=== PATIENT | male | born 1975 | race Caucasian/White ===

== ENCOUNTER 2017-01-24 06:17 | Emergency (ER) | payer OTHER ==
[~2017-01-24] VITALS: Ht 190.5 cm; Wt 114.7 kg
[~2017-01-24 06:17] MED LIST: ACT/30 PO; B-COTAB18 PO; CINN1CAP2 PO; CITA40TA12 PO; CRAN1CAP15 PO; GLC500 PO; GLIM4TAB2 PO; MULT-506 PO
[2017-01-24 06:19] VITALS: TEMP 36.7; Ht 190.5 cm; Wt 114.7 kg
[2017-01-24] MEDS ORDERED: IBUPROFEN 600 MG TAB PO STA (06:47)
--- NOTE | 2017-01-24 06:51 | EMERGENCY ROOM VISIT NOTE ---
History Report prepared by Elroy: Cece Desai Under the Supervision of: Dr. Pantera Dill M.D. First contact with patient: 06:42 Chief Complaint: SINUS CONGESTION/PRESSURE Stated Complaint: SINUS Nursing Triage Summary: Pt states "It feels like I have a bad sinus infection." Pt states his head is stuffed up and he can feel and taste the infection. History of Present Illness The patient is a 42 year old male who presents to the Emergency Room with complaints of persistent sinus pressure that began several days ago. The patient states that recently he had a wisdom tooth extracted that did not heal properly. He states that he has been experiencing sinus congestion, nasal congestion, and nasal discharge. The patient states that he has had these in the past and has been placed on antibiotics and a nasal spray. He states that he has been experiencing a pressure headache. Source of History: patient Onset: several days ago Position: other (sinus) Quality: pressure Timing: other (persistent) Associated Symptoms: + headache Note: Associated symptoms: sinus congestion, nasal congestion, nasal discharge Review of Systems See HPI for pertinent positives & negatives. A total of 10 systems reviewed and were otherwise negative. Past Medical & Surgical Medical Problems: (1) Back pain with radiation (2) Cellulitis of leg (3) Dental caries (4) Diabetes (5) Hypertension (6) Lumbago Family History Cardiovascular disease Diabetes mellitus Social History Smoking Status: Never Smoker Smokeless Tobacco Use: No Marital Status: Housing Status: lives with significant other Occupation Status: employed Current/Historical Medications Scheduled Amoxicillin & Pot Clavulanate (Augmentin 875-125 mg), 1 TAB PO BID Citalopram Hydrobromide (Celexa), 40 MG PO QAM Glimepiride (Glimepiride), 4 MG PO QAM Metformin HCL (Glucophage *), 1,000 MG PO BID Multivitamin (Multivitamin), 1 TAB PO DAILY Pioglitazone Hcl (Actos), 30 MG PO QAM Scheduled PRN Oxycodone/Acetaminophen 5MG/325MG (Percocet 5MG/325MG), 1-2 TAB PO Q4H PRN for Pain Allergies Coded Allergies: No Known Allergies (Verified , 01/24/17) Physical Exam Vital Signs Date Time Temp Pulse Resp B/P (MAP) Pulse Ox O2 Delivery O2 Flow Rate FiO2 01/24/17 07:04 81 18 121/74 96 01/24/17 06:19 36.7 90 18 125/81 97 Room Air Physical Exam GENERAL: Patient is a healthy-appearing well-nourished male HEAD: Normocephalic atraumatic EYES: Ocular movements intact pupils equal and react to light OROPHARYNX mucous membranes are moist no exudates present no erythema or edema present. No evidence of Carlyle's angina on exam, no wound. NECK: Supple no nuchal rigidity. No evidence of meningitis or encephalitis on exam. CHEST: Good equal expansion LUNGS: Clear and equal to auscultation CARDIAC: Normal S1 and S2 ABDOMEN: Soft nontender no guarding BACK: No CVA tenderness EXTREMITIES: No pain upon palpation normal muscle strength in all groups no clubbing cyanosis or edema NEURO: Patient is following commands and answering questions appropriately. Alert and oriented x3 Cranial Nerves 2-12 grossly intact Medical Decision & Procedures Medications Administered Medications (Trade) Dose Ordered Sig/Max Route Start Time Stop Time Status Last Admin Dose Admin Amoxicillin/ Clavulanate Potassium (Augmentin Tab) 875 mg ONE ONCE PO 01/24/17 07:00 01/24/17 07:01 DC 01/24/17 06:58 875 MG Ibuprofen (Motrin Tab) 600 mg NOW STAT PO 01/24/17 06:47 01/24/17 06:48 DC 01/24/17 06:58 600 MG Oxycodone/ Acetaminophen (Percocet 5-325mg Tab) 2 tab NOW ONCE PO 01/24/17 07:00 01/24/17 07:01 DC 01/24/17 06:59 2 TAB Sodium Chloride ([place] Nasal [place]) 2 sprays NOW ONCE NA 01/24/17 07:00 01/24/17 07:01 DC 01/24/17 06:59 2 SPRAYS ED Course 0644: Past medical records reviewed. The patient was evaluated in room A10. A complete history and physical examination was performed. I discussed the exam findings with him and I discussed the treatment plan. He is ready for discharge once he receives his medications. 0647: Ordered Motrin Tab 600 mg PO. 0700: Ordered Sodium Chloride 2 sprays NA, Oxycodone/Acetaminophen 2 tab PO, Augmentin Tab 875 mg PO. Medical Decision Differential diagnosis: Etiologies such as migraine headache, meningitis, sinusitis, CO exposure, ICH, SAH, infection, tumor, headache, sinus thrombosis, arterial dissection, as well as others were entertained. This is a 42-year-old male who presents emergency department complaining of sinus-like symptoms. The patient has no evidence of meningitis encephalitis on examination. The patient has a history of sinus infections in the past and has been on antibiotics previously for them. I will place the patient on Augmentin. He was given ibuprofen as well as Percocet for the pain. I do feel that the patient as well as to be discharged home for follow-up this primary care physician however strongly cautioned him to return if he develops any severe headaches or neck pain. Patient was in agreement with the treatment plan. Medication Reconcilliation Current Medication List: was personally reviewed by me Impression Primary Impression: Sinusitis Scribe Attestation The scribe's documentation has been prepared under my direction and personally reviewed by me in its entirety. I confirm that the note above accurately reflects all work, treatment, procedures, and medical decision making performed by me. Departure Information Dispostion Home / Self-Care Prescriptions Oxycodone/Acetaminophen 5MG/325MG (PERCOCET 5MG/325MG) Tab 1-2 TAB PO Q4H Y for Pain, #14 TAB Prov: Pantera Dill MD 01/24/17 Amoxicillin & Pot Clavulanate (Augmentin 875-125 mg) 1 Tab Tab 1 TAB PO BID for 10 Days, #20 TAB Prov: Pantera Dill MD 01/24/17 Referrals No Doctor, Assigned (PCP) Rodrigo Bravo D.O. Kao, Yi How, M.D. Forms HOME CARE DOCUMENTATION FORM, IMPORTANT VISIT INFORMATION, WORK / SCHOOL INSTRUCTIONS Patient Instructions ED Sinusitis Abx Tx, My [facility] Additional Instructions Follow up with Dr Fabian's office Use spray twice every 4 hours You received narcotic or benzodiazepene medication while in the emergency room today. This is an addictive medication that may cause drowziness as well as constipation. Do not drive, operate heavy machinery, or drink alcohol under the influence of this medication. Take 600 mg Ibuprofen every 6 hours Take Percocet for breakthrough pain You have been examined and treated today on an emergency basis only. This is not a substitute for, or an effort to provide, complete comprehensive medical care. It is impossible to recognize and treat all injuries or illnesses in a single emergency department visit. It is therefore important that you follow up closely with your PCP. Call as soon as possible for an appointment. Thank you for your time and consideration. I look forward to speaking with you again soon. Please don't hesitate to call us if you have any questions. Problem Qualifiers Primary Impression: Sinusitis Sinusitis location: frontal Chronicity: acute Recurrence: not specified as recurrent Qualified Codes: J01.10 - Acute frontal sinusitis, unspecified
[2017-01-24] MEDS ORDERED: AMOX875T PO (06:53)
[2017-01-24] MEDS ORDERED: OXYC-57 PO (06:53)
[2017-01-24] MEDS ORDERED: OXYCODONE/ACETAMINOPHEN 5-325 TAB PO ONE (07:00)
[2017-01-24] MEDS ORDERED: SODIUM CHLORIDE 0.65% NA SOLN 45 ML (OCEAN) ONE (07:00)
[2017-01-24] MEDS ORDERED: AMOXICILLIN/CLAVULANATE TAB 875 MG TAB PO ONE (07:00)
[2017-01-24 07:04] VITALS: BP 121/74; PULSE 81; O2SAT 96
== END 2017-01-24 07:05 | disposition home or self-care (01) ==
LOC: C.EDB 06:18 → C.EDA 07:05
DX: E11.9 Type 2 diabetes mellitus without complications (principal); I10 Essential (primary) hypertension; Z83.3 Family history of diabetes mellitus; Z82.49 Family history of ischemic heart disease and other diseases of the circulatory system; J01.10 Acute frontal sinusitis, unspecified

== ENCOUNTER 2017-03-14 09:53 | Emergency (ER) | payer OTHER ==
[~2017-03-14] VITALS: Ht 190.5 cm; Wt 114.6 kg
[~2017-03-14 09:53] MED LIST changes: -B-COTAB18 PO; -CINN1CAP2 PO; -CRAN1CAP15 PO; +OXYC-57 PO
[2017-03-14 09:58] VITALS: Ht 190.5 cm; Wt 114.6 kg
[2017-03-14] MEDS ORDERED: ATOR10TA82 PO (10:31)
[2017-03-14] MEDS ORDERED: SULF800T23 PO (10:31)
[2017-03-14 12:12] LABS: BASO % 0.5 %; BASO ABS # 0.03 K/uL (0-0.2); COMPLETE YES; EOS % 3.4 %; HEMATOCRIT 41.1 % (42-52); IG% 0.2 %; LYMPH % 29.3 %; MEAN CELL VOLUME 92.4 fL (80-100); MEAN CORPUSCULAR HEMOGLOBIN 32.4 pg (25-34); MEAN PLATELET VOLUME 10.3 fL (7.4-10.4); MONO % 5.9 %; NEUT % 60.7 %; PLATELET COUNT 185 K/uL (130-400); RED BLOOD COUNT 4.45 M/uL (4.7-6.1)
[2017-03-14 12:34] LABS: BUN/CREATININE RATIO 15.5 (10-20); CALCIUM 8.6 mg/dl (8.5-10.1); CREATININE 1.18 mg/dl (0.60-1.40); POTASSIUM 4.4 mmol/L (3.5-5.1)
[2017-03-14] MEDS ORDERED: LEVO-366 PO (12:49)
--- NOTE | 2017-03-14 12:51 | EMERGENCY ROOM VISIT NOTE ---
History First contact with patient: 11:05 Chief Complaint: SINUS CONGESTION/PRESSURE Stated Complaint: SINUS PRESSURE AND CONGESTION Nursing Triage Summary: Sinus infection x4 months, has been on multiple ATBs. He called PCP this AM and was told to come here. Had wisdom tooth pulled 4-5 months ago and now has yellow drainage from that area. Denies fevers. History of Present Illness The patient is a 42 year old male who presents to the Emergency Room via private vehicle with complaints of "sinus congestion/pressure". The patient states that he had teeth extracted by Dr. Fernandez in [facility]. He states that these were extracted about 4 months ago. Since then he has had drainage from the posterior superior molar region as well as right sided sinusitis that is progressing to be generalized in the frontal and maxillary regions. He rates the overall pain from this as a 7/10. He has been on various antibiotics to include what he believes to be Augmentin, Bactrim and doxycycline. Most recently he has been placed upon Bactrim. He will finish this in 1 day. He has an appointment scheduled with your nose and throat on Saturday. This past Saturday he was also seen at [facility] and had a CT scan performed of his sinuses. These noted right maxillary sinusitis with fluid and mucosal thickening. Also mild right ethmoid sinus because of thickening. Also opacified right middle meatus and infundibulum. Right maxillary sinus floor defect and unerupted right maxillary molar with its roots in the sinus. Review of Systems A complete 6-point Review of Systems was discussed with the patient, with pertinent positives and negatives listed in the History of Present Illness. All remaining Review of Systems questions can be considered negative unless otherwise specified. Past Medical/Surgical History Medical Problems: (1) Back pain with radiation (2) Cellulitis of leg (3) Dental caries (4) Diabetes (5) Hypertension (6) Lumbago Family History Cardiovascular disease Diabetes mellitus Social History Smoking Status: Never Smoker Marital Status: Housing Status: lives with significant other Occupation Status: employed Current/Historical Medications Scheduled Atorvastatin (Lipitor), 10 MG PO DAILY Citalopram Hydrobromide (Celexa), 40 MG PO QAM Glimepiride (Glimepiride), 4 MG PO BID Levofloxacin (Levaquin), 500 MG PO DAILY Metformin HCL (Glucophage *), 1,000 MG PO BID Multivitamin (Multivitamin), 1 TAB PO DAILY Pioglitazone Hcl (Actos), 30 MG PO QAM Sulfamethoxazole-Trimethoprim (Bactrim Ds 800MG/160MG), 1 TAB PO BID Physical Exam Vital Signs Date Time Temp Pulse Resp B/P (MAP) Pulse Ox O2 Delivery O2 Flow Rate FiO2 03/14/17 13:00 36.6 74 18 104/68 96 Room Air 03/14/17 11:48 36.7 70 18 112/63 95 Room Air 03/14/17 10:01 96 Room Air 03/14/17 09:58 36.8 87 16 111/66 96 Room Air Physical Exam VITAL SIGNS - Vital signs and nursing notes were reviewed. Stable. GENERAL -42-year-old male appearing his stated age who is in no acute distress. Communicates well with provider and answers questions appropriately. SKIN - Without rashes. No petechial rashes. HEAD - NC/AT. No facial tenderness overlying the sinuses. EYES - PERRL with EOMI bilaterally. Sclera anicteric. EARS - No deformities of external structures noted on gross examination bilaterally. No pain elicited with palpation of the tragus bilaterally. External auditory canals without discharge or otorrhea. Tympanic membranes pearly deutsch without retraction or bulging. No fluid or purulent material visualized behind the TM. Handle of malleus, umbo, cone of light, pars tensa/ flaccid all easily visualized. NOSE - Midline and without cyanosis. No epistaxis or purulent drainage noted. Septum midline without deviation or septal hematoma noted. MOUTH/OROPHARYNX - Without perioral cyanosis. Buccal mucosa pink and moist and without leukoplakia. Tongue midline with equal elevation of palate bilaterally. No tonsillar hypertrophy, erythema, or exudates noted. Fair dentition noted. Well healed socket on superior/posterior R region. NECK - Neck with FROM. Supple to palpation. No lymphadenopathy noted. No nuchal rigidity. LUNGS - Chest wall symmetric without accessory muscle use, intercostals retractions, or central cyanosis. Normal vesicular breath sounds CTA B/L. No wheezes, rales, or rhonchi appreciated. CARDIAC - RRR with S1/S2. No murmur, rubs, or gallops appreciated. Medical Decision & Procedures Laboratory Results 03/14/17 11:40 Red Blood Count 4.45, Mean Corpuscular Volume 92.4, Mean Corpuscular Hemoglobin 32.4, Mean Corpuscular Hemoglobin Concent 35.0, Mean Platelet Volume 10.3, Neutrophils (%) (Auto) 60.7, Lymphocytes (%) (Auto) 29.3, Monocytes (%) (Auto) 5.9, Eosinophils (%) (Auto) 3.4, Basophils (%) (Auto) 0.5, Neutrophils # (Auto) 3.52, Lymphocytes # (Auto) 1.70, Monocytes # (Auto) 0.34, Eosinophils # (Auto) 0.20, Basophils # (Auto) 0.03 03/14/17 11:40 Test 03/14/17 11:40 White Blood Count 5.80 K/uL (4.8-10.8) Red Blood Count 4.45 M/uL (4.7-6.1) Hemoglobin 14.4 g/dL (14.0-18.0) Hematocrit 41.1 % (42-52) Mean Corpuscular Volume 92.4 fL (80-100) Mean Corpuscular Hemoglobin 32.4 pg (25-34) Mean Corpuscular Hemoglobin Concent 35.0 g/dl (32-36) Platelet Count 185 K/uL (130-400) Mean Platelet Volume 10.3 fL (7.4-10.4) Neutrophils (%) (Auto) 60.7 % Lymphocytes (%) (Auto) 29.3 % Monocytes (%) (Auto) 5.9 % Eosinophils (%) (Auto) 3.4 % Basophils (%) (Auto) 0.5 % Neutrophils # (Auto) 3.52 K/uL (1.4-6.5) Lymphocytes # (Auto) 1.70 K/uL (1.2-3.4) Monocytes # (Auto) 0.34 K/uL (0.11-0.59) Eosinophils # (Auto) 0.20 K/uL (0-0.5) Basophils # (Auto) 0.03 K/uL (0-0.2) RDW Standard Deviation 42.7 fL (36.4-46.3) RDW Coefficient of Variation 12.6 % (11.5-14.5) Immature Granulocyte % (Auto) 0.2 % Immature Granulocyte # (Auto) 0.01 K/uL (0.00-0.02) Anion Gap 7.0 mmol/L (3-11) Est Creatinine Clear Calc Drug Dose 111.4 ml/min Estimated GFR () 87.7 Estimated GFR (Non- 75.7 BUN/Creatinine Ratio 15.5 (10-20) Calcium Level 8.6 mg/dl (8.5-10.1) Total Bilirubin 0.6 mg/dl (0.2-1) Aspartate Amino Transf (AST/SGOT) 19 U/L (15-37) Alanine Aminotransferase (ALT/SGPT) 32 U/L (12-78) Alkaline Phosphatase 52 U/L (45-117) Total Protein 7.5 gm/dl (6.4-8.2) Albumin 3.8 gm/dl (3.4-5.0) Globulin 3.7 gm/dl (2.5-4.0) Albumin/Globulin Ratio 1.0 (0.9-2) Medical Decision Patient was seen and evaluated as above. CT scan findings as noted in history. There is a molar with extension to the sinuses bites roots. I question if this is the cause of his symptoms at this time. I believe that further evaluation by specialist is appropriate. IV access was also established, and the above workup was performed. leukocytosis. slight anemia noted. Slight hyponatremia. He also appears to be slightly dehydrated. Glucose at 208. The patient at this time appears stable for outpatient management. He is afebrile and appears well on exam. I recommend following up with the ENT doctor on Saturday, and will also prescribe Levaquin if his symptoms worsen. I informed him now however that this is at an increased risk of medication interaction as he is also on Celexa. He verbalized understanding. He is only to begin this medication if he worsens. He was educated upon management, educated upon worrisome symptoms which to return, had questions and provided discharge, and was discharged home in good condition. In evaluation treatment this patient following differential diagnoses were entertained: Sinusitis, sepsis, dental infection, among others. Impression Primary Impression: Sinusitis Departure Information Dispostion Home / Self-Care Condition GOOD Prescriptions Levofloxacin (Levaquin) 500 Mg Tab 500 MG PO DAILY for 7 Days, #7 TAB Prov: Camilo Mo PA-C 03/14/17 Referrals Rodrigo Bravo D.O. (PCP) Patient Instructions My [facility] Additional Instructions You were seen in the emergency department for sinusitis. I have recommended another antibiotic but be careful as this can interact with your Celexa. This is only if you absolutely need to begin another medication but I would rather you speak with ENT first. Please keep your Saturday appointment. Please stay well hydrated and drink plenty of fluids. Closely watch your sugars. Please return with any new/concerning symptoms.
[2017-03-14 13:00] VITALS: BP 104/68; PULSE 74; TEMP 36.6; O2SAT 96
== END 2017-03-14 13:11 | disposition home or self-care (01) ==
LOC: C.EDB 09:55 → C.EDA 13:11
DX: J01.90 Acute sinusitis, unspecified (principal); E11.9 Type 2 diabetes mellitus without complications; I10 Essential (primary) hypertension; M54.5 Low back pain; Z79.84 Long term (current) use of oral hypoglycemic drugs; Z83.3 Family history of diabetes mellitus

== ENCOUNTER 2017-08-19 06:42 | Emergency (ER) | payer OTHER ==
[~2017-08-19] VITALS: Ht 190.5 cm; Wt 119.6 kg
[~2017-08-19 06:42] MED LIST changes: +ATOR10TA82 PO; -OXYC-57 PO; +SULF800T23 PO
[2017-08-19 06:45] VITALS: BP 130/76; PULSE 92; TEMP 36.6; O2SAT 95; Ht 190.5 cm; Wt 119.6 kg
[2017-08-19] MEDS ORDERED: IBUPROFEN 600 MG TAB PO STA (07:09)
[2017-08-19] MEDS ORDERED: ONDA4TAB10 SL (07:13)
--- NOTE | 2017-08-19 07:13 | EMERGENCY ROOM VISIT NOTE ---
History Report prepared by Elroy: Radha Santana Under the Supervision of: Dr. Pantera Eldridge D.O. First contact with patient: 06:56 Chief Complaint: ABDOMINAL PAIN Stated Complaint: UPSET STOMACH Nursing Triage Summary: "My stomachs been upset and I haven't felt real well for the last week". Nausea. Slight headaches. History of Present Illness The patient is a 42 year old male who presents to the Emergency Room with complaints of constant abdominal pain starting a few days ago. The patient currently rates his pain as a 6/10 in severity. He reports that the pain is throughout his whole abdomen. The patient complains of nausea, slight cough, and a headache. The patient denies vomiting, sore throat, a runny nose, and taking any Tylenol or Motrin. The patient notes a history of diabetes that he takes pills for. Source of History: patient Onset: a few days ago Position: abdomen Symptom Intensity: 6/10 Timing: constant Associated Symptoms: + headache, + cough, + nausea, No sorethroat, No vomiting Note: The patient denies a runny nose. Review of Systems See HPI for pertinent positives & negatives. A total of 10 systems reviewed and were otherwise negative. Past Medical & Surgical Medical Problems: (1) Back pain with radiation (2) Cellulitis of leg (3) Dental caries (4) Diabetes (5) Hypertension (6) Lumbago Family History Cardiovascular disease Diabetes mellitus Social History Smoking Status: Never Smoker Marital Status: Housing Status: lives with significant other Occupation Status: employed Current/Historical Medications Scheduled Atorvastatin (Lipitor), 10 MG PO DAILY Citalopram Hydrobromide (Celexa), 40 MG PO QAM Glimepiride (Glimepiride), 4 MG PO BID Metformin HCL (Glucophage *), 1,000 MG PO BID Multivitamin (Multivitamin), 1 TAB PO DAILY Pioglitazone Hcl (Actos), 30 MG PO QAM Sulfamethoxazole-Trimethoprim (Bactrim Ds 800MG/160MG), 1 TAB PO BID Allergies Coded Allergies: No Known Allergies (Verified , 03/14/17) Physical Exam Vital Signs Date Time Temp Pulse Resp B/P (MAP) Pulse Ox O2 Delivery O2 Flow Rate FiO2 08/19/17 06:45 36.6 92 20 130/76 95 Room Air Physical Exam CONSTITUTIONAL/VITAL SIGNS: Reviewed / noted above. GENERAL: Non-toxic in appearance. INTEGUMENTARY: Warm, dry, and [place]. HEAD: Normocephalic. EYES: without scleral icterus or trauma. ENT/OROPHARYNX: clear and moist. LYMPHADENOPATHY/NECK: Is supple without lymphadenopathy or meningismus. RESPIRATORY: Lungs clear and equal. CARDIOVASCULAR: Regular rate and rhythm. GI/ABDOMEN: Soft and nontender. No organomegaly or pulsatile mass. No rebound or guarding. Normal bowel sounds. EXTREMITIES: Warm and well perfused. BACK: No CVA tenderness. NEUROLOGICAL: Intact without focal deficits. PSYCHIATRIC: normal affect. MUSCULOSKELETAL: Normally developed with good muscle tone. Medical Decision & Procedures ED Course 0704: Previous medical records were reviewed. The patient was evaluated in room A12B. A complete history and physical examination was performed. I discussed the results and findings with the patient. He verbalized agreement of the treatment plan. The patient was discharged home. 0709: Ordered Ibuprofen 600 mg PO. 0715: Ordered Zofran Odt 4 mg PO. Medical Decision Differential includes viral illness, influenza, streptococcal pharyngitis, meningitis, pneumonia, sinusitis, UTI, pyelonephritis, otitis media. This is a 42-year-old male who presents to the ED with a chief complaint of upset stomach, headache and some nausea. He has had the symptoms for a few days. He denies any other symptoms. Has not had fevers. He does have a history of diabetes not requiring insulin. The patient has normal vital signs. His physical exam was normal. The patient was treated with Zofran ODT and Motrin p.o. His symptoms are likely viral in etiology. His exam was normal and therefore I did not feel any testing would reveal any additional information that cannot be obtained based on his history and exam. He did not take anything for his symptoms prior to coming. The patient requested a work note. He was felt to be stable for discharge. Medication Reconcilliation Current Medication List: was personally reviewed by me Blood Pressure Screening Patient's blood pressure: Normal blood pressure Blood pressure disposition: Did not require urgent referral Impression Primary Impression: Nausea Additional Impression: Headache Scribe Attestation The scribe's documentation has been prepared under my direction and personally reviewed by me in its entirety. I confirm that the note above accurately reflects all work, treatment, procedures, and medical decision making performed by me. Departure Information Dispostion Home / Self-Care Prescriptions Ondasetron Odt (ZOFRAN ODT) 4 Mg Tab 4 MG SL Q6H for Nausea, #6 TAB Prov: Pantera Eldridge D.O. 08/19/17 Referrals Rodrigo Bravo D.O. (PCP) Forms Call Back Authorization, HOME CARE DOCUMENTATION FORM, IMPORTANT VISIT INFORMATION, Work Instructions Return To Work: 1 day Specific Date: 08/20/17 Patient Instructions My [facility] Additional Instructions Follow-up with your doctor for further care and evaluation in 1-2 days. Return to the emergency department for worsening or new symptoms or any concerns. You have been examined and treated today on an emergency basis only. This is not a substitute for, or an effort to provide, complete comprehensive medical care. It is impossible to recognize and treat all injuries or illnesses in a single emergency department visit. It is therefore important that you follow up closely with your doctor. Call as soon as possible for an appointment. Zofran: Allow one tablet to dissolve under the tongue every 6 hours as needed for nausea or vomiting. Problem Qualifiers
[2017-08-19] MEDS ORDERED: ONDANSETRON 4MG OD TAB PO ONE (07:15)
[2017-08-19] MEDS ORDERED: METF-384 PO (07:20)
== END 2017-08-19 07:26 | disposition home or self-care (01) ==
LOC: C.EDB 06:43 → C.EDA 07:26
DX: R11.0 Nausea (principal); R51 Headache; E11.9 Type 2 diabetes mellitus without complications; I10 Essential (primary) hypertension; Z79.84 Long term (current) use of oral hypoglycemic drugs; Z79.899 Other long term (current) drug therapy

== ENCOUNTER 2019-01-01 23:07 | Inpatient (IN) ==
[2019-01-01] MEDS ORDERED: SODIUM CHLORIDE 0.9% 1000ML 1,000 ML IV ONE (23:42)
[2019-01-01] MEDS ORDERED: VANCOMYCIN CONSULT ACTIVE PRN (23:45)
[2019-01-01] MEDS ORDERED: VANCOMYCIN HCL 2,000 MG in SODIUM CHLORIDE 0.9% 500 ML IV ONE (23:45)
[2019-01-01] MEDS ORDERED: PIPERACILLIN/TAZOBACTAM 4.5 GM/120 ML BAG IV ONE (23:45)
[2019-01-01] MEDS ORDERED: PIPERACILL/TAZOBAC CONSULT ACTIVE PRN (23:45)
[2019-01-02 00:17] LABS: Basophils # (auto) 0.02 K/uL (0-0.2); Basophils % (auto) 0.2 %; Eosinophils # (auto) 0.14 K/uL (0-0.5); Eosinophils % (auto) 1.3 %; Hematocrit (blood only) 41.3 % (42-52); Hemoglobin 15.2 g/dL (14.0-18.0); Immature Granulocytes # (auto) 0.02 K/uL (0.00-0.02); Immature Granulocytes % (auto) 0.2 %; Lymphocytes # (auto) 1.58 K/uL (1.2-3.4); Lymphocytes % (auto) 14.9 %; Mean Corpuscular Hemoglobin 33.5 pg (25-34); Mean Corpuscular Hgb Conc 36.8 g/dL (32-36); Mean Platelet Volume 10.7 fL (7.4-10.4); Monocytes # (auto) 0.86 K/uL (0.11-0.59); Monocytes % (auto) 8.1 %; Neutrophils # (auto) 7.99 K/uL (1.4-6.5); Neutrophils % (auto) 75.3 %; Platelet Count 226 K/uL (130-400); RDW Coefficient of Variation 12.2 % (11.5-14.5); RDW Standard Deviation 40.6 fL (36.4-46.3); Red Blood Count 4.54 M/uL (4.7-6.1); White Blood Count 10.61 K/uL (4.8-10.8)
[2019-01-02 00:35] LABS: Base Excess VBG 1.7 mEq/L; Oxygen Saturation VBG 76.7 %; pH VBG 7.44 (7.36-7.41)
[2019-01-02 00:40] LABS: Albumin Level 3.7 gm/dl (3.4-5.0); BUN Creatinine Ratio 14.4 (10-20); Bilirubin Direct 0.3 mg/dl (0-0.2); Bilirubin,Total 0.8 mg/dl (0.2-1); Calcium 9.1 mg/dl (8.5-10.1); Creatinine Clr Calc Pharmacy 95.1 ml/min; Est GFR (African American) 96.9; Est GFR (Non-African American) 83.6; Magnesium 2.2 mg/dl (1.8-2.4); Potassium 3.9 mmol/L (3.5-5.1); Total Protein 8.7 gm/dl (6.4-8.2)
[2019-01-02] MEDS ORDERED: SODIUM CHLORIDE 0.9% 1000ML 1,000 ML IV ONE (00:48)
[2019-01-02 00:53] LABS: Beta-Hydroxybutyrate 9.97 mg/dl (0.2-2.81)
[2019-01-02] MEDS ORDERED: IOVERSOL 100ml IV PRN (02:03)
[2019-01-02] MEDS ORDERED: SODIUM CHLORIDE 0.9% 1000ML 1,000 ML IV SCH (02:45)
--- NOTE | 2019-01-02 02:51 | Emergency Department Note ---
Entered by Ama Casas acting as a scribe for Oseas Springer MD ED Provider Note Name: Aj Suarez Age: 43 M Arrives Via: Ambulatory Informant: Patient CC: Right lower extremity pain HPI: 43 male arrives for evaluation of his right lower extremity. The patient reports that he has been experiencing pain and redness in his right lower extremity. He notes that he went to [place] on Saturday where they discharged him with antibiotics. He notes that the redness has worsened since then. He sta chloe that the pain worsens when walking. He does not remember getting injured. The patient denies any calf pain, nausea, vomiting, fever, or groin pain. He mentions that he is diabetic and his blood sugar has been in the 500s recently. The patient denies any drug use or steroid use. The patient states that he chews tobacco and occasionally smokes marijuana ROS: See above HPI for pertinent positives & negatives. A total of 10 systems reviewed and were otherwise negative. Past Medical History: HTN and diabetes mellitus Past Surgical History: No significant past surgical history Family History: No significant family history Social History: See below Home Medications: Atorvastatin, Escitalopram Oxalate, Glimepiride, and Metformin Allergies Pollen Physical: Vitals: BP 125/78, P 108, R 16, O2 96%, Temp 99 Exam: GENERAL: Patient is uncomfortable appearing and in moderate acute distress. EYES: No scleral icterus, unremarkable pupils. ENT: Mucous membranes moist, no nasal congestion. NECK: No masses appreciated, no meningismus, trachea is midline. RESPIRATORY: No dyspnea. Clear to auscultation and equal bilaterally. No wheeze, no rhonchi. CARDIOVASCULAR: Regular rate and rhythm. No murmurs, rubs, gallops appreciated. GASTROINTESTINAL: Abdomen soft, non-tender, no peritonitis. Bowel sounds positive. No masses appreciated. BACK: No midline tenderness, no CVA tenderness EXTREMITIES: Normal motion all extremities, no cyanosis, no edema. NEUROLOGIC: Alert and oriented, no acute motor or sensory deficits, no focal weakness, cranial nerves grossly intact. SKIN: No jaundice, no diaphoresis. Large area of cellulitis on entire right l ower leg just above the knee and to the toe, anterior lateral mid resendiz 1 cm ulceration with surrounding fluctuance and tenderness to palpation. Ulcer to medial aspect of the right great toe with surrounding cellulitis. ED Course: Prior Medical Record, Triage/Nursing Notes, Medications, Allergies reviewed by Me Vital Signs: reviewed and remarkable for wnl Labs: Reviewed and remarkable for normal wbc, elevated esr, elevated crp, normal vbg, elevated bsg Interventions: saline lock, nss bolus 2 L IV, vanco IV, Zosyn IV Imaging: X ray results are stated below per my interpretation: Tib/Fib Right Le view: Mid tibia foreign body with soft tissue edema and no free air appreciated. Blood pressure: Normal. No Referral necessary Course: 233: The patient was evaluated in room C7, and a complete history and physical examination were performed. Multiple rechecks, feeling better, stable vitals 0230: I reviewed the patient's case with Dr. Leighton Jaramillo Hospitalist. He will evaluate the patient for further management. Consults: Dr. Leighton Jaramillo [facility] Disposition: Hospitalist consulted Differentials: Etiologies such as cellulitis, abscess, MRSA infection, DVT, necrotizing fasciitis, dermatitis, drug eruption, amongst other pathologies. Medical Decision Makin yr old diabetic male who may have had foreign body to right resendiz last week now with cellulitis right lower leg. Has been on clinda over last few days with worsening cellulitis. Now with cellulitis with entire right lower leg from knee to toes. Right great toe with diabetic ulcer looks infected and I suspect there may be osteo vs arthritis of this toe. With concern foreign body and swelling w ent with CT for further imaging of lower leg. Issues with stat rad thus this imaging pending. Patient tolerating this well and stable. Patient is not in septic shock with normal bp, normal lactate. Impression: Cellulitis and abscess of lower extremity Abrasion fo right toe infected Acute Hyperglycemia The scribe's documentation has been prepared under my direction and personally reviewed by me in its entirety. I confirm that the note above accurately reflects all work, treatment, procedures, and medical decision making performed by me. Oseas Springer MD Impression & Plan Cellulitis and abscess of lower extremity, Abrasion of toe, right, infected, Acute hyperglycemia Past Med/Surg History Medical History Dental caries (Resolved) Lumbago (Chronic) Hypertension (Chronic) Diabetes (Chronic) Social History marital status: Current Living Situation: Spouse and Family current occupational status: employed Feels Safe at Home: Yes Smoking Status: Never smoker Hx Alcohol Use: No Results & Data Vital Signs Vital Signs - 24 hr 01/01/19 23:11 01/02/19 00:46 01/02/19 01:59 Temperature 37.2 C Temperature Source Oral Sepsis Recent Fever Within 48 Hours No Sepsis New/Unexplained Change in Mental Status No Sepsis Action Taken by Nursing No Action Required Pulse Rate 108 H Pulse Rate [Apical] 78 Respiratory Rate 16 18 21 Respiratory Effort / Characteristics Non-Labored Spontaneous Non-Labored Spontaneous Respiratory Depth Normal Normal Normal Respiratory Pattern Regular Regular Blood Pressure 125/78 Blood Pressure [Left Arm] 135/79 131/76 Blood Pressure Mean 93 Blood Pressure Mean [Left Arm] 97 94 Blood Pressure Position [Left Arm] Lying Pulse Oximetry 96 98 98 Oxygen Delivery Method Room Air Room Air Room Air 01/02/19 02:33 Temperature Temperature Source Sepsis Recent Fever Within 48 Hours Sepsis New/Unexplained Change in Mental Status Sepsis Action Taken by Nursing Pulse Rate Pulse Rate [Apical] 87 Respiratory Rate 20 Respiratory Effort / Characteristics Non-Labored Spontaneous Respiratory Depth Normal Respiratory Pattern Regular Blood Pressure Blood Pressure [Left Arm] 112/74 Blood Pressure Mean Blood Pressure Mean [Left Arm] 86 Blood Pressure Position [Left Arm] Lying Pulse Oximetry 96 Oxygen Delivery Method Room Air Home Medications Current Medication List: was personally reviewed by me Laboratory Data Attestation: I reviewed the patient's lab results. Result diagrams: 01/02/19 00:04 01/02/19 00:04 Lab Results 01/02/19 01/02/19 01/02/19 Range/Units 00:04 00:04 00:04 WBC 10.61 (4.8-10.8) K/uL RBC 4.54 L (4.7-6.1) M/uL Hgb 15.2 (14.0-18.0) g/dL Hct 41.3 L (42-52) % MCV 91.0 (80-100) fL MCH 33.5 (25-34) pg MCHC 36.8 H (32-36) g/dL RDW Std Deviation 40.6 (36.4-46.3) fL RDW Coeff of Saida 12.2 (11.5-14.5) % Plt Count 226 (130-400) K/uL MPV 10.7 H (7.4-10.4) fL Immature Gran % (Auto) 0.2 % Neut % (Auto) 75.3 % Lymph % (Auto) 14.9 % [place] % (Auto) 8.1 % Eos % (Auto) 1.3 % Baso % (Auto) 0.2 % Immature Gran # (Auto) 0.02 (0.00-0.02) K/uL Neut # (Auto) 7.99 H (1.4-6.5) K/uL Lymph # (Auto) 1.58 (1.2-3.4) K/uL [place] # (Auto) 0.86 H (0.11-0.59) K/uL Eos # (Auto) 0.14 (0-0.5) K/uL Baso # (Auto) 0.02 (0-0.2) K/uL ESR 75 H (0-14) mm/hr VBG pH (7.36-7.41) VBG pCO2 (38-50) mmHg VBG pO2 mmHg VBG HCO3 mmol/L VBG O2 Saturation % VBG Base Excess mEq/L Barometric Pressure mm/Hg Sodium 133 L (136-145) mmol/L Potassium 3.9 (3.5-5.1) mmol/L Chloride 99 (98-107) mmol/L Carbon Dioxide 26 (21-32) mmol/L Anion Gap 8.0 (3-11) BUN 16 (7-18) mg/dl Creatinine 1.08 (0.6-1.4) mg/dl Est Cr Clr Drug Dosing 95.1 ml/min Est GFR ( Amer) 96.9 Est GFR (Non-Af Amer) 83.6 BUN/Creatinine Ratio 14.4 (10-20) Glucose 333 H* (70-99) mg/dl POC Glucose (70-99) Lactate (0.4-2.0) mmol/L Calcium 9.1 (8.5-10.1) mg/dl Magnesium 2.2 (1.8-2.4) mg/dl Total Bilirubin 0.8 (0.2-1) mg/dl Direct Bilirubin 0.3 H (0-0.2) mg/dl AST 6 L (15-37) U/L ALT 16 (12-78) U/L Alkaline Phosphatase 78 (45-117) U/L Total Creatine Kinase 55 (39-308) U/L C-Reactive Protein 10.00 H (0-0.29) mg/dl Total Protein 8.7 H (6.4-8.2) gm/dl Albumin 3.7 (3.4-5.0) gm/dl Beta-Hydroxybutyric Acd 9.97 H (0.2-2.81) mg/dl 01/02/19 01/02/19 01/02/19 Range/Units 00:04 00:08 02:38 WBC (4.8-10.8) K/uL RBC (4.7-6.1) M/uL Hgb (14.0-18.0) g/dL Hct (42-52) % MCV (80-100) fL MCH (25-34) pg MCHC (32-36) g/dL RDW Std Deviation (36.4-46.3) fL RDW Coeff of Saida (11.5-14.5) % Plt Count (130-400) K/uL MPV (7.4-10.4) fL Immature Gran % (Auto) % Neut % (Auto) % Lymph % (Auto) % [place] % (Auto) % Eos % (Auto) % Baso % (Auto) % Immature Gran # (Auto) (0.00-0.02) K/uL Neut # (Auto) (1.4-6.5) K/uL Lymph # (Auto) (1.2-3.4) K/uL [place] # (Auto) (0.11-0.59) K/uL Eos # (Auto) (0-0.5) K/uL Baso # (Auto) (0-0.2) K/uL ESR (0-14) mm/hr VBG pH 7.44 H (7.36-7.41) VBG pCO2 39 (38-50) mmHg VBG pO2 41 mmHg VBG HCO3 26 mmol/L VBG O2 Saturation 76.7 % VBG Base Excess 1.7 mEq/L Barometric Pressure 732.4 mm/Hg Sodium (136-145) mmol/L Potassium (3.5-5.1) mmol/L Chloride (98-107) mmol/L Carbon Dioxide (21-32) mmol/L Anion Gap (3-11) BUN (7-18) mg/dl Creatinine (0.6-1.4) mg/dl Est Cr Clr Drug Dosing ml/min Est GFR ( Amer) Est GFR (Non-Af Amer) BUN/Creatinine Ratio (10-20) Glucose (70-99) mg/dl POC Glucose 267 H (70-99) Lactate 1.4 (0.4-2.0) mmol/L Calcium (8.5-10.1) mg/dl Magnesium (1.8-2.4) mg/dl Total Bilirubin (0.2-1) mg/dl Direct Bilirubin (0-0.2) mg/dl AST (15-37) U/L ALT (12-78) U/L Alkaline Phosphatase (45-117) U/L Total Creatine Kinase (39-308) U/L C-Reactive Protein (0-0.29) mg/dl Total Protein (6.4-8.2) gm/dl Albumin (3.4-5.0) gm/dl Beta-Hydroxybutyric Acd (0.2-2.81) mg/dl Administered Medications Ioversol (Optiray 320 100ml) 92 ml IV ONCE PRN PRN Reason: Interaction Checking Stop: 01/06/19 02:02 Last Admin: 01/02/19 02:03 Dose: 1 ml Documented by: [id number] Miscellaneous Information (Consult) 1 ea N/A UD PRN PRN Reason: Consult Stop: 01/31/19 23:44 Last Admin: 01/02/19 00:29 Dose: 1 ea Documented by: [id number] Miscellaneous Information (Consult) 1 ea N/A UD PRN PRN Reason: Consult Stop: 01/31/19 23:44 Last Admin: 01/02/19 00:29 Dose: 1 ea Documented by: [id number] Discontinued Medications Piperacillin Sod/Tazobactam Sod (Zosyn) 4.5 gm in 120 mls @ 240 mls/hr IV NOW ONE Stop: 01/02/19 00:14 Last Infusion: 01/02/19 01:15 Dose: 0 mls/hr Documented by: [id number] Admin: 01/02/19 00:42 Dose: 240 mls/hr Documented by: [id number] Sodium Chloride (Nss 1000ml) 1,000 mls @ 999 mls/hr IV .Q1H1M ONE Stop: 01/02/19 00:42 Last Infusion: 01/02/19 01:59 Dose: 0 mls/hr Documented by: [id number] Admin: 01/02/19 00:25 Dose: 999 mls/hr Documented by: [id number] Vancomycin HCl 2,000 mg/ (Sodium Chloride) 540 mls @ 200 mls/hr IV NOW ONE Stop: 01/02/19 02:26 Last Admin: 01/02/19 00:25 Dose: 200 mls/hr Documented by: [id number] Sodium Chloride (Nss 1000ml) 1,000 mls @ 999 mls/hr IV .Q1H1M ONE Stop: 01/02/19 01:48 Last Infusion: 01/02/19 02:22 Dose: 0 mls/hr Documented by: [id number] Admin: 01/02/19 01:14 Dose: 999 mls/hr Documented by: [id number] Discharge Plan Visit Data Chief Complaint: Infection Stated Complaint: INFECTION IN LEFT LOW LEG ED Provider: Oseas Springer Discharge Problem: Cellulitis and abscess of lower extremity, Abrasion of toe, right, infected, Acute hyperglycemia Patient Disposition: Being Evaluated by Hospitalist Forms Stand Alone Forms: My [facility] Prescriptions Prescriptions: No Action escitalopram oxalate 20 mg tablet 20 mg PO QAM RF: 0 loratadine [Allergy Relief (loratadine)] 10 mg Tablet 10 mg PO DAILY PRN (Reason: Allergy Symptoms) RF: 0 atorvastatin 10 mg tablet 10 mg PO QAM RF: 0 metformin 1,000 mg tablet 1,000 mg PO BID RF: 0 glimepiride 4 mg tablet 4 mg PO QAM RF: 0 pioglitazone 30 mg tablet 30 mg PO QAM RF: 0 Lantus Solostar U-100 Insulin 100 unit/mL (3 mL) insulin pen 20 unit subcut HS RF: 0 Referrals Referrals: Rodrigo Bravo [Primary Care Provider] - Discharge Problem: Abrasion of toe, right, infected Qualifiers: Encounter type: initial encounter Qualified Code(s): S90.414A - Abrasion, right lesser toe(s), initial encounter The scribe's documentation has been prepared under my direction and personally reviewed by me in its entirety. I confirm that the note above accurately reflects all work, treatment, procedures, and medical decision making performed by me.
[2019-01-02] MEDS ORDERED: INSULIN GLARGINE SOLOSTAR 100 UNITS/ML 3 ML PEN SQ STA ×2 (03:46→05:54)
[2019-01-02] MEDS ORDERED: LACTATED RINGER'S 1,000 ML IV ONE (04:49)
--- NOTE | 2019-01-02 04:50 | History & Physical Report ---
Date of Service January 02, 2019 Assessment & Plan (1) Cellulitis: Cellulitis, RLE Diabetic toe infections Failed outpatient treatment No sepsis Rule out osteomyelitis for toe wounds given uncertain duration DM 2 insulin requiring, recent outpatient hemoglobin A1c was 7.11 Aug 2015 Home BSGs uncontrolled as per patient (BSG is usually in the 300s as per her account) hyperlipidemia on statin Rx mood disorder, stable GMF IV Daptomycin, Cefepime Follow official plain x-ray results May need MRI of the toes to definitively rule out osteo-mellitus if plain x-rays negative Ortho consult RE RLE cellulitis, great toe wounds Offload lower extremities Basal insulin, ISS BG goal 1 10-1 40, carb count coverage, update hemoglobin A1c May benefit from pharmacy glycemic control consult DVT prophylaxis. Lovenox subcu Full code History of Present Illness Chief Complaint: Worsening right leg swelling Primary Care Provider: Rodrigo Bravo History obtained from patient and records. Medical history significant for DM 2 insulin requiring, hyperlipidemia, mood disorder. Patient has also had some wounds on both great toes for some time now. No recollection of trauma. Last week patient noted a blister on his right leg which he manipulated causing rupture yielding serosanguineous fluid. Patient noted progressive right leg swelling without fever and chills. Patient seen at [facility] ER 3 days ago. Patient prescribed clindamycin for cellulitis. Patient presented to the ER for worsening R leg swelling despite compliance with antibiotic Rx. No chest pain, no S OB. Patient received IV vancomycin and Zosyn at the ER. 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 Allergies Allergy/AdvReac Type Severity Reaction Status Date / Time pollen extracts Allergy Intermediate ITCHY Verified 01/02/19 00:08 EYES, SNEEZING, CONGESTION Home Medications Home Medications Medication Instructions Recorded Confirmed Type atorvastatin 10 mg PO QAM 04/14/18 01/02/19 History glimepiride 4 mg PO QAM 04/14/18 01/02/19 History insulin glargine [Lantus Solostar 20 unit SUBCUT HS 04/14/18 01/02/19 History U-100 Insulin] metformin 1,000 mg PO BID 04/14/18 01/02/19 History pioglitazone 30 mg PO QAM 04/14/18 01/02/19 History escitalopram oxalate 20 mg PO QAM 08/23/18 01/02/19 History loratadine [Allergy Relief 10 mg PO DAILY PRN 01/02/19 01/02/19 History (loratadine)] Past Med/Surg History Medical History Dental caries (Resolved) Lumbago (Chronic) Hypertension (Chronic) Diabetes (Chronic) Social History Preferred Language: Sami Communication Ability: Effective 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 Beliefs That Will Affect Care: None marital status: Current Living Situation: Other current occupational status: employed Other Information That Helps Us Care for You: No Feels Safe at Home: Yes Safety Concerns: Feels Safe At This Time Smoking Status: Never smoker Hx Alcohol Use: Yes Alcohol type: beer and hard liquor Hx Substance Use: No Review of Systems Review of Systems: As per HPI, all 10 systems reviewed, all other ROS negative Physical Exam Physical Exam: GENERAL: Comfortable, pleasant, no respiratory distress SKIN: Normal color, warm HEENT: [place] palpebral conjunctivae, no ptosis, dry buccal mucosa NECK : Supple, no tenderness CHEST : CTA, no tenderness HEART : RRR, no obvious murmurs ABDOMEN: Soft, nontender EXTREMITIES : RLE indurated swelling with overlying scab/tenderness; ulcerated wounds over both great toes with some surrounding erythema, no gross drainage NEUROLOGIC : Coherent, no facial asymmetry, no other gross focality Results & Data Vital Signs (Past 12 Hours) Vital Signs Temp Pulse Pulse Resp BP BP Pulse Ox 01/02/19 03:50 75 18 96 01/02/19 02:33 87 20 112/74 96 01/02/19 01:59 21 131/76 98 01/02/19 00:46 78 18 135/79 98 01/01/19 23:11 37.2 C 108 H 16 125/78 96 Laboratory Results Laboratory Results WBC 10.61 K/uL (4.8-10.8) 01/02/19 00:04 RBC 4.54 M/uL (4.7-6.1) L 01/02/19 00:04 Hgb 15.2 g/dL (14.0-18.0) 01/02/19 00:04 Hct 41.3 % (42-52) L 01/02/19 00:04 MCV 91.0 fL (80-100) 01/02/19 00:04 MCH 33.5 pg (25-34) 01/02/19 00:04 MCHC 36.8 g/dL (32-36) H 01/02/19 00:04 RDW Std Deviation 40.6 fL (36.4-46.3) 01/02/19 00:04 RDW Coeff of Saida 12.2 % (11.5-14.5) 01/02/19 00:04 Plt Count 226 K/uL (130-400) 01/02/19 00:04 MPV 10.7 fL (7.4-10.4) H 01/02/19 00:04 Immature Gran % (Auto) 0.2 % 01/02/19 00:04 Neut % (Auto) 75.3 % 01/02/19 00:04 Lymph % (Auto) 14.9 % 01/02/19 00:04 [place] % (Auto) 8.1 % 01/02/19 00:04 Eos % (Auto) 1.3 % 01/02/19 00:04 Baso % (Auto) 0.2 % 01/02/19 00:04 Immature Gran # (Auto) 0.02 K/uL (0.00-0.02) 01/02/19 00:04 Neut # (Auto) 7.99 K/uL (1.4-6.5) H 01/02/19 00:04 Lymph # (Auto) 1.58 K/uL (1.2-3.4) 01/02/19 00:04 [place] # (Auto) 0.86 K/uL (0.11-0.59) H 01/02/19 00:04 Eos # (Auto) 0.14 K/uL (0-0.5) 01/02/19 00:04 Baso # (Auto) 0.02 K/uL (0-0.2) 01/02/19 00:04 ESR 75 mm/hr (0-14) H 01/02/19 00:04 VBG pH 7.44 (7.36-7.41) H 01/02/19 00:08 VBG pCO2 39 mmHg (38-50) 01/02/19 00:08 VBG pO2 41 mmHg 01/02/19 00:08 VBG HCO3 26 mmol/L 01/02/19 00:08 VBG O2 Saturation 76.7 % 01/02/19 00:08 VBG Base Excess 1.7 mEq/L 01/02/19 00:08 Barometric Pressure 732.4 mm/Hg 01/02/19 00:08 Sodium 133 mmol/L (136-145) L 01/02/19 00:04 Potassium 3.9 mmol/L (3.5-5.1) 01/02/19 00:04 Chloride 99 mmol/L (98-107) 01/02/19 00:04 Carbon Dioxide 26 mmol/L (21-32) 01/02/19 00:04 Anion Gap 8.0 (3-11) 01/02/19 00:04 BUN 16 mg/dl (7-18) 01/02/19 00:04 Creatinine 1.08 mg/dl (0.6-1.4) 01/02/19 00:04 Est Cr Clr Drug Dosing 95.1 ml/min 01/02/19 00:04 Est GFR ( Amer) 96.9 01/02/19 00:04 Est GFR (Non-Af Amer) 83.6 01/02/19 00:04 BUN/Creatinine Ratio 14.4 (10-20) 01/02/19 00:04 Glucose 333 mg/dl (70-99) H* 01/02/19 00:04 POC Glucose 256 (70-99) H 01/02/19 03:57 Lactate 1.4 mmol/L (0.4-2.0) 01/02/19 00:04 Calcium 9.1 mg/dl (8.5-10.1) 01/02/19 00:04 Magnesium 2.2 mg/dl (1.8-2.4) 01/02/19 00:04 Total Bilirubin 0.8 mg/dl (0.2-1) 01/02/19 00:04 Direct Bilirubin 0.3 mg/dl (0-0.2) H 01/02/19 00:04 AST 6 U/L (15-37) L 01/02/19 00:04 ALT 16 U/L (12-78) 01/02/19 00:04 Alkaline Phosphatase 78 U/L (45-117) 01/02/19 00:04 Total Creatine Kinase 55 U/L (39-308) 01/02/19 00:04 C-Reactive Protein 10.00 mg/dl (0-0.29) H 01/02/19 00:04 Total Protein 8.7 gm/dl (6.4-8.2) H 01/02/19 00:04 Albumin 3.7 gm/dl (3.4-5.0) 01/02/19 00:04 Beta-Hydroxybutyric Acd 9.97 mg/dl (0.2-2.81) H 01/02/19 00:[address] right lower extremity initial read: Diffuse soft tissue fat stranding and edema throughout the right lower extremity greatest in the anterior lateral and posterior aspects associated with skin thickening, component of cellulitis is possible. No definite soft tissue abscess identified. No acute fractures. Ultrasound venous right lower extremity initial read: No evidence of DVT. Incidental nonspecific right inguinal lymph nodes. Right toe x-ray read pending
[2019-01-02] MEDS ORDERED: PROMETHAZINE HCL 12.5 MG in SODIUM CHLORIDE 0.9% 50 ML IV PRN (05:54)
[2019-01-02] MEDS ORDERED: KETOROLAC TROMETHAMINE 15 MG/ML VIAL IV PRN (05:54)
[2019-01-02] MEDS ORDERED: CARBOHYDRATES FOR HYPOGLYCEMIA PO PRN (05:54)
[2019-01-02] MEDS ORDERED: TRAMADOL HCL 50 MG TABLET PO PRN (05:54)
[2019-01-02] MEDS ORDERED: IBUPROFEN 200 MG TAB PO PRN (05:54)
[2019-01-02] MEDS ORDERED: GLUCOSE 40% GEL 15 GM TUBE PO PRN (05:54)
[2019-01-02] MEDS ORDERED: GLUCOSE 10 TABS/TUBE PO PRN (05:54)
[2019-01-02] MEDS ORDERED: DEXTROSE 50% 50 ML SYRINGE IV PRN (05:54)
[2019-01-02] MEDS ORDERED: GLUCAGON FOR INJ 1 MG VIAL SQ PRN (05:54)
[2019-01-02] MEDS ORDERED: DAPTOMYCIN CONSULT ACTIVE PRN (06:15)
[2019-01-02] MEDS ORDERED: CEFEPIME CONSULT ACTIVE PRN (06:16)
--- NOTE | 2019-01-02 06:30 | XRay Report ---
XR tibia fibula RT 2V HISTORY: 43 years-old Male mid anterior lateral infection acute pain and swelling of the right lower leg COMPARISON: CT right lower extremity of same day TECHNIQUE: 2 views of the right tibia and fibula FINDINGS: Moderate soft tissue edema this is most pronounced in the mid pretibial tissues. No acute fracture or dislocation. Scattered pretibial calcifications are likely vascular in origin. Degenerative changes of the knee and ankle IMPRESSION: 1. No acute fracture or dislocation. 2. Moderate soft tissue swelling. The above report was generated using voice recognition software. It may contain grammatical, syntax o r spelling errors. Electronically signed by: Jeremiah Dykes M.D. 01/02/2019 6:29 AM
[2019-01-02] MEDS: CEFEPIME 2,000 MG in SYRINGE 7.5 ML IV SCH ×2 (06:36→18:34)
--- NOTE | 2019-01-02 06:38 | Ultrasound Report ---
US venous doppler LE RT HISTORY: 43 years-old Male swelling acute pain and swelling of the right lower extremity COMPARISON: CT of the right tibia and fibula of same day TECHNIQUE: Multiple real-time sonographic images of the right lower extremity deep venous structures were obtained assessing grayscale appearance, color and spectral flow FINDINGS: Normal flow, compressibility, phasicity and augmentation of the right lower extremity deep venous str uctures. Lymph nodes of the right inguinal distribution are noted measuring up to 1.3 cm, nonspecific . Mild subcutaneous edema of lower extremity. IMPRESSION: 1. No sonographic evidence of deep venous thrombosis. 2. Right inguinal adenopathy. The above report was generated using voice recognition software. It may contain grammatical, syntax o r spelling errors. Electronically signed by: Jeremiah Dykes M.D. 01/02/2019 6:36 AM
--- NOTE | 2019-01-02 06:43 | XRay Report ---
XR toe RT min 2V HISTORY: 43 years-old Male great toe infection Q soft tissue swelling of the right great toe COMPARISON: None available TECHNIQUE: 3 views of the right great toe FINDINGS: Mild degenerative changes of the first MTP joint with mild multidigit interphalangeal osteoarthritis. No acute fracture, dislocation or opaque foreign body. Mild soft tissue swelling noted throughout th e imaged forefoot and great toe. Subcortical lucencies/erosions are noted, several which demonstrates marginal sclerosis involving the distal medial aspect of the first proximal phalanx. Bipartite media l hallux sesamoid. IMPRESSION: 1. No acute fracture or dislocation. 2. Marginal erosions of the first proximal phalanx are noted with associated soft tissue swelling. In flammatory, infectious or crystalline arthropathy are differential considerations. Correlate with cli nical history and laboratory analysis. The above report was generated using voice recognition software. It may contain grammatical, syntax o r spelling errors. Electronically signed by: Jeremiah Dykes M.D. 01/02/2019 6:41 AM
[2019-01-02 06:56] LABS: Estimated Average Glucose 275 mg/dl; Hemoglobin A1C 11.2 % (4.5-5.6)
--- NOTE | 2019-01-02 07:05 | CT Scan Report ---
RIGHT TIBIA/FIBULA CT CT DOSE: 391.92 mGy.cm HISTORY: abscess mid right anterior resendiz TECHNIQUE: Multiaxial CT images of the right lower leg were performed and reformatted in the sagittal and coronal plane following the use of intravenous contrast. A dose lowering technique was utilized adhering to the principles of ALARA. COMPARISON: Right tibia/fibula 01/02/2019. FINDINGS: No fracture or dislocation within the right lower leg. A few scattered subcutaneous calcifi cations identified within the pretibial soft tissues. Subcutaneous edema seen throughout the lower le g most pronounced anteriorly. No definite loculated fluid collections to suggest an abscess. The felipe r vessels enhance normally. No deep soft tissue edema. IMPRESSION: 1. No abscess identified within the right lower leg. 2. Diffuse subcutaneous edema which may represent a cellulitis. 3. No underlying bony abnormality. Electronically signed by: Cliff Quinn M.D. 01/02/2019 7:03 AM
[2019-01-02] MEDS: INSULIN ASPART 100 UNITS/ML 3 ML PEN SC SCH ×4 (07:14→20:44)
[2019-01-02] MEDS: DAPTOmycin 300 MG in SYRINGE 0 ML IV SCH (08:55)
[2019-01-02] MEDS: ESCITALOPRAM OXALATE 20 MG TAB PO SCH (08:56)
[2019-01-02] MEDS: ENOXAPARIN INJ 40 MG/0.4 ML SYR SQ SCH (08:56)
[2019-01-02] MEDS ORDERED: CONSULT PHARMACY SCH (09:00)
--- NOTE | 2019-01-02 10:00 | Orthopedic Consultation ---
Date of Consultation January 02, 2019 Assessment & Plan (1) Cellulitis: Continue current antibiotic regimen. Patient is notably better and has only been admitted for 6+ hours. Left toe x-ray is pending. Right toe x-ray and right lower extremity CT results as noted above. Will discuss case with Dr. Cherry who is here today and will see the patient this afternoon. Wound care has been consulted for wound care of the great toes and dressings. History of Present Illness Reason for Consultation: RLE swelling, great toe wounds Attending Physician: Raul Carrero MD History of Present Illness Patient is a 43-year-old white male, poorly controlled diabetic, who was admitted for cellulitis of the right lower extremity as well as ulcerations on the great toes of his feet. 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 He states that at least a week ago he was having problem with his boots being worn out. He was waiting for his first paycheck to go by new boots. In the meantime one of his coworkers, had an extra pair of boots that were the same size but the patient borrowed for the time being. Patient states that the boots were wider than his and both of his feet began to rub mostly on the inner aspects of his great toes during that week. He developed blisters on the toes which began to crack open. He also states that he had developed an abrasion or cut the anterolateral aspect of his lower extremity over the anterior compartments. He noticed that it began to get increasingly red and he was having worsening pain with ambulation. He arrived home yesterday from work being away. When his got home from work she examined his lower extremity noticing the widening erythema. When the patient tried to walk on the extremity, he noted excruciating pain and that the area around the abrasion was getting increasingly purple. He came into the emergency room to be evaluated and has now been admitted for IV antibiotics for his cellulitis. We have been asked to assess his right lower extremity cellulitis and toe ulcerations. Allergies Allergy/AdvReac Type Severity Reaction Status Date / Time pollen extracts Allergy Intermediate ITCHY Verified 01/02/19 00:08 EYES, SNEEZING, CONGESTION Home Medications Home Medications Medication Instructions Recorded Confirmed Type atorvastatin 10 mg PO QAM 04/14/18 01/02/19 History glimepiride 4 mg PO QAM 04/14/18 01/02/19 History insulin glargine [Lantus Solostar 20 unit SUBCUT HS 04/14/18 01/02/19 History U-100 Insulin] metformin 1,000 mg PO BID 04/14/18 01/02/19 History pioglitazone 30 mg PO QAM 04/14/18 01/02/19 History escitalopram oxalate 20 mg PO QAM 08/23/18 01/02/19 History loratadine [Allergy Relief 10 mg PO DAILY PRN 01/02/19 01/02/19 History (loratadine)] Patient History Medical History Dental caries (Resolved) Lumbago (Chronic) Hypertension (Chronic) Diabetes (Chronic) Social History Preferred Language: Italian Communication Ability: Effective Residential Housekeeper Required: No Beliefs That Will Affect Care: None marital status: Current Living Situation: Other current occupational status: employed Other Information That Helps Us Care for You: No Feels Safe at Home: Yes Safety Concerns: Feels Safe At This Time Smoking Status: Never smoker Hx Alcohol Use: Yes Alcohol type: beer and hard liquor Hx Substance Use: No Physical Exam Physical Exam: Patient is a well-developed, well-nourished, white male. He appears comfortable and in no acute distress, pleasant and cooperative. On examination of his right lower extremity, there is a central area of scab approximately 1 cm with over the midportion of the lower extremity, alexandra- lateral over the tibialis anterior muscle. There is no open area of this wound and it is not draining. It has a deep erythema noted to it extends approximately 2 cm in circumference. His erythema then widens out from there and travels proximally and distally. There have been lines drawn on the leg that showed the demarcation of erythema which has improved greatly since midnight. Patient states that he looked a lot worse earlier. He is quite tender on palpation of the scabbed area. I cannot appreciate any fluctuance at this point in time. He has diffuse tenderness around this area. As the erythema lessens proximally and distally, the pain is much less. He has no increased pain with passive dorsiflexion of the ankle or passive dorsiflexion of the toes of the right foot. He has good range of motion of his right ankle. On examination of the right great toe, he has an area over the medial aspect of the great toe that has been circled with marker that essentially no longer has any erythema noted to it. He has a small blister that appears to have a 1 cm crease to it. There is no overt drainage noted at this time. Left great toe is examined as well. Again there is a area of demarcation that was marked with a marker with much less erythema noted. However, he does have a larger area of blister noted on the medial aspect of the toe with a 1 1/2 cm cut in the skin that has scant serous drainage noted. No overt purulence noted. Results & Data Vital Signs (Past 12 Hours) Vital Signs Temp Pulse Pulse Pulse Resp BP BP 01/02/19 07:16 36.9 C 75 16 01/02/19 06:02 37.0 C 80 18 01/02/19 05:00 80 20 113/68 01/02/19 03:50 75 18 01/02/19 02:33 87 20 112/74 01/02/19 01:59 21 131/76 01/02/19 00:46 78 18 135/79 01/01/19 23:11 37.2 C 108 H 16 125/78 BP Pulse Ox 01/02/19 07:16 123/82 97 01/02/19 06:02 116/76 99 01/02/19 05:00 96 01/02/19 03:50 96 01/02/19 02:33 96 01/02/19 01:59 98 01/02/19 00:46 98 01/01/19 23:11 96 Laboratory Results Laboratory Results WBC 10.61 K/uL (4.8-10.8) 01/02/19 00:04 RBC 4.54 M/uL (4.7-6.1) L 01/02/19 00:04 Hgb 15.2 g/dL (14.0-18.0) 01/02/19 00:04 Hct 41.3 % (42-52) L 01/02/19 00:04 MCV 91.0 fL (80-100) 01/02/19 00:04 MCH 33.5 pg (25-34) 01/02/19 00:04 MCHC 36.8 g/dL (32-36) H 01/02/19 00:04 RDW Std Deviation 40.6 fL (36.4-46.3) 01/02/19 00:04 RDW Coeff of Saida 12.2 % (11.5-14.5) 01/02/19 00:04 Plt Count 226 K/uL (130-400) 01/02/19 00:04 MPV 10.7 fL (7.4-10.4) H 01/02/19 00:04 Immature Gran % (Auto) 0.2 % 01/02/19 00:04 Neut % (Auto) 75.3 % 01/02/19 00:04 Lymph % (Auto) 14.9 % 01/02/19 00:04 Austin % (Auto) 8.1 % 01/02/19 00:04 Eos % (Auto) 1.3 % 01/02/19 00:04 Baso % (Auto) 0.2 % 01/02/19 00:04 Immature Gran # (Auto) 0.02 K/uL (0.00-0.02) 01/02/19 00:04 Neut # (Auto) 7.99 K/uL (1.4-6.5) H 01/02/19 00:04 Lymph # (Auto) 1.58 K/uL (1.2-3.4) 01/02/19 00:04 Austin # (Auto) 0.86 K/uL (0.11-0.59) H 01/02/19 00:04 Eos # (Auto) 0.14 K/uL (0-0.5) 01/02/19 00:04 Baso # (Auto) 0.02 K/uL (0-0.2) 01/02/19 00:04 ESR 75 mm/hr (0-14) H 01/02/19 00:04 VBG pH 7.44 (7.36-7.41) H 01/02/19 00:08 VBG pCO2 39 mmHg (38-50) 01/02/19 00:08 VBG pO2 41 mmHg 01/02/19 00:08 VBG HCO3 26 mmol/L 01/02/19 00:08 VBG O2 Saturation 76.7 % 01/02/19 00:08 VBG Base Excess 1.7 mEq/L 01/02/19 00:08 Barometric Pressure 732.4 mm/Hg 01/02/19 00:08 Sodium 133 mmol/L (136-145) L 01/02/19 00:04 Potassium 3.9 mmol/L (3.5-5.1) 01/02/19 00:04 Chloride 99 mmol/L (98-107) 01/02/19 00:04 Carbon Dioxide 26 mmol/L (21-32) 01/02/19 00:04 Anion Gap 8.0 (3-11) 01/02/19 00:04 BUN 16 mg/dl (7-18) 01/02/19 00:04 Creatinine 1.08 mg/dl (0.6-1.4) 01/02/19 00:04 Est Cr Clr Drug Dosing 95.1 ml/min 01/02/19 00:04 Est GFR ( Amer) 96.9 01/02/19 00:04 Est GFR (Non-Af Amer) 83.6 01/02/19 00:04 BUN/Creatinine Ratio 14.4 (10-20) 01/02/19 00:04 Glucose 333 mg/dl (70-99) H* 01/02/19 00:04 POC Glucose 256 (70-99) H 01/02/19 03:57 Estimat Average Glucose 275 mg/dl 01/02/19 00:04 Hemoglobin A1c 11.2 % (4.5-5.6) H 01/02/19 00:04 Lactate 1.4 mmol/L (0.4-2.0) 01/02/19 00:04 Calcium 9.1 mg/dl (8.5-10.1) 01/02/19 00:04 Magnesium 2.2 mg/dl (1.8-2.4) 01/02/19 00:04 Total Bilirubin 0.8 mg/dl (0.2-1) 01/02/19 00:04 Direct Bilirubin 0.3 mg/dl (0-0.2) H 01/02/19 00:04 AST 6 U/L (15-37) L 01/02/19 00:04 ALT 16 U/L (12-78) 01/02/19 00:04 Alkaline Phosphatase 78 U/L (45-117) 01/02/19 00:04 Total Creatine Kinase 55 U/L (39-308) 01/02/19 00:04 Total Creatine Kinase Cancelled 01/02/19 00:04 C-Reactive Protein 10.00 mg/dl (0-0.29) H 01/02/19 00:04 Total Protein 8.7 gm/dl (6.4-8.2) H 01/02/19 00:04 Albumin 3.7 gm/dl (3.4-5.0) 01/02/19 00:04 Beta-Hydroxybutyric Acd 9.97 mg/dl (0.2-2.81) H 01/02/19 00:04 Diagnostic Findings [facility], [place] [phone] XRay Report Patient: ROSA JOY Date: 01/02/19 MR#: [id number] Acct ID:[id number]: Date: 1975City Zip: [place] [address] Age: 43Location: 4W Sex: M Room/Bed: [facility] Att Phy: Raul Carrero, MDDiagnosis: RLE CELLULITIS Carole Phy: Rodrigo Bravo D.O.Service Date: 01/01/19 Fam Phy:Interpreting Phy: Arian Dykes Admit Phy: Chapin Peralta MD Ordering Phy: Oseas Springer M.D. cc: ~ XR toe RT min 2V HISTORY: 43 years-old Male great toe infection Q soft tissue swelling of the right great toe COMPARISON: None available TECHNIQUE: 3 views of the right great toe FINDINGS: Mild degenerative changes of the first MTP joint with mild multidigit interphalangeal osteoarthritis. No acute fracture, dislocation or opaque foreign body. Mild soft tissue swelling noted throughout the imaged forefoot and great toe. Subcortical lucencies/erosions are noted, several which demonstrates marginal sclerosis involving the distal medial aspect of the first proximal pha lanx. Bipartite medial hallux sesamoid. IMPRESSION: 1. No acute fracture or dislocation. 2. Marginal erosions of the first proximal phalanx are noted with associated soft tissue swelling. Inflammatory, infectious or crystalline arthropathy are differential considerations. Correlate with clinical history and laboratory analysis. The above report was generated using voice recognition software. It may contain grammatical, syntax or spelling errors. RIGHT TIBIA/FIBULA CT CT DOSE: 391.92 mGy.cm HISTORY: abscess mid right anterior resendiz TECHNIQUE: Multiaxial CT images of the right lower leg were performed and reformatted in the sagittal and coronal plane following the use of intravenous contrast. A dose lowering technique was utilized adhering to the principles of ALARA. COMPARISON: Right tibia/fibula 01/02/2019. FINDINGS: No fracture or dislocation within the right lower leg. A few scattered subcutaneous calcifications identified within the pretibial soft tissues. Subcutaneous edema seen throughout the lower leg most pronounced anteriorly. No definite loculated fluid collections to suggest an abscess. The major vessels enhance normally. No deep soft tissue edema. IMPRESSION: 1. No abscess identified within the right lower leg. 2. Diffuse subcutaneous edema which may represent a cellulitis. 3. No underlying bony abnormality.
--- NOTE | 2019-01-02 10:30 | XRay Report ---
XR toe LT min 2V HISTORY: 43 years-old Male swellling ro osteomyelitis soft tissue swelling and pain of the left firs t and second toes COMPARISON: [Left foot radiographs 10/10/2009 TECHNIQUE: 3 views of the left great toe FINDINGS: Slight worsened degenerative changes are noted with moderate first MTP joint osteoarthritis and mild hallux valgus deformity. Suggestion of a remote fracture deformity about the first proximal phalanx d istally. Moderate degenerative changes of the interphalangeal joints, most pronounced within the firs t digit. Bony fragmentation with subcortical cystic changes of the first proximal phalanx. Soft tissu e swelling with suggested skin ulceration of the great toe measures 2.5 cm medially. No acute fractur e, or dislocation. Mild cortical indistinctness with lucency is noted involving the plantar aspect of the first proximal phalangeal head seen best on the lateral projection. IMPRESSION: 1. Mild cortical indistinctness with cortical lucency involves the plantar aspect of the first proxim al phalangeal head suggestive of subcortical cystic change or erosion related to osteomyelitis. Corre late clinically. Additionally, this could be further characterized with MRI if of further clinical co ncern. 2. Soft tissue swelling with skin ulceration. The above report was generated using voice recognition software. It may contain grammatical, syntax o r spelling errors. Electronically signed by: Jeremiah Dykes M.D. 01/02/2019 10:29 AM
--- NOTE | 2019-01-02 15:02 | Hospitalist Progress Note ---
Date of Service January 02, 2019 Assessment & Plan (1) Cellulitis: Right Lower Extremity Cellulits Diabetic Toe infection Failed outpatient treatment No signs of sepsis --RLE CT:No abscess identified within the right lower leg. Diffuse subcutaneous edema which may represent a cellulitis. No underlying bony abnormality. --Venous Doppler:No sonographic evidence of deep venous thrombosis. Right inguinal adenopathy. --Let Toe X ray:Mild cortical indistinctness with cortical lucency involves the plantar aspect of the first proximal phalangeal head suggestive of subcortical cystic change or erosion related to osteomyelitis. Correlate clinically. Additionally, this could be further characterized with MRI if of further clinical concern. Soft tissue swelling with skin ulceration. --Blood cultures pending Continue IV antibiotics--cefepime, daptomycin Orthopedics consulted Continue wound care DM II A1C:11.2 Continue ISS, basal Insulin Monitor BGs Hyperlipidemia Hold statin while on daptomycin Mood disorder stable Continue escitalopram DVT Px: Lovenox SQ Code Status Full code Disposition Expected discharge home in stable Subjective Patient is seen and examined at bedside Complains of right leg pain with ambulation Leg swelling, erythema slowly improving Denies any chest pain, shortness of breath, dizziness, nausea, abdominal pain Offers no other complaints Review of Systems Review of Systems: All systems reviewed & are unremarkable except as noted in HPI & below Physical Exam Physical Exam: Physical Exam: Vitals signs as noted above General Appearance:Moderately built and nourished, no apparent distress Head: normocephalic, Atraumatic Eyes: normal inspection, EOMI Neck: supple, Trachea midline Respiratory/Chest: Normal breath sounds, CTA Cardiovascular: S1, S2, No murmur Abdomen/GI:Soft, Non tender, Bowel sounds present Extremities/Musculoskelatal:normal inspection, bilateral great toe LE ulcers, Scan on Mid R LE, erythema Neurologic/Psych:AAOX3, grossly no focal neurological deficits Skin: normal color, warm Results & Data Vital Signs (Past 12 Hours) Vital Signs Temp Pulse Pulse Resp BP BP Pulse Ox 01/02/19 07:16 36.9 C 75 16 123/82 97 01/02/19 06:02 37.0 C 80 18 116/76 99 01/02/19 05:00 80 20 113/68 96 01/02/19 03:50 75 18 96 Laboratory Results Short CBC 01/02/19 Range/Units 00:04 WBC 10.61 (4.8-10.8) K/uL Hgb 15.2 (14.0-18.0) g/dL Hct 41.3 L (42-52) % Plt Count 226 (130-400) K/uL BMP 01/02/19 00:04 Sodium 133 L Potassium 3.9 Chloride 99 Carbon Dioxide 26 BUN 16 Creatinine 1.08 Glucose 333 H* Calcium 9.1 Cardiac Enzymes 01/02/19 01/02/19 Range/Units 00:04 00:04 Total Creatine Kinase 55 Cancelled (39-308) U/L Liver Function 01/02/19 Range/Units 00:04 Total Bilirubin 0.8 (0.2-1) mg/dl Direct Bilirubin 0.3 H (0-0.2) mg/dl AST 6 L (15-37) U/L ALT 16 (12-78) U/L Alkaline Phosphatase 78 (45-117) U/L Albumin 3.7 (3.4-5.0) gm/dl
[2019-01-02] MEDS: INSULIN GLARGINE SOLOSTAR 100 UNITS/ML 3 ML PEN SC SCH (20:43)
[2019-01-03 05:50] LABS: Basophils # (auto) 0.03 K/uL (0-0.2); Basophils % (auto) 0.4 %; Eosinophils # (auto) 0.14 K/uL (0-0.5); Eosinophils % (auto) 1.8 %; Hemoglobin 13.2 g/dL (14.0-18.0); Immature Granulocytes # (auto) 0.01 K/uL (0.00-0.02); Immature Granulocytes % (auto) 0.1 %; Lymphocytes # (auto) 1.52 K/uL (1.2-3.4); Lymphocytes % (auto) 19.4 %; Mean Corpuscular Hemoglobin 32.4 pg (25-34); Mean Corpuscular Hgb Conc 35.7 g/dL (32-36); Mean Corpuscular Volume 90.9 fL (80-100); Mean Platelet Volume 10.1 fL (7.4-10.4); Monocytes # (auto) 0.78 K/uL (0.11-0.59); Monocytes % (auto) 9.9 %; Neutrophils # (auto) 5.37 K/uL (1.4-6.5); Neutrophils % (auto) 68.4 %; Platelet Count 208 K/uL (130-400); RDW Coefficient of Variation 12.2 % (11.5-14.5); RDW Standard Deviation 40.5 fL (36.4-46.3); Red Blood Count 4.07 M/uL (4.7-6.1); White Blood Count 7.85 K/uL (4.8-10.8)
[2019-01-03] MEDS: CEFEPIME 2,000 MG in SYRINGE 7.5 ML IV SCH ×2 (06:19→18:33)
[2019-01-03 06:20] LABS: BUN Creatinine Ratio 15.3 (10-20); Calcium 8.4 mg/dl (8.5-10.1); Creatinine Clr Calc Pharmacy 133.3 ml/min; Est GFR (African American) 128.8; Est GFR (Non-African American) 111.1; Potassium 3.5 mmol/L (3.5-5.1)
--- NOTE | 2019-01-03 08:35 | Orthopedic Progress Note ---
Date of Service January 03, 2019 Assessment & Plan (1) Cellulitis: B/L great toe calluses/ ulcers- stable- continue wound care. Right LE resendiz cellulitis with ulceration/ drainage: Likely will need I&D, Dr Willoughby to see this AM, will put on O.R. schedule for today and keep NPO pending his decision. Subjective Patient seen at bedside, only issue is Right LE leg pain. Denies SOB, CP, N/V. Physical Exam Physical Exam: Right LE resendiz area with erythema, patient states looks better, but still very painful. Ulceration with mild discharge, no foul odor. Exquisitely tender. Toes mobile, distal pulse in tact. B/L great toe calluses dry and without drainage. Bandages in place. Results & Data Vital Signs (Past 12 Hours) Vital Signs Temp Pulse Resp BP Pulse Ox 01/03/19 07:11 36.8 C 71 18 111/73 98 01/02/19 23:08 37.1 C 80 20 127/81 98
[2019-01-03] MEDS: ESCITALOPRAM OXALATE 20 MG TAB PO SCH ×2 (08:50→10:01)
[2019-01-03] MEDS: INSULIN ASPART 100 UNITS/ML 3 ML PEN SC SCH ×5 (08:50→20:55)
[2019-01-03] MEDS: INSULIN GLARGINE SOLOSTAR 100 UNITS/ML 3 ML PEN SC SCH ×2 (08:51→20:55)
[2019-01-03] MEDS: DAPTOmycin 300 MG in SYRINGE 0 ML IV SCH (08:51)
[2019-01-03] MEDS: ENOXAPARIN INJ 40 MG/0.4 ML SYR SQ SCH ×2 (08:52→10:01)
[2019-01-03] MEDS ORDERED: LANTUS PER UNIT CHARGE SQ STA (09:16)
[2019-01-03] MEDS ORDERED: INSULIN GLARGINE SOLOSTAR 100 UNITS/ML 3 ML PEN SC ONE (09:30)
--- NOTE | 2019-01-03 16:35 | Hospitalist Progress Note ---
Date of Service January 03, 2019 Assessment & Plan (1) Cellulitis: Right Lower Extremity Cellulitis Diabetic Toe infection Failed outpatient treatment No signs of sepsis --RLE CT:No abscess identified within the right lower leg. Diffuse subcutaneous edema which may represent a cellulitis. No underlying bony abnormality. --Venous Doppler:No sonographic evidence of deep venous thrombosis. Right inguinal adenopathy. --Let Toe X ray:Mild cortical indistinctness with cortical lucency involves the plantar aspect of the first proximal phalangeal head suggestive of subcortical cystic change or erosion related to osteomyelitis. Correlate clinically. Additionally, this could be further characterized with MRI if of further clinical concern. Soft tissue swelling with skin ulceration. --Blood cultures: No growth to date Continue IV antibiotics--cefepime, daptomycin Day #2 Appreciate Orthopedics Input Continue wound care May need to follow-up with wound clinic upon discharge DM II A1C:11.2 Continue ISS, basal Insulin Monitor BGs Hyperlipidemia Hold statin while on daptomycin Mood disorder stable Continue escitalopram DVT Px: Lovenox SQ Code Status Full code Disposition Expected discharge home in stable Subjective Patient is seen and examined at bedside Right leg pain is controlled Leg swelling, erythema improving Denies any chest pain, shortness of breath, dizziness, nausea, abdominal pain Offers no other complaints Orthopedics following Review of Systems Review of Systems: All systems reviewed & are unremarkable except as noted in HPI & below Physical Exam Physical Exam: Physical Exam: Vitals signs as noted above General Appearance:Moderately built and nourished, no apparent distress Head: normocephalic, Atraumatic Eyes: normal inspection, EOMI Neck: supple, Trachea midline Respiratory/Chest: Normal breath sounds, CTA Cardiovascular: S1, S2, No murmur Abdomen/GI:Soft, Non tender, Bowel sounds present Extremities/Musculoskelatal:normal inspection, bilateral great toe LE ulcers, Scan on Mid R LE, erythema improving Neurologic/Psych:AAOX3, grossly no focal neurological deficits Skin: normal color, warm Results & Data Vital Signs (Past 12 Hours) Vital Signs Temp Pulse Resp BP BP Pulse Ox 01/03/19 14:50 37.0 C 76 19 126/73 98 01/03/19 07:11 36.8 C 71 18 111/73 98 Laboratory Results Short CBC 01/03/19 Range/Units 05:12 WBC 7.85 (4.8-10.8) K/uL Hgb 13.2 L (14.0-18.0) g/dL Hct 37.0 L (42-52) % Plt Count 208 (130-400) K/uL [facility] 01/03/19 05:12 Sodium 139 Potassium 3.5 Chloride 105 Carbon Dioxide 28 BUN 12 Creatinine 0.77 D Glucose 126 H Calcium 8.4 L
[2019-01-03] MEDS: ACETAMINOPHEN 325 MG TAB PO PRN (21:02)
[2019-01-04 06:02] LABS: Hemoglobin 13.3 g/dL (14.0-18.0); Mean Corpuscular Hemoglobin 32.9 pg (25-34); Mean Corpuscular Hgb Conc 35.9 g/dL (32-36); Mean Corpuscular Volume 91.6 fL (80-100); Mean Platelet Volume 10.5 fL (7.4-10.4); Platelet Count 222 K/uL (130-400); RDW Coefficient of Variation 12.1 % (11.5-14.5); RDW Standard Deviation 40.8 fL (36.4-46.3); Red Blood Count 4.04 M/uL (4.7-6.1); White Blood Count 7.14 K/uL (4.8-10.8)
[2019-01-04] MEDS: CEFEPIME 2,000 MG in SYRINGE 7.5 ML IV SCH ×2 (06:16→18:22)
[2019-01-04 06:27] LABS: Calcium 9.2 mg/dl (8.5-10.1); Creatinine Clr Calc Pharmacy 131.6 ml/min; Est GFR (African American) 128.1; Est GFR (Non-African American) 110.6; Potassium 3.9 mmol/L (3.5-5.1)
[2019-01-04] MEDS: DAPTOmycin 300 MG in SYRINGE 0 ML IV SCH (08:40)
--- NOTE | 2019-01-04 08:49 | Orthopedic Progress Note ---
Date of Service January 04, 2019 Assessment & Plan (1) Cellulitis: B/L great toe calluses/ ulcers- stable- continue wound care. Right LE resendiz cellulitis with ulceration/ drainage:appears to be improving No Abscess on CT scan. On Dapto and cefepime Continue to monitor. Subjective Patient is seen and examined at bedside Right leg pain is controlled Leg swelling, erythema improving Denies any chest pain, shortness of breath, dizziness, nausea, abdominal pain Offers no other complaints States when he was weight bearing on right leg this AM it wasn't as painful as yesterday. Results & Data Vital Signs (Past 12 Hours) Vital Signs Temp Pulse Resp BP Pulse Ox 01/04/19 07:01 36.8 C 85 20 125/77 97 01/04/19 00:03 36.9 C 66 20 113/69 95
[2019-01-04] MEDS: INSULIN ASPART 100 UNITS/ML 3 ML PEN SC SCH ×4 (09:35→20:56)
[2019-01-04] MEDS: ENOXAPARIN INJ 40 MG/0.4 ML SYR SQ SCH (09:37)
[2019-01-04] MEDS: ESCITALOPRAM OXALATE 20 MG TAB PO SCH (09:37)
[2019-01-04] MEDS: INSULIN GLARGINE SOLOSTAR 100 UNITS/ML 3 ML PEN SC SCH ×2 (09:37→20:55)
--- NOTE | 2019-01-04 11:41 | XRay Report ---
LEFT SHOULDER 3 VIEWS CLINICAL HISTORY: Left shoulder pain. FINDINGS: 3 views of the left shoulder are obtained. Correlation is made with radiograph of the left RIBS dated 04/14/2018. The skeletal structures are osteopenic. No fracture or dislocation is identified . There is a chronic Hill-Sachs lesion in the humeral head. There is also likely a chronic avulsion i njury along the inferior aspect of the glenoid. The glenohumeral and acromioclavicular joints are pre served. The overlying soft tissues are normal in appearance. The left lung parenchyma is clear as aura ged. IMPRESSION: 1. No acute bony abnormality is identified. 2. There is a chronic Hill-Sachs lesion of the left humeral head, and also likely a chronic avulsion injury along the inferior glenoid. Correlate for a history of shoulder dislocation. Electronically signed by: Ronald Watts M.D. 01/04/2019 11:38 AM
--- NOTE | 2019-01-04 16:27 | Hospitalist Progress Note ---
Date of Service January 04, 2019 Assessment & Plan (1) Cellulitis: Right Lower Extremity Cellulitis Diabetic Toe infection Failed outpatient treatment No signs of sepsis --RLE CT:No abscess identified within the right lower leg. Diffuse subcutaneous edema which may represent a cellulitis. No underlying bony abnormality. --Venous Doppler:No sonographic evidence of deep venous thrombosis. Right inguinal adenopathy. --Let Toe X ray:Mild cortical indistinctness with cortical lucency involves the plantar aspect of the first proximal phalangeal head suggestive of subcortical cystic change or erosion related to osteomyelitis. Correlate clinically. Additionally, this could be further characterized with MRI if of further clinical concern. Soft tissue swelling with skin ulceration. --Blood cultures: No growth to date Continue IV antibiotics--cefepime, daptomycin Day #3 Appreciate Orthopedics Input Continue wound care No plan for I&D for now Needs following with Orthopedics upon discharge Given failure of outpatient Antibiotic therapy, will continue IV Abx for now Left Shoulder Pain Shoulder X ray:No acute bony abnormality is identified. 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 Correlate for a history of shoulder dislocatio Orthopedics on board await for Input DM II A1C:11.2 Continue ISS, basal Insulin Monitor BGs Hyperlipidemia Hold statin while on daptomycin Mood disorder stable Continue escitalopram DVT Px: Lovenox SQ Code Status Full code Disposition Expected discharge home in stable Subjective Patient is seen and examined at bedside Right leg pain/Erythema is improving Complains of left shoulder pain since 2 weeks duration Denies any chest pain, SOB, dizziness, nausea, abdominal pain Offers no other complaints Review of Systems Review of Systems: All systems reviewed & are unremarkable except as noted in HPI & below Physical Exam Physical Exam: Physical Exam: Vitals signs as noted above General Appearance:Moderately built and nourished, no apparent distress Head: normocephalic, Atraumatic Eyes: normal inspection, EOMI Neck: supple, Trachea midline Respiratory/Chest: Normal breath sounds, CTA Cardiovascular: S1, S2, No murmur Abdomen/GI:Soft, Non tender, Bowel sounds present Extremities/Musculoskelatal:normal inspection, bilateral great toe LE ulcers, Scan on Mid R LE, erythema improving Neurologic/Psych:AAOX3, grossly no focal neurological deficits Skin: normal color, warm Results & Data Vital Signs (Past 12 Hours) Vital Signs Temp Pulse Resp BP Pulse Ox 01/04/19 15:07 36.8 C 71 18 122/76 98 01/04/19 07:01 36.8 C 85 20 125/77 97 Laboratory Results Short CBC 01/04/19 Range/Units 05:25 WBC 7.14 (4.8-10.8) K/uL Hgb 13.3 L (14.0-18.0) g/dL Hct 37.0 L (42-52) % Plt Count 222 (130-400) K/uL BMP 01/04/19 05:25 Sodium 138 Potassium 3.9 Chloride 103 Carbon Dioxide 29 BUN 13 Creatinine 0.78 Glucose 156 H Calcium 9.2
[2019-01-05] MEDS: CEFEPIME 2,000 MG in SYRINGE 7.5 ML IV SCH ×2 (06:18→18:32)
[2019-01-05 07:09] LABS: BUN Creatinine Ratio 18.5 (10-20); Calcium 9.1 mg/dl (8.5-10.1); Creatinine Clr Calc Pharmacy 126.7 ml/min; Est GFR (African American) 126.2; Est GFR (Non-African American) 108.9; Potassium 3.8 mmol/L (3.5-5.1)
[2019-01-05] MEDS: DAPTOmycin 300 MG in SYRINGE 0 ML IV SCH (07:58)
[2019-01-05] MEDS: ESCITALOPRAM OXALATE 20 MG TAB PO SCH (08:04)
[2019-01-05] MEDS: ENOXAPARIN INJ 40 MG/0.4 ML SYR SQ SCH (08:04)
[2019-01-05] MEDS: INSULIN GLARGINE SOLOSTAR 100 UNITS/ML 3 ML PEN SC SCH ×2 (08:05→21:01)
[2019-01-05] MEDS: INSULIN ASPART 100 UNITS/ML 3 ML PEN SC SCH ×4 (08:08→21:00)
--- NOTE | 2019-01-05 10:59 | Orthopedic Progress Note ---
Date of Service January 05, 2019 Assessment & Plan (1) Cellulitis: B/L great toe calluses/ ulcers- stable- continue wound care. Right LE resendiz cellulitis with ulceration/ drainage: Improved peripherally but continues with darkened erythema Mid portion of RLE No Abscess on CT scan on admission but will get an Ultrasound to see if a collection has appeared. On Dapto and cefepime Continue to monitor. Wait for US results. Discussed with patient. If collection seen, he will likely need I&D. If no definitive collection, planning for DC per medicine service on 2 different oral antibx. Supervising Physician Co-Signing Physician Notes Seen and examined this evening. Continued pain anterior lower leg. Scant drainage today. Induration, scant d/c, new onset region of 2cm diameter fluctuance, pulses palpable B LE. CT shows new anterior lower leg fluid collection approx 2cm in jose. New onset abscess collection noted Discussed with Dr Newberry who will perform I and D tomorrow. NPO after MN B Jo Ann DO Subjective Pt states that overall the leg is feeling better. States his pain is less than what it was but still fairly tender around the abrasion site on the RLE. Denies discomfort with either great toe at this time. No new complaints. Dr. Carrero present during exam. Physical Exam Physical Exam: Erythema has is less on the periphery of the lines used to akiko it Saturday but he still has the darkened erythema around the abrasion area that is swollen/indurated. Scant serous drainage on dressing. Tender on palpation of this area. Less tenderness as you go proximally/distally. Good ROM of the R knee and ankle. Toe wounds with silver dressing. Minimal drainage. No erythema. Results & Data Vital Signs (Past 12 Hours) Vital Signs Temp Pulse Resp BP Pulse Ox 01/05/19 07:16 36.8 C 65 18 110/71 98 01/04/19 23:24 36.8 C 62 18 114/71 98
--- NOTE | 2019-01-05 12:46 | Hospitalist Progress Note ---
Date of Service January 05, 2019 Assessment & Plan (1) Cellulitis: Right Lower Extremity Cellulitis with ulceration Diabetic Toe infection Failed outpatient treatment No signs of sepsis --RLE CT:No abscess identified within the right lower leg. Diffuse subcutaneous edema which may represent a cellulitis. No underlying bony abnormality. --Venous Doppler:No sonographic evidence of deep venous thrombosis. Right inguinal adenopathy. --Let Toe X ray:Mild cortical indistinctness with cortical lucency involves the plantar aspect of the first proximal phalangeal head suggestive of subcortical cystic change or erosion related to osteomyelitis. Correlate clinically. Additionally, this could be further characterized with MRI if of further clinical concern. Soft tissue swelling with skin ulceration. --Blood cultures: No growth to date Continue IV antibiotics--cefepime, daptomycin Day #4 Appreciate Orthopedics Input Continue wound care Needs following with Orthopedics upon discharge Will repeat right lower extremity ultrasound to assess need for I&D Left Shoulder Pain Shoulder X ray:No acute bony abnormality is identified. 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 Correlate for a history of shoulder dislocatio Orthopedics on board DM II A1C:11.2 Continue ISS, basal Insulin Monitor BGs Hyperlipidemia Hold statin while on daptomycin Mood disorder stable Continue escitalopram DVT Px: Lovenox SQ Code Status Full code Disposition Expected discharge home when stable Subjective Patient is seen and examined at bedside Pain is much improved, able to ambulate better Discussed with orthopedics today Plan to get leg ultrasound to rule out abscess No new complaints Denies any chest pain, SOB, dizziness, nausea, abdominal pain Review of Systems Review of Systems: All systems reviewed & are unremarkable except as noted in HPI & below Physical Exam Physical Exam: Physical Exam: Vitals signs as noted above General Appearance:Moderately built and nourished, no apparent distress Head: normocephalic, Atraumatic Eyes: normal inspection, EOMI Neck: supple, Trachea midline Respiratory/Chest: Normal breath sounds, CTA Cardiovascular: S1, S2, No murmur Abdomen/GI:Soft, Non tender, Bowel sounds present Extremities/Musculoskelatal:normal inspection, bilateral great toe LE ulcers, Scan on Mid R LE, erythema improving Neurologic/Psych:AAOX3, grossly no focal neurological deficits Skin: normal color, warm Results & Data Vital Signs (Past 12 Hours) Vital Signs Temp Pulse Resp BP Pulse Ox 01/05/19 07:16 36.8 C 65 18 110/71 98 Laboratory Results BMP 01/05/19 06:05 Sodium 137 Potassium 3.8 Chloride 100 Carbon Dioxide 30 BUN 15 Creatinine 0.81 Glucose 156 H Calcium 9.1
--- NOTE | 2019-01-05 13:40 | Ultrasound Report ---
RIGHT CALF SOFT TISSUE ULTRASOUND. CLINICAL HISTORY: Swelling and skin wound. Evaluate for deep abscess. COMPARISON STUDY: No previous studies for comparison. FINDINGS: There is generalized subcutaneous edema. There is a more focal mixed echogenicity focus bryan suring 30 x 9 x 19 mm. Early phlegmonous changes cannot be excluded. This does not currently appear t o represent a liquefied abscess. IMPRESSION: Subcutaneous edema with a possible area of early phlegmonous change. No current evidence of a discrete abscess Electronically signed by: Ezekiel Rodriguez M.D. 01/05/2019 1:38 PM
[2019-01-05] MEDS ORDERED: IOVERSOL 100ml IV PRN (17:53)
--- NOTE | 2019-01-05 18:31 | CT Scan Report ---
CT tib/fib RT w con CLINICAL HISTORY: 43 years-old Male presenting with wound, r/o abscess/collection Right lower extremi ty. TECHNIQUE: Multidetector CT of the right lower leg was performed after the administration of intraven ous contrast. IV contrast: 94 mL of Optiray 320. One or more dose lowering techniques were used consi stent with the principles of ALARA (as low as reasonably achievable), including automatic exposure co ntrol, mA or kV adjustment to individual patient size, and/or use of iterative reconstruction. COMPARISON: 01/02/2019. CT DOSE (mGy.cm): The estimated cumulative dose is 244.87 mGycm. FINDINGS: Developer Evangelist topogram: Unremarkable. Subcutaneous edema and skin thickening again noted at the level of the knee joint greatest along the lateral aspect and extending into the lower leg. Subcutaneous soft tissue calcification anterior to t he tibia as on prior exam. Interval worsening of skin thickening along the proximal to mid lower leg anteriorly and laterally with interval development of a 1.5 cm x 2.2 x 0.7 poorly delineated fluid co llection subjacent to the skin (series 2 image 39). This is concerning for phlegmon/early abscess. No discernible rim enhancement. No evidence of an intramuscular collection, however, there is significa nt edema tracking along the superficial fascia. No significant edema within the muscles or tracking a long the deeper fascia. Normal muscle bulk and appearance of the musculature. Vessels patent. Knee joint congruent. No acute fracture or malalignment. Ankle mortise also congruent. No osseous ero saira or periosteal reaction. IMPRESSION: 1. 1.5 x 2.2 x 0.7 cm phlegmon/early abscess in the anterolateral proximal to mid lower leg immediat brad subjacent to worsened skin thickening. Presumably this is within a region of cellulitis. No evide nce of deeper interfascial fluid or an intramuscular collection or edema. 2. No CT evidence of osteomyelitis. Electronically signed by: Bhavesh Williamson M.D. 01/05/2019 6:29 PM
[2019-01-06 06:06] LABS: INR 1.1 (0.9-1.1); Prothrombin Time 11.2 Seconds (9.0-12.0)
--- NOTE | 2019-01-06 07:34 | Orthopedic Progress Note ---
Date of Service January 06, 2019 Assessment & Plan (1) Cellulitis: B/L great toe calluses/ ulcers- stable- continue wound care. Right LE cellulitis with ulceration/ drainage: Improved peripherally but continues with darkened erythema Mid portion of RLE New changes on CT as noted. Plan for I&D today. Continue NPO. On Dapto and cefepime Supervising Physician Co-Signing Physician Notes I have indicated the patient for irrigation and debridement of right lower leg abscess. The risks benefits complications alternatives of the procedure were expanded the patient detail which include however not limited to infection, blood clots, acute blood loss, injury to surrounding nerves, bone, vessels, soft tissue, need for repeat Manny surgery, loss of limb and loss of life. Alternatives to the procedure include no surgery which could result in worsening infection sepsis and . The patient wished to proceed with surgical intervention at this time and informed consent was obtained. Subjective Awake, alert. No complaints this AM. Discussed plans for I&D today for the RLE wound. CT scan showing 1.5 x 2.2 x 0.7 cm phlegmon/early abscess in the anterolateral proximal to mid lower leg immediately subjacent to worsened skin thickening. Pt agreeable to I&D. Review of Systems Review of Systems: All systems reviewed & are unremarkable except as noted in HPI & below Constitutional: as per Subjective / HPI Physical Exam Physical Exam: Continued area on the midportion of the right lower extremity with darkened erythema that has not improved. Dressing not saturated. Posterior calves soft, NT. Erythema proximally and distally markedly improved. RLE NVSI +EHL/FHL/TA/GS SILT grossly, +2 DP pulse, compartments soft NT, + erythema anterior tibia, not circumferential, draining wound middle one third anterior tibia with purulent material. Constitutional: WD/WN, vitals as above Results & Data Vital Signs (Past 12 Hours) Vital Signs Temp Pulse Resp BP Pulse Ox 01/05/19 23:35 36.7 C 69 20 121/70 99 Diagnostic Findings Patient: ROSA JOY Date: 01/02/19 MR#: [id number] Acct ID:[id number]: Date: 1975[facility] Zip: [place] [id number] Age: 43Location: 4W Sex: M Room/Bed: W451-2 Att Phy: Christopherhermelindorachel Raul He, MDDiagnosis: RLE CELLULITIS Carole Phy: Rodrigo Bravo D.O.Service Date: 01/05/19 Fam Phy:Interpreting Phy: Bhavesh Williamson MD Admit Phy: Chapin Peralta MD Ordering Phy: José Miguel Gordon PA-C cc: ~ CT tib/fib RT w con CLINICAL HISTORY: 43 years-old Male presenting with wound, r/o absce ss/collection Right lower extremity. TECHNIQUE: Multidetector CT of the right lower leg was performed after the administration of intravenous contrast. IV contrast: 94 mL of Optiray 320. One or more dose lowering techniques were used consistent with the principles of ALARA (as low as reasonably achievable), including automatic exposure control, mA or kV adjustment to individual patient size, and/or use of iterative reconstruction. COMPARISON: 01/02/2019. CT DOSE (mGy.cm): The estimated cumulative dose is 244.87 mGycm. FINDINGS: Ball Warper Tender topogram: Unremarkable. Subcutaneous edema and skin thickening again noted at the level of the knee joint greatest along the lateral aspect and extending into the lower leg. Subcutaneous soft tissue calcification anterior to the tibia as on prior exam. Interval worsening of skin thickening along the proximal to mid lower leg anteriorly and laterally with interval development of a 1.5 cm x 2.2 x 0.7 poorly delineated fluid collection subjacent to the skin (series 2 image 39). This is concerning for phlegmon/early abscess. No discernible rim enhancement. No evidence of an intramuscular collection, however, there is significant edema tracking along the superficial fascia. No significant edema within the muscles or tracking along the deeper fascia. Normal muscle bulk and appearance of the musculature. Vessels patent. Knee joint congruent. No acute fracture or malalignment. Ankle mortise also congruent. No osseous erosion or periosteal reaction. IMPRESSION: 1. 1.5 x 2.2 x 0.7 cm phlegmon/early abscess in the anterolateral proximal to mid lower leg immediately subjacent to worsened skin thickening. Presumably this is within a region of cellulitis. No evidence of deeper interfascial fluid or an intramuscular collection or edema. 2. No CT evidence of osteomyelitis. Electronically signed by: Bhavesh Williamson M.D. 01/05/2019 6:29 PM
[2019-01-06] MEDS: CEFEPIME 2,000 MG in SYRINGE 7.5 ML IV SCH ×2 (08:15→19:38)
[2019-01-06] MEDS: DAPTOmycin 300 MG in SYRINGE 0 ML IV SCH (08:16)
[2019-01-06] MEDS: INSULIN GLARGINE SOLOSTAR 100 UNITS/ML 3 ML PEN SC SCH ×2 (08:16→21:31)
[2019-01-06] MEDS: INSULIN ASPART 100 UNITS/ML 3 ML PEN SC SCH ×4 (08:16→21:32)
[2019-01-06] MEDS: ENOXAPARIN INJ 40 MG/0.4 ML SYR SQ SCH (08:17)
[2019-01-06] MEDS: ESCITALOPRAM OXALATE 20 MG TAB PO SCH (08:58)
[2019-01-06] MEDS ORDERED: ONDANSETRON INJ 2 MG/ML 2 ML VIAL ONE (09:43)
[2019-01-06] MEDS ORDERED: LIDOCAINE HCL 2% 2 ML VIAL/AMP(20MG/ML) INFIL ONE (09:43)
[2019-01-06] MEDS ORDERED: PROPOFOL IV EMULSION 10 MG/ML 20 ML VIAL IV ONE ×2 (09:43→11:12)
[2019-01-06] MEDS ORDERED: ePHEDrine sulfate 50 MG/ML SYR ONE (09:43)
[2019-01-06] MEDS ORDERED: PHENYLEPHRINE 100MCG/ML 5ML SYR ONE (09:43)
[2019-01-06] MEDS ORDERED: fentaNYL citrate 100 MCG/2 ML VIAL ONE (09:44)
[2019-01-06] MEDS ORDERED: MIDAZOLAM HCL 1 MG/ML 2ML VIAL ONE (09:44)
--- NOTE | 2019-01-06 10:10 | Infectious Disease Consult ---
Date of Consultation January 06, 2019 Assessment & Plan (1) Cellulitis and abscess of lower extremity: Patient with abscess formation with cellulitis right lower extremity, awaiting operative incision and drainage later today. Current antibiotic treatment with daptomycin and cefepime will provide adequate coverage pending operative cultures. Will follow. History of Present Illness Reason for Consultation: Cellulitis, failed outpatient treatment Attending Physician: Raul Carrero MD History of Present Illness 43-year-old male with diabetes mellitus, hypertension, hyperlipidemia who was admitted January 01 with right lower extremity cellulitis. He had been suffering from ulcerations of his toes, was seen recently at another emergency room and started on oral clindamycin, but developed progressively worsening erythema, pain, and swelling of his right left lower leg. He was started on IV antibiotics, but is now been found to have large collection on CT scan and has plans for incision and drainage later today. Blood cultures have been negative to date. Patient has been afebrile, pain controlled. Allergies Allergy/AdvReac Type Severity Reaction Status Date / Time pollen extracts Allergy Intermediate ITCHY Verified 01/06/19 12:28 EYES, SNEEZING, CONGESTION Patient History Medical History Dental caries (Resolved) Lumbago (Chronic) Hypertension (Chronic) Diabetes (Chronic) Social History Preferred Language: Kazakh Communication Ability: Effective Box Toe Cementer Required: No Beliefs That Will Affect Care: None marital status: Current Living Situation: Other current occupational status: employed Other Information That Helps Us Care for You: No Feels Safe at Home: Yes Safety Concerns: Feels Safe At This Time Smoking Status: Never smoker Hx Alcohol Use: Yes Alcohol type: beer and hard liquor Hx Substance Use: No Review of Systems Review of Systems: All systems reviewed & are unremarkable except as noted in HPI & below Physical Exam Constitutional: WD/WN, vitals as above comfortable; no acute distress Eyes: PERRL, conjunctivae normal, anicteric sclerae ENMT: external ear and nose normal, oropharynx normal Neck: trachea midline, no thyromegaly neck nontender Respiratory: normal respiratory effort, lungs clear to auscultation normal percussion; does not use accessory muscles Cardiovascular: Rate/Rhythm: regular rate and regular rhythm Heart Sounds: normal S1 and normal S2; no gallop, no murmur and no cardiac rub Vessels: normal peripheral pulses; no JVD Gastrointestinal (Abdomen): normal bowel sounds, soft, nontender, no hepatosplenomegaly Musculoskeletal: no cyanosis or clubbing, extremities motor strength 5/5 Spine: thoracic spine normal to inspection and lumbar spine normal to inspection; no cervical spinal tenderness Skin: no rashes, warm and dry normal turgor and + erythema (Right lower extremity erythema, induration, and area of fluctuance) Neurologic: patellar DTR's 2+ bilat, sensation intact no focal motor deficits Psychiatric: A+Ox3, euthymic affect Orientation: cooperative Lymphatic: no cervical or axillary lymphadenopathy no inguinal lymphadenopathy Results & Data Vital Signs (Past 12 Hours) Vital Signs Temp Pulse Resp BP Pulse Ox 01/06/19 09:02 36.8 C 67 18 107/70 97 01/05/19 23:35 36.7 C 69 20 121/70 99 Laboratory Results Laboratory Results - last 48 hr 01/04/19 01/04/19 01/04/19 11:57 16:31 19:57 PT INR Sodium Potassium Chloride Carbon Dioxide Anion Gap BUN Creatinine Est Cr Clr Drug Dosing Est GFR ( Amer) Est GFR (Non-Af Amer) BUN/Creatinine Ratio Glucose POC Glucose 231 H 128 H 139 H Calcium 01/05/19 01/05/19 01/05/19 06:05 07:51 11:58 PT INR Sodium 137 Potassium 3.8 Chloride 100 Carbon Dioxide 30 Anion Gap 7.0 BUN 15 Creatinine 0.81 Est Cr Clr Drug Dosing 126.7 Est GFR ( Amer) 126.2 Est GFR (Non-Af Amer) 108.9 BUN/Creatinine Ratio 18.5 Glucose 156 H POC Glucose 165 H 186 H Calcium 9.1 01/05/19 01/05/19 01/06/19 16:55 20:27 05:33 PT 11.2 INR 1.1 Sodium Potassium Chloride Carbon Dioxide Anion Gap BUN Creatinine Est Cr Clr Drug Dosing Est GFR ( Amer) Est GFR (Non-Af Amer) BUN/Creatinine Ratio Glucose POC Glucose 174 H 161 H Calcium 01/06/19 06:02 PT INR Sodium Potassium Chloride Carbon Dioxide Anion Gap BUN Creatinine Est Cr Clr Drug Dosing Est GFR ( Amer) Est GFR (Non-Af Amer) BUN/Creatinine Ratio Glucose POC Glucose 79 Calcium Diagnostic Findings Microbiology 01/02/19 00:04 Blood Aerobic Blood Culture - Preliminary No growth in Aerobic bottle after 48 hours. 01/02/19 00:04 Blood Anaerobic Blood Culture - Preliminary No growth in Anaerobic bottle after 48 hours. 01/02/19 00:05 Blood Aerobic Blood Culture - Preliminary No growth in Aerobic bottle after 48 hours. 01/02/19 00:05 Blood Anaerobic Blood Culture - Preliminary No growth in Anaerobic bottle after [address] tib/fib RT w con CLINICAL HISTORY: 43 years-old Male presenting with wound, r/o abscess/collection Right lower extremity. TECHNIQUE: Multidetector CT of the right lower leg was performed after the administration of intravenous contrast. IV contrast: 94 mL of Optiray 320. One or more dose lowering techniques were used consistent with the principles of ALARA (as low as reasonably achievable), including automatic exposure control, mA or kV adjustment to individual patient size, and/or use of iterative reconstruction. COMPARISON: 01/02/2019. CT DOSE (mGy.cm): The estimated cumulative dose is 244.87 mGycm. FINDINGS: Sales Receptionist topogram: Unremarkable. Subcutaneous edema and skin thickening again noted at the level of the knee joint greatest along the lateral aspect and extending into the lower leg. Subcutaneous soft tissue calcification anterior to the tibia as on prior exam. Interval worsening of skin thickening along the proximal to mid lower leg anteriorly and laterally with interval development of a 1.5 cm x 2.2 x 0.7 poorly delineated fluid collection subjacent to the skin (series 2 image 39). This is concerning for phlegmon/early abscess. No discernible rim enhancement. No evidence of an intramuscular collection, however, there is significant edema tracking along the superficial fascia. No significant edema within the muscles or tracking along the deeper fascia. Normal muscle bulk and appearance of the musculature. Vessels patent. Knee joint congruent. No acute fracture or malalignment. Ankle mortise also congruent. No osseous erosion or periosteal reaction. IMPRESSION: 1. 1.5 x 2.2 x 0.7 cm phlegmon/early abscess in the anterolateral proximal to mid lower leg immediately subjacent to worsened skin thickening. Presumably this is within a region of cellulitis. No evidence of deeper interfascial fluid or an intramuscular collection or edema. 2. No CT evidence of osteomyelitis. Electronically signed by: Bhavesh Williamson M.D. 01/05/2019 6:29 PM Dictated: 01/05/19 1824 Transcribed: 01/05/19 182 PG Care Time/CCT Total # of Minutes Spent Total Time Spent with Patient: Total time spent is greater than 50% in coordination of care (as documented) at patient's floor/unit and/or counseling patient:
[2019-01-06] MEDS ORDERED: Nursing to Pharmacy Communication ONE (11:23)
[2019-01-06] MEDS ORDERED: BACITRACIN INJ 50,000 UNIT VIAL ONE (12:19)
[2019-01-06] MEDS ORDERED: ATROPINE SULFATE 0.1 MG/ML 10ML SYR IV PRN (12:43)
[2019-01-06] MEDS ORDERED: ONDANSETRON INJ 2 MG/ML 2 ML VIAL IV PRN ×2 (12:43→15:43)
[2019-01-06] MEDS ORDERED: ePHEDrine sulfate 50 MG/ML AMP IV PRN (12:43)
[2019-01-06] MEDS ORDERED: PHENYLEPHRINE 100MCG/ML 5ML SYR IV PRN (12:43)
[2019-01-06] MEDS ORDERED: HYDROmorphone INJ 1 MG/ML SYRINGE IV PRN (12:43)
[2019-01-06] MEDS ORDERED: LABETALOL HCL IV 5 MG/ML 20ML IV PRN (12:43)
--- NOTE | 2019-01-06 12:59 | Anesthesiology Consultation ---
Date of Service January 06, 2019 Assessment & Plan (1) Encounter for pre-operative examination: Chart Review Chart Review: Acceptable Risk for Surgery and Patient NOT seen in Pre Admission Testing Consults Requested none History Surgery Operation Date: 01/03/19 08:35 Proposed Procedures p Incision and Drainage Right Anterior Leg Abscess(Right) - Candido Willoughby MD Operation Date: 01/06/19 13:35 Proposed Procedures p Right Lower Extremity Incision and Drainage - Eduardo Newberry DO Height/Weight Height: 6 ft 3 in Weight: 76.2 kg Allergies Allergy/AdvReac Type Severity Reaction Status Date / Time pollen extracts Allergy Intermediate ITCHY Verified 01/06/19 12:28 EYES, SNEEZING, CONGESTION Medications Home Medications Medication Instructions Recorded Confirmed Last Taken atorvastatin 10 mg PO QAM 04/14/18 01/02/19 01/01/19 glimepiride 4 mg PO QAM 04/14/18 01/02/19 01/01/19 insulin glargine [Lantus Solostar 20 unit SUBCUT HS 04/14/18 01/02/19 12/31/18 U-100 Insulin] metformin 1,000 mg PO BID 04/14/18 01/02/19 01/01/19 pioglitazone 30 mg PO QAM 04/14/18 01/02/19 01/01/19 escitalopram oxalate 20 mg PO QAM 08/23/18 01/02/19 01/01/19 loratadine [Allergy Relief 10 mg PO DAILY PRN 01/02/19 01/02/19 Unknown (loratadine)] Active Medications Generic Name Dose Route Start Last Admin Trade Name Freq PRN Reason Stop Dose Admin Acetaminophen 650 mg 01/02/19 05:54 01/03/19 21:02 Tylenol PO 02/01/19 05:53 650 mg Q4H PRN Administration pain/fever Enoxaparin Sodium 40 mg 01/02/19 09:00 01/06/19 08:17 Lovenox SQ 02/01/19 08:59 Not Given QAM BETTY Escitalopram Oxalate 20 mg 01/02/19 09:00 01/06/19 08:58 Lexapro Tab PO 02/01/19 08:59 20 mg QAM BETTY Administration Cefepime HCl 2,000 mg/ Syringe 20 mls @ 5 mls/min 01/02/19 07:00 01/06/19 08:15 IV 01/12/19 06:59 5 mls/min Q12H BETTY Administration Protocol Daptomycin 300 mg/ Syringe 6 mls @ 3 mls/min 01/02/19 08:00 01/06/19 08:16 IV 01/12/19 07:59 3 mls/min DAILY@0800 BETTY Administration Protocol Insulin Aspart 0 units 01/02/19 05:54 01/06/19 12:12 Novolog Flexpen SC 02/01/19 05:53 Not Given ACHS BETTY Insulin Glargine 25 units 01/04/19 21:00 01/06/19 08:16 Lantus Solostar Pen SC 02/03/19 20:59 Not Given BID BETTY Ioversol 94 ml 01/05/19 17:53 01/05/19 17:54 Optiray 320 100ml IV 01/09/19 17:52 94 ml ONCE PRN Administration Interaction Checking NPO Date Last Intake of Fluids: 01/05/19 Time Last Intake of Fluids: 22:30 Last Intake of Fluids Comment: small sip with AM pill Date Last Intake of Solids: 01/05/19 Time Last Intake of Solids: 22:30 Past Medical History Medical History Dental caries (Resolved) Lumbago (Chronic) Hypertension (Chronic) Diabetes (Chronic) Social History Smoking Status: Never smoker Hx Alcohol Use: Yes Alcohol type: beer and hard liquor alcohol intake frequency: holidays/special occasions only Hx Substance Use: No substance use type: does not use Physical Exam Vital Signs Last Vital Signs Temp 36.8 C 01/06/19 12:26 Pulse 76 01/06/19 12:26 Resp 20 01/06/19 12:26 BP 117/74 01/06/19 12:26 Pulse Ox 99 01/06/19 12:26 Testing Laboratory Results 01/04/19 05:25 01/05/19 06:05 PT 11.2 Seconds (9.0-12.0) 01/06/19 05:33 INR 1.1 (0.9-1.1) 01/06/19 05:33 Hemoglobin A1c 11.2 % (4.5-5.6) H 01/02/19 00:04 01/02/19 00:04 Aerobic Blood Culture - Preliminary Blood No growth in Aerobic bottle after 48 hours. Anaerobic Blood Culture - Preliminary No growth in Anaerobic bottle after 48 hours. 01/02/19 00:05 Aerobic Blood Culture - Preliminary Blood No growth in Aerobic bottle after 48 hours. Anaerobic Blood Culture - Preliminary No growth in Anaerobic bottle after 48 hours. 01/06/19 01/06/19 11:27 06:02 POC Glucose 113 H 79
[2019-01-06] MEDS ORDERED: SCOPOLAMINE 1.5 MG TDSY TD SCH (13:00)
--- NOTE | 2019-01-06 13:14 | History & Physical Bridge Note ---
Date of Service January 06, 2019 History & Physical Bridge Note I have examined the patient, reviewed the History & Physical and in the interval since the performance of the History & Physical I have noted the following changes of clinical significance: no changes noted
--- NOTE | 2019-01-06 14:02 | Post Operative Brief Note ---
Immediate Post Op Note v1 Date of Surgery January 06, 2019 Pre & Post Diagnosis Operation Date: 01/03/19 08:35 <No data on this case meets the specified criteria> Operation Date: 01/06/19 13:35 Pre-Op Diagnosis: Right Lower Extremity Abcess Post-Op Diagnosis: Right Lower Extremity Abcess Procedure Operation Date: 01/03/19 08:35 <No data on this case meets the specified criteria> Operation Date: 01/06/19 13:35 Actual Procedures p Right Lower Extremity Incision and Drainage - Eduardo Newberry DO Surgeon Eduardo Newberry DO Riverboat Captain none Estimated Blood Loss 15 Findings Consistent with Post-Op Diagnosis Fluids 700 cc LR Specimens superficial culture x 2 right lower leg Anesthesia Type General Complications none Disposition Disposition: Recovery Room Overlapping Procedure I was present for: the critical portions of procedure. I was immediately available: during the entire case. Back up surgeon: was not required during procedure.
--- NOTE | 2019-01-06 14:24 | Hospitalist Progress Note ---
Date of Service January 06, 2019 Assessment & Plan (1) Cellulitis: Right Lower Extremity Cellulitis with ulceration Diabetic Toe infection Failed outpatient treatment No signs of sepsis --RLE CT:No abscess identified within the right lower leg. Diffuse subcutaneous edema which may represent a cellulitis. No underlying bony abnormality. --Venous Doppler:No sonographic evidence of deep venous thrombosis. Right inguinal adenopathy. --Let Toe X ray:Mild cortical indistinctness with cortical lucency involves the plantar aspect of the first proximal phalangeal head suggestive of subcortical cystic change or erosion related to osteomyelitis. Correlate clinically. Additionally, this could be further characterized with MRI if of further clinical concern. Soft tissue swelling with skin ulceration. --Repeat CT Le.5 x 2.2 x 0.7 cm phlegmon/early abscess in the anterolateral proximal to mid lower leg immediately subjacent to worsened skin thickening. Presumably this is within a region of cellulitis. No evidence of deeper interfascial fluid or an intramuscular collection or edema. No CT evidence of osteomyelitis. --Blood cultures: No growth to date Continue IV antibiotics--cefepime, daptomycin Day #5 Appreciate Orthopedics, ID Input Continue wound care S/P I&D PO D#0 Needs following with Orthopedics upon discharge Pain control Left Shoulder Pain Shoulder X ray:No acute bony abnormality is identified. 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 Correlate for a history of shoulder dislocatio Orthopedics on board DM II A1C:11.2 Continue ISS, basal Insulin Monitor BGs Hyperlipidemia Hold statin while on daptomycin Mood disorder stable Continue escitalopram DVT Px: Lovenox SQ Code Status Full code Disposition Expected discharge home when stable Subjective Patient is seen and examined at bedside Neck pain continues to improve Plan for I&D today No new complaints Still has right leg mild swelling, erythema Denies any chest pain, SOB, dizziness, nausea, abdominal pain Review of Systems Review of Systems: All systems reviewed & are unremarkable except as noted in HPI & below Physical Exam Physical Exam: Physical Exam: Vitals signs as noted above General Appearance:Moderately built and nourished, no apparent distress Head: normocephalic, Atraumatic Eyes: normal inspection, EOMI Neck: supple, Trachea midline Respiratory/Chest: Normal breath sounds, CTA Cardiovascular: S1, S2, No murmur Abdomen/GI:Soft, Non tender, Bowel sounds present Extremities/Musculoskelatal:normal inspection, bilateral great toe LE ulcers, Scan on Mid R LE, erythema improving Neurologic/Psych:AAOX3, grossly no focal neurological deficits Skin: normal color, warm Results & Data Vital Signs (Past 12 Hours) Vital Signs Temp Pulse Pulse Resp BP Pulse Ox 01/06/19 14:07 36.6 C 66 12 117/69 99 01/06/19 12:26 36.8 C 76 20 117/74 99 01/06/19 11:34 36.8 C 68 14 104/64 95 01/06/19 09:02 36.8 C 67 18 107/70 97
--- NOTE | 2019-01-06 14:27 | Anesthesiology Progress Note ---
Date of Service January 06, 2019 Anesthesia Post Procedure Vital Signs Vital Signs: Temp Pulse Pulse Resp BP Pulse Ox 01/06/19 14:07 36.6 C 66 12 117/69 99 01/06/19 12:26 36.8 C 76 20 117/74 99 01/06/19 11:34 36.8 C 68 14 104/64 95 01/06/19 09:02 36.8 C 67 18 107/70 97 01/05/19 23:35 36.7 C 69 20 121/70 99 01/05/19 15:28 37.0 C 86 18 129/78 98 Pain Intensity Right Lower Leg: Pain Intensity: 3 Transfer of Care Handoff Completed per policy Notes Mental Status: alert / awake / arousable Patient Amnestic to Procedure: Yes Nausea / Vomiting: adequately controlled Pain: adequately controlled Airway Patency, RR, SpO2: stable & adequate BP & HR: stable & adequate Hydration State: stable & adequate Anesthetic Complications: no major complications apparent and Pt Satisfied with anesthetic care
[2019-01-06] MEDS: fentaNYL citrate 100 MCG/2 ML VIAL IV PRN ×2 (14:34→14:39)
[2019-01-06] MEDS ORDERED: bisacodyL 10 MG SUPP PR PRN (15:43)
[2019-01-06] MEDS ORDERED: NALOXONE HCL 0.4 MG/1 ML VIAL/CARP IV PRN (15:43)
[2019-01-06] MEDS ORDERED: METOCLOPRAMIDE HCL INJ 5 MG/ML 2 ML VIAL IV PRN (15:43)
[2019-01-06] MEDS ORDERED: SODIUM CHLORIDE 0.9% 1000ML 1,000 ML IV SCH (15:43)
[2019-01-06] MEDS ORDERED: HYDROmorphone INJ 0.5 MG/0.5 ML SYR IV PRN (15:43)
[2019-01-06] MEDS ORDERED: MAGNESIUM HYDROXIDE SUSP 30 ML UDC PO PRN (15:43)
[2019-01-06] MEDS: CHECK SCOPOLAMINE PATCH PLACEMENT SCH (15:57)
[2019-01-06] MEDS: OXYCODONE HCL IR 5 MG TAB (IMMEDIATE RELEASE) PO PRN ×2 (16:07→19:46)
--- NOTE | 2019-01-06 16:10 | Orthopedic Progress Note ---
Date of Service January 06, 2019 Assessment & Plan (1) Cellulitis: s/p I+D RLE abscess -continue IV abx Daptomycin/Cefepime -DVT ppx: Early ambulation, SCDs, TEDs -WBAT RLE -dressing change daily, -f/u IO cultures -PT/OT Subjective Post Operative Progress Note Patient seen in PACU, comfortable, denies complaints, pain well controlled, no acute issues. Review of Systems Review of Systems: All systems reviewed & are unremarkable except as noted in HPI & below Constitutional: as per Subjective / HPI Physical Exam Physical Exam: RLE NVSI +EHL/FHL/TA/GS SILT grossly, +2 DP pulse, compartments soft NT, dressing cdi. Constitutional: WD/WN, vitals as above Results & Data Vital Signs (Past 12 Hours) Vital Signs Temp Pulse Pulse Resp BP Pulse Ox 01/06/19 15:15 79 21 120/83 97 01/06/19 15:00 73 10 L 103/60 97 01/06/19 14:55 36.8 C 81 19 96/57 L 98 01/06/19 14:45 64 12 101/49 L 94 01/06/19 14:35 81 15 112/65 98 01/06/19 14:30 66 16 109/64 100 01/06/19 14:25 68 11 L 116/63 100 01/06/19 14:15 68 19 98/56 L 100 01/06/19 14:07 36.6 C 66 12 117/69 99 01/06/19 12:26 36.8 C 76 20 117/74 99 01/06/19 11:34 36.8 C 68 14 104/64 95 01/06/19 09:02 36.8 C 67 18 107/70 97
--- NOTE | 2019-01-06 16:11 | Operative Report ---
Post Operative Report Pre & Post Diagnosis Operation Date: 01/03/19 08:35 <No data on this case meets the specified criteria> Operation Date: 01/06/19 13:35 Pre-Op Diagnosis: Right Lower Extremity Abcess Post-Op Diagnosis: Right Lower Extremity Abcess Procedure Operation Date: 01/03/19 08:35 <No data on this case meets the specified criteria> Operation Date: 01/06/19 13:35 Actual Procedures p Right Lower Extremity Incision and Drainage - Eduardo Newberry DO Surgeon Eduardo Newberry DO Pharm Tech none Estimated Blood Loss 15 Findings Consistent with Post-Op Diagnosis Fluids 700 cc LR Specimens cultures x 2 superficial abscess right lower leg Anesthesia Type General Complications none Disposition Disposition: Recovery Room Indications The patient is a 43-year-old white male, poorly controlled diabetic, who was admitted for cellulitis of the right lower extremity as well as ulcerations on the great toes of his feet. 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 The patient was having issues with his work boots and states that he had developed an abrasion or cut the anterolateral aspect of his lower extremity over the anterior compartments. He noticed that it began to get increasingly red and he was having worsening pain with ambulation. This prompted him to seek further treatment at [facility]. He was subsequently admitted for further inpatient observation and treatment. IV abx were started at that time. Initial CT demonstrated cellulitis of his RLE without abscess. Overall cellulitis improved however he continued to have localized induration over the anteriolateral aspect of his right lower leg. Repeat CT on 01/05/19 was positive for 1.5 x 2.2 x 0.7 cm phlegmon/early abscess in the anterolateral proximal to mid lower leg immediately subjacent to worsened skin thickening. I have indicated the patient for irrigation and debridement of right lower leg abscess. The risks benefits complications alternatives of the procedure were expanded the patient detail which include however not limited to infection, blood clots, acute blood loss, injury to surrounding nerves, bone, vessels, soft tissue, need for repeat Manny surgery, loss of limb and loss of life. Alternatives to the procedure include no surgery which could result in worsening infection sepsis and . The patient wished to proceed with surgical intervention at this time and informed consent was obtained. Description of Procedure Upon arrival to the operating room the patient was transferred to the OR table. Following the application of adequate General anesthesia and a nonsterile well-padded tourniquet was applied to the proximal aspect of the Right. The extremity was prepped and draped in the usual sterile manner. A time out was performed, patient identified and site akiko verified. The patient was on IV antibiotics, anesthesia confirmed they were given. The right leg was elevated for 5 minutes and tourniquet inflated to 250 mmHg. There was a small draining sinus located at the anterolateral aspect of the right lower with induration. A 3 cm longitudinal incision was made overlying the area of induration and abscess. Immediately, copious amounts of purulent fluid was identified and drained from the abscess. Cultures x 2 were obtained. The wound was then irrigated with copious amounts of sterile saline solution with bacitracin. Next, tissue planes were established circumferentially around the abscess utilizing Metzenbaum in addition to blunt dissection. Necrotic tissue was removed from the wound bed and skin edges utilizing scalpel, currets, rongour and laguna elevator. Once satisfied that no pockets of purulent material remained, the wound was once more irrigated with copious amounts of sterile saline solution with bacitracin, 3L in total. Next proximal and distal aspect of the incision was loosely approximated utilizing 3-0 nylon suture. The wound was then packed with half-inch iodoform packing. Sterile dressings were applied which included Xeroform, 4 x 4's, ABD, webril and fly bandage. The tourniquet was deflated at this time at 11 minutes. The patient was awoken in the operating room and transported to the PACU in stable condition. The patient tolerated the procedure well. I attest to the content of the Intraoperative Record and any orders documented therein. Any exceptions are noted below.
[2019-01-06] MEDS: DOCUSATE SODIUM 100 MG CAP PO SCH (19:51)
[2019-01-06] MEDS: SENNA 8.6 MG TAB PO SCH (19:51)
[2019-01-06] MEDS: ACETAMINOPHEN 500 MG TAB PO SCH (21:32)
[2019-01-07] MEDS: CHECK SCOPOLAMINE PATCH PLACEMENT SCH ×3 (00:17→16:11)
[2019-01-07] MEDS: OXYCODONE HCL IR 5 MG TAB (IMMEDIATE RELEASE) PO PRN ×5 (00:20→20:56)
[2019-01-07 05:29] LABS: Hematocrit (blood only) 39.5 % (42-52); Hemoglobin 13.8 g/dL (14.0-18.0); Mean Corpuscular Hemoglobin 32.3 pg (25-34); Mean Corpuscular Hgb Conc 34.9 g/dL (32-36); Mean Corpuscular Volume 92.5 fL (80-100); Mean Platelet Volume 9.9 fL (7.4-10.4); Platelet Count 234 K/uL (130-400); RDW Coefficient of Variation 12.3 % (11.5-14.5); RDW Standard Deviation 41.5 fL (36.4-46.3); Red Blood Count 4.27 M/uL (4.7-6.1); White Blood Count 7.44 K/uL (4.8-10.8)
[2019-01-07] MEDS: CEFEPIME 2,000 MG in SYRINGE 7.5 ML IV SCH ×2 (06:01→18:50)
[2019-01-07] MEDS: ACETAMINOPHEN 500 MG TAB PO SCH ×3 (06:01→21:43)
[2019-01-07 06:35] LABS: Calcium 8.7 mg/dl (8.5-10.1); Creatinine Clr Calc Pharmacy 106.9 ml/min; Est GFR (African American) 111.8; Est GFR (Non-African American) 96.4; Potassium 4.8 mmol/L (3.5-5.1)
[2019-01-07] MEDS: DAPTOmycin 300 MG in SYRINGE 0 ML IV SCH (08:20)
[2019-01-07] MEDS: DOCUSATE SODIUM 100 MG CAP PO SCH ×2 (08:21→18:50)
[2019-01-07] MEDS: ESCITALOPRAM OXALATE 20 MG TAB PO SCH (08:21)
[2019-01-07] MEDS: MULTIVITAMIN TAB PO SCH (08:22)
[2019-01-07] MEDS: ENOXAPARIN INJ 40 MG/0.4 ML SYR SQ SCH (08:22)
[2019-01-07] MEDS: INSULIN ASPART 100 UNITS/ML 3 ML PEN SC SCH ×4 (08:53→21:41)
--- NOTE | 2019-01-07 08:53 | Orthopedic Progress Note ---
Date of Service January 07, 2019 Assessment & Plan (1) Cellulitis: s/p I+D RLE abscess POD#1 -continue IV abx Daptomycin/Cefepime -DVT ppx: Early ambulation, SCDs, TEDs -WBAT RLE -dressing change daily, will plan for dressing change today and pull partial packing -f/u IO cultures - GS +cocci, cx + staph aureus, sensitivities pending -PT/OT Subjective Post Operative Progress Note Patient seen sitting up in bed, comfortable, denies complaints, pain well controlled, no acute issues. Denies F/C/N/V/SOP/CP Review of Systems Review of Systems: All systems reviewed & are unremarkable except as noted in HPI & below Constitutional: as per Subjective / HPI Physical Exam Physical Exam: RLE NVSI +EHL/FHL/TA/GS SILT grossly, +2 DP pulse, compartments soft NT, dressing with serous drainage Constitutional: WD/WN, vitals as above Results & Data Vital Signs (Past 12 Hours) Vital Signs Temp Pulse Resp BP Pulse Ox 01/07/19 07:26 36.7 C 66 18 116/75 98 01/07/19 03:23 36.5 C 61 16 109/72 97 01/06/19 23:01 37.0 C 73 16 103/67 99 Laboratory Results 01/07/19 01/07/19 01/07/19 Range/Units 07:59 05:17 05:17 WBC 7.44 (4.8-10.8) K/uL RBC 4.27 L (4.7-6.1) M/uL Hgb 13.8 L (14.0-18.0) g/dL Hct 39.5 L (42-52) % MCV 92.5 (80-100) fL MCH 32.3 (25-34) pg MCHC 34.9 (32-36) g/dL RDW Std Deviation 41.5 (36.4-46.3) fL RDW Coeff of Saida 12.3 (11.5-14.5) % Plt Count 234 (130-400) K/uL MPV 9.9 (7.4-10.4) fL Sodium 139 (136-145) mmol/L Potassium 4.8 D (3.5-5.1) mmol/L Chloride 101 (98-107) mmol/L Carbon Dioxide 33 H (21-32) mmol/L Anion Gap 5.0 (3-11) BUN 13 (7-18) mg/dl Creatinine 0.96 (0.6-1.4) mg/dl Est Cr Clr Drug Dosing 106.9 ml/min Est GFR ( Amer) 111.8 Est GFR (Non-Af Amer) 96.4 BUN/Creatinine Ratio 14.0 (10-20) Glucose 160 H (70-99) mg/dl POC Glucose 179 H (70-99) Calcium 8.7 (8.5-10.1) mg/dl 01/06/19 01/06/19 01/06/19 Range/Units 20:40 16:14 14:09 WBC (4.8-10.8) K/uL RBC (4.7-6.1) M/uL Hgb (14.0-18.0) g/dL Hct (42-52) % MCV (80-100) fL MCH (25-34) pg MCHC (32-36) g/dL RDW Std Deviation (36.4-46.3) fL RDW Coeff of Saida (11.5-14.5) % Plt Count (130-400) K/uL MPV (7.4-10.4) fL Sodium (136-145) mmol/L Potassium (3.5-5.1) mmol/L Chloride (98-107) mmol/L Carbon Dioxide (21-32) mmol/L Anion Gap (3-11) BUN (7-18) mg/dl Creatinine (0.6-1.4) mg/dl Est Cr Clr Drug Dosing ml/min Est GFR ( Amer) Est GFR (Non-Af Amer) BUN/Creatinine Ratio (10-20) Glucose (70-99) mg/dl POC Glucose 198 H 79 88 (70-99) Calcium (8.5-10.1) mg/dl 01/06/19 Range/Units 11:27 WBC (4.8-10.8) K/uL RBC (4.7-6.1) M/uL Hgb (14.0-18.0) g/dL Hct (42-52) % MCV (80-100) fL MCH (25-34) pg MCHC (32-36) g/dL RDW Std Deviation (36.4-46.3) fL RDW Coeff of Saida (11.5-14.5) % Plt Count (130-400) K/uL MPV (7.4-10.4) fL Sodium (136-145) mmol/L Potassium (3.5-5.1) mmol/L Chloride (98-107) mmol/L Carbon Dioxide (21-32) mmol/L Anion Gap (3-11) BUN (7-18) mg/dl Creatinine (0.6-1.4) mg/dl Est Cr Clr Drug Dosing ml/min Est GFR ( Amer) Est GFR (Non-Af Amer) BUN/Creatinine Ratio (10-20) Glucose (70-99) mg/dl POC Glucose 113 H (70-99) Calcium (8.5-10.1) mg/dl
[2019-01-07] MEDS: INSULIN GLARGINE SOLOSTAR 100 UNITS/ML 3 ML PEN SC SCH ×2 (08:56→21:42)
--- NOTE | 2019-01-07 16:42 | Hospitalist Progress Note ---
Date of Service January 07, 2019 Assessment & Plan (1) Cellulitis and abscess of lower extremity: with Right Lower extremity abscess s/p I and D Day 1 Would gram stain - Many Polys, many GPCs. culture - Staph aureus. Sensitivities pending Continue daptomycin. Home statin on hold while on daptomycin. Discontinue cefepime if no other growth No systemic signs of infection -RLE CT:No abscess identified within the right lower leg. Diffuse subcutaneous edema which may represent a cellulitis. No underlying bony abnormality -Repeat CT Le.5 x 2.2 x 0.7 cm phlegmon/early abscess in the anterolateral proximal to mid lower leg immediately subjacent to worsened skin thickening. Presumably this is within a region of cellulitis. No evidence of deeper interfascial fluid or an intramuscular collection or edema. No CT evidence of osteomyelitis. Blood cultures: No growth to date Continue wound dressing per ortho recs Pain control (2) Diabetes: Poorly controlled DM2 A1C:11.2 Continue ISS, basal Insulin Monitor BGs Counselled patient extensively on need for med adherence. Provided resources to help with that (3) Mood disorder: Stable Continue escitalopram (4) DVT prophylaxis: Lovenox sc Subjective Patient seen and evaluated this morning. He reported feeling better. Reports no pain at I/D site. Denied any fevers, chills, nausea, vomiting Denied any other skin lesions/wounds besides the I/D site Reports he is on lantus 20U HS, metformin and glimepiride but has not been adherent as he forgets to take his meds. Review of Systems Review of Systems: All systems reviewed and unremarkable except as noted above Physical Exam Physical Exam: General: Well nourished, well hydrated, average body habitus, no acute distress and not ill appearing Eyes: PERRL, conjunctivae normal, not pale, anicteric sclerae, EOM intact bilaterally ENMT: External ear and nose normal, oropharynx normal Neck: Normal visual inspection, no tracheal deviation, no swelling noted Respiratory: Normal respiratory effort, no respiratory distress, lungs clear to auscultation, no crackles and no wheezes Cardiovascular: Pulse is RRR. Heart Sounds: normal S1 and normal S2; no murmurs. Gastrointestinal (Abdomen): Abdomen is not distended, soft, non-tender to palpation, no guarding, no palpable hepatosplenomegaly, normal bowel sounds Musculoskeletal: No cyanosis or clubbing, Right lower extremity wrapped in bandage from foot to mid thigh Neurologic: Alert and oriented x 3, No focal weakness, sensation grossly intact Psychiatric: Alert and oriented x 3, euthymic affect, no depressed affect Results & Data Vital Signs (Past 12 Hours) Vital Signs Temp Pulse Resp BP Pulse Ox 01/07/19 15:45 36.6 C 78 19 105/65 94 01/07/19 07:26 36.7 C 66 18 116/75 98 Laboratory Results Laboratory Results - last 24 hr 01/06/19 01/07/19 01/07/19 20:40 05:17 05:17 WBC 7.44 RBC 4.27 L Hgb 13.8 L Hct 39.5 L MCV 92.5 MCH 32.3 MCHC 34.9 RDW Std Deviation 41.5 RDW Coeff of Saida 12.3 Plt Count 234 MPV 9.9 Sodium 139 Potassium 4.8 D Chloride 101 Carbon Dioxide 33 H Anion Gap 5.0 BUN 13 Creatinine 0.96 Est Cr Clr Drug Dosing 106.9 Est GFR ( Amer) 111.8 Est GFR (Non-Af Amer) 96.4 BUN/Creatinine Ratio 14.0 Glucose 160 H POC Glucose 198 H Calcium 8.7 01/07/19 07:59 WBC RBC Hgb Hct MCV MCH MCHC RDW Std Deviation RDW Coeff of Saida Plt Count MPV Sodium Potassium Chloride Carbon Dioxide Anion Gap BUN Creatinine Est Cr Clr Drug Dosing Est GFR ( Amer) Est GFR (Non-Af Amer) BUN/Creatinine Ratio Glucose POC Glucose 179 H Calcium (1) Diabetes Diabetes mellitus type: type 2 Diabetes mellitus assistant terminal manager insulin use: with assistant terminal manager use Diabetes mellitus complication status: with skin complications
[2019-01-07] MEDS: SENNA 8.6 MG TAB PO SCH (18:50)
--- NOTE | 2019-01-07 19:54 | Infectious Disease Progress Nt ---
Date of Service January 07, 2019 Assessment & Plan (1) Cellulitis and abscess of lower extremity: Patient with right lower extremity abscess with cellulitis, status post I&D is not just dangerous for the CT of the structure with cultures growing staph aureus. Daptomycin appropriate for now, will adjust once final sensitivities are available. Will follow. Subjective Patient seen in follow-up for right lower extremity infection. Now status post incision and drainage of abscess, cultures growing staph aureus, sensitivities pending. Patient feeling better, pain improved. No fever at present. No other new complaints. Review of Systems Review of Systems: All systems reviewed & are unremarkable except as noted in HPI & below Physical Exam Constitutional: WD/WN, vitals as above comfortable; no acute distress Eyes: PERRL, conjunctivae normal, anicteric sclerae ENMT: external ear and nose normal, oropharynx normal Neck: trachea midline, no thyromegaly neck nontender Respiratory: normal respiratory effort, lungs clear to auscultation normal percussion; does not use accessory muscles Cardiovascular: Rate/Rhythm: regular rate and regular rhythm Heart Sounds: normal S1 and normal S2; no gallop, no murmur and no cardiac rub Vessels: normal peripheral pulses; no JVD Gastrointestinal (Abdomen): normal bowel sounds, soft, nontender, no hepatosplenomegaly Musculoskeletal: no cyanosis or clubbing, extremities motor strength 5/5 Spine: thoracic spine normal to inspection and lumbar spine normal to inspection; no cervical spinal tenderness Skin: no rashes, warm and dry normal turgor and + wound (Dressing intact); no lesions Neurologic: patellar DTR's 2+ bilat, sensation intact no focal motor deficits Psychiatric: A+Ox3, euthymic affect Orientation: cooperative Lymphatic: no cervical or axillary lymphadenopathy no inguinal lymphadenopathy Results & Data Vital Signs (Past 12 Hours) Vital Signs Temp Pulse Resp BP Pulse Ox 01/07/19 15:45 36.6 C 78 19 105/65 94 Laboratory Results Short CBC 01/07/19 Range/Units 05:17 WBC 7.44 (4.8-10.8) K/uL Hgb 13.8 L (14.0-18.0) g/dL Hct 39.5 L (42-52) % Plt Count 234 (130-400) K/uL BMP 01/07/19 05:17 Sodium 139 Potassium 4.8 D Chloride 101 Carbon Dioxide 33 H BUN 13 Creatinine 0.96 Glucose 160 H Calcium 8.7 Diagnostic Findings Microbiology 01/06/19 13:54 Leg,Right Gram Stain - Final 01/06/19 13:54 Leg,Right Aerobic and Anaerobic Culture - Preliminary Staphylococcus aureus 01/02/19 00:05 Blood Aerobic Blood Culture - Final No growth in Aerobic bottle after 5 days. 01/02/19 00:05 Blood Anaerobic Blood Culture - Final No growth in Anaerobic bottle after 5 days. 01/02/19 00:04 Blood Aerobic Blood Culture - Final No growth in Aerobic bottle after 5 days. 01/02/19 00:04 Blood Anaerobic Blood Culture - Final No growth in Anaerobic bottle after 5 days. PG Care Time/CCT Total # of Minutes Spent Total Time Spent with Patient: Total time spent is greater than 50% in coordination of care (as documented) at patient's floor/unit and/or counseling patient:
[2019-01-08] MEDS: CHECK SCOPOLAMINE PATCH PLACEMENT SCH ×4 (00:06→23:37)
[2019-01-08 06:28] LABS: Hematocrit (blood only) 37.5 % (42-52); Hemoglobin 13.1 g/dL (14.0-18.0); Mean Corpuscular Hemoglobin 32.9 pg (25-34); Mean Corpuscular Hgb Conc 34.9 g/dL (32-36); Mean Corpuscular Volume 94.2 fL (80-100); Mean Platelet Volume 10.1 fL (7.4-10.4); Platelet Count 229 K/uL (130-400); RDW Coefficient of Variation 12.4 % (11.5-14.5); RDW Standard Deviation 41.8 fL (36.4-46.3); Red Blood Count 3.98 M/uL (4.7-6.1); White Blood Count 8.73 K/uL (4.8-10.8)
[2019-01-08] MEDS: ACETAMINOPHEN 500 MG TAB PO SCH ×3 (06:34→20:58)
[2019-01-08] MEDS: CEFEPIME 2,000 MG in SYRINGE 7.5 ML IV SCH (06:34)
[2019-01-08] MEDS: OXYCODONE HCL IR 5 MG TAB (IMMEDIATE RELEASE) PO PRN ×4 (06:42→20:48)
[2019-01-08 07:11] LABS: BUN Creatinine Ratio 14.9 (10-20); Calcium 8.6 mg/dl (8.5-10.1); Creatinine Clr Calc Pharmacy 125.2 ml/min; Est GFR (African American) 125.5; Est GFR (Non-African American) 108.3; Potassium 3.7 mmol/L (3.5-5.1)
[2019-01-08] MEDS: DAPTOmycin 300 MG in SYRINGE 0 ML IV SCH (08:34)
[2019-01-08] MEDS: ESCITALOPRAM OXALATE 20 MG TAB PO SCH (08:35)
[2019-01-08] MEDS: MULTIVITAMIN TAB PO SCH (08:35)
[2019-01-08] MEDS: DOCUSATE SODIUM 100 MG CAP PO SCH ×2 (08:36→20:49)
[2019-01-08] MEDS: ENOXAPARIN INJ 40 MG/0.4 ML SYR SQ SCH (08:36)
[2019-01-08] MEDS: INSULIN GLARGINE SOLOSTAR 100 UNITS/ML 3 ML PEN SC SCH ×2 (08:46→20:49)
[2019-01-08] MEDS: INSULIN ASPART 100 UNITS/ML 3 ML PEN SC SCH ×4 (08:47→20:50)
--- NOTE | 2019-01-08 11:48 | Hospitalist Progress Note ---
Date of Service January 08, 2019 Assessment & Plan (1) Cellulitis and abscess of lower extremity: with Right Lower extremity abscess s/p I and D on 01/06/19 Wound culture - MRSA. Sensitivities noted Continue daptomycin. Home statin on hold while on daptomycin. Cefepime discontinued No systemic signs of infection -RLE CT:No abscess identified within the right lower leg. Diffuse subcutaneous edema which may represent a cellulitis. No underlying bony abnormality -Repeat CT Le.5 x 2.2 x 0.7 cm phlegmon/early abscess in the anterolateral proximal to mid lower leg immediately subjacent to worsened skin thickening. Presumably this is within a region of cellulitis. No evidence of deeper i nterfascial fluid or an intramuscular collection or edema. No CT evidence of osteomyelitis. Continue wound dressing per ortho recs. Will discuss with ortho team about outpatient wound management and ID about outpatient antibiotics Pain control (2) Diabetes: Poorly controlled DM2 A1C:11.2 Continue ISS, basal Insulin Monitor BGs (3) Mood disorder: Stable Continue escitalopram (4) DVT prophylaxis: Lovenox sc Subjective Patient seen and evaluated. Reports adequate pain control at I/D site. Denied any fevers, chills, nausea, vomiting. Dressing was changed yesterday by the surgeons Review of Systems Review of Systems: All systems reviewed and unremarkable except for mentioned above. Physical Exam Physical Exam: General: Well nourished, well hydrated, average body habitus, no acute distress and not ill appearing Eyes: PERRL, conjunctivae normal, not pale, anicteric sclerae, EOM intact bilaterally ENMT: External ear and nose normal, oropharynx normal Neck: Normal visual inspection, no tracheal deviation, no swelling noted Respiratory: Normal respiratory effort, no respiratory distress, lungs clear to auscultation, no crackles and no wheezes Gastrointestinal (Abdomen): Abdomen is not distended, soft, non-tender to palpation, no guarding, no palpable hepatosplenomegaly, normal bowel sounds Musculoskeletal: No cyanosis or clubbing, Right leg covered in dressing, +right foot edema Neurologic: Alert and oriented x 3, No focal weakness, sensation grossly intact Psychiatric: Alert and oriented x 3, euthymic affect, no depressed affect Results & Data Vital Signs (Past 12 Hours) Vital Signs Temp Pulse Resp BP Pulse Ox 01/08/19 07:34 37 C 93 H 18 110/65 96 Laboratory Results Wound culture - MRSA (1) Diabetes Diabetes mellitus complication status: with skin complications Diabetes mellitus intermediate designer insulin use: with prison use Diabetes mellitus type: type 2
--- NOTE | 2019-01-08 14:23 | Orthopedic Progress Note ---
Date of Service January 08, 2019 Assessment & Plan (1) Cellulitis: s/p I+D RLE abscess POD#2 -continue IV abx Daptomycin -DVT ppx: Early ambulation, SCDs, TEDs -WBAT RLE -dressing change daily. Changed today by myself, about 9-10inc of packing pulled. Remainder of packing to be pulled tomorrow. -f/u IO cultures - GS +cocci, cx + staph aureus, MRSA. -PT/OT Subjective Patient is POD#2 right lower leg I&D. Felling well, mild pain with lower leg. No chest pain, sob, dizziness, fever/chills. Preliminary culture results growing MRSA. Patient is on Dapto. Review of Systems Review of Systems: All systems reviewed & are unremarkable except as noted in HPI & below Physical Exam Physical Exam: Right lower leg dressing removed. Mild amount of bloody drainage on bandage, no purulence noted. About 10in of packing removed. 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 N/V status and sensation intact. No calf tenderness. Toes mobile. Results & Data Vital Signs (Past 12 Hours) Vital Signs Temp Pulse Resp BP Pulse Ox 01/08/19 07:34 37 C 93 H 18 110/65 96
[2019-01-08] MEDS: SENNA 8.6 MG TAB PO SCH (20:49)
[2019-01-09] MEDS: ACETAMINOPHEN 500 MG TAB PO SCH ×3 (05:41→20:54)
[2019-01-09] MEDS: OXYCODONE HCL IR 5 MG TAB (IMMEDIATE RELEASE) PO PRN ×4 (05:43→20:49)
[2019-01-09 05:52] LABS: Hematocrit (blood only) 36.9 % (42-52); Hemoglobin 12.8 g/dL (14.0-18.0); Mean Corpuscular Hemoglobin 32.4 pg (25-34); Mean Corpuscular Hgb Conc 34.7 g/dL (32-36); Mean Corpuscular Volume 93.4 fL (80-100); Platelet Count 244 K/uL (130-400); RDW Coefficient of Variation 12.2 % (11.5-14.5); RDW Standard Deviation 41.5 fL (36.4-46.3); Red Blood Count 3.95 M/uL (4.7-6.1)
[2019-01-09 06:24] LABS: BUN Creatinine Ratio 13.3 (10-20); Calcium 8.8 mg/dl (8.5-10.1); Creatinine Clr Calc Pharmacy 112.8 ml/min; Est GFR (African American) 119.2; Est GFR (Non-African American) 102.9
[2019-01-09] MEDS: CHECK SCOPOLAMINE PATCH PLACEMENT SCH ×2 (09:13→16:41)
[2019-01-09] MEDS: ENOXAPARIN INJ 40 MG/0.4 ML SYR SQ SCH (09:13)
[2019-01-09] MEDS: MULTIVITAMIN TAB PO SCH (09:14)
[2019-01-09] MEDS: ESCITALOPRAM OXALATE 20 MG TAB PO SCH (09:14)
[2019-01-09] MEDS: DOCUSATE SODIUM 100 MG CAP PO SCH ×2 (09:14→20:51)
[2019-01-09] MEDS: INSULIN ASPART 100 UNITS/ML 3 ML PEN SC SCH ×4 (09:19→20:52)
[2019-01-09] MEDS: DAPTOmycin 300 MG in SYRINGE 0 ML IV SCH (09:25)
--- NOTE | 2019-01-09 09:47 | Orthopedic Progress Note ---
Date of Service January 09, 2019 Assessment & Plan (1) Cellulitis: s/p I+D RLE abscess POD#3 -continue IV abx Daptomycin -DVT ppx: Early ambulation, SCDs, TEDs -WBAT RLE -dressing change daily. Remainder of packing removed. -f/u IO cultures - GS +cocci, cx + staph aureus, MRSA. -PT/OT Consider oupt IV antibx; Will discuss with ID. Subjective POD 3 s/p I/D Right LE Pt lying in bed. RLE elevated on pillows. Feeling "ok" today. Pain off and on in the leg but states he's been able to get around a little better. No new complaints. Physical Exam Physical Exam: Dressings removed. All packing removed. Less erythema proximally. Continues with mild erythema distally. I was not able to express any drainage from the wound on palpation. More tenderness distal to the incision. No purulence. Redressed. Results & Data Vital Signs (Past 12 Hours) Vital Signs Temp Pulse Resp BP Pulse Ox 01/09/19 06:59 37 C 70 16 104/63 96 01/08/19 22:55 100/60 01/08/19 22:53 37.1 C 73 16 96/56 L 97
[2019-01-09] MEDS ORDERED: CONSULT PHARMACY STA (11:39)
[2019-01-09] MEDS ORDERED: PHARMACY GLYCEMIC MGMT CONSULT PRN (12:00)
[2019-01-09] MEDS: INSULIN GLARGINE SOLOSTAR 100 UNITS/ML 3 ML PEN SC SCH ×3 (13:07→20:54)
--- NOTE | 2019-01-09 13:24 | Hospitalist Progress Note ---
Date of Service January 09, 2019 Assessment & Plan (1) Cellulitis and abscess of lower extremity: with Right Lower extremity abscess s/p I and D on 01/06/19 Wound culture - MRSA. Sensitivities noted Continue daptomycin. Home statin on hold while on daptomycin. I discussed with Dr Zambrano who recommended iv daptomycin for a total of 10 days. Today is Day 8 Will discuss with surgeons when it is ok to discharge and continue outpatient management Continue wound dressing per ortho recs. (2) Diabetes: Poorly controlled DM2 A1C:11.2 Continue ISS, basal Insulin Will appreciate Pharm recommendations for insulin regimen while in patient (3) Mood disorder: Stable Continue escitalopram (4) DVT prophylaxis: Lovenox sc Subjective Patient has no complaints No leg pain at this time. Reports surgeons changed dressings earlier. Denied any fevers, chills. Review of Systems Review of Systems: All systems reviewed and unremarkable except for mentioned above. Physical Exam Physical Exam: General: Well nourished, well hydrated , average body habitus, no acute distress and not ill appearing Eyes: PERRL, conjunctivae normal, not pale, anicteric sclerae, EOM intact bilaterally ENMT: External ear and nose normal, oropharynx normal Respiratory: Normal respiratory effort, no respiratory distress, lungs clear to auscultation, no crackles and no wheezes Cardiovascular: Pulse is RRR. Heart Sounds: normal S1 and normal S2; Gastrointestinal (Abdomen): Abdomen is not distended, soft, non-tender to palpation, no guarding, no palpable hepatosplenomegaly, normal bowel sounds Musculoskeletal: No cyanosis or clubbing,Right leg in bandage and elevated on pillows Neurologic: Alert and oriented x 3, No focal weakness, sensation grossly intact Results & Data Vital Signs (Past 12 Hours) Vital Signs Temp Pulse Resp BP Pulse Ox 01/09/19 06:59 37 C 70 16 104/63 96 Diagnostic Findings -RLE CT:No abscess identified within the right lower leg. Diffuse subcutaneous edema which may represent a cellulitis. No underlying bony abnormality -Repeat CT Le.5 x 2.2 x 0.7 cm phlegmon/early abscess in the anterolateral proximal to mid lower leg immediately subjacent to worsened skin thickening. Presumably this is within a region of cellulitis. No evidence of deeper interfascial fluid or an intramuscular collection or edema. No CT evidence of osteomyelitis. 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
--- NOTE | 2019-01-09 13:55 | Pharmacy Report ---
Glycemic Control Consultation - Date of Service January 09, 2019 - Scope Scope: Glycemic Pharmacist consulted by Dr Azar on 01/09 for glycemic control and to write orders per [facility] inpatient glycemic control protocol - Objective Weight: 76.2 kg Accuchecks BSG (last 24hrs): 01/08/19 01/08/19 01/09/19 17:14 20:39 05:11 Glucose 75 POC Glucose 131 H 139 H 01/09/19 01/09/19 01/09/19 08:18 10:47 12:10 Glucose POC Glucose 82 162 H 135 H Laboratory Data (last 24hrs): 01/09/19 05:11 Potassium 4.0 Carbon Dioxide 33 H Anion Gap 4.0 Creatinine 0.91 Est Cr Clr Drug Dosing 112.8 HbA1c: Hemoglobin A1c 11.2 % (4.5-5.6) H 01/02/19 00:04 - Recent Pertinent Medications Outpatient Anti-diabetic Regimen: has not been taking d/t cost issues * Lantus 20 units qHS * Glimepiride 4 mg daily * Metformin 1 gm BID * Pioglitazone 30 mg daily * A1c = 11.2 % 01/02/19 The patient is currently receiving: * Basal insulin: Lantus 25 units every 12 hours * Correctional Insulin: Novolog Correction per scale ACHS Goal Range: Low 110 mg/dL - High 140 mg/dL Correction Factor: 25 mg/dL/unit * Prandial insulin: Per carb ratio of 1 unit per 15 grams CHO consumed * Oral Agents: None at this time Risk Factors for Insulin Resistance: * Infection: daptomycin for cellulitis * Recent Surgery: I&D on 01/06 * Diet: T2DM - Assessment & Plan Assessment & Plan: ASSESSMENT: * 43 y/o male admitted for cellulitis, with history of T2DM * A1c is quite uncontrolled, mostly due to non-compliance with medications recently from change in insurance. CDE note reports that patient plans to resume all on discharge now that he has insurance. * Regarding inpatient control, his BSGs have been fairly stable on 50 units of Lantus but only ~10-20 units of bolus insulin. His fasting BSG has slowly decreased and was down to 75 mg/dL this AM. Pharmacy has been consulted for glycemic management due to dropping BSGs and to provide discharge recommendations. * His inpatient regimen is heavily weighted on basal insulin so will start to move towards more of a 50/50 basal/bolus split PLAN FOR INPATIENT GLYCEMIC CONTROL: * Continue to hold outpatient oral diabetes medications * Basal insulin - decrease * Lantus 20 units SQ BID (RN to give 1st dose now as unscheduled admin since 25 units was NOT given this AM) * Bolus insulin - tighten starting 10/5 AM since basal to be decreased * NovoLog per scale ACHS or Q6hrs while NPO * Goal Range: Low 110 mg/dL - High 140 mg/dL * Correction Factor: 25 mg/dL/unit * Nutritional / Prandial insulin per carb ratio of 1 unit per 8 grams CHO consumed Discharge Recommendations: * Since elevated A1c is due to non-compliance and patient will be resuming medications on discharge, would not recommend any significant changes * It's also noted that our CDE has already notified the [place] nurse navigator re: outpatient f/u needed Thank you.
--- NOTE | 2019-01-09 19:33 | Infectious Disease Progress Nt ---
Date of Service January 09, 2019 Assessment & Plan (1) Cellulitis and abscess of lower extremity: Patient with abscess with MRSA, status post I&D, appears to be improving with antibiotics. Would recommend at least 7 more days of IV antibiotics depending on clinical response. Daptomycin would provide easiest outpatient treatment. Would like to follow-up as an outpatient prior to discontinuation of IV therapy. (2) MRSA (methicillin resistant Staphylococcus aureus) infection: Subjective Patient seen in follow-up for right leg infection. Still with some pain in his leg, slightly better from yesterday. No fever. Cultures positive for MRSA. Review of Systems Review of Systems: All systems reviewed & are unremarkable except as noted in HPI & below Physical Exam Constitutional: WD/WN, vitals as above comfortable; no acute distress Eyes: PERRL, conjunctivae normal, anicteric sclerae ENMT: external ear and nose normal, oropharynx normal Neck: trachea midline, no thyromegaly neck nontender Respiratory: normal respiratory effort, lungs clear to auscultation normal percussion; does not use accessory muscles Cardiovascular: Rate/Rhythm: regular rate and regular rhythm Heart Sounds: normal S1 and normal S2; no gallop, no murmur and no cardiac rub Vessels: normal peripheral pulses; no JVD Gastrointestinal (Abdomen): normal bowel sounds, soft, nontender, no hepatos plenomegaly Musculoskeletal: no cyanosis or clubbing, extremities motor strength 5/5 Spine: thoracic spine normal to inspection and lumbar spine normal to inspection; no cervical spinal tenderness Skin: no rashes, warm and dry normal turgor and + wound (Dressing in place right leg) Neurologic: patellar DTR's 2+ bilat, sensation intact no focal motor deficits Psychiatric: A+Ox3, euthymic affect Orientation: cooperative Lymphatic: no cervical or axillary lymphadenopathy no inguinal lymphadenopathy Results & Data Vital Signs (Past 12 Hours) Vital Signs Temp Pulse Resp BP Pulse Ox 01/09/19 14:59 36.9 C 74 16 111/69 98 Laboratory Results Laboratory Results - last 48 hr 01/07/19 01/07/19 01/08/19 12:08 21:01 05:55 WBC 8.73 RBC 3.98 L Hgb 13.1 L Hct 37.5 L MCV 94.2 MCH 32.9 MCHC 34.9 RDW Std Deviation 41.8 RDW Coeff of Saida 12.4 Plt Count 229 MPV 10.1 ESR Sodium Potassium Chloride Carbon Dioxide Anion Gap BUN Creatinine Est Cr Clr Drug Dosing Est GFR ( Amer) Est GFR (Non-Af Amer) BUN/Creatinine Ratio Glucose POC Glucose 116 H 165 H Calcium C-Reactive Protein 01/08/19 01/08/19 01/08/19 05:55 08:14 12:03 WBC RBC Hgb Hct MCV MCH MCHC RDW Std Deviation RDW Coeff of Saida Plt Count MPV ESR Sodium 139 Potassium 3.7 D Chloride 101 Carbon Dioxide 31 Anion Gap 7.0 BUN 12 Creatinine 0.82 Est Cr Clr Drug Dosing 125.2 Est GFR ( Amer) 125.5 Est GFR (Non-Af Amer) 108.3 BUN/Creatinine Ratio 14.9 Glucose 77 POC Glucose 98 173 H Calcium 8.6 C-Reactive Protein 01/08/19 01/08/19 01/09/19 17:14 20:39 05:11 WBC 6.50 RBC 3.95 L Hgb 12.8 L Hct 36.9 L MCV 93.4 MCH 32.4 MCHC 34.7 RDW Std Deviation 41.5 RDW Coeff of Saida 12.2 Plt Count 244 MPV 10.0 ESR Sodium Potassium Chloride Carbon Dioxide Anion Gap BUN Creatinine Est Cr Clr Drug Dosing Est GFR ( Amer) Est GFR (Non-Af Amer) BUN/Creatinine Ratio Glucose POC Glucose 131 H 139 H Calcium C-Reactive Protein 01/09/19 01/09/19 01/09/19 05:11 05:11 05:11 WBC RBC Hgb Hct MCV MCH MCHC RDW Std Deviation RDW Coeff of Saida Plt Count MPV ESR 71 H Sodium 138 Potassium 4.0 Chloride 101 Carbon Dioxide 33 H Anion Gap 4.0 BUN 12 Creatinine 0.91 Est Cr Clr Drug Dosing 112.8 Est GFR ( Amer) 119.2 Est GFR (Non-Af Amer) 102.9 BUN/Creatinine Ratio 13.3 Glucose 75 POC Glucose Calcium 8.8 C-Reactive Protein 6.78 H 01/09/19 01/09/19 01/09/19 08:18 10:47 12:10 WBC RBC Hgb Hct MCV MCH MCHC RDW Std Deviation RDW Coeff of Saida Plt Count MPV ESR Sodium Potassium Chloride Carbon Dioxide Anion Gap BUN Creatinine Est Cr Clr Drug Dosing Est GFR ( Amer) Est GFR (Non-Af Amer) BUN/Creatinine Ratio Glucose POC Glucose 82 162 H 135 H Calcium C-Reactive Protein 01/09/19 17:13 WBC RBC Hgb Hct MCV MCH MCHC RDW Std Deviation RDW Coeff of Saida Plt Count MPV ESR Sodium Potassium Chloride Carbon Dioxide Anion Gap BUN Creatinine Est Cr Clr Drug Dosing Est GFR ( Amer) Est GFR (Non-Af Amer) BUN/Creatinine Ratio Glucose POC Glucose 163 H Calcium C-Reactive Protein Diagnostic Findings Microbiology 01/06/19 13:54 Leg,Right Gram Stain - Final 01/06/19 13:54 Leg,Right Aerobic and Anaerobic Culture - Preliminary Staph aureus MRSA 01/02/19 00:05 Blood Aerobic Blood Culture - Final No growth in Aerobic bottle after 5 days. 01/02/19 00:05 Blood Anaerobic Blood Culture - Final No growth in Anaerobic bottle after 5 days. 01/02/19 00:04 Blood Aerobic Blood Culture - Final No growth in Aerobic bottle after 5 days. 01/02/19 00:04 Blood Anaerobic Blood Culture - Final No growth in Anaerobic bottle after 5 days. PG Care Time/CCT Total # of Minutes Spent Total Time Spent with Patient: Total time spent is greater than 50% in coordination of care (as documented) at patient's floor/unit and/or counseling patient:
[2019-01-09] MEDS: SENNA 8.6 MG TAB PO SCH (20:52)
[2019-01-10] MEDS: CHECK SCOPOLAMINE PATCH PLACEMENT SCH (00:57)
[2019-01-10] MEDS ORDERED: Nursing to Pharmacy Communication ONE (00:57)
[2019-01-10 05:31] LABS: Hematocrit (blood only) 39.3 % (42-52); Hemoglobin 13.8 g/dL (14.0-18.0); Mean Corpuscular Hemoglobin 32.9 pg (25-34); Mean Corpuscular Hgb Conc 35.1 g/dL (32-36); Mean Corpuscular Volume 93.6 fL (80-100); Mean Platelet Volume 9.9 fL (7.4-10.4); Platelet Count 339 K/uL (130-400); RDW Coefficient of Variation 12.4 % (11.5-14.5); RDW Standard Deviation 41.6 fL (36.4-46.3); White Blood Count 7.77 K/uL (4.8-10.8)
[2019-01-10] MEDS: OXYCODONE HCL IR 5 MG TAB (IMMEDIATE RELEASE) PO PRN ×4 (05:33→19:54)
[2019-01-10] MEDS: ACETAMINOPHEN 500 MG TAB PO SCH ×3 (05:33→21:45)
[2019-01-10 06:15] LABS: BUN Creatinine Ratio 12.7 (10-20); Calcium 9.1 mg/dl (8.5-10.1); Creatinine Clr Calc Pharmacy 114.1 ml/min; Est GFR (African American) 120.8; Est GFR (Non-African American) 104.2; Potassium 3.4 mmol/L (3.5-5.1)
[2019-01-10] MEDS: DAPTOmycin 300 MG in SYRINGE 0 ML IV SCH (07:46)
[2019-01-10] MEDS: ENOXAPARIN INJ 40 MG/0.4 ML SYR SQ SCH (07:47)
[2019-01-10] MEDS: MULTIVITAMIN TAB PO SCH (07:47)
[2019-01-10] MEDS: ESCITALOPRAM OXALATE 20 MG TAB PO SCH (07:47)
[2019-01-10] MEDS: INSULIN GLARGINE SOLOSTAR 100 UNITS/ML 3 ML PEN SC SCH ×2 (07:48→21:44)
[2019-01-10] MEDS: DOCUSATE SODIUM 100 MG CAP PO SCH ×2 (07:48→21:45)
[2019-01-10] MEDS: INSULIN ASPART 100 UNITS/ML 3 ML PEN SC SCH ×4 (07:49→21:44)
--- NOTE | 2019-01-10 09:17 | Orthopedic Progress Note ---
Date of Service January 10, 2019 Assessment & Plan (1) Cellulitis and abscess of lower extremity: 43 yo male stable POD #4 s/p I&D abscess right lateral lower extremity(MRSA) 1. Med management- on IV Dapto, ID recommending at least 7 more days 2. DVT prophylaxis- Lovenox, SCDs 3. PT/OT 4. D/C planning- stable per ortho, pt may need midline/picc line for home IV abx Subjective Pt resting in bed, denies complaints, ready to get out of hospital Physical Exam Physical Exam: Dressing changed, minimal drainage, minimal tenderness Results & Data Vital Signs (Past 12 Hours) Vital Signs Temp Pulse Resp BP BP Pulse Ox 01/10/19 07:29 36.5 C 62 16 99/61 L 97 01/09/19 23:14 36.8 C 66 18 109/71 100 Laboratory Results 01/10/19 01/10/19 01/10/19 Range/Units 07:00 05:17 05:11 WBC (4.8-10.8) K/uL RBC (4.7-6.1) M/uL Hgb (14.0-18.0) g/dL Hct (42-52) % MCV (80-100) fL MCH (25-34) pg MCHC (32-36) g/dL RDW Std Deviation (36.4-46.3) fL RDW Coeff of Saida (11.5-14.5) % Plt Count (130-400) K/uL MPV (7.4-10.4) fL ESR (0-14) mm/hr Sodium 140 (136-145) mmol/L Potassium 3.4 L (3.5-5.1) mmol/L Chloride 102 (98-107) mmol/L Carbon Dioxide 31 (21-32) mmol/L Anion Gap 7.0 (3-11) BUN 11 (7-18) mg/dl Creatinine 0.90 (0.6-1.4) mg/dl Est Cr Clr Drug Dosing 114.1 ml/min Est GFR ( Amer) 120.8 Est GFR (Non-Af Amer) 104.2 BUN/Creatinine Ratio 12.7 (10-20) Glucose 66 L (70-99) mg/dl POC Glucose 136 H 78 (70-99) Calcium 9.1 (8.5-10.1) mg/dl C-Reactive Protein (0-0.29) mg/dl 01/10/19 01/09/19 01/09/19 Range/Units 05:11 20:36 17:13 WBC 7.77 (4.8-10.8) K/uL RBC 4.20 L (4.7-6.1) M/uL Hgb 13.8 L (14.0-18.0) g/dL Hct 39.3 L (42-52) % MCV 93.6 (80-100) fL MCH 32.9 (25-34) pg MCHC 35.1 (32-36) g/dL RDW Std Deviation 41.6 (36.4-46.3) fL RDW Coeff of Saida 12.4 (11.5-14.5) % Plt Count 339 (130-400) K/uL MPV 9.9 (7.4-10.4) fL ESR (0-14) mm/hr Sodium (136-145) mmol/L Potassium (3.5-5.1) mmol/L Chloride (98-107) mmol/L Carbon Dioxide (21-32) mmol/L Anion Gap (3-11) BUN (7-18) mg/dl Creatinine (0.6-1.4) mg/dl Est Cr Clr Drug Dosing ml/min Est GFR ( Amer) Est GFR (Non-Af Amer) BUN/Creatinine Ratio (10-20) Glucose (70-99) mg/dl POC Glucose 247 H 163 H (70-99) Calcium (8.5-10.1) mg/dl C-Reactive Protein (0-0.29) mg/dl 01/09/19 01/09/19 01/09/19 Range/Units 12:10 10:47 05:11 WBC (4.8-10.8) K/uL RBC (4.7-6.1) M/uL Hgb (14.0-18.0) g/dL Hct (42-52) % MCV (80-100) fL MCH (25-34) pg MCHC (32-36) g/dL RDW Std Deviation (36.4-46.3) fL RDW Coeff of Saida (11.5-14.5) % Plt Count (130-400) K/uL MPV (7.4-10.4) fL ESR (0-14) mm/hr Sodium (136-145) mmol/L Potassium (3.5-5.1) mmol/L Chloride (98-107) mmol/L Carbon Dioxide (21-32) mmol/L Anion Gap (3-11) BUN (7-18) mg/dl Creatinine (0.6-1.4) mg/dl Est Cr Clr Drug Dosing ml/min Est GFR ( Amer) Est GFR (Non-Af Amer) BUN/Creatinine Ratio (10-20) Glucose (70-99) mg/dl POC Glucose 135 H 162 H (70-99) Calcium (8.5-10.1) mg/dl C-Reactive Protein 6.78 H (0-0.29) mg/dl 01/09/19 Range/Units 05:11 WBC (4.8-10.8) K/uL RBC (4.7-6.1) M/uL Hgb (14.0-18.0) g/dL Hct (42-52) % MCV (80-100) fL MCH (25-34) pg MCHC (32-36) g/dL RDW Std Deviation (36.4-46.3) fL RDW Coeff of Saida (11.5-14.5) % Plt Count (130-400) K/uL MPV (7.4-10.4) fL ESR 71 H (0-14) mm/hr Sodium (136-145) mmol/L Potassium (3.5-5.1) mmol/L Chloride (98-107) mmol/L Carbon Dioxide (21-32) mmol/L Anion Gap (3-11) BUN (7-18) mg/dl Creatinine (0.6-1.4) mg/dl Est Cr Clr Drug Dosing ml/min Est GFR ( Amer) Est GFR (Non-Af Amer) BUN/Creatinine Ratio (10-20) Glucose (70-99) mg/dl POC Glucose (70-99) Calcium (8.5-10.1) mg/dl C-Reactive Protein (0-0.29) mg/dl
--- NOTE | 2019-01-10 10:52 | Hospitalist Progress Note ---
Date of Service January 10, 2019 Assessment & Plan (1) Cellulitis and abscess of lower extremity: with Right Lower extremity abscess s/p I and D on 01/06/19 Wound culture - MRSA. Sensitivities noted Continue daptomycin. Home statin on hold while on daptomycin. Per 's note from yesterday, additional 7 days of iv daptomycin is recommended Will make arrangements with channel account manager about set up for outpatient iv antibiotics and wound care. (2) Diabetes: Poorly controlled DM2 A1C:11.2 Patient is currently on lantus 20U bid cut down from 25U bid yesterday. Fasting blood glucose is 66 today. Patient will need meal time short acting insulin coverage. However, he reported that he was supposed to be taking lantus 20U HS, metformin 1g bid and glimepiride qAM but has not been taking the insulin and oral antidiabetics as he often forgets. He stated he cannot afford short acting insulin due to cost as he currently in process of getting medical assistance/insurance. He stated he can afford the lantus and oral meds. Will plan to discharge patient on his previous regimen; encouraged him to be more adherent, keep a glucose log. He will also need a glucometer and close follow up with PCP for continued management of his blood glucose based on glucose log. Provided diabetes education and need for adequate glycemic control for wound healing (3) Mood disorder: Stable Continue escitalopram (4) DVT prophylaxis: Lovenox sc Subjective Patient has no complaints Review of Systems Review of Systems: All systems reviewed and unremarkable except for pain at I/D site. Physical Exam 2 Physical Exam: General: No acute distress and not ill appearing Eyes: PERRL, conjunctivae normal, not pale, anicteric sclerae, EOM intact bilaterally ENMT: External ear and nose normal, oropharynx normal Neck: Normal visual inspection, no tracheal deviation, no swelling noted Respiratory: Normal respiratory effort, no respiratory distress, lungs clear to auscultation, no crackles and no wheezes Cardiovascular: Pulse is RRR. Heart Sounds: normal S1 and normal S2; no murmurs. Gastrointestinal (Abdomen): Abdomen is not distended, soft, non-tender to palpation, no guarding, no palpable hepatosplenomegaly, normal bowel sounds Musculoskeletal: Right leg dressing clean and dry Neurologic: Alert and oriented x 3, No focal weakness Results & Data Vital Signs (Past 12 Hours) Vital Signs Temp Pulse Resp BP BP Pulse Ox 01/10/19 07:29 36.5 C 62 16 99/61 L 97 01/09/19 23:14 36.8 C 66 18 109/71 100 Laboratory Results Laboratory Results - last 24 hr 01/09/19 01/09/19 01/09/19 05:11 05:11 10:47 WBC RBC Hgb Hct MCV MCH MCHC RDW Std Deviation RDW Coeff of Saida Plt Count MPV ESR 71 H Sodium Potassium Chloride Carbon Dioxide Anion Gap BUN Creatinine Est Cr Clr Drug Dosing Est GFR ( Amer) Est GFR (Non-Af Amer) BUN/Creatinine Ratio Glucose POC Glucose 162 H Calcium C-Reactive Protein 6.78 H 01/09/19 01/09/19 01/09/19 12:10 17:13 20:36 WBC RBC Hgb Hct MCV MCH MCHC RDW Std Deviation RDW Coeff of Saida Plt Count MPV ESR Sodium Potassium Chloride Carbon Dioxide Anion Gap BUN Creatinine Est Cr Clr Drug Dosing Est GFR ( Amer) Est GFR (Non-Af Amer) BUN/Creatinine Ratio Glucose POC Glucose 135 H 163 H 247 H Calcium C-Reactive Protein 01/10/19 01/10/19 01/10/19 05:11 05:11 05:17 WBC 7.77 RBC 4.20 L Hgb 13.8 L Hct 39.3 L MCV 93.6 MCH 32.9 MCHC 35.1 RDW Std Deviation 41.6 RDW Coeff of Saida 12.4 Plt Count 339 MPV 9.9 ESR Sodium 140 Potassium 3.4 L Chloride 102 Carbon Dioxide 31 Anion Gap 7.0 BUN 11 Creatinine 0.90 Est Cr Clr Drug Dosing 114.1 Est GFR ( Amer) 120.8 Est GFR (Non-Af Amer) 104.2 BUN/Creatinine Ratio 12.7 Glucose 66 L POC Glucose 78 Calcium 9.1 C-Reactive Protein 01/10/19 07:00 WBC RBC Hgb Hct MCV MCH MCHC RDW Std Deviation RDW Coeff of Saida Plt Count MPV ESR Sodium Potassium Chloride Carbon Dioxide Anion Gap BUN Creatinine Est Cr Clr Drug Dosing Est GFR ( Amer) Est GFR (Non-Af Amer) BUN/Creatinine Ratio Glucose POC Glucose 136 H Calcium C-Reactive Protein (1) Diabetes Diabetes mellitus type: type 2 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
[2019-01-10] MEDS: SENNA 8.6 MG TAB PO SCH (21:45)
[2019-01-11] MEDS ORDERED: INSULIN ASPART 100 UNITS/ML 3 ML PEN SC SCH (04:00)
[2019-01-11 05:25] LABS: Hematocrit (blood only) 35.8 % (42-52); Hemoglobin 12.4 g/dL (14.0-18.0); Mean Corpuscular Hemoglobin 32.2 pg (25-34); Mean Corpuscular Hgb Conc 34.6 g/dL (32-36); Mean Platelet Volume 9.7 fL (7.4-10.4); Platelet Count 274 K/uL (130-400); RDW Coefficient of Variation 12.2 % (11.5-14.5); RDW Standard Deviation 41.2 fL (36.4-46.3); Red Blood Count 3.85 M/uL (4.7-6.1); White Blood Count 5.25 K/uL (4.8-10.8)
[2019-01-11] MEDS: ACETAMINOPHEN 500 MG TAB PO SCH ×3 (05:45→21:25)
[2019-01-11] MEDS: OXYCODONE HCL IR 5 MG TAB (IMMEDIATE RELEASE) PO PRN ×4 (05:45→21:22)
[2019-01-11 05:48] LABS: BUN Creatinine Ratio 10.3 (10-20); Calcium 8.7 mg/dl (8.5-10.1); Creatinine Clr Calc Pharmacy 102.7 ml/min; Est GFR (African American) 106.4; Est GFR (Non-African American) 91.8; Potassium 4.1 mmol/L (3.5-5.1)
[2019-01-11] MEDS: ENOXAPARIN INJ 40 MG/0.4 ML SYR SQ SCH (07:46)
[2019-01-11] MEDS: DOCUSATE SODIUM 100 MG CAP PO SCH ×2 (07:46→21:14)
[2019-01-11] MEDS: DAPTOmycin 300 MG in SYRINGE 0 ML IV SCH (07:46)
[2019-01-11] MEDS: MULTIVITAMIN TAB PO SCH (07:47)
[2019-01-11] MEDS: ESCITALOPRAM OXALATE 20 MG TAB PO SCH (07:47)
[2019-01-11] MEDS: INSULIN GLARGINE SOLOSTAR 100 UNITS/ML 3 ML PEN SC SCH (08:24)
[2019-01-11] MEDS: INSULIN ASPART 100 UNITS/ML 3 ML PEN SC SCH ×4 (08:25→21:17)
--- NOTE | 2019-01-11 10:15 | Pharmacy Report ---
Pharmacy Glycemic Short Note 2 - Date of Service January 11, 2019 - Glycemic Short BSG Results (Last 24 hours): 01/10/19 01/10/19 01/10/19 12:13 17:10 20:35 Glucose POC Glucose 207 H 211 H 144 H 01/11/19 01/11/19 01/11/19 04:00 05:02 08:18 Glucose 220 H POC Glucose 216 H 152 H Outpatient Anti-diabetic Regimen: has not been taking d/t cost issues * Lantus 20 units qHS * Glimepiride 4 mg daily * Metformin 1 gm BID * Pioglitazone 30 mg daily * A1c = 11.2 % 01/02/19 The patient is currently receiving: * Basal insulin: Lantus 20 units every 24 hours --> PM dose of Lantus 20 units BID held d/t trending down AM fasting BSGs * Correctional Insulin: Novolog Correction per scale ACHS Goal Range: Low 110 mg/dL - High 140 mg/dL Correction Factor: 20 mg/dL/unit * Prandial insulin: Per carb ratio of 1 unit per 7 grams CHO consumed * Oral Agents: None at this time- on hold for admission ASSESSMENT: * 43 y/o male admitted for cellulitis, with history of T2DM * A1c is quite uncontrolled, mostly due to non-compliance with medications recently from change in insurance. CDE note reports that patient plans to resume all on discharge now that he has insurance. Pt will need f/u for A1c > 9% * Regarding inpatient control, inpatient regimen was heavily weighted towards basal insulin, have been redistributing regimen to more of a 50/50 split between basal and prandial insulin * Ptient has been receiving 55 units of insulin per day with adequate control * 50 units basal --> 40 units basal down to 20 units of basal yesterday. AM fasting BSG is elevated today, will increase basal insulin to 30 units SQ once daily. Once daily dosing preferred to simply regimen for discharge and minimize injections * Tightened CF/CR to increase amount of prandial coverage given with lowered basal insulin dosing. PLAN FOR INPATIENT GLYCEMIC CONTROL: * Hold outpatient oral diabetes medications * Basal insulin * Lantus 30 units SQ daily * Bolus insulin * NovoLog per scale ACHS or Q6hrs while NPO * Goal Range: Low 110 mg/dL - High 140 mg/dL * Correction Factor: 20 mg/dL/unit * Nutritional / Prandial insulin per carb ratio of 1 unit per 7 grams CHO consumed
--- NOTE | 2019-01-11 12:38 | Hospitalist Progress Note ---
Date of Service January 11, 2019 Assessment & Plan (1) Cellulitis and abscess of lower extremity: with Right Lower extremity abscess s/p I and D on 01/06/19 Wound culture - MRSA Continue daptomycin. Home statin on hold while on daptomycin. Will continue daptomycin till 01/16/19 Discussed with caseworker protective services yesterday. Arrangements will be made for outpatient iv antibiotics and wound care tomorrow (2) Diabetes: Poorly controlled DM2 A1C:11.2 Continue insulin regimen management with pharmacist Currently on lantus 30qAM with sliding scale Patient got glucometer yesterday Needs optimal blood sugar control on discharge (3) Mood disorder: Stable Continue escitalopram (4) DVT prophylaxis: Lovenox sc Subjective Patient has no complaints today besides mild pain at I/D site Denied any fevers, chills Review of Systems Review of Systems: All systems reviewed and unremarkable except for mentioned above. Physical Exam Physical Exam: General: No acute distress and not ill appearing Eyes: PERRL, conjunctivae normal, not pale, anicteric sclerae, EOM intact bilaterally ENMT: External ear and nose normal, oropharynx normal Neck: Normal visual inspection, no tracheal deviation, no swelling noted Respiratory: Normal respiratory effort, no respiratory distress, lungs clear to auscultation, no crackles and no wheezes Cardiovascular: Pulse is RRR S1 S2. no murmur, rubs or gallops Gastrointestinal (Abdomen): Abdomen is not distended, soft, non-tender to palpation, no guarding, no palpable hepatosplenomegaly, normal bowel sounds Musculoskeletal: Right leg dressing clean and dry Neurologic: Alert and oriented x 3, No focal weakness Results & Data Vital Signs (Past 12 Hours) Vital Signs Temp Pulse Resp BP Pulse Ox 01/11/19 07:46 36.5 C 66 18 132/79 99 Laboratory Results Laboratory Results - last 24 hr 01/10/19 01/10/19 01/11/19 17:10 20:35 04:00 WBC RBC Hgb Hct MCV MCH MCHC RDW Std Deviation RDW Coeff of Saida Plt Count MPV Sodium Potassium Chloride Carbon Dioxide Anion Gap BUN Creatinine Est Cr Clr Drug Dosing Est GFR ( Amer) Est GFR (Non-Af Amer) BUN/Creatinine Ratio Glucose POC Glucose 211 H 144 H 216 H Calcium 01/11/19 01/11/19 01/11/19 05:02 05:02 08:18 WBC 5.25 RBC 3.85 L Hgb 12.4 L Hct 35.8 L MCV 93.0 MCH 32.2 MCHC 34.6 RDW Std Deviation 41.2 RDW Coeff of Saida 12.2 Plt Count 274 MPV 9.7 Sodium 138 Potassium 4.1 D Chloride 101 Carbon Dioxide 33 H Anion Gap 4.0 BUN 10 Creatinine 1.00 Est Cr Clr Drug Dosing 102.7 Est GFR ( Amer) 106.4 Est GFR (Non-Af Amer) 91.8 BUN/Creatinine Ratio 10.3 Glucose 220 H POC Glucose 152 H Calcium 8.7 01/11/19 12:03 WBC RBC Hgb Hct MCV MCH MCHC RDW Std Deviation RDW Coeff of Saida Plt Count MPV Sodium Potassium Chloride Carbon Dioxide Anion Gap BUN Creatinine Est Cr Clr Drug Dosing Est GFR ( Amer) Est GFR (Non-Af Amer) BUN/Creatinine Ratio Glucose POC Glucose 168 H Calcium (1) Diabetes Diabetes mellitus complication status: with skin complications 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
[2019-01-11] MEDS: ACETAMINOPHEN 325 MG TAB PO PRN (13:57)
[2019-01-11] MEDS: SENNA 8.6 MG TAB PO SCH (21:14)
[2019-01-12] MEDS: ACETAMINOPHEN 500 MG TAB PO SCH ×2 (06:04→13:40)
[2019-01-12] MEDS: OXYCODONE HCL IR 5 MG TAB (IMMEDIATE RELEASE) PO PRN (06:09)
[2019-01-12] MEDS: DAPTOmycin 300 MG in SYRINGE 0 ML IV SCH (07:30)
[2019-01-12] MEDS: MULTIVITAMIN TAB PO SCH (08:31)
[2019-01-12] MEDS: DOCUSATE SODIUM 100 MG CAP PO SCH (08:32)
[2019-01-12] MEDS: ESCITALOPRAM OXALATE 20 MG TAB PO SCH (08:32)
[2019-01-12] MEDS: INSULIN ASPART 100 UNITS/ML 3 ML PEN SC SCH ×2 (08:33→12:25)
[2019-01-12] MEDS: INSULIN GLARGINE SOLOSTAR 100 UNITS/ML 3 ML PEN SC SCH (08:33)
[2019-01-12] MEDS: ENOXAPARIN INJ 40 MG/0.4 ML SYR SQ SCH (08:34)
--- NOTE | 2019-01-12 10:33 | Hospitalist Progress Note ---
Date of Service January 12, 2019 Assessment & Plan (1) Cellulitis and abscess of lower extremity: With Right Lower extremity abscess s/p I and D on 01/06/19 Wound culture - MRSA Continue daptomycin. Home statin on hold while on daptomycin. Will continue daptomycin till 01/16/19 Will be discharged today with wound care set up (2) Diabetes: Poorly controlled DM2 A1C:11.2 Continue insulin regimen management with pharmacist Currently on lantus 30qAM with sliding scale Needs optimal blood sugar control on discharge Continue lantus 30U qAM, metformin and glimeride on discharge Provided more education (3) Mood disorder: Stable Continue escitalopram (4) DVT prophylaxis: Lovenox sc Subjective Patient has no complaints today. Review of Systems Constitutional: no problem reported Eyes: no problem reported Respiratory: no problem reported Cardiovascular: no chest pain, no dyspnea and no palpitations Gastrointestinal: no problem reported Musculoskeletal: Mild pain at I/D site Physical Exam Constitutional: WD/WN, vitals as above Eyes: PERRL, conjunctivae normal, anicteric sclerae ENMT: external ear and nose normal, oropharynx normal Respiratory: normal respiratory effort, lungs clear to auscultation Auscultation: no crackles Cardiovascular: RRR, no murmur, no edema Rate/Rhythm: regular rate Gastrointestinal (Abdomen): normal bowel sounds, soft, nontender, no hepatosplenomegaly Musculoskeletal: Right leg covered in clean dressing, Trace edema on right foot Neurologic: PERRL, EOMI, accommodation nl, no face palsy, no dysarthria no focal motor deficits Results & Data Vital Signs (Past 12 Hours) Vital Signs Temp Pulse Resp BP Pulse Ox 01/12/19 07:19 36.7 C 68 16 122/77 96 01/11/19 23:18 36.6 C 60 16 108/67 97 Laboratory Results Laboratory Results - last 24 hr 01/11/19 01/11/19 01/11/19 12:03 17:08 20:35 POC Glucose 168 H 170 H 115 H 01/12/19 07:51 POC Glucose 179 H (1) Diabetes Diabetes mellitus complication status: with skin complications Diabetes mellitus half-way insulin use: with half-way use Diabetes mellitus type: type 2
--- NOTE | 2019-01-12 10:48 | Orthopedic Progress Note ---
Date of Service January 12, 2019 Assessment & Plan (1) Cellulitis and abscess of lower extremity: 43 yo male stable POD #6 s/p I&D abscess right lateral lower extremity(MRSA) 1. Med management- on IV Dapto; Home IV's for another 4-5 days. 2. DVT prophylaxis- Lovenox, SCDs 3. PT/OT 4. D/C planning- stable per ortho. F/U with Dr Cherry for diabetic ulcers in 1 week. Follow up with Dr. Newberry in 1 week for wound check. Subjective Pt lying in bed with RLE elevated. No new complaints. States that his leg is doing better. Being discharged today. Physical Exam Physical Exam: Dressing changed. Much less erythema since I last saw him Saturday. Swelling is down. Wound with scant serous drainage. Redressed. Results & Data Vital Signs (Past 12 Hours) Vital Signs Temp Pulse Resp BP Pulse Ox 01/12/19 07:19 36.7 C 68 16 122/77 96 01/11/19 23:18 36.6 C 60 16 108/67 97
[2019-01-12] MEDS: ACETAMINOPHEN 325 MG TAB PO PRN (13:39)
--- NOTE | 2019-01-12 16:07 | Discharge Summary ---
Date of Service January 12, 2019 Admission HPI Per Admitting Provider History obtained from patient and records. Medical history significant for DM 2 insulin requiring, hyperlipidemia, mood disorder. Patient has also had some wounds on both great toes for some time now. No recollection of trauma. Last week patient noted a blister on his right leg which he manipulated causing rupture yielding serosanguineous fluid. Patient noted progressive right leg swelling without fever and chills. Patient seen at [facility] ER 3 days ago. Patient prescribed clindamycin for cellulitis. Patient presented to the ER for worsening R leg swelling despite compliance with antibiotic Rx. No chest pain, no S OB. Patient received IV vancomycin and Zosyn at the ER. 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 Admission Exam Per Admitting Provider GENERAL: Comfortable, pleasant, no respiratory distress SKIN: Normal color, warm HEENT: Ranger palpebral conjunctivae, no ptosis, dry buccal mucosa NECK : Supple, no tenderness CHEST : CTA, no tenderness HEART : RRR, no obvious murmurs ABDOMEN: Soft, nontender EXTREMITIES : RLE indurated swelling with overlying scab/tenderness; ulcerated wounds over both great toes with some surrounding erythema, no gross drainage NEUROLOGIC : Coherent, no facial asymmetry, no other gross focality Principal Diagnosis Right lower extremity cellulitis with abscess s/p Incision and drainage of abscess Poorly controlled Diabetes mellitus Discharge Exam Constitutional: WD/WN, vitals as above Eyes: PERRL, conjunctivae normal, anicteric sclerae ENMT: external ear and nose normal, oropharynx normal Respiratory: normal respiratory effort, lungs clear to auscultation Auscultation: no crackles Cardiovascular: RRR, no murmur, no edema Rate/Rhythm: regular rate Gastrointestinal (Abdomen): normal bowel sounds, soft, nontender, no hepatosplenomegaly Musculoskeletal: Right leg covered in clean dressing, Trace edema on right foot Neurologic: PERRL, EOMI, accommodation nl, no face palsy, no dysarthria no focal motor deficits Discharge Data Allergies Allergy/AdvReac Type Severity Reaction Status Date / Time pollen extracts Allergy Intermediate ITCHY Verified 01/06/19 12:28 EYES, SNEEZING, CONGESTION Consultations 01/02/19 02:51 ED Decision to Admit Stat 01/02/19 05:54 Consult Orthopedic Surgery Routine 01/04/19 23:03 Consult Case Management - Discharge Planning Routine 01/05/19 16:04 Consult Infectious Diseases Routine 01/06/19 15:43 Consult Case Management - Discharge Planning Routine Procedures Performed Operation Date: 01/03/19 08:35 <No data on this case meets the specified criteria> Operation Date: 01/06/19 13:35 Actual Procedures p Right Lower Extremity Incision and Drainage - Eduardo Newberry DO Ordered Studies 01/02/19 00:48 CT tib/fib RT w con Urgent 1. No abscess identified within the right lower leg. 2. Diffuse subcutaneous edema which may represent a cellulitis. 3. No underlying bony abnormality. 01/02/19 04:49 US venous doppler LE RT Urgent - 1. No sonographic evidence of deep venous thrombosis. 2. Right inguinal adenopathy. 01/05/19 10:53 US extremity nonvascular Routine - Subcutaneous edema with a possible area of early phlegmonous change. No current evidence of a discrete abscess 01/05/19 15:57 CT tib/fib RT w con Routine - 1. 1.5 x 2.2 x 0.7 cm phlegmon/early abscess in the anterolateral proximal to mid lower leg immediately subjacent to worsened skin thickening. Presumably this is within a region of cellulitis. No evidence of deeper interfascial fluid or an intramuscular collection or edema. 2. No CT evidence of osteomyelitis. Hospital Course (1) Cellulitis and abscess of lower extremity: With Right Lower extremity abscess s/p I and D on 01/06/19 Wound culture - MRSA Being treated with daptomycin. Home statin on hold while on daptomycin. Will continue daptomycin till 01/16/19 Discharged with arrangements made for daily wound care (2) Diabetes: Poorly controlled DM2 A1C:11.2 Due to poor adherence Provided diabetes education. Initiated process of medical assistance as patient does not have insurance which contributes to his poor adherence and glycemic control Provided with glucometer. Will follow up PCP for refills of diabetic supplies as needed Encouraged to keep a glucose log to aid PCP adjust antidiabetics appropriately Was discharged on lantus 30Units daily Continue po antidiabetics (metformin, pioglitazone and glimeripide) Currently on lantus 30qAM with sliding scale Needs optimal blood sugar control to ensure proper wound healing (3) Mood disorder: Stable Continue escitalopram Total Time Total Time Spent Total Time Spent (In Minutes): 40 mins Total Time Includes: Examination of the Patient, Discharge Planning, Medication Reconciliation and Communication With Other Providers Discharge Plan Discharge Items Patient Disposition: Home - Self-Care Reason For Visit: RLE CELLULITIS Discharge Diagnosis: Right lower extremity cellulitis with abscess Incision and drainage of abscess Poorly controlled Diabetes mellitus Condition on Discharge: Good Activity: Per Instructions section Exercise/Sports: Gradually increase as tolerated Non-emergency contact: Primary Care Provider and Surgeon Call non-emergency contact if: you have any medication questions, your symptoms worsen, your pain is not controlled, your pain is worsening, your pain is unusual for you, your pain is concerning for you, you have a fever, your wound has increased redness, your wound has increased drainage and your wound pain has increased Follow-up/Referrals: Rodrigo Bravo [Primary Care Provider] - Diet: Carb Consistent or DM2 and Heart Healthy Addtl Attending Provider Instructions: Mr Suarez. You came to the hospital for right leg swelling which had been worsening. You were found to have leg infection with abscess that required incision and drainage. You have been on iv antibiotics called daptomycin. You will need to continue the iv antibiotics till 01/16/2019. You also need to follow up for wound dressing daily. Your diabetes has been very poorly controlled. You were educated on management of diabetes and provided resources. It is important that you continue taking your medications as prescribed and monitor your blood glucose with the glucometer provided. Follow-up with your primary care physician Dr. Bravo in 1 week Follow-up with your surgeon Complete the antibiotic course as prescribed. Please stop taking the Atorvastatin for now until you finish the antibiotics and see your Primary Doctor. 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 Daily dressing change to right leg and both great toes. (Toe dressings as per wound care instructions) Follow up with Dr Cherry in 1 week for wound check on the right leg/ and both great toes. Call for appt. [phone] Pending Studies at Discharge: No Stand-Alone Forms: [email or web address], Work/School Release (Inpt) Medications and DC Order Prescriptions: New daptomycin [Cubicin] 500 mg Recon Soln 500 mg IV DAILY 4 Days Qty: 0 RF: 0 tramadol 50 mg Tablet 25 mg PO Q4H PRN (Reason: pain) 3 Days Qty: 15 RF: 0 Continued escitalopram oxalate 20 mg tablet 20 mg PO QAM RF: 0 loratadine [Allergy Relief (loratadine)] 10 mg Tablet 10 mg PO DAILY PRN (Reason: Allergy Symptoms) RF: 0 metformin 1,000 mg tablet 1,000 mg PO BID 30 Days Qty: 60 RF: 0 glimepiride 4 mg tablet 4 mg PO QAM 30 Days Qty: 30 RF: 0 pioglitazone 30 mg tablet 30 mg PO QAM 30 Days Qty: 30 RF: 0 Changed insulin glargine 100 unit/mL (3 mL) insulin pen 30 unit subcut HS 30 Days Qty: 9 RF: 0 Discontinued atorvastatin 10 mg tablet 10 mg PO QAM RF: 0 Discharge Orders: Discharge Order (Routine); Ordered 01/12/19 Ordered By: Corrie Mohr/Other Patient Handouts: Diabetes Cement Block Maker Complications, Hyperglycemia, Hypoglycemia, Diabetes Type 2 Coping, Blood Sugar Check, Diabetes Healthy Meals, Diabetes Carbs, Diabetes Keep Feet Healthy, Diabetes Inspect Feet, Diabetes Exercise Benefits, Diabetes Exercise Get Started, Diabetes Activity Tips, Diabetes Living Life, Diabetes Manage A1C Test, Diabetes Foot Care Program Admission Data Admit Date/Time: 01/02/19 04:52 Attending Provider: Corrie Azar I. Admit Provider: Chapin Peralta Primary Care Provider: Rodrigo Bravo Other Providers: Chapin Peralta ; Toni Biggs ; Padilla Cherry ; José Miguel Gordon ; Roslyn Velázquez Thomas J ; Nancy Kahn ; J Luis Turcios ; Pj Boss ; Candido Willoughby ; Pj Grey Andrew J. ; Candido Pozo ; Aj Watkins ; Slava Li ; Femi Ng ; Bhavesh Strickland ; Nicholas Abdi ; Nancy Harry ; Eduardo Newberry ; Lobito Bailey ; Kilo Willams ; Briana Simmons ; Raul Carrero
--- NOTE | 2019-01-14 13:36 | Coding Query ---
CODING QUERY To promote full compliance with coding requirements relating to patient care, provider participation is requested in all cases of braille coder uncertainty. Please assist us with the question(s) below: Coding Question(s): Poorly controlled Diabetes is documented as well as Right Lower Extremity Cellulitis and there is documentation on the H&P of Diabetic Toe Infection as well as Ulcers and there is documentation as well of Abrasion. Please specify below, in your clinical opinion. ( X ) Cellulitis is likely due to Poorly Controlled Diabetes ( ) Cellulitis is likely due to Abrasion getting infected and Not due to Diabetes ( ) Cellulitis is likely due to Other: Please Specify Physician's Response(s): Cellulitis is likely due to poorly controlled Diabetes mellitus Thank you Ashley Sharp Principal Diagnosis: "that condition established after study, to be chiefly responsible for occasioning the admission of the patient to the hospital for care." Co-Existing Principal Diagnosis: "when two or more diagnoses equally meet the criteria for principal diagnosis as determined by the circumstances of admission, diagnostic work up, and/or therapy provided, and the Alphabetic Index, Tabular List, or another coding guideline does not provide sequencing direction, any one of the diagnoses may be sequenced first." "When the physician has documented what appears to be a current diagnosis in the body of the record, but has not included the diagnosis in the final diagnostic statement, the physician should be asked whether the diagnosis should be added." (Source Coding [facility] 2 QTR90. p3-4) JEAN-PAUL
== END 2019-01-12 17:09 | disposition home or self-care (01) | DRG 623 ==
LOC: ED 23:07 → SUATTDRO 01-02 04:52 → 4W 01-02 04:52 → 3W 01-06 15:34

== ENCOUNTER 2022-10-29 14:22 | Inpatient (IN) ==
[2022-10-29 15:25] LABS: Basophils # (auto) 0.03 K/uL (0-0.2); Basophils % (auto) 0.2 %; Hemoglobin 13.8 g/dl (14.0-18.0); Immature Granulocytes # (auto) 0.11 K/uL (0.01-0.20); Immature Granulocytes % (auto) 0.8 %; Lymphocytes # (auto) 0.75 K/uL (1.2-3.4); Lymphocytes % (auto) 5.5 %; Mean Corpuscular Hgb Conc 36.3 g/dL (32.0-36.0); Mean Corpuscular Volume 88.2 fL (80.0-100.0); Mean Platelet Volume 9.7 fL (9.4-12.4); Monocytes # (auto) 1.06 K/uL (0.11-0.59); Monocytes % (auto) 7.7 %; Neutrophils # (auto) 11.77 K/uL (1.40-6.50); Neutrophils % (auto) 85.8 %; Platelet Count 409 K/uL (130-400); RDW Coefficient of Variation 11.9 % (11.5-14.5); RDW Standard Deviation 38.3 fL (36.4-46.3); Red Blood Count 4.31 M/uL (4.70-6.10); White Blood Count 13.72 K/ul (4.8-10.8)
[2022-10-29 15:55] LABS: Partial Thromboplastin Ratio 1.1; Partial Thromboplastin Time 31.4 Seconds (21.0-31.0); Prothrombin Time 10.8 Seconds (9.0-12.0)
--- NOTE | 2022-10-29 16:05 | XRay Report ---
XR chest 1V portable HISTORY: Sepsis COMPARISON: Chest and left rib series 04/14/2018. FINDINGS: The lungs are clear. Cardiac silhouette is normal in size. No pleural effusions. No pneumot horax. IMPRESSION: No acute process. ACT 112: Negative or not required by law. Electronically signed by: Cliff Quinn M.D. 10/29/2022 4:04 PM
[2022-10-29 16:10] LABS: Albumin Globulin Ratio 0.6 (0.9-2); Albumin Level 3.3 gm/dl (3.4-5.0); BUN Creatinine Ratio 15.9 (10-20); Bilirubin,Total 0.4 mg/dl (0.2-1.0); Calcium 9.1 mg/dl (8.6-10.3); Creatinine Clr Calc Pharmacy 130.4 ml/min; Est GFR (Non-African American) 105.3 ml/min; Globulin 5.5 gm/dl (2.5-4.0); Magnesium 1.8 mg/dl (1.7-2.4); Potassium 3.9 mmol/L (3.5-5.1); Total Protein 8.8 gm/dl (6.0-8.3)
[2022-10-29] MEDS ORDERED: VANCOMYCIN HCL 1,750 MG in SODIUM CHLORIDE 0.9% 500 ML IV ONE (16:19)
[2022-10-29] MEDS ORDERED: VANCOMYCIN CONSULT ACTIVE PRN (16:19)
[2022-10-29] MEDS ORDERED: PIPERACILLIN/TAZOBACTAM 4.5 GM/120 ML BAG IV ONE (16:19)
[2022-10-29] MEDS ORDERED: SODIUM CHLORIDE 0.9% 1000ML 1,000 ML IV ONE (16:20)
[2022-10-29] MEDS ORDERED: LACTATED RINGER'S 2,000 ML IV ONE (16:20)
--- NOTE | 2022-10-29 16:31 | Emergency Department Note ---
Impression & Plan Diabetic infection of left foot, Sepsis, Osteomyelitis of second toe of left foot ED Provider Note Provider: Otto Bryson MD DATE OF SERVICE: 10/29/2022 CHIEF COMPLAINT: Toe infection HISTORY OF PRESENT ILLNESS: Patient is a 47-year-old diabetic referred from acute care today reportedly for an infection of his toe. Patient states he did not have any significant trauma to it but it became swollen and painful and infected about a week ago. Has not been taking his medications and has not seen his doctor in a while. Noted to be tachycardic and have a fever prior to arrival. Patient states he feels quite thirsty. Has neuropathy. Denies severe pain in his legs. Redness and swelling of the left second toe as well as some swelling and redness to the left foot reported. History of MRSA and skin infections in this leg reported in the past. PAST MEDICAL HISTORY: As noted above MEDICATIONS: Reviewed medications but states questionable compliance SOCIAL HISTORY: Smoker PHYSICAL EXAM: GENERAL: alert and oriented in no acute distress on stretcher somewhat fatigued and appears Head: normocephalic and atraumatic EYES: No injection, discharge or icterus. NECK: Trachea midline. ENT: Mucous membranes pink and moist. LUNGS: Airway patent. No retractions or tachypnea HEART: Regular tachycardic rate and rhythm. No chest wall tenderness ABDOMEN: Soft and non-tender, without guarding or rebound. SKIN: Acyanotic, warm, dry, without rashes EXTREMITIES: Without swelling, tenderness or deformity except the left lower extremity which has some redness and edema from the distal left lower leg extending over the foot. The left second toe is about doubled in size erythematous with some slight purulence and granulation tissue and open wound to the distal left toe. No crepitus. Foul-smelling left second toe NEUROLOGICAL: No aphasia. No facial droop or slurred speech. Normal strength and tone in the extremities. Some decrease in sensation left foot but feels gross touch. CONTINUOUS CARDIAC MONITORING: was ordered and showed a heart rate of 110s-120s bpm in sinus tachycardia Patient's laboratory studies and imaging reviewed. Differential includes Cellulitis, abscess, MRSA infection, DVT, necrotizing fasciitis, dermatitis, drug eruption, allergic reaction, as well as other pathologies. IMPRESSION/MEDICAL DECISION MAKING: Ordered 3 L of IV fluid for IV fluid resuscitation. Pseudohyponatremia due to hyperglycemia noted. Some anion gap. Glucose quite high. Given his poorly controlled diabetes with evidence of infection and cellulitis with leukocytosis of 13 discussed with pharmacy. Ordered Zosyn and vancomycin and insulin drip ordered for control of his blood sugars. X-rays ordered as well as inflammatory markers to see if there is a deeper infection possible osteomyelitis here. Requires care in the hospital. Inflammatory marker ESR returned significantly elevated 106. VBG does have some mild acidosis 7.27 with an anion gap. Concern given his elevated glucose that this might be more of an evolution almost to DKA given the normal lactate. Was started again on an insulin drip. Received IV fluid hydration. Did discuss with podiatry the x-ray findings concerning for significant osteomyelitis of the left toe. Made the patient aware that he will likely require amputation of this toe. Will bring in the hospital for further care and likely need for surgical care of the foot and podiatry will see the patient this evening. Hospitalist team contacted. DIAGNOSIS: Diabetic left foot infection, hyperglycemia secondary to diabetes, anion gap, sepsis DISPOSITION: Hospitalist will evaluate Patient was agreeable with this plan. Critical Care I have personally spent 33 minutes of critical care time in the direct management of this patient. This includes bedside care, interpretation of diagnostic studies, and testing, discussion with consultants, patient, and other required patient management activities. These 33 minutes is in excess of all separately billable procedures. 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 Beliefs That Will Affect Care: None marital status: Current Living Situation: Other current occupational status: employed Feels Safe at Home: Yes Assistive Devices: Walker Allergies Allergies Allergy/AdvReac Type Severity Reaction Status Date / Time pollen extracts Allergy Intermediate ITCHY Verified 10/29/22 17:29 EYES, SNEEZING, CONGESTION Home Meds Home Medications Medication Instructions Recorded Confirmed loratadine 10 mg tablet (Allergy 10 mg PO DAILY PRN Allergy Symptoms 01/02/19 10/29/22 Relief (loratadine)) glimepiride 4 mg tablet 4 mg PO BIDM 10/29/22 10/29/22 ibuprofen 200 mg tablet (Advil) 200 mg PO Q8H PRN Pain 10/29/22 10/29/22 insulin glargine 100 unit/mL (3 27 unit subcut QPM 10/29/22 10/29/22 mL) subcutaneous pen (Lantus Solostar U-100 Insulin) multivitamin (Multiple Vitamins 1 tab PO DAILY 10/29/22 10/29/22 tablet) sertraline 50 mg tablet 50 mg PO DAILY 10/29/22 10/29/22 Results & Data (ED) Vital Signs Vital Signs - 24 hr 10/29/22 14:12 10/29/22 14:43 10/29/22 14:53 Temperature 37.2 C Temperature Source Oral Pulse Rate 124 H 127 H Pulse Rate from SpO2 Sensor Pulse Rhythm [Brachial] Respiratory Rate 14 Respiratory Effort / Characteristics Non-Labored Spontaneous Respiratory Depth Normal Respiratory Pattern Regular Blood Pressure 130/90 Blood Pressure Mean 103 Pulse Oximetry 100 99 Oxygen Delivery Method Room Air Room Air Oxygen Flow Rate 0 Sepsis Recent Fever Within 48 Hours Yes Sepsis New/Unexplained Change in Mental Status N/A Sepsis Action Taken by Nursing No Action Required 10/29/22 14:53 10/29/22 14:28 10/29/22 14:30 Temperature Temperature Source Pulse Rate 127 H 120 H Pulse Rate from SpO2 Sensor 128 H 120 H Pulse Rhythm [Brachial] Respiratory Rate 14 15 Respiratory Effort / Characteristics Respiratory Depth Respiratory Pattern Blood Pressure Blood Pressure Mean Pulse Oximetry 99 98 99 Oxygen Delivery Method Room Air Oxygen Flow Rate Sepsis Recent Fever Within 48 Hours Sepsis New/Unexplained Change in Mental Status Sepsis Action Taken by Nursing 10/29/22 15:00 10/29/22 15:00 10/29/22 15:30 Temperature Temperature Source Pulse Rate 125 H 120 H Pulse Rate from SpO2 Sensor 124 H 121 H Pulse Rhythm [Brachial] Respiratory Rate 14 20 Respiratory Effort / Characteristics Respiratory Depth Respiratory Pattern Blood Pressure 130/76 Blood Pressure Mean 89 Pulse Oximetry 100 96 Oxygen Delivery Method Oxygen Flow Rate Sepsis Recent Fever Within 48 Hours Sepsis New/Unexplained Change in Mental Status Sepsis Action Taken by Nursing 10/29/22 16:00 10/29/22 16:30 10/29/22 17:00 Temperature Temperature Source Pulse Rate 119 H 117 H 115 H Pulse Rate from SpO2 Sensor 117 H 115 H Pulse Rhythm [Brachial] Respiratory Rate 17 17 22 Respiratory Effort / Characteristics Respiratory Depth Respiratory Pattern Blood Pressure Blood Pressure Mean Pulse Oximetry 97 98 Oxygen Delivery Method Room Air Room Air Oxygen Flow Rate Sepsis Recent Fever Within 48 Hours Sepsis New/Unexplained Change in Mental Status Sepsis Action Taken by Nursing 10/29/22 17:30 10/29/22 17:31 10/29/22 17:31 Temperature Temperature Source Pulse Rate 115 H 111 H Pulse Rate from SpO2 Sensor 114 H 111 H Pulse Rhythm [Brachial] Respiratory Rate 17 15 Respiratory Effort / Characteristics Respiratory Depth Respiratory Pattern Blood Pressure 154/89 H Blood Pressure Mean 115 Pulse Oximetry 98 99 Oxygen Delivery Method Room Air Room Air Oxygen Flow Rate Sepsis Recent Fever Within 48 Hours Sepsis New/Unexplained Change in Mental Status Sepsis Action Taken by Nursing 10/29/22 18:31 10/29/22 19:36 10/29/22 18:00 Temperature Temperature Source Pulse Rate 113 H 110 H Pulse Rate from SpO2 Sensor 109 H Pulse Rhythm [Brachial] Regular Respiratory Rate 20 Respiratory Effort / Characteristics Non-Labored Respiratory Depth Normal Respiratory Pattern Regular Blood Pressure 145/87 H Blood Pressure Mean 106 Pulse Oximetry 99 99 Oxygen Delivery Method Room Air Oxygen Flow Rate Sepsis Recent Fever Within 48 Hours Sepsis New/Unexplained Change in Mental Status Sepsis Action Taken by Nursing 10/29/22 18:30 10/29/22 19:00 10/29/22 19:00 Temperature Temperature Source Pulse Rate 114 H 118 H 105 H Pulse Rate from SpO2 Sensor 106 H Pulse Rhythm [Brachial] Respiratory Rate 18 18 18 Respiratory Effort / Characteristics Respiratory Depth Respiratory Pattern Blood Pressure 139/88 126/78 Blood Pressure Mean 105 101 Pulse Oximetry 99 99 Oxygen Delivery Method Oxygen Flow Rate Sepsis Recent Fever Within 48 Hours Sepsis New/Unexplained Change in Mental Status Sepsis Action Taken by Nursing 10/29/22 19:30 10/29/22 19:34 10/29/22 19:34 Temperature Temperature Source Pulse Rate 118 H 118 H Pulse Rate from SpO2 Sensor 119 H 118 H Pulse Rhythm [Brachial] Respiratory Rate 19 21 Respiratory Effort / Characteristics Respiratory Depth Respiratory Pattern Blood Pressure 127/66 Blood Pressure Mean 89 Pulse Oximetry 96 100 Oxygen Delivery Method Oxygen Flow Rate Sepsis Recent Fever Within 48 Hours Sepsis New/Unexplained Change in Mental Status Sepsis Action Taken by Nursing Laboratory Data 10/29/22 14:36 10/29/22 14:36 Lab Results 10/29/22 10/29/22 10/29/22 Range/Units 14:36 14:36 14:36 WBC 13.72 H (4.8-10.8) K/ul RBC 4.31 L (4.70-6.10) M/uL Hgb 13.8 L (14.0-18.0) g/dl Hct 38.0 L (42.0-52.0) % MCV 88.2 (80.0-100.0) fL MCH 32.0 (25.0-34.0) pg MCHC 36.3 H (32.0-36.0) g/dL RDW Std Deviation 38.3 (36.4-46.3) fL RDW Coeff of Saida 11.9 (11.5-14.5) % Plt Count 409 H (130-400) K/uL MPV 9.7 (9.4-12.4) fL Immature Gran % (Auto) 0.8 % Neut % (Auto) 85.8 % Lymph % (Auto) 5.5 % Travis % (Auto) 7.7 % Eos % (Auto) 0.0 % Baso % (Auto) 0.2 % Neut # (Auto) 11.77 H (1.40-6.50) K/uL Lymph # (Auto) 0.75 L (1.2-3.4) K/uL Travis # (Auto) 1.06 H (0.11-0.59) K/uL Eos # (Auto) 0.00 (0-0.50) K/uL Baso # (Auto) 0.03 (0-0.2) K/uL Immature Gran # (Auto) 0.11 (0.01-0.20) K/uL ESR (0-15) mm/hr PT 10.8 (9.0-12.0) Seconds INR 1.0 (0.9-1.1) APTT 31.4 H (21.0-31.0) Seconds PTT Ratio 1.1 VBG pH (7.36-7.41) VBG pCO2 (38-50) mmHg VBG pO2 mmHg VBG HCO3 mmol/L VBG O2 Saturation % VBG Base Excess mEq/L Sodium 125 L (136-145) mmol/L Potassium 3.9 (3.5-5.1) mmol/L Chloride 90 L (98-107) mmol/L Carbon Dioxide 18 L (21-32) mmol/L Anion Gap 17 H (3-11) BUN 13 (6-23) mg/dl Creatinine 0.82 (0.6-1.4) mg/dl Est Cr Clr Drug Dosing 130.4 ml/min Est GFR ( Amer) 122.0 ml/min Est GFR (Non-Af Amer) 105.3 ml/min BUN/Creatinine Ratio 15.9 (10-20) Glucose 453 H* (70-99(Fasting)) mg/dl POC Glucose (70-99) mg/dl Lactate (0.4-2.0) mmol/L Calcium 9.1 (8.6-10.3) mg/dl Phosphorus 3.2 (2.5-4.9) mg/dl Magnesium 1.8 (1.7-2.4) mg/dl Total Bilirubin 0.4 (0.2-1.0) mg/dl AST 11 L (13-39) U/L ALT 12 (7-52) U/L Alkaline Phosphatase 99 (34-104) U/L C-Reactive Protein 30.85 H (0-0.5) mg/dl Total Protein 8.8 H (6.0-8.3) gm/dl Albumin 3.3 L (3.4-5.0) gm/dl Globulin 5.5 H (2.5-4.0) gm/dl Albumin/Globulin Ratio 0.6 L (0.9-2) Procalcitonin (0-0.5) ng/ml SARS-CoV-2, RNA, NAAT (NEGATIVE) 10/29/22 10/29/22 10/29/22 Range/Units 14:36 14:36 15:09 WBC (4.8-10.8) K/ul RBC (4.70-6.10) M/uL Hgb (14.0-18.0) g/dl Hct (42.0-52.0) % MCV (80.0-100.0) fL MCH (25.0-34.0) pg MCHC (32.0-36.0) g/dL RDW Std Deviation (36.4-46.3) fL RDW Coeff of Saida (11.5-14.5) % Plt Count (130-400) K/uL MPV (9.4-12.4) fL Immature Gran % (Auto) % Neut % (Auto) % Lymph % (Auto) % Travis % (Auto) % Eos % (Auto) % Baso % (Auto) % Neut # (Auto) (1.40-6.50) K/uL Lymph # (Auto) (1.2-3.4) K/uL Travis # (Auto) (0.11-0.59) K/uL Eos # (Auto) (0-0.50) K/uL Baso # (Auto) (0-0.2) K/uL Immature Gran # (Auto) (0.01-0.20) K/uL ESR 106 H (0-15) mm/hr PT (9.0-12.0) Seconds INR (0.9-1.1) APTT (21.0-31.0) Seconds PTT Ratio VBG pH (7.36-7.41) VBG pCO2 (38-50) mmHg VBG pO2 mmHg VBG HCO3 mmol/L VBG O2 Saturation % VBG Base Excess mEq/L Sodium (136-145) mmol/L Potassium (3.5-5.1) mmol/L Chloride (98-107) mmol/L Carbon Dioxide (21-32) mmol/L Anion Gap (3-11) BUN (6-23) mg/dl Creatinine (0.6-1.4) mg/dl Est Cr Clr Drug Dosing ml/min Est GFR ( Amer) ml/min Est GFR (Non-Af Amer) ml/min BUN/Creatinine Ratio (10-20) Glucose (70-99(Fasting)) mg/dl POC Glucose (70-99) mg/dl Lactate 1.3 (0.4-2.0) mmol/L Calcium (8.6-10.3) mg/dl Phosphorus (2.5-4.9) mg/dl Magnesium (1.7-2.4) mg/dl Total Bilirubin (0.2-1.0) mg/dl AST (13-39) U/L ALT (7-52) U/L Alkaline Phosphatase (34-104) U/L C-Reactive Protein (0-0.5) mg/dl Total Protein (6.0-8.3) gm/dl Albumin (3.4-5.0) gm/dl Globulin (2.5-4.0) gm/dl Albumin/Globulin Ratio (0.9-2) Procalcitonin 0.15 (0-0.5) ng/ml SARS-CoV-2, RNA, NAAT (NEGATIVE) 10/29/22 10/29/22 10/29/22 Range/Units 15:37 16:53 17:34 WBC (4.8-10.8) K/ul RBC (4.70-6.10) M/uL Hgb (14.0-18.0) g/dl Hct (42.0-52.0) % MCV (80.0-100.0) fL MCH (25.0-34.0) pg MCHC (32.0-36.0) g/dL RDW Std Deviation (36.4-46.3) fL RDW Coeff of Saida (11.5-14.5) % Plt Count (130-400) K/uL MPV (9.4-12.4) fL Immature Gran % (Auto) % Neut % (Auto) % Lymph % (Auto) % Travis % (Auto) % Eos % (Auto) % Baso % (Auto) % Neut # (Auto) (1.40-6.50) K/uL Lymph # (Auto) (1.2-3.4) K/uL Travis # (Auto) (0.11-0.59) K/uL Eos # (Auto) (0-0.50) K/uL Baso # (Auto) (0-0.2) K/uL Immature Gran # (Auto) (0.01-0.20) K/uL ESR (0-15) mm/hr PT (9.0-12.0) Seconds INR (0.9-1.1) APTT (21.0-31.0) Seconds PTT Ratio VBG pH 7.27 L (7.36-7.41) VBG pCO2 42 (38-50) mmHg VBG pO2 20 mmHg VBG HCO3 19 mmol/L VBG O2 Saturation < 60.0 % VBG Base Excess -7.3 mEq/L Sodium (136-145) mmol/L Potassium (3.5-5.1) mmol/L Chloride (98-107) mmol/L Carbon Dioxide (21-32) mmol/L Anion Gap (3-11) BUN (6-23) mg/dl Creatinine (0.6-1.4) mg/dl Est Cr Clr Drug Dosing ml/min Est GFR ( Amer) ml/min Est GFR (Non-Af Amer) ml/min BUN/Creatinine Ratio (10-20) Glucose (70-99(Fasting)) mg/dl POC Glucose 328 H* (70-99) mg/dl Lactate (0.4-2.0) mmol/L Calcium (8.6-10.3) mg/dl Phosphorus (2.5-4.9) mg/dl Magnesium (1.7-2.4) mg/dl Total Bilirubin (0.2-1.0) mg/dl AST (13-39) U/L ALT (7-52) U/L Alkaline Phosphatase (34-104) U/L C-Reactive Protein (0-0.5) mg/dl Total Protein (6.0-8.3) gm/dl Albumin (3.4-5.0) gm/dl Globulin (2.5-4.0) gm/dl Albumin/Globulin Ratio (0.9-2) Procalcitonin (0-0.5) ng/ml SARS-CoV-2, RNA, NAAT NEGATIVE (NEGATIVE) 10/29/22 10/29/22 Range/Units 18:56 20:34 WBC (4.8-10.8) K/ul RBC (4.70-6.10) M/uL Hgb (14.0-18.0) g/dl Hct (42.0-52.0) % MCV (80.0-100.0) fL MCH (25.0-34.0) pg MCHC (32.0-36.0) g/dL RDW Std Deviation (36.4-46.3) fL RDW Coeff of Saida (11.5-14.5) % Plt Count (130-400) K/uL MPV (9.4-12.4) fL Immature Gran % (Auto) % Neut % (Auto) % Lymph % (Auto) % Travis % (Auto) % Eos % (Auto) % Baso % (Auto) % Neut # (Auto) (1.40-6.50) K/uL Lymph # (Auto) (1.2-3.4) K/uL Travis # (Auto) (0.11-0.59) K/uL Eos # (Auto) (0-0.50) K/uL Baso # (Auto) (0-0.2) K/uL Immature Gran # (Auto) (0.01-0.20) K/uL ESR (0-15) mm/hr PT (9.0-12.0) Seconds INR (0.9-1.1) APTT (21.0-31.0) Seconds PTT Ratio VBG pH (7.36-7.41) VBG pCO2 (38-50) mmHg VBG pO2 mmHg VBG HCO3 mmol/L VBG O2 Saturation % VBG Base Excess mEq/L Sodium (136-145) mmol/L Potassium (3.5-5.1) mmol/L Chloride (98-107) mmol/L Carbon Dioxide (21-32) mmol/L Anion Gap (3-11) BUN (6-23) mg/dl Creatinine (0.6-1.4) mg/dl Est Cr Clr Drug Dosing ml/min Est GFR ( Amer) ml/min Est GFR (Non-Af Amer) ml/min BUN/Creatinine Ratio (10-20) Glucose (70-99(Fasting)) mg/dl POC Glucose 287 H 399 H* (70-99) mg/dl Lactate (0.4-2.0) mmol/L Calcium (8.6-10.3) mg/dl Phosphorus (2.5-4.9) mg/dl Magnesium (1.7-2.4) mg/dl Total Bilirubin (0.2-1.0) mg/dl AST (13-39) U/L ALT (7-52) U/L Alkaline Phosphatase (34-104) U/L C-Reactive Protein (0-0.5) mg/dl Total Protein (6.0-8.3) gm/dl Albumin (3.4-5.0) gm/dl Globulin (2.5-4.0) gm/dl Albumin/Globulin Ratio (0.9-2) Procalcitonin (0-0.5) ng/ml SARS-CoV-2, RNA, NAAT (NEGATIVE) Administered Medications Insulin Human Regular 250 (units/ Sodium Chloride) 250 mls @ 8 mls/hr IV .Q24H [facility]; Protocol Stop: 11/28/22 16:44 Last Titration: 10/29/22 18:59 Dose: 8 units/hr, 8 mls/hr Documented By: EFFIE Co-signed By: KOTA Admin: 10/29/22 17:51 Dose: 8 units/hr, 8 mls/hr Documented By: EFFIE Co-signed By: ZINA Discontinued Medications Piperacillin Sod/Tazobactam Sod (Zosyn) 4.5 gm in 120 mls @ 240 mls/hr IV NOW ONE Stop: 10/29/22 16:48 Last Infusion: 10/29/22 17:01 Dose: 0 mls/hr Documented By: Admin: 10/29/22 16:31 Dose: 240 mls/hr Documented By: ZINA Vancomycin HCl 1,750 mg/ (Sodium Chloride) 535 mls @ 200 mls/hr IV NOW ONE Stop: 10/29/22 18:59 Last Admin: 10/29/22 17:00 Dose: 200 mls/hr Documented By: EFFIE Sodium Chloride (Nss 1000ml) 1,000 mls @ 999 mls/hr IV .Q1H1M ONE Stop: 10/29/22 17:20 Last Infusion: 10/29/22 17:35 Dose: 0 mls/hr Documented By: Admin: 10/29/22 16:34 Dose: 999 mls/hr Documented By: ZINA Lactated Ringer's (Lr) 2,000 mls @ 999 mls/hr IV .Q2H1M ONE Stop: 10/29/22 18:20 Last Infusion: 10/29/22 20:07 Dose: 0 mls/hr Documented By: Admin: 10/29/22 17:40 Dose: 999 mls/hr Documented By: ZINA Imaging Data Radiologist's Impression: Chest X-Ray 10/29/22 14:53 XR chest 1V portable HISTORY: Sepsis COMPARISON: Chest and left rib series 04/14/2018. FINDINGS: The lungs are clear. Cardiac silhouette is normal in size. No pleural effusions. No pneumothorax. IMPRESSION: No acute process. ACT 112: Negative or not required by law. Electronically signed by: Cliff Quinn M.D. 10/29/2022 4:04 PM Foot X-Ray 10/29/22 15:31 XR foot LT min 3V routine CLINICAL HISTORY: toe infection COMPARISON STUDY: Left toes 01/02/2019. FINDINGS: Significant soft tissue swelling within the left second toe with near complete bony destruction of the second toe. This is consistent with an osteomyelitis. There is an associated pathologic fracture at the base of the residual left second toe proximal phalanx. The Lisfranc joint is intact. Soft tissue and bony bunion is noted. No additional destructive changes within the left foot. There is diffuse soft tissue swelling within the left foot. IMPRESSION: 1. Near complete bony destruction of the left second toe consistent with an osteomyelitis. 2. There is an associated pathologic fracture at the base of the residual left second toe phalanx. ACT 112: Negative or not required by law. Electronically signed by: Cliff Quinn M.D. 10/29/2022 5:41 PM Discharge Plan Visit Data Chief Complaint: Wound ED Provider: Otto Bryson Discharge Problem: Diabetic infection of left foot, Sepsis, Osteomyelitis of second toe of left foot Patient Disposition: Being Evaluated by Hospitalist Forms Stand Alone Forms: [facility] Prescriptions Prescriptions: No Action loratadine [Allergy Relief (loratadine)] 10 mg Tablet 10 mg PO DAILY PRN (Reason: Allergy Symptoms) Rx Instructions: 10/29/22 PER ED PHYSICIAN : PT NOT TAKING THIS MED. insulin glargine [Lantus Solostar U-100 Insulin] 100 unit/mL (3 mL) Insulin Pen 27 unit SUBCUT QPM Rx Instructions: 10/29/22 PER ED PHYSICIAN : PT NOT TAKING THIS MED. glimepiride 4 mg Tablet 4 mg PO BIDM Rx Instructions: 10/29/22 PER ED PHYSICIAN : PT NOT TAKING THIS MED sertraline 50 mg Tablet 50 mg PO DAILY Rx Instructions: 10/29/22 PER ED PHYSICIAN : PT NOT TAKING THIS MED. multivitamin [Multiple Vitamins] Tablet 1 tab PO DAILY Rx Instructions: 10/29/22 PER ED PHYSICIAN : PT NOT TAKING THIS MED. ibuprofen [Advil] 200 mg Tablet 200 mg PO Q8H PRN (Reason: Pain) Rx Instructions: 10/29/22 PER ED PHYSICIAN : PT NOT TAKING THIS MED. Referrals Referrals: Rodrigo Bravo [Primary Care Provider] -
[2022-10-29] MEDS ORDERED: GLUCAGON FOR INJ 1 MG VIAL SQ PRN (16:35)
[2022-10-29] MEDS ORDERED: DEXTROSE 50% 50 ML SYRINGE IV PRN (16:35)
[2022-10-29] MEDS ORDERED: GLUCOSE 40% GEL 15 GM TUBE PO PRN (16:35)
[2022-10-29] MEDS ORDERED: CARBOHYDRATES FOR HYPOGLYCEMIA PO PRN (16:35)
[2022-10-29] MEDS ORDERED: DKA GOAL RANGE 150-250 mg/dl ONE (16:35)
[2022-10-29] MEDS ORDERED: GLUCOSE 10 TAB/TUBE PO PRN (16:35)
[2022-10-29] MEDS ORDERED: STAT INSULIN DRIP STA (16:35)
[2022-10-29] MEDS ORDERED: INSULIN REGULAR 250 UNITS in SODIUM CHLORIDE 0.9% 247.5 ML IV SCH ×2 (16:45→21:45)
[2022-10-29 17:04] LABS: Base Excess VBG -7.3 mEq/L; HCO3 VBG 19 mmol/L; Oxygen Saturation VBG < 60.0 %; PCO2 VBG 42 mmHg (38-50); PO2 VBG 20 mmHg; pH VBG 7.27 (7.36-7.41)
--- NOTE | 2022-10-29 17:43 | XRay Report ---
XR foot LT min 3V routine CLINICAL HISTORY: toe infection COMPARISON STUDY: Left toes 01/02/2019. FINDINGS: Significant soft tissue swelling within the left second toe with near complete bony destruc tion of the second toe. This is consistent with an osteomyelitis. There is an associated pathologic f racture at the base of the residual left second toe proximal phalanx. The Lisfranc joint is intact. S oft tissue and bony bunion is noted. No additional destructive changes within the left foot. There is diffuse soft tissue swelling within the left foot. IMPRESSION: 1. Near complete bony destruction of the left second toe consistent with an osteomyelitis. 2. There is an associated pathologic fracture at the base of the residual left second toe phalanx. ACT 112: Negative or not required by law. Electronically signed by: Cliff Quinn M.D. 10/29/2022 5:41 PM
[2022-10-29 18:03] LABS: Phosphorus 3.2 mg/dl (2.5-4.9)
[2022-10-29 18:12] LABS: C Reactive Protein 30.85 mg/dl (0-0.5)
--- NOTE | 2022-10-29 19:07 | History & Physical Report ---
Date of Service October 29, 2022 Assessment & Plan (1) DKA (diabetic ketoacidosis): (2) Osteomyelitis of second toe of left foot: (3) Diabetic ulcer of toe of left foot associated with type 2 diabetes mellitus: (4) Type 2 diabetes mellitus with diabetic neuropathy: (5) Hyponatremia: (6) Marijuana abuse: Plan 47-year-old male with diabetes mellitus noncompliant to insulin, presented with worsening left toe infection for past week and being admitted for DKA and osteomyelitis left toe DKA-mild, due to noncompliance to insulin and diet. Anion gap 17, bicarb 18, BG 453, venous pH 7.27. Admit to PCU on insulin drip per protocol. Check labs per protocol and replete electrolytes as indicated. Switch insulin drip to basal bolus insulin once anion gap closed x2. Glycemic pharmacist and music educator consulted. Patient states he is willing to take his medication and t madina care of himself from your onwards Diabetes mellitus type 2 with peripheral neuropathy with diabetic left toe ulcer/osteomyelitis-WBC 13, procal negative, ESR and CRP elevated. X-ray shows osteomyelitis of second left toe. Seen by Dr. Miranda and plan for left toe amputation tomorrow morning. N.p.o. after midnight. Continue empiric Vanco/Zosyn pending surgery and pathology/culture results. ID evaluation afterwards Hyponatremia-low due to elevated blood sugar. Also getting IVF. Recheck in a.m. DVT prophylaxis-subcu heparin, hold after midnight. Disposition-admit to PCU on telemetry Updated family at bedside Full code History of Present Illness Chief Complaint: Left toe infection Primary Care Provider: Rodrigo Bravo 47 old male with history of diabetes mellitus type 2 noncompliant to his medications presented to ED from acute care for evaluation of left second toe wound. Patient has peripheral neuropathy and does not have much sensation below bilateral ankles. States he stopped taking his insulin and diabetic medications for many months now and is not compliant with carb controlled diet. He noticed left second toe wound a week ago and has been applying [id number] antibiotic ointment and dressing without much improvement but getting worse and hence sought medical attention. Per EMS, he had fever of 100 F. Denies nausea, vomiting, chest pain, abdominal pain. Denies diarrhea or dysuria. In the ED, he was afebrile, hemodynamic stable. Labs showed mild DKA along with leukocytosis, elevated ESR and CRP, negative Pro-Arash. X-ray showed left toe osteomyelitis and fracture although he denies any trauma. Seen by Dr. Miranda and plan for OR tomorrow. He smokes marijuana daily but denies any tobacco or alcohol use. States his divorce was finalized in May and had severe depression but now improving, but he denies any suicidal or homicidal ideations. Family was at bedside during encounter. Allergies Allergy/AdvReac Type Severity Reaction Status Date / Time pollen extracts Allergy Intermediate ITCHY Verified 10/29/22 17:29 EYES, SNEEZING, CONGESTION Home Medications Medication Instructions Recorded Confirmed Type loratadine 10 mg tablet (Allergy 10 mg PO DAILY PRN Allergy Symptoms 01/02/19 10/29/22 History Relief (loratadine)) glimepiride 4 mg tablet 4 mg PO BIDM 10/29/22 10/29/22 History ibuprofen 200 mg tablet (Advil) 200 mg PO Q8H PRN Pain 10/29/22 10/29/22 History insulin glargine 100 unit/mL (3 27 unit subcut QPM 10/29/22 10/29/22 History mL) subcutaneous pen (Lantus Solostar U-100 Insulin) multivitamin (Multiple Vitamins 1 tab PO DAILY 10/29/22 10/29/22 History tablet) sertraline 50 mg tablet 50 mg PO DAILY 10/29/22 10/29/22 History Past Med/Surg History Medical History Dental caries Diabetes Hypertension Lumbago Surgical History History of incision and drainage right lower leg Family History Mother Diabetes Father Diabetes Social History Smoking Status: Never smoker Hx Alcohol Use: Yes Alcohol type: beer and hard liquor Hx Substance Use: No Preferred Language: Sami Communication Ability: Effective Publishing Specialist Required: No Beliefs That Will Affect Care: None marital status: Current Living Situation: Other current occupational status: employed Feels Safe at Home: Yes Assistive Devices: Walker Review of Systems Review of Systems: All systems reviewed & are unremarkable except as noted in Subjective Physical Exam Physical Exam: General: Lying comfortably in bed, not in distress, on room air HEENT: EOMI, RUBEN, MMM Chest: Clear breath sounds bilaterally, no wheezes or crackles CVS: Tachycardic, normal heart sounds, no murmur Abdomen: Soft, non tender, not distended, normal bowel sounds Neuro: Awake, alert, oriented, conversing well. Decreased sensation below bilateral ankles due to diabetic neuropathy Extremities: Left foot wrapped with dressing Results & Data Results & Data Vital Signs (Past 12 Hours) Vital Signs Temp Pulse Resp BP Pulse Ox O2 Del Method O2 Flow Rate 10/29/22 18:31 113 H 10/29/22 17:31 154/89 H 10/29/22 17:31 111 H 15 99 Room Air 10/29/22 17:30 115 H 17 98 Room Air 10/29/22 17:00 115 H 22 98 Room Air 10/29/22 16:30 117 H 17 97 Room Air 10/29/22 16:00 119 H 17 10/29/22 15:30 120 H 20 96 10/29/22 15:00 125 H 14 100 10/29/22 15:00 130/76 10/29/22 14:30 120 H 15 99 10/29/22 14:28 127 H 14 98 10/29/22 14:53 99 Room Air 10/29/22 14:53 99 Room Air 0 10/29/22 14:43 127 H 10/29/22 14:12 37.2 C 124 H 14 130/90 100 Room Air Laboratory Results Short CBC 10/29/22 Range/Units 14:36 WBC 13.72 H (4.8-10.8) K/ul Hgb 13.8 L (14.0-18.0) g/dl Hct 38.0 L (42.0-52.0) % Plt Count 409 H (130-400) K/uL BMP 10/29/22 14:36 Sodium 125 L Potassium 3.9 Chloride 90 L Carbon Dioxide 18 L BUN 13 Creatinine 0.82 Glucose 453 H* Calcium 9.1 Liver Function 10/29/22 Range/Units 14:36 Total Bilirubin 0.4 (0.2-1.0) mg/dl AST 11 L (13-39) U/L ALT 12 (7-52) U/L Alkaline Phosphatase 99 (34-104) U/L Albumin 3.3 L (3.4-5.0) gm/dl Diagnostic Findings Chest X-Ray 10/29/22 14:53 XR chest 1V portable HISTORY: Sepsis COMPARISON: Chest and left rib series 04/14/2018. FINDINGS: The lungs are clear. Cardiac silhouette is normal in size. No pleural effusions. No pneumothorax. IMPRESSION: No acute process. ACT 112: Negative or not required by law. Electronically signed by: Cliff Quinn M.D. 10/29/2022 4:04 PM Foot X-Ray 10/29/22 15:31 XR foot LT min 3V routine CLINICAL HISTORY: toe infection COMPARISON STUDY: Left toes 01/02/2019. FINDINGS: Significant soft tissue swelling within the left second toe with near complete bony destruction of the second toe. This is consistent with an osteomyelitis. There is an associated pathologic fracture at the base of the residual left second toe proximal phalanx. The Lisfranc joint is intact. Soft tissue and bony bunion is noted. No additional destructive changes within the left foot. There is diffuse soft tissue swelling within the left foot. IMPRESSION: 1. Near complete bony destruction of the left second toe consistent with an osteomyelitis. 2. There is an associated pathologic fracture at the base of the residual left second toe phalanx. ACT 112: Negative or not required by law. Electronically signed by: Cliff Quinn M.D. 10/29/2022 5:41 PM
--- NOTE | 2022-10-29 19:49 | Orthopedic Consultation ---
Date of Consultation October 29, 2022 Assessment & Plan (1) Diabetic ulcer of toe of left foot associated with type 2 diabetes mellitus: Patient seen, evaluated, and treated. Reviewed x-ray and x-ray findings. Discussed left lower extremity and source control. Reviewed second toe amputation. Patient is at severe risk for loss of limb. Patient scheduled for surgical care 10/30/22 3pm. (2) Osteomyelitis of second toe of left foot: History of Present Illness History of Present Illness Patient is a 47-year-old diabetic seen at [facility] Emergency Department for a left second toe infection. Patient has a past medical history significant for dental caries, Diabetes, Hypertension, and Lumbago. Patient was referred from acute care today reportedly for an infection of his toe. Patient denies trauma. He states area became swollen and painful and infected about a week ago. Patient has not been taking his medications and has not seen his doctor in a while per ED note. Patient was noted to be tachycardic and have a fever prior to arrival to [facility] ED. History of MRSA and skin infections in this leg reported in the past. Allergies Allergy/AdvReac Type Severity Reaction Status Date / Time pollen extracts Allergy Intermediate ITCHY Verified 10/29/22 17:29 EYES, SNEEZING, CONGESTION Home Medications Medication Instructions Recorded Confirmed Type loratadine 10 mg tablet (Allergy 10 mg PO DAILY PRN Allergy Symptoms 01/02/19 10/29/22 History Relief (loratadine)) glimepiride 4 mg tablet 4 mg PO BIDM 10/29/22 10/29/22 History ibuprofen 200 mg tablet (Advil) 200 mg PO Q8H PRN Pain 10/29/22 10/29/22 History insulin glargine 100 unit/mL (3 27 unit subcut QPM 10/29/22 10/29/22 History mL) subcutaneous pen (Lantus Solostar U-100 Insulin) multivitamin (Multiple Vitamins 1 tab PO DAILY 10/29/22 10/29/22 History tablet) sertraline 50 mg tablet 50 mg PO DAILY 10/29/22 10/29/22 History Patient History Medical History Dental caries Diabetes Hypertension Lumbago Surgical History History of incision and drainage right lower leg Family History Mother Diabetes Father Diabetes Social History Smoking Status: Never smoker Do You Dip or Chew Tobacco: No; Hx Alcohol Use: No Hx Substance Use: Yes Preferred Language: Slovenian Communication Ability: Effective Wine Maker Required: No Beliefs That Will Affect Care: None marital status: Current Living Situation: Alone current occupational status: employed Other Information That Helps Us Care for You: No Feels Safe at Home: Yes Safety Concerns: Feels Safe At This Time Assistive Devices: None Review of Systems Review of Systems: All systems reviewed & are unremarkable except as noted in HPI & below Physical Exam Constitutional: cooperative and comfortable Eyes: normal visual napoles by confrontation Neck: normal visual inspection Respiratory: normal respiratory effort Cardiovascular: Rate/Rhythm: regular rate and regular rhythm Musculoskeletal: Extremities: extremities normal to inspection Skin: + ulcer (Left second toe) Neurologic: moves all extremities (Loss of epicritic sensation) Psychiatric: Orientation: alert and oriented x 3 Results & Data Vital Signs (Past 12 Hours) Vital Signs Temp Pulse Resp BP Pulse Ox O2 Del Method O2 Flow Rate 10/29/22 19:34 118 H 21 100 10/29/22 19:34 127/66 10/29/22 19:30 118 H 19 96 10/29/22 19:00 105 H 18 99 10/29/22 19:00 118 H 18 126/78 99 10/29/22 18:30 114 H 18 139/88 10/29/22 18:00 110 H 20 145/87 H 99 10/29/22 19:36 99 Room Air 10/29/22 18:31 113 H 10/29/22 17:31 154/89 H 10/29/22 17:31 111 H 15 99 Room Air 10/29/22 17:30 115 H 17 98 Room Air 10/29/22 17:00 115 H 22 98 Room Air 10/29/22 16:30 117 H 17 97 Room Air 10/29/22 16:00 119 H 17 10/29/22 15:30 120 H 20 96 10/29/22 15:00 125 H 14 100 10/29/22 15:00 130/76 10/29/22 14:30 120 H 15 99 10/29/22 14:28 127 H 14 98 10/29/22 14:53 99 Room Air 10/29/22 14:53 99 Room Air 0 10/29/22 14:43 127 H 10/29/22 14:12 37.2 C 124 H 14 130/90 100 Room Air Diagnostic Findings [facility] [place] [phone] XRay Report Patient:ROSA JOY Admit Date:10/29/22 MR#:[id number] Address[address] Acct ID:[id number] Address2: Date:1975 [facility] Zip:[place] [address] Age:47 Location:ED Sex:M Room/Bed: Att Phy: Diagnosis:WOUND Carole Phy:Rodrigo Bravo D.O. Service Date:10/29/22 Fam Phy: Interpreting Phy:Cliff Quinn MDAdmit Phy: Ordering Phy:Otto Bryson M.D. cc: ~ XR foot LT min 3V routine CLINICAL HISTORY: toe infection COMPARISON STUDY: Left toes 01/02/2019. FINDINGS: Significant soft tissue swelling within the left second toe with near complete bony destruction of the second toe. This is consistent with an osteomyelitis. There is an associated pathologic fracture at the base of the residual left second toe proximal phalanx. The Lisfranc joint is intact. Soft tissue and bony bunion is noted. No additional destructive changes within the left foot. There is diffuse soft tissue swelling within the left foot. IMPRESSION: 1. Near complete bony destruction of the left second toe consistent with an osteomyelitis. 2. There is an associated pathologic fracture at the base of the residual left second toe phalanx. ACT 112: Negative or not required by law. Electronically signed by: Cliff Quinn M.D. 10/29/2022 5:41 PM Dictated:10/29/221737 Transcribed: 10/29/221737
[2022-10-29 21:08] LABS: Estimated Average Glucose 381 mg/dl; Hemoglobin A1C 14.9 % (4.5-5.6)
[2022-10-29] MEDS ORDERED: STAT IV Infusion **Titration per Protocol STA (21:45)
[2022-10-29] MEDS ORDERED: PLASMA-LYTE A 1,000 ML IV SCH (21:45)
[2022-10-29] MEDS ORDERED: PHARMACY GLYCEMIC MGMT CONSULT PRN (21:45)
[2022-10-29] MEDS: INSULIN ASPART PER UNIT CHARGE SC SCH (22:12)
[2022-10-29 22:28] LABS: Appearance Urine Clear (Clear); Bacteria Urine Automated Negative (Negative); Bilirubin Urine Negative (Negative); Blood Urine Negative (Negative); Color Urine Yellow; Glucose Urine UA 3+ (Negative); Ketones Urine 4+ (Negative); Leukocyte Esterase Urine Negative (Negative); Nitrite Urine Negative (Negative); Protein Urine 1+ (Negative); RBC Urine Automated 0-4 /hpf (0-4); Specific Gravity Urine 1.037 (1.000-1.030); Urobilinogen Urine Negative (Negative); pH Urine 5.5 (4.5-7.5)
[2022-10-29] MEDS: PIPERACILLIN/TAZOBACTAM 4.5 GM in DEXTROSE 5% 100 ML IV SCH (22:30)
[2022-10-29 23:26] LABS: Anion Gap 9 (3-11); Blood Urea Nitrogen 10 mg/dl (6-23); Calcium 8.3 mg/dl (8.6-10.3); Carbon Dioxide 24 mmol/L (21-32); Chloride 98 mmol/L (98-107); Creatinine Clr Calc Pharmacy 131.5 ml/min; Est GFR (African American) 121.4 ml/min; Est GFR (Non-African American) 104.8 ml/min; Glucose 296 mg/dl (70-99(Fasting)); Magnesium 1.5 mg/dl (1.7-2.4); Phosphorus 1.9 mg/dl (2.5-4.9); Sodium 131 mmol/L (136-145)
[2022-10-30] MEDS ORDERED: VANCOMYCIN HCL 1,250 MG in SODIUM CHLORIDE 0.9% 250 ML IV SCH
[2022-10-30] MEDS: ACETAMINOPHEN 500 MG TAB PO PRN ×3 (01:17→20:33)
[2022-10-30] MEDS ORDERED: POTASSIUM PHOS 3 MMOL/1 ML INFUSION IV STA (01:42)
[2022-10-30] MEDS: MAGNESIUM SULFATE / D5W 1 GM/100 ML BAG IV SCH ×2 (01:49→03:34)
[2022-10-30] MEDS ORDERED: POTASSIUM PHOSPHATE 24 MMOL in SODIUM CHLORIDE 0.9% 500 ML IV ONE (02:00)
[2022-10-30] MEDS ORDERED: POTASSIUM PHOSPHATE 24 MMOL in DEXTROSE 5% 500 ML IV ONE (02:30)
[2022-10-30 02:35] LABS: BUN Creatinine Ratio 17.4 (10-20); Creatinine Clr Calc Pharmacy 158.2 ml/min; Est GFR (Non-African American) 113.1 ml/min; Potassium 3.4 mmol/L (3.5-5.1)
[2022-10-30] MEDS ORDERED: Nursing to Pharmacy Communication SCH (02:45)
[2022-10-30 02:59] LABS: Magnesium 1.6 mg/dl (1.7-2.4); Phosphorus 1.3 mg/dl (2.5-4.9)
[2022-10-30] MEDS: PIPERACILLIN/TAZOBACTAM 4.5 GM in DEXTROSE 5% 100 ML IV SCH ×2 (05:48→14:03)
[2022-10-30 06:41] LABS: Creatinine Clr Calc Pharmacy 198.4 ml/min; Est GFR (African American) 143.8 ml/min; Est GFR (Non-African American) 124.1 ml/min; Magnesium 1.9 mg/dl (1.7-2.4); Phosphorus 3.1 mg/dl (2.5-4.9); Potassium 3.3 mmol/L (3.5-5.1)
[2022-10-30] MEDS ORDERED: D5W AND 1/2NSS + 20MEQ KCL 20 MEQ/1,000 ML BAG IV SCH (06:45)
[2022-10-30] MEDS ORDERED: LANTUS PER UNIT CHARGE SC SCH (07:30)
[2022-10-30] MEDS: INSULIN ASPART PER UNIT CHARGE SC SCH ×4 (08:21→20:29)
[2022-10-30] MEDS: VANCOMYCIN HCL 1,500 MG in SODIUM CHLORIDE 0.9% 500 ML IV SCH ×2 (08:52→20:28)
[2022-10-30] MEDS ORDERED: POTASSIUM CHLORIDE CRTAB 20 MEQ TABCR PO STA ×2 (09:22→16:16)
--- NOTE | 2022-10-30 09:33 | Anesthesiology Consultation ---
Date of Service October 30, 2022 Assessment & Plan Chart Review Chart Review: order entry specialist initiated History Surgery Operation Date: 10/30/22 07:00 Proposed Procedures p Left 2nd Ray Amputation with Application of Wound Vac - Kilo Miranda DPM, MS Height/Weight Height: 6 ft 3 in Weight: 86.4 kg Allergies Allergy/AdvReac Type Severity Reaction Status Date / Time pollen extracts Allergy Intermediate ITCHY Verified 10/29/22 17:29 EYES, SNEEZING, CONGESTION Medications Home Medications Medication Instructions Recorded Confirmed Last Taken loratadine 10 mg tablet (Allergy 10 mg PO DAILY PRN Allergy Symptoms 01/02/19 10/29/22 Unknown Relief (loratadine)) glimepiride 4 mg tablet 4 mg PO BIDM 10/29/22 10/29/22 Unknown ibuprofen 200 mg tablet (Advil) 200 mg PO Q8H PRN Pain 10/29/22 10/29/22 Unknown insulin glargine 100 unit/mL (3 27 unit subcut QPM 10/29/22 10/29/22 Unknown mL) subcutaneous pen (Lantus Solostar U-100 Insulin) multivitamin (Multiple Vitamins 1 tab PO DAILY 10/29/22 10/29/22 Unknown tablet) sertraline 50 mg tablet 50 mg PO DAILY 10/29/22 10/29/22 Unknown Active Medications Generic Name Dose Route Start Last Admin Trade Name Freq PRN Reason Stop Dose Admin Acetaminophen 1,000 mg 10/29/22 23:17 10/30/22 01:17 Acetaminophen 500 Mg Tab PO 11/28/22 23:16 1,000 mg Q8H PRN Administration Pain or Fever Piperacillin Sod/Tazobactam 120 mls @ 30 mls/hr 10/29/22 22:00 10/30/22 09:13 Sod 4.5 gm/ Dextrose IV 11/05/22 21:59 Infused Q8H BETTY Infusion Protocol Potassium Chloride/Dextrose/Sod Cl 20 meq in 1,000 mls @ 125 mls/hr 10/30/22 06:45 10/30/22 06:12 D5w And 1/2nss + 20meq Kcl IV 11/29/22 06:44 125 mls/hr .Q8H BETTY Administration Vancomycin HCl 1,500 mg/ 530 mls @ 200 mls/hr 10/30/22 09:00 10/30/22 08:52 Sodium Chloride IV 12/11/22 08:59 200 mls/hr Q12H BETTY Administration Insulin Aspart 0 units 10/29/22 21:00 10/30/22 08:21 Insulin Aspart Per Unit Charge MO 11/28/22 20:59 4 units ACHS BETTY Administration Insulin Glargine 25 units 10/30/22 07:30 10/30/22 08:21 Lantus Per Unit Charge MO 10/30/22 10:00 25 units 0730 BETTY Administration Past Medical History Medical History Dental caries Diabetes Hypertension Lumbago Past Family History Family History Mother Diabetes Father Diabetes Past Surgical History Surgical History History of incision and drainage right lower leg Social History Smoking Status: Never smoker Do You Dip or Chew Tobacco: No Hx Alcohol Use: No Alcohol type: beer and hard liquor alcohol intake frequency: holidays/special occasions only Hx Substance Use: Yes substance use type: marijuana Physical Exam Vital Signs Last Vital Signs Temp 97.9 F 10/30/22 08:02 Pulse 101 H 10/30/22 08:02 Resp 19 10/30/22 08:02 BP 123/65 10/30/22 08:02 Pulse Ox 96 10/30/22 08:02 O2 Del Method Room Air 10/30/22 08:02 O2 Flow Rate 0 10/29/22 14:53 Testing Laboratory Results 10/29/22 14:36 10/30/22 05:56 PT 10.8 Seconds (9.0-12.0) 10/29/22 14:36 INR 1.0 (0.9-1.1) 10/29/22 14:36 APTT 31.4 Seconds (21.0-31.0) H 10/29/22 14:36 Hemoglobin A1c 14.9 % (4.5-5.6) H 10/29/22 14:36 Urine Color Yellow 10/29/22 22:00 Urine Appearance Clear (Clear) 10/29/22 22:00 Urine pH 5.5 (4.5-7.5) 10/29/22 22:00 Ur Specific [place] 1.037 (1.000-1.030) H 10/29/22 22:00 Urine Protein 1+ (Negative) H 10/29/22 22:00 Urine Glucose (UA) 3+ (Negative) H 10/29/22 22:00 Urine Ketones 4+ (Negative) H 10/29/22 22:00 Urine Nitrite Negative (Negative) 10/29/22 22:00 Ur Leukocyte Esterase Negative (Negative) 10/29/22 22:00 Urine WBC (Auto) 1-5 /hpf (0-5) 10/29/22 22:00 Urine RBC (Auto) 0-4 /hpf (0-4) 10/29/22 22:00 U Hyaline Cast (Auto) 1-5 /lpf (0-5) 10/29/22 22:00 U Epithel Cells (Auto) 5-10 /lpf (0-5) H 10/29/22 22:00 Urine Bacteria (Auto) Negative (Negative) 10/29/22 22:00 10/29/22 16:15 Gram Stain - Final Toe,Left Second Wound Culture - Preliminary Staphylococcus species Group B Beta Strep 10/30/22 10/30/22 10/30/22 07:34 07:12 07:02 POC Glucose 175 H 206 H 148 H 10/30/22 10/30/22 10/30/22 06:47 06:35 06:19 POC Glucose 146 H 135 H 127 H 10/30/22 10/30/22 10/30/22 06:00 04:54 03:36 POC Glucose 125 H 159 H 188 H 10/30/22 10/30/22 10/30/22 01:56 01:13 00:07 POC Glucose 218 H 251 H 293 H 10/29/22 10/29/22 23:06 22:07 POC Glucose 295 H 289 H Electrocardiogram Date: 10/29/22 Sinus tachycardia, rate 117 bpm Otherwise normal ECG When compared with ECG of 22-AUG-2018 22:42, No significant change was found Chest X-Ray Date: 10/29/22 Findings: + NAD
[2022-10-30 10:04] LABS: Calcium 7.7 mg/dl (8.6-10.3); Creatinine Clr Calc Pharmacy 218.3 ml/min; Est GFR (African American) 149.6 ml/min; Est GFR (Non-African American) 129.1 ml/min; Magnesium 1.7 mg/dl (1.7-2.4); Phosphorus 2.4 mg/dl (2.5-4.9); Potassium 3.5 mmol/L (3.5-5.1)
--- NOTE | 2022-10-30 11:26 | Electrocardiogram Report ---
Test Reason : Blood Pressure : / mmHG Vent. Rate : 117 BPM Atrial Rate : 117 BPM P-R Int : 120 ms QRS Dur : 088 ms QT Int : 310 ms P-R-T Axes : 074 078 062 degrees QTc Int : 432 ms Sinus tachycardia Otherwise normal ECG When compared with ECG of 22-AUG-2018 22:42, No significant change was found Confirmed by Дмитрий Huff ([id number]) on 10/30/2022 11:26:07 AM Referred By: Confirmed By:Дмитрий Huff
--- NOTE | 2022-10-30 12:22 | Pharmacy Report ---
Pharmacy Glycemic Short Note 2 - Date of Service October 30, 2022 - Glycemic Short BSG Results (Last 24 hours): 10/29/22 10/29/22 10/29/22 14:36 17:34 18:56 Glucose 453 H* POC Glucose 328 H* 287 H 10/29/22 10/29/22 10/29/22 20:34 22:07 22:40 Glucose 296 H POC Glucose 399 H* 289 H 10/29/22 10/30/22 10/30/22 23:06 00:07 01:13 Glucose POC Glucose 295 H 293 H 251 H 10/30/22 10/30/22 10/30/22 01:56 02:03 03:36 Glucose 234 H POC Glucose 218 H 188 H 10/30/22 10/30/22 10/30/22 04:54 05:56 06:00 Glucose 138 H POC Glucose 159 H 125 H 10/30/22 10/30/22 10/30/22 06:19 06:35 06:47 Glucose POC Glucose 127 H 135 H 146 H 10/30/22 10/30/22 10/30/22 07:02 07:12 07:34 Glucose POC Glucose 148 H 206 H 175 H 10/30/22 10/30/22 09:32 11:37 Glucose 257 H POC Glucose 258 H OUTPATIENT ANTIDIABETIC REGIMEN: * Amaryl 4 mg PO BID * Lantus 27 units SQ PM Non-compliant on anti-diabetic meds HbA1c: 14.9% ASSESSMENT: * 47 y/o M admitted for mild DKA due to non-compliance on home anti-diabetic meds. * Patient is also with Osteomyelitis being treated with IV Vancomycin and Zosyn during current admission. * Insulin drip was initiated last night. This turned itself off early this morning since blood sugars were at goal. * Labs normalized this morning and anion gap is closed. Insulin drip was discontinued this morning. * Basal Lantus 25 units given this morning which is almost his home dose of basal insulin. * Pre-lunch BSG above 200 mg/dl. Spoke with hospitalist and IV fluids changed to remove Dextrose from it. * Novolog was started based on wt and stress of 3. Expect BSGs to trend down this evening with change in IV fluids. PLAN FOR INPATIENT GLYCEMIC CONTROL: * Hold outpatient oral diabetes medications * Basal insulin * Lantus 25 units SQ QAM * Bolus insulin * NovoLog per scale ACHS or Q6hrs while NPO * Goal Range: Low 110 mg/dL - High 140 mg/dL * Correction Factor: 15 mg/dL/unit * Nutritional / Prandial insulin per carb ratio of 1 unit per 7 grams CHO consumed
[2022-10-30] MEDS: SODIUM CHLOR 0.45% + 20MEQ KCL 20 MEQ/1,000 ML BAG IV SCH ×2 (12:36→20:28)
--- NOTE | 2022-10-30 13:10 | Pharmacy Report ---
Pharmacy PK ABX Note - Date of Service October 30, 2022 - Assessment and Plan Assessment 47 year old M receiving Vancomycin for treatment of Osteomyelitis of toe. Pertinent microbiologic data includes: Toe wound culture growing Staph species and group B Beta. Today is day #2 of antimicrobial therapy. Plan Vancomycin * Loading dose: 1750 mg IV x 1 dose given yesterday evening. * Maintenance dose: 1250 mg IV given at 0000. Dosing changed to Vancomycin 1500 mg IV q12h this morning to target AUC above 500 mg/L.hr for Osteo. * Regimen is predicted to achieve target AUC/CARMELITA of 400-600 mg/L.hr * Random Vancomycin level ordered for: 10/31/22 AM Pharmacy will continue to follow and will adjust dose/frequency as necessary. Thank you. Pharmacy has transitioned to AUC monitoring for vancomycin. AUC/CARMELITA is the preferred PK/PD target and is associated with decreased risk of nephrotoxicity compared to traditional trough targets.
[2022-10-30] MEDS ORDERED: fentaNYL citrate PF 100 MCG/2 ML VIAL IV PRN (14:42)
[2022-10-30] MEDS ORDERED: ATROPINE SULFATE 0.1 MG/ML 10ML SYR IV PRN (14:42)
[2022-10-30] MEDS ORDERED: ONDANSETRON INJ 2 MG/ML 2 ML VIAL IV PRN (14:42)
[2022-10-30] MEDS ORDERED: ePHEDrine sulfate 50 MG/ML AMP IV PRN (14:42)
[2022-10-30 14:58] LABS: BUN Creatinine Ratio 13.3 (10-20); Calcium 8.1 mg/dl (8.6-10.3); Creatinine Clr Calc Pharmacy 181.9 ml/min; Est GFR (African American) 138.8 ml/min; Est GFR (Non-African American) 119.7 ml/min; Magnesium 1.8 mg/dl (1.7-2.4); Phosphorus 2.3 mg/dl (2.5-4.9); Potassium 3.4 mmol/L (3.5-5.1)
[2022-10-30] MEDS ORDERED: fentaNYL citrate PF 100 MCG/2 ML VIAL ONE (15:18)
[2022-10-30] MEDS ORDERED: MIDAZOLAM HCL 1 MG/ML 2ML VIAL ONE (15:18)
[2022-10-30] MEDS ORDERED: PROPOFOL IV EMULSION 10 MG/ML 20 ML VIAL IV ONE (15:18)
[2022-10-30] MEDS ORDERED: LIDOCAINE 2% 2 ML VIAL/AMP(20MG/ML) INFIL ONE (15:18)
[2022-10-30] MEDS ORDERED: ONDANSETRON INJ 2 MG/ML 2 ML VIAL ONE (15:30)
[2022-10-30] MEDS ORDERED: BUPIVACAINE 0.5 % 5 MG/1 ML MPF 30ML VIAL ONE (15:57)
[2022-10-30] MEDS ORDERED: BUPIVACAINE/EPINEPHRINE 0.5% MPF 1:200,000 30 ML VIAL ONE (15:57)
--- NOTE | 2022-10-30 15:57 | History & Physical Bridge Note ---
Date of Service October 30, 2022 History & Physical Bridge Note I have examined the patient, reviewed the History & Physical and in the interval since the performance of the History & Physical I have noted the following changes of clinical significance: no changes noted
--- NOTE | 2022-10-30 16:26 | Hospitalist Progress Note ---
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 He is being managed for the following: DKA-mild, due to noncompliance to insulin and diet. At presentation: Anion gap 17, bicarb 18, BG 453, venous pH 7.27, A1c 14.9. Status post insulin drip per protocol. Already switched insulin drip to basal bolus insulin as anion gap has closed. Glycemic pharmacist and silverer consulted. Patient states he is willing to take his medication and take care of himself from here onwards. Diabetes mellitus type 2 with peripheral neuropathy with diabetic left toe ulcer/osteomyelitis- At presentation, WBC 13, procal negative, ESR and CRP elevated. X-ray shows osteomyelitis of second left toe. Seen by Dr. Miranda and plan for left toe amputation today. Possibly can resume diet after amputation. Continue empiric Vanco/Zosyn pending surgery and pathology/culture results. ID evaluation afterwards. Follow admitting wound culture, follow operative culture. Hyponatremia-low due to elevated blood sugar. Also getting IVF. Getting better. Recheck in a.m. Hypokalemia: Monitor and replete. DVT prophylaxis-subcu heparin, on hold, resume after bleeding risks deemed minimal per podiatry Disposition PCU telemetry Full code Admission and Anticipated Discharge Date Admission Date: October 29, 2022 Subjective Patient seen and examined at bedside as a follow-up of DKA, osteomyelitis of second toe of left foot, diabetic ulcer of toe of left foot associated with T2DM, T2DM with diabetic neuropathy. Patient was sitting up in bed, on room air, NAD, reports no new acute event overnight, reports bowels okay, is n.p.o. for the OR today, possibly can resume diet after amputation. Patient denies any further fever. Patient counseled extensively on the long-term management of diabetes and need for compliance with diabetic medication. Patient reported that he has not been taking his any medications at home for the last few months. He was made aware that not being compliant with diabetic medicine will lead to many complications including worsening neuropathy/nonhealing ulcers/cardiac and cerebrovascular risks. Physical Exam Physical Exam: GENERAL: Alert and oriented x3. NAD, on RA. HEENT: No pallor, no icterus. Pupils equal, round and reactive to light. Oral mucosa moist. NECK: No JVD, no neck masses. HEART: S1 and S2 heard. Tachycardic. No murmur, no gallop. RESPIRATORY SYSTEM: Normal AP diameter. No accessory muscle use. No wheezing, no crackles. ABDOMEN: Soft, bowel sounds present, nontender, no distention. CENTRAL NERVOUS SYSTEM: No facial droop. Speech is clear. Obeys simple commands. Moves extremities. EXTREMITIES: No edema, no erythema seen. Decreased sensation below bilateral ankles. Left foot with dressing c/d/i Results & Data Results & Data Vital Signs (Past 12 Hours) Vital Signs Temp Pulse Resp BP Pulse Ox O2 Del Method 10/30/22 15:24 36.8 C 108 H 18 113/79 95 Room Air 10/30/22 11:13 36.6 C 101 H 20 104/65 96 Room Air 10/30/22 08:02 36.6 C 101 H 19 123/65 96 Room Air
[2022-10-30] MEDS ORDERED: KETAMINE 50 MG/5 ML SYRINGE ONE (16:38)
--- NOTE | 2022-10-30 17:06 | Post Operative Brief Note ---
Immediate Post Op Note v1 Date of Surgery October 30, 2022 Pre & Post Diagnosis Operation Date: 10/30/22 07:00 Pre-Op Diagnosis: Osteomyelitis Post-Op Diagnosis: Osteomyelitis I identified the patient and participated in the time-out.: Yes Procedure Operation Date: 10/30/22 07:00 Actual Procedures p Left 2nd Ray Amputation (Left) - Kilo Miranda DPM, MS Surgeon Kilo Miranda DPM, MS Burner Operator None Estimated Blood Loss 0 Findings Consistent with Post-Op Diagnosis consistent with pre operative findings
--- NOTE | 2022-10-30 17:44 | Anesthesiology Progress Note ---
Date of Service October 30, 2022 Anesthesia Post Procedure Vital Signs Vital Signs: Temp Pulse Pulse Pulse Pulse Resp BP 10/30/22 17:35 97.7 F 92 H 12 10/30/22 17:25 93 H 18 10/30/22 17:15 94 H 12 10/30/22 17:05 97.9 F 102 H 18 10/30/22 15:24 98.2 F 108 H 18 10/30/22 11:13 97.9 F 101 H 20 10/30/22 08:02 97.9 F 101 H 19 10/30/22 03:00 100.0 F H 113 H 16 10/30/22 00:40 119 H 10/29/22 23:00 101.1 F H 115 H 20 10/29/22 21:45 98.2 F 130 H 21 10/29/22 22:47 98.2 F 130 H 16 10/29/22 21:45 10/29/22 21:00 124 H 22 118/78 10/29/22 20:30 125 H 19 134/77 10/29/22 20:00 124 H 21 130/94 10/29/22 19:34 118 H 21 10/29/22 19:34 127/66 10/29/22 19:30 118 H 19 10/29/22 19:00 105 H 18 10/29/22 19:00 118 H 18 126/78 10/29/22 18:30 114 H 18 139/88 10/29/22 18:00 110 H 20 145/87 H 10/29/22 19:36 10/29/22 18:31 113 H BP BP Pulse Ox Pulse Ox O2 Del Method O2 Del Method 10/30/22 17:35 107/67 97 Room Air 10/30/22 17:25 110/70 97 Room Air 10/30/22 17:15 108/71 97 Room Air 10/30/22 17:05 106/69 98 Room Air 10/30/22 15:24 113/79 95 Room Air 10/30/22 11:13 104/65 96 Room Air 10/30/22 08:02 123/65 96 Room Air 10/30/22 03:00 123/65 94 Room Air 10/30/22 00:40 10/29/22 23:00 130/68 99 Room Air 10/29/22 21:45 129/71 97 Room Air 10/29/22 22:47 129/71 97 Room Air 10/29/22 21:45 97 Room Air 10/29/22 21:00 96 Room Air 10/29/22 20:30 95 Room Air 10/29/22 20:00 94 Room Air 10/29/22 19:34 100 10/29/22 19:34 10/29/22 19:30 96 10/29/22 19:00 99 10/29/22 19:00 99 10/29/22 18:30 10/29/22 18:00 99 10/29/22 19:36 99 Room Air 10/29/22 18:31 Pain Intensity Left Toe: Pain Intensity: 4 Transfer of Care Handoff Completed per policy Notes Mental Status: alert / awake / arousable and participated in evaluation Patient Amnestic to Procedure: Yes Nausea / Vomiting: adequately controlled Pain: adequately controlled Airway Patency, RR, SpO2: stable & adequate BP & HR: stable & adequate Hydration State: stable & adequate Anesthetic Complications: no major complications apparent and Pt Satisfied with anesthetic care
[2022-10-30] MEDS: POT PHOSPHATE MONOBASIC W/ SOD TAB PO SCH ×2 (17:56→20:28)
[2022-10-30 20:27] LABS: BUN Creatinine Ratio 12.7 (10-20); Calcium 8.2 mg/dl (8.6-10.3); Creatinine Clr Calc Pharmacy 198.4 ml/min; Est GFR (African American) 143.8 ml/min; Est GFR (Non-African American) 124.1 ml/min; Magnesium 1.8 mg/dl (1.7-2.4); Potassium 3.5 mmol/L (3.5-5.1)
--- NOTE | 2022-10-30 20:48 | Operative Report ---
Post Operative Report Pre & Post Diagnosis Operation Date: 10/30/22 07:00 Pre-Op Diagnosis: Osteomyelitis Post-Op Diagnosis: Osteomyelitis I identified the patient and participated in the time-out.: Yes Procedure Operation Date: 10/30/22 07:00 Actual Procedures p Left 2nd Ray Amputation (Left) - Kilo Miranda DPM, MS Surgeon Kilo Miranda DPM, MS Tour Leader None Estimated Blood Loss 0 Findings Consistent with Post-Op Diagnosis Necrotic left second toe Specimens 1.) Left second toe - Pathology 2.) Left second proximal phalanx bone - Microbiology Description of Procedure History of present illness: Patient is a type II diabetic, 47 year old male who is seen for treatment of osteomyelitis of the left second toe. Patient notes a diabetic foot ulcer open for a week. Patient relates minimal discomfort. Patient requests surgical amputation of left second toe. I discussed patient's history of toe amputation and reviewed hammertoe correction surgery. All questions answered. Discussed procedure in detail and postoperative recovery. All potential risks, benefits, complications, alternatives, rehab, potential for incomplete relief of symptoms, need for further surgery, DVT, PE, , persistent pain, swelling, scarring, weakness, neurovascular, wound complications and potential for amputations were discussed with patient. Unwanted outcomes such as, but not limited to were reviewed including under correction, overcorrection, return of deformity, infection. All questions were answered. Patient has decided to proceed with procedure as indicated. Preoperative diagnosis: Diabetic ulcer osteomyelitis with phalanx fracture left second toe Postoperative diagnosis: same Name of operation: Amputation left second toe Surgeon Dr. Miranda Tour Leader: None Anesthesia: local with monitored anesthesia care Hemostasis: pneumatic ankle tourniquet Estimated blood loss: minimal Procedure in detail: Under mild sedation the patient was brought in the operating room placed on the operating table in supine position. A pneumatic ankle tourniquet was then placed about the patient's left ankle. Following IV sedation the foot was then prepped scrubbed and draped in usual aseptic manner. An Esmarch bandage was utilized to exsanguinate the patient's left foot and the pneumatic ankle tourniquet was then inflated. Attention was then directed to a nonhealing diabetic ulcer on the distal aspect of the left second toe. A fishmouth incision was created utilizing a sharp, sterile, #15 blade. The incision was deepened through subcutaneous tissue using sharp blunt dissection. Care was taken to identify and retract all vital neurovascular structures. All bleeders were ligated and cauterized necessary. At this time the left second toe was removed at the metatarsal phalangeal joint and placed on the back table. The proximal portion of the proximal phalanx of the left second toe was sent to microbiology, the remaining toe portion was placed in formalyn and sent to pathology. Copious amounts of sterile normal saline were utilized to flush the incision site. The skin was then primarily closed utilizing 4-0 nylon in horizontal suture mattress techniques as well as simple suture closure. Upon completion of the procedure the incision was dressed with Betadine soaked Adaptic followed by sterile compressive dressing consisting of 4 x 4's Partha Kerlix ABD the pneumatic ankle tourniquet was inflated and a prompt hyperemic response was noted to all digits of the left foot. An Trino wrap and postoperative shoe were then applied. The Patient tolerated the procedure and anesthesia well. He was transferred to recovery room vital signs stable. Patient will be re-admitted to the floor resuming all pre-operative orders. I attest to the content of the Intraoperative Record and any orders documented therein. Any exceptions are noted below.
[2022-10-30] MEDS ORDERED: ALUMINUM/MAGNESIUM/SIMETH (MAALOX MAX) 30 ML UDC PO STA (22:23)
[2022-10-31] MEDS: INSULIN ASPART PER UNIT CHARGE SC SCH ×6 (00:09→19:53)
[2022-10-31] MEDS ORDERED: traMADol HCL 50 MG TABLET PO STA ×2 (00:15→18:01)
[2022-10-31] MEDS ORDERED: FAMOTIDINE 20 MG in SYRINGE 3 ML IV ONE (00:30)
[2022-10-31] MEDS: PIPERACILLIN/TAZOBACTAM 4.5 GM in DEXTROSE 5% 100 ML IV SCH ×3 (04:10→19:51)
[2022-10-31] MEDS: SODIUM CHLOR 0.45% + 20MEQ KCL 20 MEQ/1,000 ML BAG IV SCH ×2 (04:27→12:34)
[2022-10-31 06:14] LABS: Hematocrit (blood only) 32.2 % (42.0-52.0); Hemoglobin 11.5 g/dl (14.0-18.0); Mean Corpuscular Hemoglobin 31.9 pg (25.0-34.0); Mean Corpuscular Hgb Conc 35.7 g/dL (32.0-36.0); Mean Corpuscular Volume 89.2 fL (80.0-100.0); Mean Platelet Volume 9.3 fL (9.4-12.4); Platelet Count 289 K/uL (130-400); RDW Coefficient of Variation 11.9 % (11.5-14.5); RDW Standard Deviation 38.4 fL (36.4-46.3); Red Blood Count 3.61 M/uL (4.70-6.10); White Blood Count 10.52 K/ul (4.8-10.8)
[2022-10-31 06:33] LABS: BUN Creatinine Ratio 13.5 (10-20); Creatinine Clr Calc Pharmacy 209.9 ml/min; Est GFR (African American) 147.2 ml/min; Magnesium 1.6 mg/dl (1.7-2.4); Phosphorus 2.7 mg/dl (2.5-4.9); Potassium 3.5 mmol/L (3.5-5.1)
[2022-10-31] MEDS ORDERED: VANCOMYCIN LEVEL ONE (08:00)
[2022-10-31] MEDS: VANCOMYCIN HCL 1,500 MG in SODIUM CHLORIDE 0.9% 500 ML IV SCH ×2 (08:35→17:34)
[2022-10-31] MEDS: POT PHOSPHATE MONOBASIC W/ SOD TAB PO SCH ×4 (08:35→19:52)
[2022-10-31] MEDS ORDERED: LANTUS PER UNIT CHARGE SC SCH (09:00)
--- NOTE | 2022-10-31 09:53 | Pharmacy Report ---
Pharmacy Glycemic Short Note 2 - Date of Service October 31, 2022 - Glycemic Short BSG Results (Last 24 hours): 10/30/22 10/30/22 10/30/22 09:32 11:37 14:20 Glucose 257 H 245 H POC Glucose 258 H 10/30/22 10/30/22 10/30/22 15:31 17:09 19:12 Glucose 206 H POC Glucose 227 H 192 H 10/30/22 10/30/22 10/31/22 20:00 23:38 04:09 Glucose POC Glucose 262 H 205 H 119 H 10/31/22 10/31/22 05:29 07:44 Glucose 119 H POC Glucose 140 H OUTPATIENT ANTIDIABETIC REGIMEN: * Amaryl 4 mg PO BID * Lantus 27 units SQ PM Non-compliant on anti-diabetic meds HbA1c: 14.9% ASSESSMENT: 10/31/22 * Patient transitioned off of insulin drip yesterday, had 25 units basal, fasting 140mg/dl, continue basal at this time. Patient did require correctional insulin throughout the day and overnight, may need to increase basal tomorrow if this continues. * Tighten CR slightly. * Patient continues on IV Vancomycin + Zosyn 10/30/22 * 47 y/o M admitted for mild DKA due to non-compliance on home anti-diabetic meds. * Patient is also with Osteomyelitis being treated with IV Vancomycin and Zosyn during current admission. * Insulin drip was initiated last night. This turned itself off early this morning since blood sugars were at goal. * Labs normalized this morning and anion gap is closed. Insulin drip was discontinued this morning. * Basal Lantus 25 units given this morning which is almost his home dose of basal insulin. * Pre-lunch BSG above 200 mg/dl. Spoke with hospitalist and IV fluids changed to remove Dextrose from it. * Novolog was started based on wt and stress of 3. Expect BSGs to trend down this evening with change in IV fluids. PLAN FOR INPATIENT GLYCEMIC CONTROL: * Hold outpatient oral diabetes medications * Basal insulin * Lantus 25 units SQ QAM * Bolus insulin * NovoLog per scale ACHS or Q6hrs while NPO * Goal Range: Low 110 mg/dL - High 140 mg/dL * Correction Factor: 15 mg/dL/unit * Nutritional / Prandial insulin per carb ratio of 1 unit per 6 grams CHO consumed
--- NOTE | 2022-10-31 09:57 | Pharmacy Report ---
Pharmacy PK ABX Note - Date of Service October 31, 2022 - Assessment and Plan Microbiology 10/30/22 16:46 Toe,Left Second Gram Stain - Final 10/29/22 16:15 Toe,Left Second Gram Stain - Final 10/30/22 16:46 Toe,Left Second Aerobic and Anaerobic Culture - Preliminary Staphylococcus species 10/29/22 16:15 Toe,Left Second Wound Culture - Preliminary Staphylococcus species Group B Beta Strep 10/29/22 15:09 Blood Aerobic Blood Culture - Preliminary 10/29/22 15:09 Blood Anaerobic Blood Culture - Preliminary No growth in Aerobic bottle after 24 hours. No growth in Anaerobic bottle after 24 hours. 10/29/22 14:36 Blood Aerobic Blood Culture - Preliminary 10/29/22 14:36 Blood Anaerobic Blood Culture - Preliminary No growth in Aerobic bottle after 24 hours. No growth in Anaerobic bottle after 24 hours. Laboratory Tests 10/31/22 05:29 Random Vancomycin 7.1 L Assessment 47 year old M receiving Vancomycin for treatment of Osteomyelitis of toe. Pertinent microbiologic data includes: Toe wound cultures growing Staph species and group B Beta. Today is day #3 of antimicrobial therapy. Plan Vancomycin * Current regimen: 1500 mg IV every 12 hours * Trough level obtained 10/31/22 resulted as 7.1 mcg/mL. This is predicted to achieve target AUC/CARMELITA of LESS THAN 400-600 mg/L.hr * Change to 1500 mg IV every 8 hours * Repeat trough level ordered for: 11/01/22 Zosyn 4.5g IV Q8H extended interval infusion Pharmacy will continue to follow and will adjust dose/frequency as necessary. Thank you.
[2022-10-31] MEDS: MAGNESIUM SULFATE / D5W 1 GM/100 ML BAG IV SCH ×2 (10:13→11:59)
[2022-10-31] MEDS: ACETAMINOPHEN 500 MG TAB PO PRN ×2 (10:40→19:51)
[2022-10-31] MEDS ORDERED: ALUMINUM/MAGNESIUM SUSP 30 ML UDC PO PRN (14:07)
[2022-10-31] MEDS: ADVANCED PROBIOTIC 1250 MG CAPSULE PO SCH (15:05)
--- NOTE | 2022-10-31 15:48 | Orthopedic Progress Note ---
Date of Service October 31, 2022 Assessment & Plan (1) Diabetic ulcer of toe of left foot associated with type 2 diabetes mellitus: Plan: Patient seen, evaluated, and treated. Patient is status post right second toe amputation Day #1 DOS 10/30/22. Awaiting culture and sensitivities. Dressing change with out incident. Will continue to follow while in house. (2) Osteomyelitis of second toe of left foot: Admission and Anticipated Discharge Date Admission Date: October 29, 2022 Subjective Patient seen and examined at bedside. Patient is status post right second toe amputaiton Day #1 DOS 10/30/22. He voices no complaints. Review of Systems Review of Systems: All systems reviewed & are unremarkable except as noted in Subjective Physical Exam Constitutional: cooperative and comfortable Eyes: normal visual napoles by confrontation Neck: normal visual inspection Respiratory: normal respiratory effort Cardiovascular: Rate/Rhythm: regular rate and regular rhythm Musculoskeletal: Extremities: extremities normal to inspection and + amputation noted (Right second toe) Skin: + wound (Right second toe amputation site sutures intact.) Neurologic: moves all extremities (Loss of epicritic sensation) Psychiatric: Orientation: alert and oriented x 3 Results & Data Vital Signs (Past 12 Hours) Vital Signs Temp Pulse Pulse Resp BP Pulse Ox O2 Del Method 10/31/22 11:17 103 H 10/31/22 11:10 36.6 C 109 H 20 121/81 99 Room Air 10/31/22 07:26 36.8 C 63 20 117/69 96 Room [place] [address] / Director: Bhavesh Lakhani M.D. Clinical Laboratory Report Name: ROSA JOY Acct: [id number] Status: ADM IN : 1975 [facility] [place] Date: 10/29/22 Age: 47 Sex: M Dis Date: Loc: [address]/Bed: W458-1 Spec: [id number] Collected: 10/30/22 Received: 10/30/[address]: Kilo Miranda, DPM, MS Copy To: Juno Lauren MD Source: Toe,Left Second OV Order: Ordered: Aer/Shania Cult/Sm Procedure Result Verified Site Gram Stain Final 10/30/22 Gram Stain Result Moderate WBCs Seen Few Gram Positive Cocci Aero/Shania Cult Preliminary 10/31/22 Organism 1 Staphylococcus species Quantity Moderate Sens Sensitivities to Follow Name: ROSA JOY : 1975 PAGE 1 Printed: 10/31/22 1548 END OF REPORT
--- NOTE | 2022-10-31 18:09 | Hospitalist Progress Note ---
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 He is being managed for the following: DKA-mild, due to noncompliance to insulin and diet. At presentation: Anion gap 17, bicarb 18, BG 453, venous pH 7.27, A1c 14.9. Status post insulin drip per protocol. Already switched insulin drip to basal bolus insulin as anion gap has closed as of 10/30. Glycemic pharmacist and esthetician permanent makeup artist consulted. Patient states he is willing to take his medication and take care of himself from here onwards. Diabetes mellitus type 2 with peripheral neuropathy with diabetic left toe ul cer/osteomyelitis- At presentation, WBC 13, procal negative, ESR and CRP elevated. X-ray shows osteomyelitis of second left toe. Podiatry on board, status post left second toe amputation 10/30/[address] Miranda. continue empiric Vanco/Zosyn pending culture results. ID evaluated, agree with current antibiotic until final culture and sensitivities available. Hyponatremia-low due to elevated blood sugar. Getting better. Recheck in a.m. Hypokalemia: Monitor and replete. DVT prophylaxis-subcu heparin, on hold, resume after bleeding risks deemed minimal per podiatry Disposition PCU telemetry Full code Admission and Anticipated Discharge Date Admission Date: October 29, 2022 Subjective Patient seen and examined at bedside as a follow-up of DKA, osteomyelitis of second toe of left foot, diabetic ulcer of toe of left foot associated with T2DM, T2DM with diabetic neuropathy. Patient was sitting up in bed, on room air, NAD, reports no new acute event overnight, reports bowels okay, reports eating okay and moving bowels okay. Patient denies any further fever. Physical Exam Physical Exam: GENERAL: Alert and oriented x3. NAD, on RA. HEENT: No pallor, no icterus. Pupils equal, round and reactive to light. Oral mucosa moist. NECK: No JVD, no neck masses. HEART: S1 and S2 heard. Tachycardic. No murmur, no gallop. RESPIRATORY SYSTEM: Normal AP diameter. No accessory muscle use. No wheezing, no crackles. ABDOMEN: Soft, bowel sounds present, nontender, no distention. CENTRAL NERVOUS SYSTEM: No facial droop. Speech is clear. Obeys simple commands. Moves extremities. EXTREMITIES: No edema, no erythema seen. Decreased sensation below bilateral ankles. Left foot with dressing c/d/i Results & Data Results & Data Vital Signs (Past 12 Hours) Vital Signs Temp Pulse Pulse Resp BP Pulse Ox O2 Del Method 10/31/22 16:39 36.7 C 102 H 20 101/66 99 Room Air 10/31/22 11:17 103 H 10/31/22 11:10 36.6 C 109 H 20 121/81 99 Room Air 10/31/22 07:26 36.8 C 63 20 117/69 96 Room Air
[2022-11-01] MEDS: VANCOMYCIN HCL 1,500 MG in SODIUM CHLORIDE 0.9% 500 ML IV SCH ×2 (01:07→08:43)
[2022-11-01] MEDS: PIPERACILLIN/TAZOBACTAM 4.5 GM in DEXTROSE 5% 100 ML IV SCH ×3 (04:43→20:36)
[2022-11-01] MEDS ORDERED: VANCOMYCIN LEVEL ONE (07:30)
[2022-11-01 08:13] LABS: BUN Creatinine Ratio 13.2 (10-20); Creatinine Clr Calc Pharmacy 205.9 ml/min; Magnesium 1.8 mg/dl (1.7-2.4); Phosphorus 3.3 mg/dl (2.5-4.9); Potassium 3.3 mmol/L (3.5-5.1)
[2022-11-01] MEDS: POT PHOSPHATE MONOBASIC W/ SOD TAB PO SCH ×2 (08:37→12:54)
[2022-11-01] MEDS: ADVANCED PROBIOTIC 1250 MG CAPSULE PO SCH (08:37)
[2022-11-01] MEDS: LANTUS PER UNIT CHARGE SC SCH (08:43)
[2022-11-01] MEDS: INSULIN ASPART PER UNIT CHARGE SC SCH ×4 (08:43→20:32)
[2022-11-01] MEDS ORDERED: POTASSIUM CHLORIDE CRTAB 20 MEQ TABCR PO STA (10:32)
--- NOTE | 2022-11-01 14:26 | Pharmacy Report ---
Pharmacy PK ABX Note - Date of Service November 01, 2022 - Assessment and Plan Microbiology 10/30/22 16:46 Toe,Left Second Gram Stain - Final 10/29/22 16:15 Toe,Left Second Gram Stain - Final 10/30/22 16:46 Toe,Left Second Aerobic and Anaerobic Culture - Preliminary Staphylococcus species 10/29/22 16:15 Toe,Left Second Wound Culture - Preliminary Staphylococcus species Group B Beta Strep 10/29/22 15:09 Blood Aerobic Blood Culture - Preliminary 10/29/22 15:09 Blood Anaerobic Blood Culture - Preliminary No growth in Aerobic bottle after 24 hours. No growth in Anaerobic bottle after 24 hours. 10/29/22 14:36 Blood Aerobic Blood Culture - Preliminary 10/29/22 14:36 Blood Anaerobic Blood Culture - Preliminary No growth in Aerobic bottle after 24 hours. No growth in Anaerobic bottle after 24 hours. Laboratory Tests 11/01/22 07:37 Random Vancomycin 11.2 Assessment 11/01: * Vancomycin level obtained this morning indicates slightly suboptimal vanc AUC/trough level, despite dose increase yesterday. * Dose further increased this morning in an attempt to keep AUC closer to 600 mg/L.hr for osteo indication. * Final culture results still pending. 10/31: * 47 year old M receiving Vancomycin for treatment of Osteomyelitis of toe. Pertinent microbiologic data includes: Toe wound cultures growing Staph species and group B Beta. * Today is day #3 of antimicrobial therapy. Plan Vancomycin * Current regimen: 1500 mg IV every 12 hours * Trough level obtained this morning (11.2 mcg/mL) was predicted to achieve target AUC/CARMELITA 400-600 mg/L.hr, but on the lower end of the goal range. * Change to 1750 mg IV every 8 hours in an attempt to keep AUC/CARMELITA closer to 600 mg/L.hr for bone/joint infection. * No further levels have been ordered at this time. If patient remains hospitalized and on vancomycin therapy, will re-evaluate the need for additional monitoring in 1-2 days. Zosyn 4.5g IV Q8H extended interval infusion Pharmacy will continue to follow and will adjust dose/frequency as necessary. Thank you.
[2022-11-01] MEDS: VANCOMYCIN HCL 1,750 MG in SODIUM CHLORIDE 0.9% 500 ML IV SCH (17:50)
--- NOTE | 2022-11-01 17:54 | Hospitalist Progress Note ---
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 He is being managed for the following: DKA-mild, due to noncompliance to insulin and diet. At presentation: Anion gap 17, bicarb 18, BG 453, venous pH 7.27, A1c 14.9. Status post insulin drip per protocol. Already switched insulin drip to basal bolus insulin as anion gap has closed as of 10/30. Glycemic pharmacist and bench molder apprentice consulted. Patient states he is willing to take his medication and take care of himself from here onwards. Plan to discharge him on insulin and metformin with close follow-up with [facility] for his ongoing diabetes management. Per bench molder apprentice, patient will need: 1.) OneTouch Verio Test Strips- to check 3x/day. (Must include testing frequency for coverage) 2.) OneTouch Delica Lancets- to check 3x/day. (Must include testing frequency for coverage) 3.) Lantus Solostar pen. 4.) Metformin ER. 5.) Pen Needle 32 gauge 5/32"- to inject 1x/day. (Must include injection frequency; Must be non-branded). Diabetes mellitus type 2 with peripheral neuropathy with diabetic left toe ulcer/osteomyelitis- At presentation, WBC 13, procal negative, ESR and CRP elevated. X-ray shows osteomyelitis of second left toe. Podiatry on board, status post left second toe amputation 10/30/[address] Miranda. continue empiric Vanco/Zosyn pending culture results. ID evaluated, agree with current antibiotic until final culture and sensitivities on operative culture available. Hyponatremia-low due to elevated blood sugar. Getting better. Recheck in a.m. Hypokalemia: Monitor and replete. DVT prophylaxis-subcu heparin Disposition PCU telemetry, likely PICC line tomorrow and possible initiation of discharge pending finalization of operative culture and sensitivity. We will reach out to ID once the final results available. Full code Admission and Anticipated Discharge Date Admission Date: October 29, 2022 Subjective Patient seen and examined at bedside as a follow-up of DKA, osteomyelitis of second toe of left foot, diabetic ulcer of toe of left foot associated with T2DM, T2DM with diabetic neuropathy. Patient was sitting up in bed, on room air, NAD, reports no new acute event overnight, reports bowels okay, reports eating okay and moving bowels okay. Patient denies any further fever. Physical Exam Physical Exam: GENERAL: Alert and oriented x3. NAD, on RA. HEENT: No pallor, no icterus. Pupils equal, round and reactive to light. Oral mucosa moist. NECK: No JVD, no neck masses. HEART: S1 and S2 heard. Tachycardic. No murmur, no gallop. RESPIRATORY SYSTEM: Normal AP diameter. No accessory muscle use. No wheezing, no crackles. ABDOMEN: Soft, bowel sounds present, nontender, no distention. CENTRAL NERVOUS SYSTEM: No facial droop. Speech is clear. Obeys simple commands. Moves extremities. EXTREMITIES: No edema, no erythema seen. Decreased sensation below bilateral ankles. Left foot with dressing c/d/i Results & Data Results & Data Vital Signs (Past 12 Hours) Vital Signs Temp Pulse Pulse Resp BP Pulse Ox O2 Del Method 11/01/22 12:01 37.0 C 118 H 16 110/65 98 Room Air 11/01/22 08:29 36.9 C 114 H 18 92/53 L 95 Room Air 11/01/22 07:00 111 H
[2022-11-01] MEDS: ACETAMINOPHEN 500 MG TAB PO PRN (17:56)
[2022-11-01] MEDS: HEPARIN SOD 5,000 UNIT/0.5 ML VIAL SQ SCH (20:26)
--- NOTE | 2022-11-01 22:38 | Orthopedic Progress Note ---
Date of Service November 01, 2022 Assessment & Plan (1) Diabetic ulcer of toe of left foot associated with type 2 diabetes mellitus: Plan: Patient seen, evaluated, and treated. Patient is status post right second toe amputation Day #2 DOS 10/30/22. Reviewed preliminary culture and sensitivities. Dressing change with out incident. Will continue to follow while in house. (2) Osteomyelitis of second toe of left foot: (3) Ulcer of left lower leg: Admission and Anticipated Discharge Date Admission Date: October 29, 2022 Subjective Patient seen and examined at bedside resting comfortably. Patient status post left second toe amputation Day#2, DOS 10/30/22. He relates no complaints. Physical Exam Constitutional: cooperative and comfortable Eyes: normal visual napoles by confrontation Neck: normal visual inspection Respiratory: normal respiratory effort Cardiovascular: Rate/Rhythm: regular rate and regular rhythm Musculoskeletal: Extremities: extremities normal to inspection and + amputation noted (Right second toe) Skin: + ulcer (Left posterior leg full thickness ulcer) and + wound (Right second toe amputation site sutures intact.) Neurologic: moves all extremities (Loss of epicritic sensation) Psychiatric: Orientation: alert and oriented x 3 Results & Data Vital Signs (Past 12 Hours) Vital Signs Temp Pulse Pulse Resp BP Pulse Ox O2 Del Method 11/01/22 19:00 36.7 C 117 H 16 118/71 96 Room Air 11/01/22 16:00 114 H 11/01/22 12:01 37.0 C 118 H 16 110/65 98 Room Air Diagnostic Findings [address], [place] [address] / Director: Bhavesh Lakhani M.D. Clinical Laboratory Report Name: ROSA JOY Acct: [id number] Status: [place] 1975 [facility] [place]29/22 Age: 47 Sex: M Dis Date: Loc: [address]/Bed: W458-1 Spec: [id number] Collected: 10/30/22 Received: 10/30/[address]: Kilo Miranda, DPM, MS Copy To: Juno Lauren MD Source: Toe,Left Second OV Order: Ordered: Aer/Shania Cult/Sm Procedure Result Verified Site Gram Stain Final 10/30/22 Gram Stain Result Moderate WBCs Seen Few Gram Positive Cocci Aero/Shania Cult Preliminary 11/01/22 Organism 1 Staphylococcus species Quantity Moderate Sens Sensitivities to Follow Name: ROSA JOY : 1975 PAGE 1 Printed: 11/01/22 7552 END OF REPORT
[2022-11-02] MEDS: VANCOMYCIN HCL 1,750 MG in SODIUM CHLORIDE 0.9% 500 ML IV SCH ×3 (02:30→17:58)
[2022-11-02] MEDS: PIPERACILLIN/TAZOBACTAM 4.5 GM in DEXTROSE 5% 100 ML IV SCH ×2 (04:24→12:40)
[2022-11-02 07:18] LABS: BUN Creatinine Ratio 12.9 (10-20); Calcium 8.1 mg/dl (8.6-10.3); Creatinine Clr Calc Pharmacy 155.9 ml/min; Est GFR (African American) 130.3 ml/min; Est GFR (Non-African American) 112.4 ml/min; Magnesium 1.8 mg/dl (1.7-2.4); Phosphorus 3.6 mg/dl (2.5-4.9); Potassium 3.7 mmol/L (3.5-5.1)
--- NOTE | 2022-11-02 07:50 | Hospitalist Progress Note ---
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 He is being managed for the following: Diabetes mellitus type 2 with peripheral neuropathy with diabetic left toe ulcer/osteomyelitis- At presentation, WBC 13, procal negative, ESR and CRP elevated. X-ray shows osteomyelitis of second left toe. Podiatry on board, status post left second toe amputation 10/30/[address] Miranda. continue empiric Vanco/Zosyn pending culture results. ID evaluated, agree with current antibiotic until final culture and sensitivities on operative culture available. --> reached out to ID 11/02---->>> vancomycin for 6 weeks if not agreeable then Bactrim and Augmentin but treatment failure risk is very high which might complicate into amputation. Will get PICC Line tomorrow. DKA-mild at presentation - resolved, due to noncompliance to insulin and diet. Glycemic pharmacist and certified adaptive physical educator consulted. Patient states he is willing to take his medication and take care of himself from here onwards. Upon DC, close follow-up with [facility] for his ongoing diabetes management. Per certified adaptive physical educator, patient will need: 1.) OneTouch Verio Test Strips- to check 3x/day. (Must include testing frequency for coverage) 2.) OneTouch Delica Lancets- to check 3x/day. (Must include testing frequency for coverage) 3.) Lantus Solostar pen. 4.) Metformin ER. 5.) Pen Needle 32 gauge 5/32"- to inject 1x/day. (Must include injection frequency; Must be non-branded). Hyponatremia- low normal, stable. Hypokalemia: Monitor and replete. DVT prophylaxis-subcu heparin Disposition PCU telemetry, likely PICC line sofia and DC preparation, cm to assist. Full code Admission and Anticipated Discharge Date Admission Date: October 29, 2022 Subjective Patient seen and examined at bedside as a follow-up of DKA, osteomyelitis of second toe of left foot, diabetic ulcer of toe of left foot associated with T2DM, T2DM with diabetic neuropathy. Patient was sitting up in bed, on room air, NAD, reports no new acute event overnight, reports bowels okay, reports eating okay and moving bowels okay. Patient denies any further fever. Discussed about the need of PICC line or midline for ongoing vancomycin treatment for 6 weeks, patient declined. Later in the day he agreed, since we are still working on his vancomycin dosing and will need 1 more day [Vanco trough tomorrow morning], will get consent again tomorrow for PICC line. Physical Exam Physical Exam: GENERAL: Alert and oriented x3. NAD, on RA. HEENT: No pallor, no icterus. Pupils equal, round and reactive to light. Oral mucosa moist. NECK: No JVD, no neck masses. HEART: S1 and S2 heard. Tachycardic. No murmur, no gallop. RESPIRATORY SYSTEM: Normal AP diameter. No accessory muscle use. No wheezing, no crackles. ABDOMEN: Soft, bowel sounds present, nontender, no distention. CENTRAL NERVOUS SYSTEM: No facial droop. Speech is clear. Obeys simple commands. Moves extremities. EXTREMITIES: No edema, no erythema seen. Decreased sensation below bilateral ankles. Left foot with amputated second toe, clean sutures without drainage, erythema noted. Results & Data Results & Data Vital Signs (Past 12 Hours) Vital Signs Temp Pulse Pulse Resp BP Pulse Ox O2 Del Method 11/02/22 07:00 107 H 11/02/22 03:23 103 H 11/02/22 03:11 36.6 C 107 H 20 96/46 L 94 Room Air 11/01/22 23:00 36.6 C 103 H 20 121/79 97 Room Air
[2022-11-02] MEDS: LANTUS PER UNIT CHARGE SC SCH ×2 (08:49→19:59)
[2022-11-02] MEDS: INSULIN ASPART PER UNIT CHARGE SC SCH ×4 (08:49→19:57)
[2022-11-02] MEDS: HEPARIN SOD 5,000 UNIT/0.5 ML VIAL SQ SCH ×2 (08:49→20:04)
[2022-11-02] MEDS: ADVANCED PROBIOTIC 1250 MG CAPSULE PO SCH (08:49)
--- NOTE | 2022-11-02 09:01 | Pharmacy Report ---
Pharmacy Glycemic Short Note 2 - Date of Service November 02, 2022 - Glycemic Short BSG Results (Last 24 hours): 11/01/22 11/01/22 11/01/22 11:43 17:10 20:05 Glucose POC Glucose 231 H 198 H 177 H 11/02/22 11/02/22 06:14 07:21 Glucose 226 H POC Glucose 225 H OUTPATIENT ANTIDIABETIC REGIMEN: * Amaryl 4 mg PO BID * Lantus 27 units SQ PM Non-compliant on anti-diabetic meds HbA1c: 14.9% ASSESSMENT: 11/02/22 * BSGs improved throughout the day yesterday, fasting BSG remains elevated * Novolog tightened yesterday - will continue for now, but consider further tightening if BSGs remain elevated * Basal increased yesterday, will allow for further increase today with HS scale * Plan to tighten Novolog tomorrow AM 10/31/22 * Patient transitioned off of insulin drip yesterday, had 25 units basal, fasting 140mg/dl, continue basal at this time. Patient did require correctional insulin throughout the day and overnight, may need to increase basal tomorrow if this continues. * Tighten CR slightly. * Patient continues on IV Vancomycin + Zosyn 10/30/22 * 47 y/o M admitted for mild DKA due to non-compliance on home anti-diabetic meds. * Patient is also with Osteomyelitis being treated with IV Vancomycin and Zosyn during current admission. * Insulin drip was initiated last night. This turned itself off early this morning since blood sugars were at goal. * Labs normalized this morning and anion gap is closed. Insulin drip was discontinued this morning. * Basal Lantus 25 units given this morning which is almost his home dose of basal insulin. * Pre-lunch BSG above 200 mg/dl. Spoke with hospitalist and IV fluids changed to remove Dextrose from it. * Novolog was started based on wt and stress of 3. Expect BSGs to trend down this evening with change in IV fluids. PLAN FOR INPATIENT GLYCEMIC CONTROL: * Hold outpatient oral diabetes medications * Basal insulin * Lantus 30 units SQ QAM * Lantus 0-10 units SC HS (see EHR for details) * Bolus insulin * NovoLog per scale ACHS or Q6hrs while NPO * Goal Range: Low 110 mg/dL - High 140 mg/dL * Correction Factor: 15 mg/dL/unit * Nutritional / Prandial insulin per carb ratio of 1 unit per 5 grams CHO consumed
[2022-11-03] MEDS: VANCOMYCIN HCL 1,750 MG in SODIUM CHLORIDE 0.9% 500 ML IV SCH ×3 (01:27→20:07)
[2022-11-03] MEDS: ACETAMINOPHEN 500 MG TAB PO PRN ×2 (01:46→20:19)
[2022-11-03 07:01] LABS: Hematocrit (blood only) 32.4 % (42.0-52.0); Hemoglobin 11.4 g/dl (14.0-18.0); Mean Corpuscular Hemoglobin 31.8 pg (25.0-34.0); Mean Corpuscular Hgb Conc 35.2 g/dL (32.0-36.0); Mean Corpuscular Volume 90.5 fL (80.0-100.0); Mean Platelet Volume 8.9 fL (9.4-12.4); Platelet Count 281 K/uL (130-400); RDW Coefficient of Variation 11.6 % (11.5-14.5); RDW Standard Deviation 38.8 fL (36.4-46.3); Red Blood Count 3.58 M/uL (4.70-6.10)
[2022-11-03 07:27] LABS: BUN Creatinine Ratio 18.3 (10-20); Calcium 8.2 mg/dl (8.6-10.3); Creatinine Clr Calc Pharmacy 181.9 ml/min; Est GFR (African American) 138.8 ml/min; Est GFR (Non-African American) 119.7 ml/min; Magnesium 1.9 mg/dl (1.7-2.4); Phosphorus 3.8 mg/dl (2.5-4.9); Potassium 3.8 mmol/L (3.5-5.1)
[2022-11-03] MEDS ORDERED: VANCOMYCIN LEVEL ONE ×2 (07:30→09:30)
--- NOTE | 2022-11-03 09:15 | Orthopedic Progress Note ---
Date of Service November 03, 2022 Assessment & Plan (1) Diabetic ulcer of toe of left foot associated with type 2 diabetes mellitus: Plan: Patient seen, evaluated, and treated. Patient is status post right second toe amputation Day #4 DOS 10/30/22. Patient awaiting PICC line. Dressing change with out incident. Will continue to follow while in house. (2) Osteomyelitis of second toe of left foot: (3) Ulcer of left lower leg: Admission and Anticipated Discharge Date Admission Date: October 29, 2022 Subjective Patient seen and examined at bedside this morning resting comfortably. Patient is status post right second toe amputation Day #4 DOS 10/30/22. He has developed a right lower leg posterior wound. He has no complaints. Review of Systems Review of Systems: All systems reviewed & are unremarkable except as noted in Subjective Physical Exam Constitutional: cooperative and comfortable Eyes: normal visual napoles by confrontation Neck: normal visual inspection Respiratory: normal respiratory effort Cardiovascular: Rate/Rhythm: regular rate and regular rhythm Musculoskeletal: Extremities: extremities normal to inspection and + amputation noted (Right second toe) Skin: + ulcer (Left posterior leg full thickness ulcer) and + wound (Right second toe amputation site sutures intact.) Neurologic: moves all extremities (Loss of epicritic sensation) Psychiatric: Orientation: alert and oriented x 3 Results & Data Vital Signs (Past 12 Hours) Vital Signs Temp Pulse Pulse Resp BP Pulse Ox O2 Del Method 11/03/22 08:26 36.9 C 94 H 18 109/75 97 Room Air 11/03/22 07:19 88 11/03/22 04:03 37.0 C 94 H 18 123/75 96 Room Air 11/03/22 00:23 107 H 11/02/22 23:00 37.0 C 105 H 18 110/69 98 Room Air
[2022-11-03] MEDS: ADVANCED PROBIOTIC 1250 MG CAPSULE PO SCH (09:24)
[2022-11-03] MEDS: HEPARIN SOD 5,000 UNIT/0.5 ML VIAL SQ SCH ×2 (09:24→20:19)
[2022-11-03] MEDS: INSULIN ASPART PER UNIT CHARGE SC SCH ×4 (09:25→20:18)
[2022-11-03] MEDS: LANTUS PER UNIT CHARGE SC SCH ×2 (09:26→20:18)
--- NOTE | 2022-11-03 13:06 | Pharmacy Report ---
Pharmacy PK ABX Note - Date of Service November 03, 2022 - Assessment and Plan Microbiology 10/30/22 16:46 Toe,Left Second Gram Stain - Final 10/29/22 16:15 Toe,Left Second Gram Stain - Final 10/30/22 16:46 Toe,Left Second Aerobic and Anaerobic Culture - Preliminary Staphylococcus species 10/29/22 16:15 Toe,Left Second Wound Culture - Preliminary Staphylococcus species Group B Beta Strep 10/29/22 15:09 Blood Aerobic Blood Culture - Preliminary 10/29/22 15:09 Blood Anaerobic Blood Culture - Preliminary No growth in Aerobic bottle after 24 hours. No growth in Anaerobic bottle after 24 hours. 10/29/22 14:36 Blood Aerobic Blood Culture - Preliminary 10/29/22 14:36 Blood Anaerobic Blood Culture - Preliminary No growth in Aerobic bottle after 24 hours. No growth in Anaerobic bottle after 24 hours. Laboratory Tests 11/01/22 07:37 Random Vancomycin 11.2 Assessment 11/03: * Current regimen: 1750 mg IV every 8 hours * Trough level obtained 11/03/22 resulted as 11.8 mcg/mL. Of note, trough level was drawn ~80 minutes late so level interpreted with that in mind. This is predicted to achieve target AUC/CARMELITA of 400-600 mg/L.hr * Predicted AUC at steady state: 575 mg/L.hr, continue current regimen * Given delay of level draw and result (~2.5 hours), next dose time was altered. * Given logistical issues with level today will Repeat trough level tomorrow 11/04/2211/01: * Vancomycin level obtained this morning indicates slightly suboptimal vanc AUC/trough level, despite dose increase yesterday. * Dose further increased this morning in an attempt to keep AUC closer to 600 mg/L.hr for osteo indication. * Final culture results still pending. 10/31: * 47 year old M receiving Vancomycin for treatment of Osteomyelitis of toe. Pertinent microbiologic data includes: Toe wound cultures growing Staph species and group B Beta. * Today is day #3 of antimicrobial therapy. Plan Vancomycin * Current regimen: 1500 mg IV every 12 hours * Trough level obtained this morning (11.2 mcg/mL) was predicted to achieve target AUC/CARMELITA 400-600 mg/L.hr, but on the lower end of the goal range. * Change to 1750 mg IV every 8 hours in an attempt to keep AUC/CARMELITA closer to 600 mg/L.hr for bone/joint infection. * No further levels have been ordered at this time. If patient remains hospitalized and on vancomycin therapy, will re-evaluate the need for additional monitoring in 1-2 days. Zosyn 4.5g IV Q8H extended interval infusion Pharmacy will continue to follow and will adjust dose/frequency as necessary. Thank you.
[2022-11-03] MEDS ORDERED: LORazepam 2 MG/1 ML VIAL IV ONE (17:21)
--- NOTE | 2022-11-03 17:21 | Hospitalist Progress Note ---
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 He is being managed for the following: Diabetes mellitus type 2 with peripheral neuropathy with diabetic left toe ulcer/osteomyelitis- At presentation, WBC 13, procal negative, ESR and CRP elevated. X-ray shows osteomyelitis of second left toe. Podiatry on board, status post left second toe amputation 10/30/[address] Miranda[address] continue empiric Vanco/Zosyn pending culture results. ID evaluated, agree with current antibiotic until final culture and sensitivities on operative culture available. --> reached out to ID 11/02---->>> vancomycin for 6 weeks if not agreeable then Bactrim and Augmentin but treatment failure risk is very high which might complicate into amputation. Patient agreeable to PICC line, will use 0.5 Mg IV Ativan prior to PICC line for his anxiety. DKA-mild at presentation - resolved, due to noncompliance to insulin and diet. Glycemic pharmacist and certified breastfeeding educator consulted. Patient states he is willing to take his medication and take care of himself from here onwards. Upon DC, close follow-up with [facility] clinic for his ongoing diabetes management. Per certified breastfeeding educator, patient will need: 1.) OneTouch Verio Test Strips- to check 3x/day. (Must include testing frequency for coverage) 2.) OneTouch Delica Lancets- to check 3x/day. (Must include testing frequency for coverage) 3.) Lantus Solostar pen. 4.) Metformin ER. 5.) Pen Needle 32 gauge 532"- to inject 1x/day. (Must include injection frequency; Must be non-branded). Hyponatremia- low normal, stable. Hypokalemia: Monitor and replete. DVT prophylaxis-subcu heparin Disposition PCU telemetry, likely PICC line sofia and DC preparation, cm to assist. Full code Admission and Anticipated Discharge Date Admission Date: October 29, 2022 Subjective Patient seen and examined at bedside as a follow-up of DKA, osteomyelitis of second toe of left foot, diabetic ulcer of toe of left foot associated with T2DM, T2DM with diabetic neuropathy. Patient was sitting up in bed, on room air, NAD, reports no new acute event overnight, reports bowels okay, reports eating okay and moving bowels okay. Patient denies any further fever. Patient agreeable to PICC line, will use 0.5 Mg Ativan prior to PICC line for his anxiety. Physical Exam Physical Exam: GENERAL: Alert and oriented x3. NAD, on RA. HEENT: No pallor, no icterus. Pupils equal, round and reactive to light. Oral mucosa moist. NECK: No JVD, no neck masses. HEART: S1 and S2 heard. Tachycardic. No murmur, no gallop. RESPIRATORY SYSTEM: Normal AP diameter. No accessory muscle use. No wheezing, no crackles. ABDOMEN: Soft, bowel sounds present, nontender, no distention. CENTRAL NERVOUS SYSTEM: No facial droop. Speech is clear. Obeys simple commands. Moves extremities. EXTREMITIES: No edema, no erythema seen. Decreased sensation below bilateral ankles. Left foot with amputated second toe, clean sutures without drainage, erythema noted. Results & Data Results & Data Vital Signs (Past 12 Hours) Vital Signs Temp Pulse Pulse Pulse Resp BP Pulse Ox 11/03/22 16:09 115 H 11/03/22 15:33 36.9 C 96 H 18 104/78 98 11/03/22 08:26 36.9 C 94 H 18 109/75 97 11/03/22 07:19 88 O2 Del Method 11/03/22 16:09 11/03/22 15:33 Room Air 11/03/22 08:26 Room Air 11/03/22 07:19
[2022-11-04] MEDS: VANCOMYCIN HCL 1,750 MG in SODIUM CHLORIDE 0.9% 500 ML IV SCH ×3 (02:32→18:16)
[2022-11-04 06:09] LABS: BUN Creatinine Ratio 23.7 (10-20); Calcium 7.9 mg/dl (8.6-10.3); Est GFR (African American) 139.7 ml/min; Est GFR (Non-African American) 120.6 ml/min; Phosphorus 3.9 mg/dl (2.5-4.9); Potassium 3.6 mmol/L (3.5-5.1)
[2022-11-04] MEDS: INSULIN ASPART PER UNIT CHARGE SC SCH ×4 (09:22→20:24)
[2022-11-04] MEDS: LANTUS PER UNIT CHARGE SC SCH (09:23)
[2022-11-04] MEDS: ADVANCED PROBIOTIC 1250 MG CAPSULE PO SCH (09:24)
[2022-11-04] MEDS: HEPARIN SOD 5,000 UNIT/0.5 ML VIAL SQ SCH ×2 (09:24→20:14)
[2022-11-04] MEDS ORDERED: VANCOMYCIN LEVEL ONE (09:30)
--- NOTE | 2022-11-04 13:00 | Pharmacy Report ---
Pharmacy PK ABX Note - Date of Service November 04, 2022 - Assessment and Plan Microbiology 10/30/22 16:46 Toe,Left Second Gram Stain - Final 10/29/22 16:15 Toe,Left Second Gram Stain - Final 10/30/22 16:46 Toe,Left Second Aerobic and Anaerobic Culture - Preliminary Staphylococcus species 10/29/22 16:15 Toe,Left Second Wound Culture - Preliminary Staphylococcus species Group B Beta Strep 10/29/22 15:09 Blood Aerobic Blood Culture - Preliminary 10/29/22 15:09 Blood Anaerobic Blood Culture - Preliminary No growth in Aerobic bottle after 24 hours. No growth in Anaerobic bottle after 24 hours. 10/29/22 14:36 Blood Aerobic Blood Culture - Preliminary 10/29/22 14:36 Blood Anaerobic Blood Culture - Preliminary No growth in Aerobic bottle after 24 hours. No growth in Anaerobic bottle after 24 hours. Laboratory Tests 11/01/22 07:37 Random Vancomycin 11.2 Assessment 11/04: Vancomycin * Current regimen: 1750 mg IV every 8 hours * Trough level obtained 11/04/22 resulted as 16.5 mcg/mL. This is predicted to achieve target AUC/CARMELITA of 400-600 mg/L.hr * Predicted AUC at steady state: 576 mg/L.hr * Continue 1750 mg IV every 8 hours * Will repeat level in the next 48-72 hours or sooner change in patient clinical status 11/03: * Current regimen: 1750 mg IV every 8 hours * Trough level obtained 11/03/22 resulted as 11.8 mcg/mL. Of note, trough level was drawn ~80 minutes late so level interpreted with that in mind. This is predicted to achieve target AUC/CARMELITA of 400-600 mg/L.hr * Predicted AUC at steady state: 575 mg/L.hr, continue current regimen * Given delay of level draw and result (~2.5 hours), next dose time was altered. * Given logistical issues with level today will Repeat trough level tomorrow 11/04/2211/01: * Vancomycin level obtained this morning indicates slightly suboptimal vanc AUC/trough level, despite dose increase yesterday. * Dose further increased this morning in an attempt to keep AUC closer to 600 mg/L.hr for osteo indication. * Final culture results still pending. 10/31: * 47 year old M receiving Vancomycin for treatment of Osteomyelitis of toe. Pertinent microbiologic data includes: Toe wound cultures growing Staph species and group B Beta. * Today is day #3 of antimicrobial therapy. Plan Vancomycin * Current regimen: 1500 mg IV every 12 hours * Trough level obtained this morning (11.2 mcg/mL) was predicted to achieve target AUC/CARMELITA 400-600 mg/L.hr, but on the lower end of the goal range. * Change to 1750 mg IV every 8 hours in an attempt to keep AUC/CARMELITA closer to 600 mg/L.hr for bone/joint infection. * No further levels have been ordered at this time. If patient remains hospitalized and on vancomycin therapy, will re-evaluate the need for additional monitoring in 1-2 days. Zosyn 4.5g IV Q8H extended interval infusion Pharmacy will continue to follow and will adjust dose/frequency as necessary. Thank you.
[2022-11-04] MEDS ORDERED: LORazepam 2 MG/1 ML VIAL IV ONE ×2 (15:40→18:30)
--- NOTE | 2022-11-04 15:42 | Hospitalist Progress Note ---
Date of Service November 04, 2022 Assessment & Plan (1) DKA (diabetic ketoacidosis): (2) Osteomyelitis of second toe of left foot: (3) Diabetic ulcer of toe of left foot associated with type 2 diabetes mellitus: (4) Type 2 diabetes mellitus with diabetic neuropathy: (5) Hyponatremia: (6) Marijuana abuse: Plan 47-year-old male with diabetes mellitus noncompliant to insulin and other oral DM meds, presented with worsening left toe infection for past week [employer] and was admitted for DKA and osteomyelitis left toe. He is being managed for the following: Diabetes mellitus type 2 with peripheral neuropathy with diabetic left toe ulcer/osteomyelitis- At presentation, WBC 13, procal negative, ESR and CRP elevated. X-ray shows osteomyelitis of second left toe. Podiatry on board, status post left second toe amputation 10/30/[address] Miranda. continue empiric Vanco/Zosyn pending culture results. ID evaluated, agree with current antibiotic until final culture and sensitivities on operative culture available. --> reached out to ID 11/02---->>> vancomycin for 6 weeks if not agreeable then Bactrim and Augmentin but treatment failure risk is very high which might complicate into amputation. Patient agreeable to PICC line, will use 0.5 Mg IV Ativan prior to PICC line for his anxiety. DKA-mild at presentation - resolved, due to noncompliance to insulin and diet. Glycemic pharmacist and family life educator consulted. Patient states he is willing to take his medication and take care of himself from here onwards. Upon DC, close follow-up with [facility] for his ongoing diabetes management. Per family life educator, patient will need: 1.) OneTouch Verio Test Strips- to check 3x/day. (Must include testing frequency for coverage) 2.) OneTouch Delica Lancets- to check 3x/day. (Must include testing frequency for coverage) 3.) Lantus Solostar pen. 4.) Metformin ER. 5.) Pen Needle 32 gauge 532"- to inject 1x/day. (Must include injection frequency; Must be non-branded). Hyponatremia- low normal, stable. Hypokalemia: Monitor and replete. DVT prophylaxis-subcu heparin Disposition PCU telemetry, likely PICC line sofia and DC preparation, cm to assist. Full code Admission and Anticipated Discharge Date Admission Date: October 29, 2022 Subjective Patient seen and examined at bedside as a follow-up of DKA, osteomyelitis of second toe of left foot, diabetic ulcer of toe of left foot associated with T2DM, T2DM with diabetic neuropathy. Patient was sitting up in bed, on room air, NAD, reports no new acute event overnight, reports bowels okay, reports eating okay and moving bowels okay. Patient denies any further fever. Patient agreeable to PICC line, will use 0.5 Mg Ativan prior to PICC line for his anxiety. Received 0.5 mg ativan yesterday evening w/ plan to get PICC line but it couldn't happen per RN. putting another dose of iv ativan for use prior to picc line placement. Physical Exam Physical Exam: GENERAL: Alert and oriented x3. NAD, on RA. HEENT: No pallor, no icterus. Pupils equal, round and reactive to light. Oral mucosa moist. NECK: No JVD, no neck masses. HEART: S1 and S2 heard. Tachycardic. No murmur, no gallop. RESPIRATORY SYSTEM: Normal AP diameter. No accessory muscle use. No wheezing, no crackles. ABDOMEN: Soft, bowel sounds present, nontender, no distention. CENTRAL NERVOUS SYSTEM: No facial droop. Speech is clear. Obeys simple commands. Moves extremities. EXTREMITIES: No edema, no erythema seen. Decreased sensation below bilateral ankles. Left foot with amputated second toe, clean sutures without drainage, erythema improving. Results & Data Results & Data Vital Signs (Past 12 Hours) Vital Signs Temp Pulse Pulse Resp BP Pulse Ox O2 Del Method 11/04/22 15:30 123 H 11/04/22 15:26 36.7 C 111 H 18 105/62 97 Room Air 11/04/22 11:52 36.4 C L 104 H 17 111/71 100 Room Air 11/04/22 08:05 93 H 11/04/22 07:56 36.8 C 90 18 113/76 99 Room Air
[2022-11-04] MEDS ORDERED: Nursing to Pharmacy Communication SCH (18:30)
[2022-11-04] MEDS: ACETAMINOPHEN 500 MG TAB PO PRN (20:09)
[2022-11-05] MEDS: VANCOMYCIN HCL 1,750 MG in SODIUM CHLORIDE 0.9% 500 ML IV SCH ×2 (02:34→11:36)
[2022-11-05] MEDS: INSULIN ASPART PER UNIT CHARGE SC SCH ×2 (08:19→12:22)
[2022-11-05] MEDS: LANTUS PER UNIT CHARGE SC SCH (08:20)
[2022-11-05] MEDS: HEPARIN SOD 5,000 UNIT/0.5 ML VIAL SQ SCH (08:26)
[2022-11-05] MEDS: ADVANCED PROBIOTIC 1250 MG CAPSULE PO SCH (08:26)
--- NOTE | 2022-11-05 13:32 | Discharge Summary ---
Date of Service November 05, 2022 Admission HPI Per Admitting Provider 47 old male with history of diabetes mellitus type 2 noncompliant to his medications presented to ED from acute care for evaluation of left second toe wound. Patient has peripheral neuropathy and does not have much sensation below bilateral ankles. States he stopped taking his insulin and diabetic medications for many months now and is not compliant with carb controlled diet. He noticed left second toe wound a week ago and has been applying [id number] antibiotic ointment and dressing without much improvement but getting worse and hence sought medical attention. Per EMS, he had fever of 100 F. Denies nausea, vomiting, chest pain, abdominal pain. Denies diarrhea or dysuria. In the ED, he was afebrile, hemodynamic stable. Labs showed mild DKA along with leukocytosis, elevated ESR and CRP, negative Pro-Arash. X-ray showed left toe osteomyelitis and fracture although he denies any trauma. Seen by Dr. Miranda and plan for OR tomorrow. He smokes marijuana daily but denies any tobacco or alcohol use. States his divorce was finalized in May and had severe depression but now improving, but he denies any suicidal or homicidal ideations. Family was at bedside during encounter. Admission Exam Per Admitting Provider General: Lying comfortably in bed, not in distress, on room air HEENT: EOMI, RUBEN, MMM Chest: Clear breath sounds bilaterally, no wheezes or crackles CVS: Tachycardic, normal heart sounds, no murmur Abdomen: Soft, non tender, not distended, normal bowel sounds Neuro: Awake, alert, oriented, conversing well. Decreased sensation below bilateral ankles due to diabetic neuropathy Extremities: Left foot wrapped with dressing Principal Diagnosis Diabetes mellitus type 2 with peripheral neuropathy with diabetic left toe ulcer/osteomyelitis leading to ambulatory dysfunction DKA, mild at presentation Discharge Exam GENERAL: Alert and oriented x3. NAD, on RA. HEENT: No pallor, no icterus. Pupils equal, round and reactive to light. Oral mucosa moist. NECK: No JVD, no neck masses. HEART: S1 and S2 heard. Tachycardic. No murmur, no gallop. RESPIRATORY SYSTEM: Normal AP diameter. No accessory muscle use. No wheezing, no crackles. ABDOMEN: Soft, bowel sounds present, nontender, no distention. CENTRAL NERVOUS SYSTEM: No facial droop. Speech is clear. Obeys simple commands. Moves extremities. EXTREMITIES: No edema, no erythema seen. Decreased sensation below bilateral ankles. Left foot with amputated second toe, clean sutures without drainage, erythema improving. Discharge Data Allergies Allergy/AdvReac Type Severity Reaction Status Date / Time pollen extracts Allergy Intermediate ITCHY Verified 10/29/22 17:29 EYES, SNEEZING, CONGESTION Consultations 10/29/22 17:40 Consult Podiatry Routine 10/29/22 18:13 ED Decision to Admit Stat 10/30/22 09:19 Consult Infectious Diseases Routine Procedures Performed Operation Date: 10/30/22 07:00 Actual Procedures p Left 2nd Ray Amputation (Left) - Kilo Miranda, ABHINAVM, MS Diabetes Follow up Diabetes Follow-up Needed for HgbA1c >9% Hospital Course (1) DKA (diabetic ketoacidosis): (2) Osteomyelitis of second toe of left foot: (3) Diabetic ulcer of toe of left foot associated with type 2 diabetes mellitus: (4) Type 2 diabetes mellitus with diabetic neuropathy: (5) Hyponatremia: (6) Marijuana abuse: Plan 47-year-old male with diabetes mellitus noncompliant to insulin and other oral DM meds, presented with worsening left toe infection for past week [employer] and was admitted for DKA and osteomyelitis left toe. He was managed for the following: Diabetes mellitus type 2 with peripheral neuropathy with diabetic left toe ulcer/osteomyelitis/ambulatory dysfunction- At presentation, WBC 13, procal negative, ESR and CRP elevated. X-ray shows osteomyelitis of second left toe. Podiatry on board, status post left second toe amputation 10/30/[address] Miranda. continue empiric Vanco/Zosyn pending culture results. ID evaluated, vancomycin for 6 weeks; vancomycin trough and CMP while on IV antibiotic. Follow-up with ID in 4 weeks time, follow-up with lead assistant manager in 1 to 2 weeks time, follow-up with wound care. Patient received PICC line 11/04. DKA-mild at presentation - resolved, due to noncompliance to insulin and diet. Glycemic pharmacist and health promotion educator consulted. Patient states he is willing to take his medication and take care of himself from here onwards. Upon DC, close follow-up with [facility] for his ongoing diabetes management. Patient discharged on insulin, metformin, glimepiride. Per health promotion educator, patient will need: [They have been sent.] 1.) OneTouch Verio Test Strips- to check 3x/day. (Must include testing frequency for coverage) 2.) OneTouch Delica Lancets- to check 3x/day. (Must include testing frequency for coverage) 3.) Lantus Solostar pen. 4.) Metformin ER. 5.) Pen Needle 32 gauge 5/32"- to inject 1x/day. (Must include injection frequency; Must be non-branded). Hyponatremia- low normal, stable. Hypokalemia: Monitor and replete. DVT prophylaxis-subcu heparin Disposition PCU telemetry, likely PICC line sofia and DC preparation, cm to assist. Full code Patient being discharged home with home health with following instruction at the point of discharge: Follow-up with your primary care physician within a week time and likely you will need labs CBC/CMP/magnesium/phosphorus. You have uncontrolled diabetes because you did not take your diabetic medications in the several months prior to arrival. Continue with your diabetic medications as prescribed, measure your fingerstick glucose before meals and before bedtime and maintain a log. Establish with diabetic clinic and follow closely for long-term diabetic management. Also follow-up with your primary care for your ongoing management of your diabetes. Your diabetic medications will need to be uptitrated as you tolerate in your subequent visits with diabetic clinic or PCP. You will need repeat A1c in 3 months time. For your left foot osteomyelitis, you were evaluated by lead assistant manager and infectious disease doctor. You underwent left second toe amputation on 10/30/[address] Miranda. You are being discharged on vancomycin, you will need biweekly vancomycin level and weekly CMP while on vancomycin. You will need to follow-up with infection disease doctor in 4 weeks time. You will need to follow-up with your lead assistant manager in 1 to 2 weeks time upon discharge. Follow-up with wound care as an outpatient. Take your medications as prescribed. Please make sure that you are able to get your medications today by calling your pharmacy before you leave the hospital so that your treatment continuity is not broken. Home [facility] Attestation I certify that this patient is under my care and that I, or a physicians inventory control assistant working with me, had a face to-face encounter that meets the home health [id number] encounter requirements with this patient. The encounter with the patient was in whole, or in part, for the following medical condition, which is the primary reason for home health care (list medical condition): osteomyelitis I certify that, based on my findings, the following services are medically necessary home health services: My clinical findings support the need for the above services because: Skilled Nsg Assessment Skilled Nsg Instruction New Medications Further, I certify that my clinical findings support that this patient is homebound (i.e. absences from home require considerable and taxing effort and are for medical reasons or yazdanism services or infrequently or of short duration when for other reasons) because: Supportive Aid - Walker Transportation Assistance/Unable to Leave Home Unassisted Certification for Home Health Services: Based on the above findings, I certify that this patient is confined to the home and needs intermittent long term care, physical therapy and/or speech therapy or continues to need occupational therapy. The patient is under my care, and I have initiated the establishment of the plan of care. This patient will be followed by a physician who will periodically review the plan of care. Total Time Total Time Spent Total Time Spent (In Minutes): 45 Discharge Plan Discharge Items Patient Disposition: Home - Home Health Services Reason For Visit: DKA, OSTEOMYELITIS Discharge Diagnosis: Diabetes mellitus type 2 with peripheral neuropathy with diabetic left toe ulcer/osteomyelitis leading to ambulatory dysfunction DKA, mild at presentation Activity: As commented below Activity Comment: Use wheeled walker to offload pressure on Left foot. Non-emergency contact: Primary Care Provider Call non-emergency contact if: you have any medication questions, your symptoms worsen and your temperature is above 101 Follow-up/Referrals: Diogenes Michelle PA-C [Primary Care Provider] - Diet: Carb Consistent or DM2 Addtl Attending Provider Instructions: Follow-up with your primary care physician within a week time and likely you will need labs CBC/CMP/magnesium/phosphorus. You have uncontrolled diabetes because you did not take your diabetic medicati ons in the several months prior to arrival. Continue with your diabetic medications as prescribed, measure your fingerstick glucose before meals and before bedtime and maintain a log. Establish with diabetic clinic and follow closely for long-term diabetic management. Also follow-up with your primary care for your ongoing management of your diabetes. Your diabetic medications will need to be uptitrated as you tolerate in your subequent visits with diabetic clinic or PCP. You will need repeat A1c in 3 months time. For your left foot osteomyelitis, you were evaluated by lead assistant manager and infect ious disease doctor. You underwent left second toe amputation on 10/30/[address] Miranda. You are being discharged on vancomycin, you will need biweekly vancomycin level and weekly CMP while on vancomycin. You will need to follow-up with infection disease doctor in 4 weeks time. You will need to follow-up with your lead assistant manager in 1 to 2 weeks time upon discharge. Follow-up with wound care as an outpatient. Take your medications as prescribed. Please make sure that you are able to get your medications today by calling your pharmacy before you leave the hospital so that your treatment continuity is not broken. Pending Studies at Discharge: No Stand-Alone Forms: My [facility] FriendFeed, Smoking Cessation Medications and DC Order Prescriptions: New acetaminophen [Tylenol Extra Strength] 500 mg Tablet 1,000 mg PO Q8H PRN (Reason: mild to moderate pain) Qty: 60 0RF Advanced Probiotic 625 mg (10 billion cell) Capsule 2 cap PO DAILY 5 Days Qty: 10 0RF (DME) OneTouch Verio test strips Strip See Rx Instructions .Route Qty: 100 0RF Rx Instructions: before meals and before bedtime (DME) lancets [OneTouch Delica Plus Lancet] 30 gauge misc See Rx Instructions .Route Qty: 100 0RF Rx Instructions: before meals and before bedtime; 4x/day metformin 500 mg tablet extended release 24 hr 500 mg PO DAILY Qty: 30 0RF (DME) pen needle, diabetic [Pen Needle] 32 gauge x 5/32" needle See Rx Instructions .Route Qty: 100 0RF Rx Instructions: 1x/day vancomycin 1.5 gram recon soln 1.75 g IV Q8H 35 Days Qty: 105 0RF Continued loratadine [Allergy Relief (loratadine)] 10 mg Tablet 10 mg PO DAILY PRN (Reason: Allergy Symptoms) Rx Instructions: 10/29/22 PER ED PHYSICIAN : PT NOT TAKING THIS MED. sertraline 50 mg Tablet 50 mg PO DAILY Rx Instructions: 10/29/22 PER ED PHYSICIAN : PT NOT TAKING THIS MED. multivitamin [Multiple Vitamins] Tablet 1 tab PO DAILY Rx Instructions: 10/29/22 PER ED PHYSICIAN : PT NOT TAKING THIS MED. ibuprofen [Advil] 200 mg Tablet 200 mg PO Q8H PRN (Reason: Pain) Rx Instructions: 10/29/22 PER ED PHYSICIAN : PT NOT TAKING THIS MED. glimepiride 4 mg Tablet 4 mg PO BIDM Qty: 60 0RF insulin glargine [Lantus Solostar U-100 Insulin] 100 unit/mL (3 mL) Insulin Pen 27 unit SUBCUT QPM Qty: 15 0RF Discharge Orders: Discharge Order (Routine); Ordered 11/05/22 Ordered By: Shauna Mi Admission Data Admit Date/Time: 10/29/22 18:59 Attending Provider: Shauna Mi Admit Provider: Juno Lauren Primary Care Provider: Diogenes Michelle Other Providers: Kilo Miranda ; Juno Lauren ; Gaudencio Crews ; Guy Fisher ; Niraj Vela I. ; Danilo Erwin II ; Loida Blanco ; Pj Marquez ; Micheal Cox ; Rosenda Anaya
== END 2022-11-05 15:32 | disposition home health service (06) | DRG 853 ==
LOC: ED 14:22 → SUATTDRO 18:59 → 4W 18:59

== ENCOUNTER 2024-10-28 21:44 | Inpatient (IN) ==
[2024-10-28] MEDS ORDERED: VANCOMYCIN CONSULT ACTIVE PRN (21:54)
[2024-10-28] MEDS ORDERED: VANCOMYCIN HCL 1,400 MG in SODIUM CHLORIDE 0.9% 500 ML IV ONE (21:54)
[2024-10-28] MEDS: SODIUM CHLORIDE 0.9% 1,000 ML IV SCH (22:03)
--- NOTE | 2024-10-28 22:04 | Emergency Department Note ---
History of Present Illness General Chief complaint: Illness Stated complaint: Illness Time Seen by Provider: 10/28/24 21:49 History of Present Illness This 49-year-old male with history of diabetes mellitus type 2 noncompliant to his medications, polysubstance abuse and hypertension presents the ER for right foot infection with elevated blood sugars. Patient has been drinking alcohol today. Patient denies chest pain, dyspnea, fever, chills, vomiting, diarrhea. The foot is malodorous and purulent drainage is coming from the heel area. Home Medications Medication Instructions Recorded Confirmed Type blood sugar diagnostic (OneTouch #100 ea 11/05/22 10/28/24 Rx Verio test strips) glimepiride 4 mg tablet 4 mg PO BIDM #60 tabs 11/05/22 10/28/24 Rx lancets 30 gauge (OneTouch Delica #100 ea 11/05/22 10/28/24 Rx Plus Lancet) pen needle, diabetic 32 gauge x #100 ea 11/05/22 10/28/24 Rx 5/32" (Pen Needle) insulin glargine 100 unit/mL (3 54 unit subcut PM 12/12/22 10/28/24 History mL) subcutaneous pen (Lantus Solostar U-100 Insulin) metformin 500 mg tablet 500 mg PO BID 10/28/24 10/28/24 History Allergies Allergy/AdvReac Type Severity Reaction Status Date / Time pollen extracts Allergy Intermediate ITCHY Verified 10/28/24 23:04 EYES, SNEEZING, CONGESTION Past Med/Surg History Problem List (Updated 10/28/24 @ 23:06 by Beth Olivas PA-C) Diabetic foot infection (Acute) Ulcer of left lower leg Hyponatremia Marijuana abuse Type 2 diabetes mellitus with diabetic neuropathy DKA (diabetic ketoacidosis) (Acute) Osteomyelitis of second toe of left foot (Acute) Diabetic ulcer of toe of left foot associated with type 2 diabetes mellitus History of back surgery Cellulitis and abscess of lower extremity (Acute) Abrasion of toe, right, infected (Acute) Acute hyperglycemia (Acute) Cellulitis Encounter for pre-operative examination Mood disorder (Chronic) DVT prophylaxis MRSA (methicillin resistant Staphylococcus aureus) infection Diabetic infection of left foot (Acute) Sepsis (Acute) Lumbago (Chronic) Hypertension (Chronic) Diabetes (Chronic) Medical History Dental caries Diabetes Hypertension Lumbago Surgical History History of incision and drainage right lower leg Family History Mother Diabetes Father Diabetes Social History Smoking Status: Unknown if ever smoked Do You Dip or Chew Tobacco: No; Hx Alcohol Use: No Hx Substance Use: Yes Preferred Language: French Communication Ability: Effective 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: No Beliefs That Will Affect Care: None marital status: Current Living Situation: Alone current occupational status: employed Feels Safe at Home: Yes Assistive Devices: None Review of Systems A total of 10 systems reviewed and were otherwise negative Physical Exam Vital Signs Vital Signs - 24 hr 10/28/24 21:57 10/28/24 21:57 10/28/24 21:57 Temperature Temperature Source Pulse Rate 130 H Pulse Rate from SpO2 Sensor 158 H Respiratory Rate 18 Respiratory Effort / Characteristics Respiratory Depth Respiratory Pattern Blood Pressure 127/81 127/81 Blood Pressure Mean 92 92 Pulse Oximetry 85 L Oxygen Delivery Method Sepsis Recent Fever Within 48 Hours Sepsis New/Unexplained Change in Mental Status Sepsis Action Taken by Nursing 10/28/24 22:00 10/28/24 22:00 10/28/24 22:03 Temperature Temperature Source Pulse Rate 128 H Pulse Rate from SpO2 Sensor 159 H Respiratory Rate 18 Respiratory Effort / Characteristics Respiratory Depth Respiratory Pattern Blood Pressure 113/76 113/76 Blood Pressure Mean 86 86 Pulse Oximetry 85 L Oxygen Delivery Method Sepsis Recent Fever Within 48 Hours Sepsis New/Unexplained Change in Mental Status Sepsis Action Taken by Nursing 10/28/24 22:06 10/28/24 22:24 10/28/24 22:27 Temperature 36.9 C Temperature Source Oral Pulse Rate 126 H 124 H 124 H Pulse Rate from SpO2 Sensor Respiratory Rate 22 17 Respiratory Effort / Characteristics Non-Labored Spontaneous Respiratory Depth Normal Respiratory Pattern Regular Blood Pressure 113/76 Blood Pressure Mean 88 Pulse Oximetry 100 Oxygen Delivery Method Room Air Sepsis Recent Fever Within 48 Hours No Sepsis New/Unexplained Change in Mental Status N/A Sepsis Action Taken by Nursing Physician Notified 10/28/24 22:30 10/28/24 23:01 10/28/24 23:01 Temperature Temperature Source Pulse Rate Pulse Rate from SpO2 Sensor Respiratory Rate Respiratory Effort / Characteristics Respiratory Depth Respiratory Pattern Blood Pressure 95/62 L 102/64 102/64 Blood Pressure Mean 64 89 89 Pulse Oximetry Oxygen Delivery Method Sepsis Recent Fever Within 48 Hours Sepsis New/Unexplained Change in Mental Status Sepsis Action Taken by Nursing 10/28/24 23:02 10/28/24 23:09 10/28/24 23:15 Temperature Temperature Source Pulse Rate 124 H 124 H Pulse Rate from SpO2 Sensor 124 H 121 H Respiratory Rate 30 H 20 Respiratory Effort / Characteristics Non-Labored Respiratory Depth Normal Respiratory Pattern Blood Pressure Blood Pressure Mean Pulse Oximetry 99 93 Oxygen Delivery Method Room Air Sepsis Recent Fever Within 48 Hours Sepsis New/Unexplained Change in Mental Status Sepsis Action Taken by Nursing 10/28/24 23:21 10/28/24 23:24 10/28/24 23:48 Temperature Temperature Source Pulse Rate 124 H 122 H Pulse Rate from SpO2 Sensor Respiratory Rate 21 14 Respiratory Effort / Characteristics Respiratory Depth Respiratory Pattern Blood Pressure Blood Pressure Mean Pulse Oximetry Oxygen Delivery Method Room Air Sepsis Recent Fever Within 48 Hours Sepsis New/Unexplained Change in Mental Status Sepsis Action Taken by Nursing 10/28/24 23:51 10/29/24 00:00 Temperature Temperature Source Pulse Rate 121 H 126 H Pulse Rate from SpO2 Sensor Respiratory Rate 17 29 H Respiratory Effort / Characteristics Respiratory Depth Respiratory Pattern Blood Pressure Blood Pressure Mean Pulse Oximetry Oxygen Delivery Method Sepsis Recent Fever Within 48 Hours Sepsis New/Unexplained Change in Mental Status Sepsis Action Taken by Nursing VITALS: Vitals are noted on the nurse's note and reviewed by myself. Vital signs stable. GENERAL: White male unkempt, in no acute distress, nondiaphoretic, well- developed well-nourished. SKIN: Capillary reflex less than 2 seconds. HEENT: Normocephalic. PERRLA. EOMI. Nares patent. Mucous membranes moist. Neck is supple without nuchal rigidity. HEART: Regular rate and rhythm LUNGS: Clear to auscultation bilaterally without wheezes, rales or rhonchi. No retractions or accessory muscle use. ABDOMEN: Positive bowel sounds x 4. Normal tympanic percussion. Soft, nontender, without masses or organomegaly. Vera sign negative. No guarding or rebound tenderness. no CVA tenderness MUSCULOSKELETAL: No gross musculoskeletal defects. Right foot lateral aspect with diabetic ulcer, right heel with extensive diabetic ulcer down to the bone wound culture taken and sent malodorous concerning smell for Pseudomonas. Right lower leg erythematous and edematous concerning for cellulitis. Pedal pulses +2 equal and present bilaterally. NEURO: Patient was alert and oriented to person place and time. No focal neurological deficits. Course Administered Medications Vancomycin HCl 1,500 mg/ (Sodium Chloride) 530 mls @ 200 mls/hr IV NOW ONE Stop: 10/29/24 00:53 Last Admin: 10/28/24 23:00 Dose: 200 mls/hr Documented By: HAIR Insulin Human Regular 250 (units/ Sodium Chloride) 250 mls @ 7 mls/hr IV .Q24H BETTY; Protocol Stop: 11/27/24 23:14 Last Admin: 10/28/24 23:53 Dose: 7 units/hr, 7 mls/hr Documented By: HAIR Co-signed By: ASW Discontinued Medications Diphtheria/Pertussis/Tetanus Vacc (Diphther/Tetan/Pertus Vaccine (Tdap, Adol/Adult) 0.5ml) 0.5 ml IM .ONCE ONE Stop: 10/28/24 21:55 Last Admin: 10/28/24 23:44 Dose: 0.5 ml Documented By: HAIR Sodium Chloride (Nss) 1,000 mls @ 999 mls/hr IV .Q1H1M BETTY Stop: 10/29/24 00:00 Last Infusion: 10/28/24 23:35 Dose: Infused Documented By: Admin: 10/28/24 22:29 Dose: 999 mls/hr Documented By: Infusion: 10/28/24 22:29 Dose: Infused Documented By: Admin: 10/28/24 22:03 Dose: 999 mls/hr Documented By: PREET Ceftriaxone Sodium (Rocephin) 2,000 mg in 50 mls @ 100 mls/hr IV NOW STA Stop: 10/28/24 22:23 Last Admin: 10/28/24 22:05 Dose: Not Given Documented By: AM Cefepime HCl (Maxipime 2000mg) 2,000 mg in 20 mls @ 5 mls/min IV NOW STA; Protocol Stop: 10/28/24 22:02 Last Admin: 10/28/24 22:28 Dose: 5 mls/min Documented By: HAIR Lactated Ringer's (Lr) 2,000 mls @ 999 mls/hr IV .Q2H1M ONE Stop: 10/29/24 00:25 Last Admin: 10/28/24 23:44 Dose: 999 mls/hr Documented By: HAIR Insulin Human Regular (Novolin-R Bolus From Bag) 7 units IV ONE ONE Stop: 10/28/24 23:16 Last Admin: 10/28/24 23:54 Dose: 7 units Documented By: HAIR Co-signed By: ABRAM Insulin Pump (Dc Home Insulin Pump) 1 each N/A NOW STA Stop: 10/28/24 23:03 Last Admin: 10/28/24 23:44 Dose: Not Given Documented By: HAIR Critical Care Time Critical Care Time: Yes Total Critical Care Time: 35 I have personally spent 35 minutes of critical care time in the direct management of this patient. This includes bedside care, interpretation of diagnostic studies, and testing, discussion with consultants, patient, and family members, and other required patient management activities. This 35 minutes is in excess of all separately billable procedures. Medical Decision Making Medical Records Attestation: I reviewed the patient's medical records. Home Medications Current Medication List: was personally reviewed by me Laboratory Data Attestation: I reviewed the patient's lab results. 10/28/24 22:00 10/28/24 22:00 Lab Results 10/28/24 10/28/24 10/28/24 Range/Units 22:00 22:45 23:18 WBC 14.71 H (4.8-10.8) K/ul RBC 4.93 (4.70-6.10) M/uL Hgb 14.4 (14.0-18.0) g/dl Hct 42.8 (42.0-52.0) % MCV 86.8 (80.0-100.0) fL MCH 29.2 (25.0-34.0) pg MCHC 33.6 (32.0-36.0) g/dL RDW Std Deviation 38.7 (36.4-46.3) fL RDW Coeff of Sa[place] 12.1 (11.5-14.5) % Plt Count 505 H (130-400) K/uL MPV 9.6 (9.4-12.4) fL Immature Gran % (Auto) 0.5 % Neut % (Auto) 89.5 % Lymph % (Auto) 3.2 % [place] % (Auto) 6.3 % Eos % (Auto) 0.1 % Baso % (Auto) 0.4 % Neut # (Auto) 13.17 H (1.40-6.50) K/uL Lymph # (Auto) 0.47 L (1.20-3.40) K/uL [place] # (Auto) 0.92 H (0.11-0.59) K/uL Eos # (Auto) 0.02 (0.00-0.50) K/uL Baso # (Auto) 0.06 (0.00-0.20) K/uL Immature Gran # (Auto) 0.07 (0.01-0.20) K/uL Polychromasia 2+ Tear Drop Cells 1+ ESR > 130 H (0-15) mm/hr VBG pH 7.19 L (7.36-7.41) VBG pCO2 29 L (38-50) mmHg VBG pO2 33 mmHg VBG HCO3 11 mmol/L VBG O2 Saturation < 60.0 % VBG Base Excess -15.7 mEq/L Sodium 128 L (136-145) mmol/L Potassium 4.2 (3.5-5.1) mmol/L Chloride 93 L (98-107) mmol/L Carbon Dioxide 13 L (21-32) mmol/L Anion Gap 22 H (3-11) BUN 22 (6-23) mg/dl Creatinine 1.13 (0.6-1.4) mg/dl Est Cr Clr Drug Dosing 78.9 ml/min eGFR 79.68 BUN/Creatinine Ratio 19.5 (10-20) Glucose 698 H* (70-99(Fasting)) mg/dl POC Glucose 598 H* (70-99) mg/dl Lactate 2.3 H* (0.4-2.0) mmol/L Calcium 8.7 (8.6-10.3) mg/dl Magnesium 2.1 (1.7-2.4) mg/dl Total Bilirubin 0.4 (0.2-1.0) mg/dl Direct Bilirubin 0.0 (0-0.2) mg/dl AST 8 L (13-39) U/L ALT 10 (7-52) U/L Alkaline Phosphatase 129 H (34-104) U/L Troponin I High Sens 16.1 (0-20) pg/ml C-Reactive Protein 39.55 H (0-0.5) mg/dl Total Protein 9.0 H (6.0-8.3) gm/dl Albumin 3.3 L (3.4-5.0) gm/dl Procalcitonin 0.98 H (0-0.5) ng/ml Urine Color Yellow Urine Appearance Clear (Clear) Urine pH 5.5 (4.5-7.5) Ur Specific [place] 1.030 (1.000-1.030) Urine Protein Negative (Negative) Urine Glucose (UA) 3+ H (Negative) Urine Ketones 3+ H (Negative) Urine Blood Negative (Negative) Urine Nitrite Negative (Negative) Urine Bilirubin Negative (Negative) Urine Urobilinogen Negative (Negative) Ur Leukocyte Esterase Negative (Negative) Urine Comment Ethyl Alcohol mg/dL < 10.0 (<10.0) mg/dl Imaging Data Attestation: I personally reviewed and interpreted this imaging study as follows: Radiologist's Impression: Foot X-Ray 10/28/24 21:54 CR Exam(s): XR RIGHT FOOT, 3+ views EXAM: XR Right Foot Complete, 3 or More Views CLINICAL HISTORY: Reason for exam: ? OM. TECHNIQUE: Frontal, lateral and oblique views of the right foot. COMPARISON: 01/02/2019 FINDINGS: Bones/joints: Mild narrowing and osteophytosis of the ankle mortise joint and talonavicular joint consistent with osteoarthritis. Mild narrowing and osteophytosis of the 1st metatarsophalangeal and interphalangeal joints. The midfoot alignment is normal. No focal osteolysis is seen to confirm osteomyelitis at this time. No acute fracture or dislocation is seen. Soft tissues: There is extensive subcutaneous gas and soft tissue emphysema over the lateral aspect of the right foot adjacent to the 5th metatarsal and calcaneus indicating infection with gas-forming organism. Soft tissue swelling of the foot. No radiopaque foreign body. IMPRESSION: 1. No focal osteolysis is seen to confirm osteomyelitis at this time. 2. There is extensive subcutaneous gas and soft tissue emphysema over the lateral aspect of the right foot adjacent to the 5th metatarsal and calcaneus indicating infection with gas-forming organism. Communications: Call Doctor Above results Electronically signed by: Otto Vela MD 10/29/24 00:05 AM Venous Doppler Study 10/28/24 21:54 Exam(s): US VENOUS RIGHT LOWER EXTREMITY EXAM: US Duplex Right Lower Extremity Veins CLINICAL HISTORY: Reason for exam: ? DVT. TECHNIQUE: Real-time duplex ultrasound scan of the right lower extremity veins integrating B-mode two-dimensional vascular structure, Doppler spectral analysis, color flow Doppler imaging and compression. COMPARISON: No relevant prior studies available. FINDINGS: Deep veins: Unremarkable. No DVT in the visualized common femoral, femoral, proximal deep femoral or popliteal veins. The veins demonstrate normal color flow, are normally compressible, with normal phasic flow and/or augmentation response. Superficial veins: Unremarkable. No thrombus in the visualized great saphenous vein. Soft tissues: No acute findings. No popliteal cyst. IMPRESSION: Negative right lower extremity duplex venous ultrasound. No evidence of DVT. Electronically signed by: Otto Vela MD 10/29/24 00:06 AM MDM Narrative Prior records reviewed and summarized as above. Triage Nursing notes reviewed. Additional history obtained from nursing. The patient's history was concerning for swelling and redness of the skin. Differential diagnosis: Etiologies such as osteomyelitis, DKA, sepsis, cellulitis, abscess, MRSA infection, DVT, necrotizing fasciitis, dermatitis, drug eruption, as well as others were entertained.. Physical examination: As above ER treatment provided: Cefepime, vancomycin, IV fluids Wound culture taken and sent On reassessment the patient felt better. Diagnostics interpreted by me: EKG ordered for weakness EKG: Normal sinus, poor baseline, no acute ST-T wave changes, rate of 128. Impression sinus tachycardia independently interpreted by myself The labs Independently Interpreted by myself revealed leukocytosis, hyperglycemia with DKA, elevated inflammatory markers and concerns for osteomyelitis of the right foot VBG was reviewed. Wound culture pending, blood cultures pending [facility] [address] [place] [place] [address] / Director: Ema Jacques M.D. Clinical Laboratory Report Name: ROSA JOY Acct: [id number] Status: DIS IN : 1975 [facility] [place] Date: 0 01/02/19 Age: 49 Sex: M Dis Date: 1 Loc: Medical/Surgical/Ortho [address] [place] [address]/Bed: [facility] Spec: [id number] Collected: 01/06/19 Received: 01/06/[address]: Eduardo Newberry, DO Copy To: Chapin Peralta MD Source: Leg,Right OV Order: Ordered: Aer/Shania Cult/Sm Comments: Reason for Exam surgical procedure Procedure Result Verified Site Gram Stain Final 01/07/19-0847 Gram Stain Result Few Epithelial Cells Many Polys Many Gram Positive Cocci Aero/Shania Cult Final 01/11/19-1200 Organism 1 Staph aureus MRSA Quantity Many Sens Sensitivities to Follow No Anaerobes Isolated No Anaerobes Isolated Sensitivity results indicate a Methicillin-Resistant Staph aureus. Phoned to LATASHA WRAY on 01/08/19 at 0715 by Jodi Cancino. Results were verbalized back. MRSA RX M.I.C. --- --------- Clindamycin R >4 Daptomycin S <=0.5 Erythromycin R >4 Oxacillin R >2 Rifampin S <=1 Tetracycline S <=4 Trimeth/Sulfa S <=0.5/9.5 Vancomycin S 1 S = SENSITIVE I = INTERMEDIATE R = RESISTANT Imaging studies: Imaging was reviewed and read by radiology Consultation: A consultation was placed with the hospitalist. The case was discussed and diagnostics were reviewed. The patient was evaluated in the ER for further treatment. This appears to be DKA with concerns for osteomyelitis of the right foot. Patient was started on antibiotics. Cefepime was given for concerns for possible Pseudomonas with the odor coming from the wound and the patient being an alcoholic. He was hydrated as above for DKA and started on insulin drip. Medicine was consulted case discussed. He will be admitted to the medical service. Patient is agreeable to treatment plan. He was reassessed multiple times. Wound was bandaged with Xeroform and bulky dressing. Culture was obtained prior to the patient being bandaged. By the evaluation outlined above emergent etiologies such as abscess, necrotizing fasciitis, DVT, as well as others were deemed relatively unlikely. The chart was completed utilizing [employer] Speech voice recognition software. Grammatical errors, random word insertions, pronoun errors, and incomplete sentences are an occassional consequence of this system due to software limitations, ambient noise, and hardware issues. Any formal questions or concerns about the content, text, or information contained within the body of this dictation should be directly addressed to the physician assistant women's soccer coach for clarification. Impression & Plan DKA (diabetic ketoacidosis), Diabetic foot infection Discharge Plan Visit Data Chief Complaint: Illness Stated Complaint: Illness ED Provider: [facility] ED Midlevel Provider: Beth Olivas Discharge Problem: DKA (diabetic ketoacidosis), Diabetic foot infection Patient Disposition: Admitted As Inpatient Condition: Fair Forms Stand Alone Forms: [employer] Prescriptions Prescriptions: No Action (DME) OneTouch Verio test strips Strip See Rx Instructions .Route Qty: 100 0RF Rx Instructions: before meals and before bedtime (DME) lancets [OneTouch Delica Plus Lancet] 30 gauge misc See Rx Instructions .Route Qty: 100 0RF Rx Instructions: before meals and before bedtime; 4x/day (DME) pen needle, diabetic [Pen Needle] 32 gauge x 5/32" needle See Rx Instructions .Route Qty: 100 0RF Rx Instructions: 1x/day glimepiride 4 mg Tablet 4 mg PO BIDM Qty: 60 0RF Rx Instructions: pt admits doesnt take much insulin glargine [Lantus Solostar U-100 Insulin] 100 unit/mL (3 mL) insulin pen 54 unit subcut PM Rx Instructions: pt admits doesnt take much metformin 500 mg Tablet 500 mg PO BID Rx Instructions: pt admits doesnt take much Referrals Referrals: Diogenes Michelle PA-C [Outside Practitioners] - Discharge Problem: DKA (diabetic ketoacidosis) Qualifiers: Diabetes mellitus type: type 1 Diabetes mellitus complication detail: without coma Qualified Code(s): E10.10 - Type 1 diabetes mellitus with ketoacidosis without coma
[2024-10-28] MEDS: cefTRIAXone SODIUM 2,000 MG/50 ML BAG IV STA (22:05)
[2024-10-28 22:17] LABS: Base Excess VBG -15.7 mEq/L; HCO3 VBG 11 mmol/L; Oxygen Saturation VBG < 60.0 %; PCO2 VBG 29 mmHg (38-50); PO2 VBG 33 mmHg; pH VBG 7.19 (7.36-7.41)
[2024-10-28 22:21] LABS: Hematocrit (blood only) 42.8 % (42.0-52.0); Hemoglobin 14.4 g/dl (14.0-18.0); Mean Corpuscular Hemoglobin 29.2 pg (25.0-34.0); Mean Corpuscular Volume 86.8 fL (80.0-100.0); Platelet Count 505 K/uL (130-400); RDW Standard Deviation 38.7 fL (36.4-46.3); Red Blood Count 4.93 M/uL (4.70-6.10); White Blood Count 14.71 K/ul (4.8-10.8)
[2024-10-28] MEDS: CEFEPIME 2000MG 2,000 MG/20 ML SYR IV STA (22:28)
[2024-10-28 22:43] LABS: Immature Granulocytes # (auto) 0.07 K/uL (0.01-0.20); Immature Granulocytes % (auto) 0.5 %; Polychromasia 2+; Tear Drop Cells 1+
[2024-10-28 22:58] LABS: Alanine Aminotransferase 10.0 U/L (7-52); Alkaline Phosphatase 129.0 U/L (34-104); Anion Gap 22.0 (3-11); Bilirubin,Total 0.4 mg/dl (0.2-1.0); Blood Urea Nitrogen 22.0 mg/dl (6-23); Calcium 8.7 mg/dl (8.6-10.3); Carbon Dioxide 13.0 mmol/L (21-32); Chloride 93.0 mmol/L (98-107); Creatinine Clr Calc Pharmacy 78.9 ml/min; Glucose 698.0 mg/dl (70-99(Fasting)); Magnesium 2.1 mg/dl (1.7-2.4); Potassium 4.2 mmol/L (3.5-5.1); Sodium 128.0 mmol/L (136-145); Total Protein 9.0 gm/dl (6.0-8.3)
[2024-10-28] MEDS: VANCOMYCIN HCL 1,500 MG in SODIUM CHLORIDE 0.9% 500 ML IV ONE (23:00)
[2024-10-28] MEDS ORDERED: CARBOHYDRATES FOR HYPOGLYCEMIA PO PRN (23:02)
[2024-10-28] MEDS ORDERED: GLUCAGON FOR INJ 1 MG VIAL SQ PRN (23:02)
[2024-10-28] MEDS ORDERED: GLUCOSE 10 TAB/TUBE PO PRN (23:02)
[2024-10-28] MEDS ORDERED: STAT IV Infusion **Titration per Protocol STA (23:02)
[2024-10-28] MEDS ORDERED: DKA GOAL RANGE 150-250 mg/dl ONE (23:02)
[2024-10-28] MEDS ORDERED: DEXTROSE 50% 50 ML SYRINGE IV PRN (23:02)
[2024-10-28] MEDS ORDERED: GLUCOSE 40% GEL 15 GM TUBE PO PRN (23:02)
[2024-10-28] MEDS: DC HOME INSULIN PUMP STA (23:44)
[2024-10-28] MEDS: DIPHTHER/TETAN/PERTUS Vaccine (Tdap, Adol/Adult) 0.5mL IM ONE (23:44)
[2024-10-28] MEDS: LACTATED RINGER'S 2,000 ML IV ONE (23:44)
[2024-10-28] MEDS: INSULIN REGULAR 250 UNITS in SODIUM CHLORIDE 0.9% 247.5 ML IV SCH (23:53)
[2024-10-28] MEDS: NovoLIN-R BOLUS FROM BAG IV ONE (23:54)
--- NOTE | 2024-10-29 00:06 | XRay Report ---
Exam(s): XR RIGHT FOOT, 3+ views EXAM: XR Right Foot Complete, 3 or More Views CLINICAL HISTORY: Reason for exam: ? OM. TECHNIQUE: Frontal, lateral and oblique views of the right foot. COMPARISON: 01/02/2019 FINDINGS: Bones/joints: Mild narrowing and osteophytosis of the ankle mortise joint and talonavicular joint consistent with osteoarthritis. Mild narrowing and osteophytosis of the 1st metatarsophalangeal and interphalangeal joints. The midfoot alignment is normal. No focal osteolysis is seen to confirm osteomyelitis at this time. No acute fracture or dislocation is seen. Soft tissues: There is extensive subcutaneous gas and soft tissue emphysema over the lateral aspect of the right foot adjacent to the 5th metatarsal and calcaneus indicating infection with gas-forming organism. Soft tissue swelling of the foot. No radiopaque foreign body. IMPRESSION: 1. No focal osteolysis is seen to confirm osteomyelitis at this time. 2. There is extensive subcutaneous gas and soft tissue emphysema over the lateral aspect of the right foot adjacent to the 5th metatarsal and calcaneus indicating infection with gas-forming organism. Communications: Call Doctor Above results Electronically signed by: Otto Vela MD 10/29/24 00:05 AM
--- NOTE | 2024-10-29 00:07 | Ultrasound Report ---
Exam(s): US VENOUS RIGHT LOWER EXTREMITY EXAM: US Duplex Right Lower Extremity Veins CLINICAL HISTORY: Reason for exam: ? DVT. TECHNIQUE: Real-time duplex ultrasound scan of the right lower extremity veins integrating B-mode two-dimensional vascular structure, Doppler spectral analysis, color flow Doppler imaging and compression. COMPARISON: No relevant prior studies available. FINDINGS: Deep veins: Unremarkable. No DVT in the visualized common femoral, femoral, proximal deep femoral or popliteal veins. The veins demonstrate normal color flow, are normally compressible, with normal phasic flow and/or augmentation response. Superficial veins: Unremarkable. No thrombus in the visualized great saphenous vein. Soft tissues: No acute findings. No popliteal cyst. IMPRESSION: Negative right lower extremity duplex venous ultrasound. No evidence of DVT. Electronically signed by: Otto Vela MD 10/29/24 00:06 AM
[2024-10-29 00:35] LABS: Appearance Urine Clear (Clear); Glucose Urine UA 3+ (Negative)
[2024-10-29] MEDS ORDERED: SODIUM CHLORIDE 0.9% 1,000 ML IV SCH (01:27)
[2024-10-29] MEDS ORDERED: INSULIN REGULAR 250 UNITS in SODIUM CHLORIDE 0.9% 247.5 ML IV SCH (01:27)
[2024-10-29] MEDS ORDERED: NITROGLYCERIN SL 0.4 MG/TAB TAB SL PRN (01:27)
[2024-10-29] MEDS ORDERED: PENDING 1/2NSS+20mEq KCL IVF SCH (01:27)
[2024-10-29] MEDS ORDERED: PHARMACY GLYCEMIC MGMT CONSULT PRN (01:27)
[2024-10-29] MEDS ORDERED: DKA GOAL RANGE 150-250 mg/dl ONE (01:27)
[2024-10-29] MEDS ORDERED: STAT IV Infusion **Titration per Protocol STA (01:27)
[2024-10-29] MEDS ORDERED: POLYETHYLENE (MIRALAX) 17 GM PACK PO PRN (01:27)
[2024-10-29] MEDS ORDERED: PENDING D5 1/2NS+20mEq KCL IVF SCH (02:00)
[2024-10-29] MEDS: SODIUM CHLOR 0.45% + 20MEQ KCL 20 MEQ/1,000 ML BAG IV SCH (02:11)
[2024-10-29 02:28] LABS: Anion Gap 16.0 (3-11); Blood Urea Nitrogen 17.0 mg/dl (6-23); Calcium 8.0 mg/dl (8.6-10.3); Carbon Dioxide 15.0 mmol/L (21-32); Chloride 105.0 mmol/L (98-107); Creatinine Clr Calc Pharmacy 104.5 ml/min; Glucose 324.0 mg/dl (70-99(Fasting)); Magnesium 1.7 mg/dl (1.7-2.4); Potassium 3.3 mmol/L (3.5-5.1); Sodium 136.0 mmol/L (136-145)
--- NOTE | 2024-10-29 03:36 | History & Physical Report ---
Date of Service October 28, 2024 Assessment & Plan (1) Diabetic foot infection: Plan: 49-year-old male with past med history significant for type 2 diabetes, dyslipidemia, history of subacute osteomyelitis of left foot, adjustment disorder with depressed mood presents with DKA and significant infection of the right lower extremity. Patient states stopped taking his medications about 3 months ago. Patient says he just gave up. He says he noticed a wound in the right lower extremity for few days. Seems when he came in the wound was very malodorous smelling. Currently the wound is the dressing. But able to see the pictures. Very deep wounds in right heel and right calf region with black discoloration almost able to see bone. Hemodynamics are okay. Denies any headache. Denies runny nose or sore throat. Denies cough. Denies chest pain. Denies shortness of breath. Denies nausea. Denies abdominal pain. Normal bowel and bladder movements. Diabetic foot infection Deep wound seen on the right heel and also on the right calf region. Malodorous drainage. Empiric Vanco and cefepime Elevated ESR and CRP and procalcitonin Podiatry consult. May need also orthopedics consult No DVT seen Close monitor DKA Noncompliant with medications Received aggressive fluids On DKA protocol insulin drip and IV fluids Lactic acidosis Labs per protocol Close monitor Glycemic pharmacy consult Dyslipidemia and depression Currently not on any medications DVT prophylaxis SCDs on left leg for now in anticipation of procedures History of Present Illness Chief Complaint: DKA and infection of the right lower extremity Primary Care Provider: NO PCP 49-year-old male with past med history significant for type 2 diabetes, dyslipidemia, history of subacute osteomyelitis of left foot, adjustment disorder with depressed mood presents with DKA and significant infection of the right lower extremity. Patient states stopped taking his medications about 3 months ago. Patient says he just gave up. He says he noticed a wound in the right lower extremity for few days. Seems when he came in the wound was very malodorous smelling. Currently the wound is the dressing. But able to see the pictures. Very deep wounds in right heel and right calf region with black discoloration almost able to see bone. Hemodynamics are okay. Denies any headache. Denies runny nose or sore throat. Denies cough. Denies chest pain. Denies shortness of breath. Denies nausea. Denies abdominal pain. Normal bowel and bladder movements. Past medical history. As mentioned above. Past surgical history. Open wound debridement left big toe. Social history. . No smoking. States last time he drank alcohol was 5 years ago. Smokes marijuana daily Family history. Father has diabetes. Hypertension. Mother has diabetes. Allergies Allergy/AdvReac Type Severity Reaction Status Date / Time pollen extracts Allergy Intermediate ITCHY Verified 10/28/24 23:04 EYES, SNEEZING, CONGESTION Home Medications Medication Instructions Recorded Confirmed Type blood sugar diagnostic (OneTouch #100 ea 11/05/22 10/28/24 Rx Verio test strips) glimepiride 4 mg tablet 4 mg PO BIDM #60 tabs 11/05/22 10/28/24 Rx lancets 30 gauge (OneTouch Delica #100 ea 11/05/22 10/28/24 Rx Plus Lancet) pen needle, diabetic 32 gauge x #100 ea 11/05/22 10/28/24 Rx 5/32" (Pen Needle) insulin glargine 100 unit/mL (3 54 unit subcut PM 12/12/22 10/28/24 History mL) subcutaneous pen (Lantus Solostar U-100 Insulin) metformin 500 mg tablet 500 mg PO BID 10/28/24 10/28/24 History Past Med/Surg History Problem List (Updated 10/28/24 @ 23:06 by Beth Olivas PA-C) Diabetic foot infection (Acute) Ulcer of left lower leg Hyponatremia Marijuana abuse Type 2 diabetes mellitus with diabetic neuropathy DKA (diabetic ketoacidosis) (Acute) Osteomyelitis of second toe of left foot (Acute) Diabetic ulcer of toe of left foot associated with type 2 diabetes mellitus History of back surgery Cellulitis and abscess of lower extremity (Acute) Abrasion of toe, right, infected (Acute) Acute hyperglycemia (Acute) Cellulitis Encounter for pre-operative examination Mood disorder (Chronic) DVT prophylaxis MRSA (methicillin resistant Staphylococcus aureus) infection Diabetic infection of left foot (Acute) Sepsis (Acute) Lumbago (Chronic) Hypertension (Chronic) Diabetes (Chronic) Medical History Dental caries Diabetes Hypertension Lumbago Surgical History History of incision and drainage right lower leg Family History Mother Diabetes Father Diabetes Social History Smoking Status: Unknown if ever smoked Do You Dip or Chew Tobacco: No; Hx Alcohol Use: Yes Alcohol type: beer and hard liquor Hx Substance Use: No Preferred Language: [place] Communication Ability: Effective 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 Head- atraumatic Eyes- PERRL. ENT- oropharynx dry Neck- supple, no JVD. Lungs- clear to auscultation no wheezing or crackles Heart- regular rhythm; tachycardia, no murmur, no gallop. Abdomen- normal bowel sounds, soft, nontender, no distension Extremities- right lower extremity wounds in dressing Neuro- alert, oriented PERRL, no facial palsy; no dysarthria; moves extremities Results & Data Results & Data Vital Signs (Past 12 Hours) Vital Signs Temp Pulse Resp BP Pulse Ox O2 Del Method 10/28/24 23:24 Room Air 10/28/24 23:02 Room Air 10/28/24 22:24 124 H 10/28/24 22:06 36.9 C 126 H 22 113/76 100 Room Air Diagnostic Findings Laboratory Results WBC 14.71 K/ul (4.8-10.8) H 10/28/24 22:00 RBC 4.93 M/uL (4.70-6.10) 10/28/24 22:00 Hgb 14.4 g/dl (14.0-18.0) 10/28/24 22:00 Hct 42.8 % (42.0-52.0) 10/28/24 22:00 MCV 86.8 fL (80.0-100.0) 10/28/24 22:00 MCH 29.2 pg (25.0-34.0) 10/28/24 22:00 MCHC 33.6 g/dL (32.0-36.0) 10/28/24 22:00 RDW Std Deviation 38.7 fL (36.4-46.3) 10/28/24 22:00 RDW Coeff of Saida 12.1 % (11.5-14.5) 10/28/24 22:00 Plt Count 505 K/uL (130-400) H 10/28/24 22:00 MPV 9.6 fL (9.4-12.4) 10/28/24 22:00 Immature Gran % (Auto) 0.5 % 10/28/24 22:00 Neut % (Auto) 89.5 % 10/28/24 22:00 Lymph % (Auto) 3.2 % 10/28/24 22:00 [place] % (Auto) 6.3 % 10/28/24 22:00 Eos % (Auto) 0.1 % 10/28/24 22:00 Baso % (Auto) 0.4 % 10/28/24 22:00 Neut # (Auto) 13.17 K/uL (1.40-6.50) H 10/28/24 22:00 Lymph # (Auto) 0.47 K/uL (1.20-3.40) L 10/28/24 22:00 [place] # (Auto) 0.92 K/uL (0.11-0.59) H 10/28/24 22:00 Eos # (Auto) 0.02 K/uL (0.00-0.50) 10/28/24 22:00 Baso # (Auto) 0.06 K/uL (0.00-0.20) 10/28/24 22:00 Immature Gran # (Auto) 0.07 K/uL (0.01-0.20) 10/28/24 22:00 Polychromasia 2+ 10/28/24 22:00 Tear Drop Cells 1+ 10/28/24 22:00 ESR > 130 mm/hr (0-15) H 10/28/24 22:00 VBG pH 7.27 (7.36-7.41) L 10/29/24 01:35 VBG pCO2 29 mmHg (38-50) L 10/28/24 22:00 VBG pO2 33 mmHg 10/28/24 22:00 VBG HCO3 11 mmol/L 10/28/24 22:00 VBG O2 Saturation < 60.0 % 10/28/24 22:00 VBG Base Excess -15.7 mEq/L 10/28/24 22:00 Sodium 136 mmol/L (136-145) 10/29/24 01:35 Potassium 3.3 mmol/L (3.5-5.1) L D 10/29/24 01:35 Chloride 105 mmol/L (98-107) 10/29/24 01:35 Carbon Dioxide 15 mmol/L (21-32) L 10/29/24 01:35 Anion Gap 16 (3-11) H 10/29/24 01:35 BUN 17 mg/dl (6-23) 10/29/24 01:35 Creatinine 0.89 mg/dl (0.6-1.4) 10/29/24 01:35 Est Cr Clr Drug Dosing 104.5 ml/min 10/29/24 01:35 eGFR 105.05 10/29/24 01:35 BUN/Creatinine Ratio 19.1 (10-20) 10/29/24 01:35 Glucose 324 mg/dl (70-99(Fasting)) H* 10/29/24 01:35 POC Glucose 199 mg/dl (70-99) H 10/29/24 03:16 Lactate 3.3 mmol/L (0.4-2.0) H* 10/29/24 00:58 Calcium 8.0 mg/dl (8.6-10.3) L 10/29/24 01:35 Phosphorus 1.3 mg/dl (2.5-4.9) L* 10/29/24 01:35 Magnesium 1.7 mg/dl (1.7-2.4) 10/29/24 01:35 Total Bilirubin 0.4 mg/dl (0.2-1.0) 10/28/24 22:00 Direct Bilirubin 0.0 mg/dl (0-0.2) 10/28/24 22:00 AST 8 U/L (13-39) L 10/28/24 22:00 ALT 10 U/L (7-52) 10/28/24 22:00 Alkaline Phosphatase 129 U/L (34-104) H 10/28/24 22:00 Troponin I High Sens 16.1 pg/ml (0-20) 10/28/24 22:00 C-Reactive Protein 39.55 mg/dl (0-0.5) H 10/28/24 22:00 Total Protein 9.0 gm/dl (6.0-8.3) H 10/28/24 22:00 Albumin 3.3 gm/dl (3.4-5.0) L 10/28/24 22:00 Procalcitonin 0.98 ng/ml (0-0.5) H 10/28/24 22:00 Urine Color Yellow 10/28/24 22:45 Urine Appearance Clear (Clear) 10/28/24 22:45 Urine pH 5.5 (4.5-7.5) 10/28/24 22:45 Ur Specific [place] 1.030 (1.000-1.030) 10/28/24 22:45 Urine Protein Negative (Negative) 10/28/24 22:45 Urine Glucose (UA) 3+ (Negative) H 10/28/24 22:45 Urine Ketones 3+ (Negative) H 10/28/24 22:45 Urine Blood Negative (Negative) 10/28/24 22:45 Urine Nitrite Negative (Negative) 10/28/24 22:45 Urine Bilirubin Negative (Negative) 10/28/24 22:45 Urine Urobilinogen Negative (Negative) 10/28/24 22:45 Ur Leukocyte Esterase Negative (Negative) 10/28/24 22:45 Urine Comment 10/28/24 22:45 Ethyl Alcohol mg/dL < 10.0 mg/dl (<10.0) 10/28/24 22:00 Impressions Foot X-Ray 10/28/24 21:54 CR Exam(s): XR RIGHT FOOT, 3+ views EXAM: XR Right Foot Complete, 3 or More Views CLINICAL HISTORY: Reason for exam: ? OM. TECHNIQUE: Frontal, lateral and oblique views of the right foot. COMPARISON: 01/02/2019 FINDINGS: Bones/joints: Mild narrowing and osteophytosis of the ankle mortise joint and talonavicular joint consistent with osteoarthritis. Mild narrowing and osteophytosis of the 1st metatarsophalangeal and interphalangeal joints. The midfoot alignment is normal. No focal osteolysis is seen to confirm osteomyelitis at this time. No acute fracture or dislocation is seen. Soft tissues: There is extensive subcutaneous gas and soft tissue emphysema over the lateral aspect of the right foot adjacent to the 5th metatarsal and calcaneus indicating infection with gas-forming organism. Soft tissue swelling of the foot. No radiopaque foreign body. IMPRESSION: 1. No focal osteolysis is seen to confirm osteomyelitis at this time. 2. There is extensive subcutaneous gas and soft tissue emphysema over the lateral aspect of the right foot adjacent to the 5th metatarsal and calcaneus indicating infection with gas-forming organism. Communications: Call Doctor Above results Electronically signed by: Otto Vela MD 10/29/24 00:05 AM Venous Doppler Study 10/28/24 21:54 Exam(s): US VENOUS RIGHT LOWER EXTREMITY EXAM: US Duplex Right Lower Extremity Veins CLINICAL HISTORY: Reason for exam: ? DVT. TECHNIQUE: Real-time duplex ultrasound scan of the right lower extremity veins integrating B-mode two-dimensional vascular structure, Doppler spectral analysis, color flow Doppler imaging and compression. COMPARISON: No relevant prior studies available. FINDINGS: Deep veins: Unremarkable. No DVT in the visualized common femoral, femoral, proximal deep femoral or popliteal veins. The veins demonstrate normal color flow, are normally compressible, with normal phasic flow and/or augmentation response. Superficial veins: Unremarkable. No thrombus in the visualized great saphenous vein. Soft tissues: No acute findings. No popliteal cyst. IMPRESSION: Negative right lower extremity duplex venous ultrasound. No evidence of DVT. Electronically signed by: Otto Vela MD 10/29/24 00:06 AM ECG Additional Comments: ECG sinus tachycardia rate of 128. T wave inversions in anterior leads. QTc 490 Code Status & VTE Plan VTE Prophylaxis Plan VTE Prophylaxis will be ordered: Yes
[2024-10-29] MEDS: D5W AND 1/2NSS + 20MEQ KCL 20 MEQ/1,000 ML BAG IV SCH (03:43)
[2024-10-29] MEDS: POTASSIUM CHLORIDE CRTAB 20 MEQ TABCR PO STA ×2 (03:45→08:38)
[2024-10-29] MEDS: CEFEPIME 2000MG 2,000 MG/20 ML SYR IV SCH (05:18)
[2024-10-29] MEDS: INSULIN ASPART PER UNIT CHARGE SC SCH ×2 (07:19→13:47)
--- NOTE | 2024-10-29 07:28 | XRay Report ---
EXAM: XR chest 1V portable CLINICAL HISTORY: Sepsis TECHNIQUE: Radiograph of chest was acquired. COMPARISON: No FINDINGS: The lungs are clear and well-expanded with no pulmonary infiltrate or pleural effusion. The cardiomediastinal silhouette is within normal limits. No acute osseous abnormality. IMPRESSION: 1. No acute cardiopulmonary disease. Electronically signed by Darrel Cole 10-29-2024 07:28 AM
[2024-10-29] MEDS ORDERED: INSULIN ASPART PER UNIT CHARGE SC SCH (07:30)
[2024-10-29 07:40] LABS: Anion Gap 6 (3-11); Blood Urea Nitrogen 15 mg/dl (6-23); Calcium 7.8 mg/dl (8.6-10.3); Carbon Dioxide 22 mmol/L (21-32); Chloride 108 mmol/L (98-107); Creatinine Clr Calc Pharmacy 143.0 ml/min; Glucose 173 mg/dl (70-99(Fasting)); Potassium 3.6 mmol/L (3.5-5.1); Sodium 136 mmol/L (136-145)
[2024-10-29 07:42] LABS: Hemoglobin A1C 14.0 % (4.5-5.6)
[2024-10-29 07:44] LABS: Magnesium 1.7 mg/dl (1.7-2.4)
[2024-10-29] MEDS: LANTUS PER UNIT CHARGE SC SCH (08:38)
[2024-10-29] MEDS ORDERED: POTASSIUM PHOS 3 MMOL/1 ML INFUSION IV STA ×2 (09:03→16:43)
[2024-10-29] MEDS: POTASSIUM PHOSPHATE 30 MMOL in SODIUM CHLORIDE 0.9% 500 ML IV ONE ×2 (10:17→18:13)
--- NOTE | 2024-10-29 12:36 | Hospitalist Progress Note ---
Date of Service October 29, 2024 Assessment & Plan (1) Severe sepsis due to pneumococcus with acute organ dysfunction: (2) DKA (diabetic ketoacidosis): (3) Type 2 diabetes mellitus with diabetic neuropathy: (4) Diabetic ulcer of toe of left foot associated with type 2 diabetes mellitus: (5) Diabetic foot infection: (6) Cellulitis and abscess of lower extremity: (7) Mood disorder: (8) Hypophosphatemia: Plan Patient 49-year-old gentleman presents with severe sepsis and DKA due to right lower leg and right foot abscess, cellulitis, possibly osteomyelitis. Patient's DKA is resolved Multiple communications with pharmacy to transition to subcutaneous insulin and titrate IV insulin to off Aggressively replace electrolytes Continue broad-spectrum antibiotics Communication with orthopedics, anticipate patient will need BKA MRI of the right lower extremity for further definition of the infection and determine if there is any osteomyelitis, may be helpful in planning surgical intervention Monitor laboratory studies No plans for surgical intervention today, start diet At this point no evidence of alcohol withdrawal, continue to monitor Admission and Anticipated Discharge Date Admission Date: October 28, 2024 Subjective Patient feeling little bit better now the DKA is resolving. Started to have a little bit of an appetite. States that he just really has neglected his care there has been no real barriers to him caring for himself is just that his desire to care for himself is not really not there. Denies any chest pain or shortness of breath. Physical Exam Physical Exam: Constitutional: Alert, underweight, moderately ill in appearance HEENT: Mucous membranes moist. Lungs: Clear to auscultation, decreased, no wheezes rales or rhonchi CV: S1-S2, regular Abdomen: Soft, nontender, nondistended Extremities: No significant edema left lower extremity. Right lower extremity and dry clean dressing, right foot somewhat swollen Neuro: No focal deficits, generally weak Psych: Cooperative, flat affect Results & Data Results & Data Vital Signs (Past 12 Hours) Vital Signs Temp Pulse Pulse Resp BP BP Pulse Ox 10/29/24 11:22 37 C 105 H 20 98/62 L 96 10/29/24 09:37 10/29/24 08:00 112 H 10/29/24 07:13 37.5 C 109 H 18 104/62 97 10/29/24 06:13 115 H 10/29/24 03:58 37.0 C 118 H 18 98/55 L 97 10/29/24 02:18 10/29/24 01:45 36.7 C 113 H 16 108/65 98 10/29/24 01:00 22 10/29/24 00:57 117/76 95 10/29/24 00:45 115 H 15 90 10/29/24 00:39 116 H 15 93 O2 Del Method 10/29/24 11:22 Room Air 10/29/24 09:37 Room Air 10/29/24 08:00 10/29/24 07:13 Room Air 10/29/24 06:13 10/29/24 03:58 Room Air 10/29/24 02:18 Room Air 10/29/24 01:45 Room Air 10/29/24 01:00 Room Air 10/29/24 00:57 10/29/24 00:45 10/29/24 00:39 Diagnostic Findings Reviewed imaging, laboratory and diagnostic studies. Pertinent findings as below. WBCs 14.7 Hemoglobin 14.4 Venous pH 7.42 Anion gap 6 Bicarb 22 Hemoglobin A1c 14.0% Phosphorus less than 1.0 (2) DKA (diabetic ketoacidosis) Diabetes mellitus complication detail: without coma Diabetes mellitus type: type 1 Qualified Code(s): E10.10 - Type 1 diabetes mellitus with ketoacidosis without coma
--- NOTE | 2024-10-29 12:56 | Orthopedic Consultation ---
Date of Service October 29, 2024 Assessment & Plan (1) Cellulitis and abscess of lower extremity: * Case/imaging reviewed and discussed with Dr Vela * Deep, chronically infected wounds to the right heel and right calf region * Recommend OR for BKA, tentatively 10/30. Patient would like to think about it tonight * Would recommend local wound care and wound soaks in the interim, BID, equal solution 1/3 hydrogen peroxide, Betadine, saline * NPO midnight * Continue antibiotics * Disposition: TBD * Daily treatment: Physical Therapy/ Occupational Therapy per protocol * Weight bearing status: Activity as tolerated * Pain control * Remainder care per primary team * Will continue to follow (2) DKA (diabetic ketoacidosis): (3) Type 2 diabetes mellitus with diabetic neuropathy: History of Present Illness Reason for Consultation: . Right lower extremity wounds Requesting Physician: . Attending Physician: Chris Marquez DO . Patient is a 49y/o male with right lower extremity wounds. PMH including DM2 with poor glycemic control, HTN, cellulitis and right foot wound, polysubstance abuse. Presents to hospital due to worsening right lower extremity wounds, foul odor, elevated blood sugar. Malodorous foot and right calf wound with purulent drainage from the heel area. Initial workup including WBC 14, ESR greater than 130, NA 128, anion gap 22, glucose 700, lactate 2.3, CRP 40. X-ray right foot demonstrating soft tissue gas throughout the foot, open wound to heel. Admitted to medicine team for management of DKA, orthopedics consulted for management recommendations regarding right lower extremity. At time of exam patient lying in bed, no acute distress. Patient rather lethargic, mumbles short answers, minimal history provided. Reports that wound has been there for "a few months "and that he has not seen anybody for it. Reports mild pain throughout the right lower extremity, however this may be diminished secondary to his peripheral neuropathy. Allergies Allergy/AdvReac Type Severity Reaction Status Date / Time pollen extracts Allergy Intermediate ITCHY Verified 10/28/24 23:04 EYES, SNEEZING, CONGESTION Home Medications Medication Instructions Recorded Confirmed Type blood sugar diagnostic (OneTouch #100 ea 11/05/22 10/28/24 Rx Verio test strips) glimepiride 4 mg tablet 4 mg PO BIDM #60 tabs 11/05/22 10/28/24 Rx lancets 30 gauge (OneTouch Delica #100 ea 11/05/22 10/28/24 Rx Plus Lancet) pen needle, diabetic 32 gauge x #100 ea 11/05/22 10/28/24 Rx 5/32" (Pen Needle) insulin glargine 100 unit/mL (3 54 unit subcut PM 12/12/22 10/28/24 History mL) subcutaneous pen (Lantus Solostar U-100 Insulin) metformin 500 mg tablet 500 mg PO BID 10/28/24 10/28/24 History Past Med/Surg History Problem List (Updated 10/29/24 @ 12:35 by Chris Marquez, DO) Hypophosphatemia Severe sepsis due to pneumococcus with acute organ dysfunction Diabetic foot infection (Acute) Ulcer of left lower leg Hyponatremia Marijuana abuse Type 2 diabetes mellitus with diabetic neuropathy DKA (diabetic ketoacidosis) (Acute) Osteomyelitis of second toe of left foot (Acute) Diabetic ulcer of toe of left foot associated with type 2 diabetes mellitus History of back surgery Cellulitis and abscess of lower extremity (Acute) Abrasion of toe, right, infected (Acute) Acute hyperglycemia (Acute) Cellulitis Encounter for pre-operative examination Mood disorder (Chronic) DVT prophylaxis MRSA (methicillin resistant Staphylococcus aureus) infection Diabetic infection of left foot (Acute) Sepsis (Acute) Lumbago (Chronic) Hypertension (Chronic) Diabetes (Chronic) Medical History Dental caries Diabetes Hypertension Lumbago Surgical History History of incision and drainage right lower leg Family History Mother Diabetes Father Diabetes Social History Smoking Status: Unknown if ever smoked Do You Dip or Chew Tobacco: No; Hx Alcohol Use: Yes Alcohol type: beer and hard liquor Hx Substance Use: No Preferred Language: Occitan Communication Ability: Effective Ct Scan Technologist Required: No Beliefs That Will Affect Care: None marital status: Current Living Situation: Alone current occupational status: employed Other Information That Helps Us Care for You: No Feels Safe at Home: Yes Safety Concerns: Feels Safe At This Time Assistive Devices: None Review of Systems All systems reviewed & are unremarkable except as noted in HPI & below. Physical Exam . * General: Alert and oriented, no acute distress * Constitutional: well-developed, well-nourished. * Respiratory: Normal respiratory effort, no distress * Gastrointestinal: No tenderness to palpation, no rigidity or guarding. * Skin: No rash or lesion. * Neurologic: Grossly normal * Musculoskeletal: Right lower extremity dressings removed for exam. Malodorous draining wounds to the right lateral calf as well as posterior heel. No subcutaneous emphysema appreciated. No specific tenderness throughout the right lower leg, minimal sensation per patient. Is able to lift leg off the bed but otherwise limited motion of the right ankle and foot. Gross sensation intact the dorsal and plantar foot. Results & Data Results & Data Laboratory Results . 10/28/24 22:00 Gram Stain - Final Foot,Right Wound Culture - Preliminary Proteus mirabilis 10/28/24 22:00 Aerobic Blood Culture - Pending Blood Anaerobic Blood Culture - Pending 10/28/24 22:00 Aerobic Blood Culture - Pending Blood Anaerobic Blood Culture - Pending 10/29/24 10/29/24 10/29/24 12:08 11:20 09:09 WBC RBC Hgb Hct MCV MCH MCHC RDW Std Deviation RDW Coeff of Saida Plt Count MPV Immature Gran % (Auto) Neut % (Auto) Lymph % (Auto) Coffee % (Auto) Eos % (Auto) Baso % (Auto) Neut # (Auto) Lymph # (Auto) Coffee # (Auto) Eos # (Auto) Baso # (Auto) Immature Gran # (Auto) Polychromasia Tear Drop Cells ESR VBG pH VBG pCO2 VBG pO2 VBG HCO3 VBG O2 Saturation VBG Base Excess Sodium Potassium Chloride Carbon Dioxide Anion Gap BUN Creatinine Est Cr Clr Drug Dosing eGFR BUN/Creatinine Ratio Glucose POC Glucose 106 H 128 H 158 H Estimat Average Glucose Hemoglobin A1c Lactate Calcium Phosphorus Magnesium Total Bilirubin Direct Bilirubin AST ALT Alkaline Phosphatase Troponin I High Sens C-Reactive Protein Total Protein Albumin Procalcitonin Urine Color Urine Appearance Urine pH Ur Specific [place] Urine Protein Urine Glucose (UA) Urine Ketones Urine Blood Urine Nitrite Urine Bilirubin Urine Urobilinogen Ur Leukocyte Esterase Urine Comment Ethyl Alcohol mg/dL 10/29/24 10/29/24 10/29/24 07:10 06:47 06:17 WBC RBC Hgb Hct MCV MCH MCHC RDW Std Deviation RDW Coeff of Sa[place] Plt Count MPV Immature Gran % (Auto) Neut % (Auto) Lymph % (Auto) Coffee % (Auto) Eos % (Auto) Baso % (Auto) Neut # (Auto) Lymph # (Auto) Coffee # (Auto) Eos # (Auto) Baso # (Auto) Immature Gran # (Auto) Polychromasia Tear Drop Cells ESR VBG pH 7.42 H VBG pCO2 VBG pO2 VBG HCO3 VBG O2 Saturation VBG Base Excess Sodium 136 Potassium 3.6 Chloride 108 H Carbon Dioxide 22 Anion Gap 6 BUN 15 Creatinine 0.64 Est Cr Clr Drug Dosing 143.0 eGFR 116.05 BUN/Creatinine Ratio 23.4 H Glucose 173 H POC Glucose 173 H 183 H Estimat Average Glucose 355 Hemoglobin A1c 14.0 H Lactate Calcium 7.8 L Phosphorus < 1.0 L* Magnesium 1.7 Total Bilirubin Direct Bilirubin AST ALT Alkaline Phosphatase Troponin I High Sens C-Reactive Protein Total Protein Albumin Procalcitonin Urine Color Urine Appearance Urine pH Ur Specific [place] Urine Protein Urine Glucose (UA) Urine Ketones Urine Blood Urine Nitrite Urine Bilirubin Urine Urobilinogen Ur Leukocyte Esterase Urine Comment Ethyl Alcohol mg/dL 10/29/24 10/29/24 10/29/24 05:16 04:15 03:16 WBC RBC Hgb Hct MCV MCH MCHC RDW Std Deviation RDW Coeff of Saida Plt Count MPV Immature Gran % (Auto) Neut % (Auto) Lymph % (Auto) Coffee % (Auto) Eos % (Auto) Baso % (Auto) Neut # (Auto) Lymph # (Auto) Coffee # (Auto) Eos # (Auto) Baso # (Auto) Immature Gran # (Auto) Polychromasia Tear Drop Cells ESR VBG pH VBG pCO2 VBG pO2 VBG HCO3 VBG O2 Saturation VBG Base Excess Sodium Potassium Chloride Carbon Dioxide Anion Gap BUN Creatinine Est Cr Clr Drug Dosing eGFR BUN/Creatinine Ratio Glucose POC Glucose 190 H 153 H 199 H Estimat Average Glucose Hemoglobin A1c Lactate Calcium Phosphorus Magnesium Total Bilirubin Direct Bilirubin AST ALT Alkaline Phosphatase Troponin I High Sens C-Reactive Protein Total Protein Albumin Procalcitonin Urine Color Urine Appearance Urine pH Ur Specific [place] Urine Protein Urine Glucose (UA) Urine Ketones Urine Blood Urine Nitrite Urine Bilirubin Urine Urobilinogen Ur Leukocyte Esterase Urine Comment Ethyl Alcohol mg/dL 10/29/24 10/29/24 10/29/24 02:15 01:35 01:15 WBC RBC Hgb Hct MCV MCH MCHC RDW Std Deviation RDW Coeff of Sa[place] Plt Count MPV Immature Gran % (Auto) Neut % (Auto) Lymph % (Auto) Coffee % (Auto) Eos % (Auto) Baso % (Auto) Neut # (Auto) Lymph # (Auto) Coffee # (Auto) Eos # (Auto) Baso # (Auto) Immature Gran # (Auto) Polychromasia Tear Drop Cells ESR VBG pH 7.27 L VBG pCO2 VBG pO2 VBG HCO3 VBG O2 Saturation VBG Base Excess Sodium 136 Potassium 3.3 L D Chloride 105 Carbon Dioxide 15 L Anion Gap 16 H BUN 17 Creatinine 0.89 Est Cr Clr Drug Dosing 104.5 eGFR 105.05 BUN/Creatinine Ratio 19.1 Glucose 324 H* POC Glucose 261 H 321 H* Estimat Average Glucose Hemoglobin A1c Lactate Calcium 8.0 L Phosphorus 1.3 L* Magnesium 1.7 Total Bilirubin Direct Bilirubin AST ALT Alkaline Phosphatase Troponin I High Sens C-Reactive Protein Total Protein Albumin Procalcitonin Urine Color Urine Appearance Urine pH Ur Specific [place] Urine Protein Urine Glucose (UA) Urine Ketones Urine Blood Urine Nitrite Urine Bilirubin Urine Urobilinogen Ur Leukocyte Esterase Urine Comment Ethyl Alcohol mg/dL 10/29/24 10/28/24 10/28/24 00:58 23:18 22:45 WBC RBC Hgb Hct MCV MCH MCHC RDW Std Deviation RDW Coeff of Sa[place] Plt Count MPV Immature Gran % (Auto) Neut % (Auto) Lymph % (Auto) Coffee % (Auto) Eos % (Auto) Baso % (Auto) Neut # (Auto) Lymph # (Auto) Coffee # (Auto) Eos # (Auto) Baso # (Auto) Immature Gran # (Auto) Polychromasia Tear Drop Cells ESR VBG pH VBG pCO2 VBG pO2 VBG HCO3 VBG O2 Saturation VBG Base Excess Sodium Potassium Chloride Carbon Dioxide Anion Gap BUN Creatinine Est Cr Clr Drug Dosing eGFR BUN/Creatinine Ratio Glucose POC Glucose 598 H* Estimat Average Glucose Hemoglobin A1c Lactate 3.3 H* Calcium Phosphorus Magnesium Total Bilirubin Direct Bilirubin AST ALT Alkaline Phosphatase Troponin I High Sens C-Reactive Protein Total Protein Albumin Procalcitonin Urine Color Yellow Urine Appearance Clear Urine pH 5.5 Ur Specific [place] 1.030 Urine Protein Negative Urine Glucose (UA) 3+ H Urine Ketones 3+ H Urine Blood Negative Urine Nitrite Negative Urine Bilirubin Negative Urine Urobilinogen Negative Ur Leukocyte Esterase Negative Urine Comment Ethyl Alcohol mg/dL 10/28/24 22:00 WBC 14.71 H RBC 4.93 Hgb 14.4 Hct 42.8 MCV 86.8 MCH 29.2 MCHC 33.6 RDW Std Deviation 38.7 RDW Coeff of Saida 12.1 Plt Count 505 H MPV 9.6 Immature Gran % (Auto) 0.5 Neut % (Auto) 89.5 Lymph % (Auto) 3.2 Coffee % (Auto) 6.3 Eos % (Auto) 0.1 Baso % (Auto) 0.4 Neut # (Auto) 13.17 H Lymph # (Auto) 0.47 L Coffee # (Auto) 0.92 H Eos # (Auto) 0.02 Baso # (Auto) 0.06 Immature Gran # (Auto) 0.07 Polychromasia 2+ Tear Drop Cells 1+ ESR > 130 H VBG pH 7.19 L VBG pCO2 29 L VBG pO2 33 VBG HCO3 11 VBG O2 Saturation < 60.0 VBG Base Excess -15.7 Sodium 128 L Potassium 4.2 Chloride 93 L Carbon Dioxide 13 L Anion Gap 22 H BUN 22 Creatinine 1.13 Est Cr Clr Drug Dosing 78.9 eGFR 79.68 BUN/Creatinine Ratio 19.5 Glucose 698 H* POC Glucose Estimat Average Glucose Hemoglobin A1c Lactate 2.3 H* Calcium 8.7 Phosphorus Magnesium 2.1 Total Bilirubin 0.4 Direct Bilirubin 0.0 AST 8 L ALT 10 Alkaline Phosphatase 129 H Troponin I High Sens 16.1 C-Reactive Protein 39.55 H Total Protein 9.0 H Albumin 3.3 L Procalcitonin 0.98 H Urine Color Urine Appearance Urine pH Ur Specific [place] Urine Protein Urine Glucose (UA) Urine Ketones Urine Blood Urine Nitrite Urine Bilirubin Urine Urobilinogen Ur Leukocyte Esterase Urine Comment Ethyl Alcohol mg/dL < 10.0 Diagnostic Findings . Chest X-Ray 10/28/24 21:54 EXAM: XR chest 1V portable CLINICAL HISTORY: Sepsis TECHNIQUE: Radiograph of chest was acquired. COMPARISON: No FINDINGS: The lungs are clear and well-expanded with no pulmonary infiltrate or pleural effusion. The cardiomediastinal silhouette is within normal limits. No acute osseous abnormality. IMPRESSION: 1. No acute cardiopulmonary disease. Electronically signed by Darrel Cole 10-29-2024 07:28 AM Foot X-Ray 10/28/24 21:54 CR Exam(s): XR RIGHT FOOT, 3+ views EXAM: XR Right Foot Complete, 3 or More Views CLINICAL HISTORY: Reason for exam: ? OM. TECHNIQUE: Frontal, lateral and oblique views of the right foot. COMPARISON: 01/02/2019 FINDINGS: Bones/joints: Mild narrowing and osteophytosis of the ankle mortise joint and talonavicular joint consistent with osteoarthritis. Mild narrowing and osteophytosis of the 1st metatarsophalangeal and interphalangeal joints. The midfoot alignment is normal. No focal osteolysis is seen to confirm osteomyelitis at this time. No acute fracture or dislocation is seen. Soft tissues: There is extensive subcutaneous gas and soft tissue emphysema over the lateral aspect of the right foot adjacent to the 5th metatarsal and calcaneus indicating infection with gas-forming organism. Soft tissue swelling of the foot. No radiopaque foreign body. IMPRESSION: 1. No focal osteolysis is seen to confirm osteomyelitis at this time. 2. There is extensive subcutaneous gas and soft tissue emphysema over the lateral aspect of the right foot adjacent to the 5th metatarsal and calcaneus indicating infection with gas-forming organism. Communications: Call Doctor Above results Electronically signed by: Otto Vela MD 10/29/24 00:05 AM Venous Doppler Study 10/28/24 21:54 Exam(s): US VENOUS RIGHT LOWER EXTREMITY EXAM: US Duplex Right Lower Extremity Veins CLINICAL HISTORY: Reason for exam: ? DVT. TECHNIQUE: Real-time duplex ultrasound scan of the right lower extremity veins integrating B-mode two-dimensional vascular structure, Doppler spectral analysis, color flow Doppler imaging and compression. COMPARISON: No relevant prior studies available. FINDINGS: Deep veins: Unremarkable. No DVT in the visualized common femoral, femoral, proximal deep femoral or popliteal veins. The veins demonstrate normal color flow, are normally compressible, with normal phasic flow and/or augmentation response. Superficial veins: Unremarkable. No thrombus in the visualized great saphenous vein. Soft tissues: No acute findings. No popliteal cyst. IMPRESSION: Negative right lower extremity duplex venous ultrasound. No evidence of DVT. Electronically signed by: Otto Vela MD 10/29/24 00:06 AM Lower Extremity MRI 10/29/24 08:17 MR lower leg RT wo/w con HISTORY: 49 years-old Male Abscess/osteomyelitis acute pain and swelling of the right lower leg. Sialitis with possible osteomyelitis COMPARISON: Right foot MR same day, CTA runoff 12/12/2022 TECHNIQUE: Multiplanar multisequence MRI of the right lower leg was obtained with and without IV contrast FINDINGS: The study is very motion degraded. Extensive subcutaneous edema within the mid to lower leg extending into the ankle. Additionally, there is a considerable amount of intramuscular edema within this distribution. There is at least mild diffuse muscle atrophy. No discrete fluid collections are seen. No acute fracture, dislocation, osseous erosion or significant bone marrow edema. This study is not tailored to assess the intrinsic structures of the ankle. There is peroneal tendinosis with tenosynovitis. There is moderate enhancement within the peroneal myotendinous junction with synovial enhancement of the ankle posterior joint recess. IMPRESSION: 1. Limited motion degraded exam. 2. Findings suggestive of cellulitis of the lower leg and ankle without abscess. 3. No evidence of osteomyelitis. 4. Chronic denervation changes of the musculature with possible peroneal infectious myositis/tenosynovitis. ACT 112: Negative or not required by law. The above report was generated using voice recognition software. It may contain grammatical, syntax or spelling errors. Electronically signed by: Arian Dykes M.D. 10/29/2024 2:31 PM PG Care Time/CCT Total # of Minutes Spent Total Time Spent with Patient: Total time spent is greater than 50% in coordination of care (as documented) at patient's floor/unit and/or counseling patient: [place] [address] IN/OBS CONSULT LVL 5,80M Patient Type New Medical Decision Making High Complexity Diagnoses Cellulitis and abscess of lower extremity L03.119; L02.419 DKA (diabetic ketoacidosis) E10.10 Diabetes mellitus complication detail: without coma Diabetes mellitus type: type 1 Type 2 diabetes mellitus with diabetic neuropathy E11.40 (2) DKA (diabetic ketoacidosis) Diabetes mellitus complication detail: without coma Diabetes mellitus type: type 1 Qualified Code(s): E10.10 - Type 1 diabetes mellitus with ketoacidosis without coma
--- NOTE | 2024-10-29 13:04 | Pharmacy Report ---
Pharmacy PK ABX Note - Date of Service October 29, 2024 - Assessment and Plan Assessment 49 year old M admitted in DKA with right diabetic foot infection. Described as deep wound on the right heel and also on the right calf region with malodorous drainage. Preliminary R foot culture is growing Proteus mirabilis. Known history of MRSA. Ordered empiric vancomycin IV + cefepime. Plan Vancomycin * Loading dose: 1500 mg IV x 1 * Maintenance dose: 1250 mg IV every 8 hours * Regimen is predicted to achieve target AUC/CARMELITA of 400-600 mg/L.hr * predicted steady state AUC = 574 Also ordered cefepime 2g IV q8h Pharmacy will continue to follow and will adjust dose/frequency as necessary. Thank you. Pharmacy has transitioned to AUC monitoring for vancomycin. AUC/CARMELITA is the preferred PK/PD target and is associated with decreased risk of nephrotoxicity compared to traditional trough targets.
[2024-10-29] MEDS: GADOBUTROL 65ML VIAL IV ONE (13:33)
[2024-10-29] MEDS: VANCOMYCIN HCL 1,250 MG in SODIUM CHLORIDE 0.9% 250 ML IV SCH (14:05)
--- NOTE | 2024-10-29 14:33 | Magnetic Resonance Report ---
MR lower leg RT wo/w con HISTORY: 49 years-old Male Abscess/osteomyelitis acute pain and swelling of the right lower leg. Radha litis with possible osteomyelitis COMPARISON: Right foot MR same day, CTA runoff 12/12/2022 TECHNIQUE: Multiplanar multisequence MRI of the right lower leg was obtained with and without IV cont rast FINDINGS: The study is very motion degraded. Extensive subcutaneous edema within the mid to lower leg extending into the ankle. Additionally, there is a considerable amount of intramuscular edema within this dist ribution. There is at least mild diffuse muscle atrophy. No discrete fluid collections are seen. No a cute fracture, dislocation, osseous erosion or significant bone marrow edema. This study is not tailo red to assess the intrinsic structures of the ankle. There is peroneal tendinosis with tenosynovitis. There is moderate enhancement within the peroneal myotendinous junction with synovial enhancement of the ankle posterior joint recess. IMPRESSION: 1. Limited motion degraded exam. 2. Findings suggestive of cellulitis of the lower leg and ankle without abscess. 3. No evidence of osteomyelitis. 4. Chronic denervation changes of the musculature with possible peroneal infectious myositis/tenosyno vitis. ACT 112: Negative or not required by law. The above report was generated using voice recognition software. It may contain grammatical, syntax o r spelling errors. Electronically signed by: Arian Dykes M.D. 10/29/2024 2:31 PM
--- NOTE | 2024-10-29 15:35 | Magnetic Resonance Report ---
MR foot RT wo/w con HISTORY: 49 years-old Male abcess/ osteo acute pain of the right foot with possible cellulitis/osteo myelitis COMPARISON: Right lower leg of same day, right foot radiographs 10/28/2024 TECHNIQUE: Multiplanar multisequence MRI of the right foot was obtained with and without IV contrast FINDINGS: The study is very limited secondary to positioning and motion. There is extensive dorsal predominant subcutaneous edema throughout the foot with additional circumferential subcutaneous edema the ankle a nd imaged lower leg. There is diffuse atrophy and edema of the intrinsic musculature of the foot. Mul tifocal predominantly mild osteoarthritis. [id number] osteoarthritis of the first MTP joint wit h hallux valgus. Subcortical cystic change and marrow edema of the first metatarsal head related to t he arthritic change. There is extension of the metatarsophalangeal joints with flexion of the interph alangeal joints. No forefoot osseous erosions identified on this study. Nonspecific marrow edema of t he cuboid and navicular. There is a considerable amount of subcutaneous/deep tissue gas throughout th e midfoot and forefoot, also seen on comparison radiographs. No discrete fluid collections to suggest abscess. Intact Lisfranc ligament. No definite acute tendon or ligamentous injury identified on this exam. Acute calcaneal osteomyelitis with extensive marrow edema and bony erosions noted in what is l abeled the axial series demonstrating enhancement within this region. Calcaneal ulcer. IMPRESSION: 1. Limited exam. 2. Heel ulcer with acute osteomyelitis of the calcaneus, only imaged on the axial series as a foot MR I is tailored to assess the forefoot structures (MR ankle is the study to assess the hindfoot). 3. Cellulitis without evidence of abscess. Large amount of subcutaneous/deep tissue gas throughout th e foot may be secondary to air introduced through the heel ulcer or may be secondary to gas-forming o rganism (fasciitis/gas gangrene) 4. Chronic denervation change. No abscess identified. ACT 112: Negative or not required by law. The above report was generated using voice recognition software. It may contain grammatical, syntax o r spelling errors. Electronically signed by: Arian Dykes M.D. 10/29/2024 3:33 PM
--- NOTE | 2024-10-29 15:49 | Pharmacy Report ---
Pharmacy Glycemic Short Note 2 - Date of Service October 29, 2024 - Glycemic Short BSG Results (Last 24 hours): 10/28/24 10/28/24 10/29/24 22:00 23:18 01:15 Glucose 698 H* POC Glucose 598 H* 321 H* 10/29/24 10/29/24 10/29/24 01:35 02:15 03:16 Glucose 324 H* POC Glucose 261 H 199 H 10/29/24 10/29/24 10/29/24 04:15 05:16 06:17 Glucose POC Glucose 153 H 190 H 183 H 10/29/24 10/29/24 10/29/24 06:47 07:10 09:09 Glucose 173 H POC Glucose 173 H 158 H 10/29/24 10/29/24 11:20 12:08 Glucose POC Glucose 128 H 106 H OUTPATIENT ANTIDIABETIC REGIMEN: * Lantus 54 units SC qPM * Metformin 500 mg PO BID * Glimepiride 4 mg PO BID * Patient admits to non-compliance A1c = 14% ASSESSMENT: * Aj is a 49 yo T2DM admitted with DKA and right diabetic foot infection. * Patient was started on IV insulin infusion on 10/28/24 per the DKA/[facility]HS protocol. There is evidence of resolution of DKA on AM labs (anion gap 6, bicarb 22). BSG at goal thus far today. A one time dose of Lantus was overlapped with IV insulin infusion - infusion discontinued around 1230. * I am hesitant to base SC insulin doses off home regimen given reported non- compliance. Will utilize a combination of weight based dosing and past admission data (Lantus 30-40 units, CF 15, CR 5 during October 2022 admission). * Patient is NPO for possible R BKA on 10/30 PLAN FOR INPATIENT GLYCEMIC CONTROL: * Hold outpatient oral diabetes medications * Basal insulin * Lantus 35 units SQ x 1 * Lantus 30-40 units SQ daily starting 10/30 * Bolus insulin * NovoLog per scale ACHS or Q6hrs while NPO * Goal Range: Low 110 mg/dL - High 140 mg/dL * Correction Factor: 20 mg/dL/unit * Nutritional / Prandial insulin per carb ratio of 1 unit per 6 grams CHO consumed
[2024-10-29 15:56] LABS: Anion Gap 8.0 (3-11); Blood Urea Nitrogen 10.0 mg/dl (6-23); Calcium 8.1 mg/dl (8.6-10.3); Carbon Dioxide 21.0 mmol/L (21-32); Chloride 105.0 mmol/L (98-107); Creatinine Clr Calc Pharmacy 166.4 ml/min; Glucose 149.0 mg/dl (70-99(Fasting)); Potassium 3.8 mmol/L (3.5-5.1); Sodium 134.0 mmol/L (136-145)
[2024-10-29] MEDS: SODIUM CHLORIDE 0.9% 1,000 ML IV SCH (16:52)
[2024-10-29 19:37] LABS: A calco-baum cmplx NotReported Not Detected (NotDetected); Bact fragilis Not Reported Not Detected (NotDetected); Blood Culture Id Panel See PCR Comment (NotDetected); C auris Not Reported Not Detected (NotDetected); Calbicans Not Reported Not Detected (NotDetected); Candida glabrata Not Reported Not Detected (NotDetected); Candida krusei Not Reported Not Detected (NotDetected); Cneoformans/gatti Not Reported Not Detected (NotDetected); Cparapsilosis Not Reported Not Detected (NotDetected); Ctropicalis Not Reported Not Detected (NotDetected); E cloacae compx Not Reported Not Detected (NotDetected); Efaecalis Not Reported Not Detected (NotDetected); Efaecium Not Reported Not Detected (NotDetected); Enterobacterales Not Reported Not Detected (NotDetected); Escherichia coli Not Reported Not Detected (NotDetected); H influenzae Not Reported Not Detected (NotDetected); K aerogenes Not Reported Not Detected (NotDetected); Koxytoca Not Reported Not Detected (NotDetected); Kpneumoniae grp Not Reported Not Detected (NotDetected); Lmonocyt Not Reported Not Detected (NotDetected); N meningitidis Not Reported Not Detected (NotDetected); P aeruginosa Not Reported Not Detected (NotDetected); Proteus spp Not Reported Not Detected (NotDetected); Salmonella spp Not Reported Not Detected (NotDetected); Staph lugdunensis Not Reported Not Detected (NotDetected); Staph spp. Not Reported Not Detected (NotDetected); Staphaureus Not Reported Not Detected (NotDetected); Staphepi Not Reported Not Detected (NotDetected); Stenmaltophilia Not Reported Not Detected (NotDetected); Strep agal(GrpB) Not Reported Not Detected (NotDetected); Strep pneum Not Reported Not Detected (NotDetected); Strep pyog (GrpA) Not Reported Not Detected (NotDetected); Strep spp Not Reported DETECTED (NotDetected)
[2024-10-29 19:49] LABS: Streptococcus spp DETECTED (NotDetected)
[2024-10-29] MEDS: ACETAMINOPHEN 325 MG TAB PO PRN (23:11)
[2024-10-30] MEDS ORDERED: Nursing to Pharmacy Communication SCH ×2 (05:15→18:00)
[2024-10-30] MEDS: INSULIN ASPART PER UNIT CHARGE SC SCH ×2 (06:16→21:04)
[2024-10-30 06:24] LABS: Anion Gap 7.0 (3-11); Blood Urea Nitrogen 7.0 mg/dl (6-23); Calcium 7.1 mg/dl (8.6-10.3); Carbon Dioxide 24.0 mmol/L (21-32); Chloride 103.0 mmol/L (98-107); Creatinine Clr Calc Pharmacy 258.2 ml/min; Glucose 152.0 mg/dl (70-99(Fasting)); Magnesium 1.4 mg/dl (1.7-2.4); Potassium 2.9 mmol/L (3.5-5.1); Sodium 134.0 mmol/L (136-145)
[2024-10-30] MEDS ORDERED: POTASSIUM PHOS 3 MMOL/1 ML INFUSION IV STA ×2 (06:36→13:25)
[2024-10-30 06:59] LABS: Hematocrit (blood only) 29.9 % (42.0-52.0); Hemoglobin 10.9 g/dl (14.0-18.0); Mean Corpuscular Hemoglobin 30.2 pg (25.0-34.0); Mean Corpuscular Volume 82.8 fL (80.0-100.0); Platelet Count 352 K/uL (130-400); RDW Standard Deviation 36.0 fL (36.4-46.3); Red Blood Count 3.61 M/uL (4.70-6.10); White Blood Count 13.62 K/ul (4.8-10.8)
[2024-10-30] MEDS: POTASSIUM PHOSPHATE 30 MMOL in SODIUM CHLORIDE 0.9% 500 ML IV ONE ×2 (07:14→14:12)
[2024-10-30] MEDS: POTASSIUM CHLORIDE CRTAB 20 MEQ TABCR PO STA ×2 (07:15→13:53)
[2024-10-30] MEDS: MAGNESIUM SULFATE / D5W 1 GM/100 ML BAG IV SCH (07:15)
--- NOTE | 2024-10-30 08:41 | Anesthesiology Consultation ---
Date of Service October 30, 2024 Assessment & Plan (1) Encounter for pre-operative examination: Chart Review Chart Review: Pending: Refer to Additional Notes / Consult section (needs potassium replacement) History Surgery Operation Date: 10/30/24 13:00 Proposed Procedures p Right Below the Knee Amputation - Amari Vang, Height/Weight Height: 6 ft 3 in Weight: 75.6 kg Allergies Allergy/AdvReac Type Severity Reaction Status Date / Time pollen extracts Allergy Intermediate ITCHY Verified 10/28/24 23:04 EYES, SNEEZING, CONGESTION Medications Home Medications Medication Instructions Recorded Confirmed Last Taken blood sugar diagnostic (OneTouch #100 ea 11/05/22 10/28/24 Unknown Verio test strips) glimepiride 4 mg tablet 4 mg PO BIDM #60 tabs 11/05/22 10/28/24 12/12/22 08:00 lancets 30 gauge (OneTouch Delica #100 ea 11/05/22 10/28/24 Unknown Plus Lancet) pen needle, diabetic 32 gauge x #100 ea 11/05/22 10/28/24 Unknown 5/32" (Pen Needle) insulin glargine 100 unit/mL (3 54 unit subcut PM 12/12/22 10/28/24 12/11/22 mL) subcutaneous pen (Lantus Solostar U-100 Insulin) metformin 500 mg tablet 500 mg PO BID 10/28/24 10/28/24 Unknown Active Medications Generic Name Dose Route Start Last Admin Trade Name Freq PRN Reason Stop Dose Admin Acetaminophen 650 mg 10/29/24 01:27 10/29/24 23:11 Acetaminophen 325 Mg Tab PO 11/28/24 01:26 650 mg Q4H PRN Administration Pain or Fever Cefepime HCl 2,000 mg in 20 mls @ 5 mls/min 10/29/24 06:00 10/30/24 05:37 Maxipime 2000mg IV 11/05/24 05:59 5 mls/min Q8H BETTY Administration Protocol Vancomycin HCl 1,250 mg/ 275 mls @ 200 mls/hr 10/29/24 13:00 10/30/24 07:14 Sodium Chloride IV 11/05/24 12:59 Infused Q8H BETTY Infusion Sodium Chloride 1,000 mls @ 125 mls/hr 10/29/24 16:45 10/30/24 01:42 Nss IV 11/01/24 16:44 125 mls/hr .Q8H BETTY Administration Magnesium Sulfate/Dextrose 1 gm in 100 mls @ 50 mls/hr 10/30/24 06:45 10/30/24 07:15 Magnesium Sulfate / D5w IV 10/30/24 12:44 50 mls/hr Q2H BETTY Administration Potassium Phosphate 30 mmol/ 510 mls @ 100 mls/hr 10/30/24 07:15 10/30/24 07:14 Sodium Chloride IV 10/30/24 12:20 100 mls/hr ONE ONE Administration Insulin Aspart 0 units 10/30/24 06:00 10/30/24 06:16 Insulin Aspart Per Unit Charge SC 11/29/24 05:59 3 units Q6 BETTY Administration Past Medical History Medical History (Updated 10/30/24 @ 08:37 by Navneet Bhardwaj MD) Uncontrolled diabetes mellitus with hyperglycemia Type 2 diabetes mellitus with diabetic neuropathy Hypertension DKA (diabetic ketoacidosis) Marijuana abuse Diabetic foot infection Past Family History Family History Mother Diabetes Father Diabetes Past Surgical History Surgical History (Updated 10/30/24 @ 08:34 by Navneet Bhardwaj MD) History of back surgery History of incision and drainage right lower leg Social History Smoking Status: Unknown if ever smoked Do You Dip or Chew Tobacco: No Hx Alcohol Use: Yes Alcohol type: beer and hard liquor alcohol intake frequency: holidays/special occasions only Alcohol Intake Frequency Comment: Pt reports he does not drink ER document states pt drank on 10/28 Hx Substance Use: No substance use type: marijuana Physical Exam Vital Signs Last Vital Signs Temp 36.5 C 10/30/24 07:06 Pulse 96 H 10/30/24 07:06 Resp 18 10/30/24 07:06 BP 101/63 10/30/24 07:06 Pulse Ox 96 10/30/24 07:06 O2 Del Method Room Air 10/30/24 07:06 Testing Laboratory Results 10/30/24 05:31 10/30/24 05:31 Hemoglobin A1c 14.0 % (4.5-5.6) H 10/29/24 06:47 Urine Color Yellow 10/28/24 22:45 Urine Appearance Clear (Clear) 10/28/24 22:45 Urine pH 5.5 (4.5-7.5) 10/28/24 22:45 Ur Specific [place] 1.030 (1.000-1.030) 10/28/24 22:45 Urine Protein Negative (Negative) 10/28/24 22:45 Urine Glucose (UA) 3+ (Negative) H 10/28/24 22:45 Urine Ketones 3+ (Negative) H 10/28/24 22:45 Urine Nitrite Negative (Negative) 10/28/24 22:45 Ur Leukocyte Esterase Negative (Negative) 10/28/24 22:45 Blood Type A Positive 10/29/24 16:11 Antibody Screen NEGATIVE 10/29/24 16:11 10/28/24 22:00 Gram Stain - Final Foot,Right Wound Culture - Preliminary Proteus mirabilis 10/28/24 22:00 Aerobic Blood Culture - Preliminary Blood No growth in Aerobic bottle after 24 hours. Anaerobic Blood Culture - Preliminary Gram positive cocci in chains 10/28/24 22:00 Aerobic Blood Culture - Preliminary Blood No growth in Aerobic bottle after 24 hours. Anaerobic Blood Culture - Preliminary Gram positive cocci in chains 10/30/24 10/29/24 06:03 20:32 POC Glucose 181 H 128 H Electrocardiogram Date: 10/28/24 Findings: + ST @ (128)
[2024-10-30] MEDS: LANTUS PER UNIT CHARGE SC SCH (08:44)
--- NOTE | 2024-10-30 11:09 | Orthopedic Progress Note ---
Date of Service October 30, 2024 Assessment & Plan (1) Cellulitis and abscess of lower extremity: * Continue Current Treatment * Recommend BKA, discussed with patient and he agrees to proceed * Tentative OR later this afternoon vs tomorrow pending medical clearance * Maintain n.p.o. * Continue wound soaks twice daily as ordered * To new antibiotics * Disposition: TBD * Daily treatment: Physical Therapy/ Occupational Therapy per protocol * Weight bearing status: As tolerated * Remainder care per primary team (2) Type 2 diabetes mellitus with diabetic neuropathy: Subjective .Active Problems: Infected wounds right lower leg 49y/o male s/p with infected wounds to right lower leg. Electrolytes resolving, however still hypokalemic, recheck midday today. Lengthy discussion bedside with patient regarding management options, recommendation is BKA, patient is open to this and would like to proceed with procedure as needed. Denies fever/chills, chest pain/SOB, nausea/vomiting. Otherwise no complaints. Review of Systems All systems reviewed & are unremarkable except as noted in HPI & below. Physical Exam . * General: Alert and oriented, no acute distress * Constitutional: well-developed, well-nourished. * Respiratory: Normal respiratory effort, no distress * Gastrointestinal: No tenderness to palpation, no rigidity or guarding. * Skin: No rash or lesion. * Neurologic: Grossly normal * Musculoskeletal: Right lower extremity dressings removed for exam. Malodorous draining wounds to the right lateral calf as well as posterior heel. No subcutaneous emphysema appreciated. No specific tenderness throughout the right lower leg, minimal sensation per patient. Is able to lift leg off the bed but otherwise limited motion of the right ankle and foot. Gross sensation intact the dorsal and plantar foot. Results & Data Results & Data Laboratory Results . Diagnostic Findings . PG Care Time/CCT Total # of Minutes Spent Total Time Spent with Patient: Total time spent is greater than 50% in coordination of care (as documented) at patient's floor/unit and/or counseling patient: Coding Level of Care Code 00794 SUB INP/OBS CARE 2/MIN Diagnoses Cellulitis and abscess of lower extremity L03.119; L02.419 Type 2 diabetes mellitus with diabetic neuropathy E11.40
[2024-10-30] MEDS: POTASSIUM CHLORIDE / WTR 10 MEQ/100 ML PLCT IV SCH (12:16)
[2024-10-30 13:20] LABS: Magnesium 2.0 mg/dl (1.7-2.4)
[2024-10-30 13:23] LABS: Anion Gap 6.0 (3-11); Blood Urea Nitrogen 5.0 mg/dl (6-23); Calcium 7.3 mg/dl (8.6-10.3); Carbon Dioxide 25.0 mmol/L (21-32); Chloride 102.0 mmol/L (98-107); Creatinine Clr Calc Pharmacy 308.2 ml/min; Glucose 100.0 mg/dl (70-99(Fasting)); Potassium 3.5 mmol/L (3.5-5.1); Sodium 133.0 mmol/L (136-145)
--- NOTE | 2024-10-30 13:36 | Hospitalist Progress Note ---
Date of Service October 30, 2024 Assessment & Plan (1) DKA (diabetic ketoacidosis): (2) Type 2 diabetes mellitus with diabetic neuropathy: (3) Diabetic ulcer of toe of left foot associated with type 2 diabetes mellitus: (4) Diabetic foot infection: (5) Mood disorder: (6) Hypophosphatemia: (7) Streptococcal bacteremia: (8) Severe sepsis with acute organ dysfunction: (9) Osteomyelitis of foot, right, acute: (10) Electrolyte abnormality: Plan Patient is a 49-year-old gentleman initially presented with severe DKA exacerbated by poor compliance with his medical regimen and infection of the right lower extremity. DKA is resolved. Continue to aggressively replace electrolytes and monitor Communication with orthopedic team. Patient not fully stabilized metabolically to undergo anticipated BKA today. Will continue replace electrolytes and monitor laboratory studies with anticipated BKA tomorrow Patient can eat today with n.p.o. after midnight. Antibiotics adjusted based on sensitivities Will repeat blood cultures to ensure clearance Continue to monitor glucose, insulin coverage as coordinated with pharmacy Admission and Anticipated Discharge Date Admission Date: October 28, 2024 Subjective Patient feeling improved. Denies any pain. Understands the necessity of BKA Physical Exam 2 Physical Exam: Constitutional: Alert, thin and underweight HEENT: Mucous membranes moist. Lungs: Clear to auscultation, decreased, no wheezes rales or rhonchi CV: S1-S2, regular, borderline tachycardic Abdomen: Soft, nontender, nondistended Extremities: Right foot with edema, wound dressing clean Neuro: No focal deficits, generally weak Psych: Cooperative, normal mood Results & Data Results & Data Vital Signs (Past 12 Hours) Vital Signs Temp Pulse Pulse Resp BP Pulse Ox O2 Del Method 10/30/24 11:02 36.9 C 105 H 20 95/58 L 97 Room Air 10/30/24 07:30 98 H 10/30/24 07:30 Room Air 10/30/24 07:06 36.5 C 96 H 18 101/63 96 Room Air 10/30/24 03:26 36.6 C 95 H 18 113/70 97 Room Air Diagnostic Findings Reviewed imaging, laboratory and diagnostic studies. Pertinent findings as below. Right foot wound culture growing Proteus Blood cultures growing Streptococcus WBCs 13.6, improved Hemoglobin 10.9 decreased due to hemodilution Sodium 133 Potassium 3.5 after initial replacement this morning Creatinine 0.31 Phosphorus 1.6 after initial replacement this morning Magnesium 2.0 MRI of the foot and lower leg reviewed (1) DKA (diabetic ketoacidosis) Diabetes mellitus complication detail: without coma Diabetes mellitus type: type 1 Qualified Code(s): E10.10 - Type 1 diabetes mellitus with ketoacidosis without coma
[2024-10-30] MEDS: cefTRIAXone SODIUM 2,000 MG/50 ML BAG IV SCH (13:56)
[2024-10-30 20:10] LABS: Anion Gap 7.0 (3-11); Blood Urea Nitrogen 6.0 mg/dl (6-23); Calcium 7.2 mg/dl (8.6-10.3); Carbon Dioxide 24.0 mmol/L (21-32); Chloride 100.0 mmol/L (98-107); Creatinine Clr Calc Pharmacy 164.7 ml/min; Glucose 162.0 mg/dl (70-99(Fasting)); Potassium 3.9 mmol/L (3.5-5.1); Sodium 131.0 mmol/L (136-145)
[2024-10-30] MEDS: SODIUM PHOSPHATE 3 MMOL/1 ML INFUSION IV STA (21:55)
[2024-10-30] MEDS: SODIUM PHOSPHATE 24 MMOL in SODIUM CHLORIDE 0.9% 500 ML IV ONE (22:07)
[2024-10-31] MEDS ORDERED: Nursing to Pharmacy Communication SCH (00:45)
[2024-10-31] MEDS: INSULIN ASPART PER UNIT CHARGE SC ONE (00:56)
[2024-10-31] MEDS: KETOROLAC TROMETHAMINE 15 MG/ML VIAL IV ONE (04:03)
--- NOTE | 2024-10-31 05:51 | Electrocardiogram Report ---
Test Reason : Blood Pressure : */* mmHG Vent. Rate : 128 BPM Atrial Rate : 128 BPM P-R Int : 114 ms QRS Dur : 96 ms QT Int : 336 ms P-R-T Axes : 69 112 77 degrees QTcB Int : 490 ms Sinus tachycardia Inferior-posterior infarct , age undetermined Abnormal ECG When compared with ECG of 29-Oct-2022 15:17, QRS axis Shifted right Inferior-posterior infarct is now Present T wave inversion now evident in Anterior leads Confirmed by Michael Traore ([id number]) on 10/31/2024 5:50:42 AM Referred By: REFERRED SELF Confirmed By: Michael Traore
[2024-10-31] MEDS: INSULIN ASPART PER UNIT CHARGE SC SCH ×2 (06:29→17:19)
--- NOTE | 2024-10-31 07:29 | History & Physical Bridge Note ---
Date of Service October 31, 2024 History & Physical Bridge Note I have examined the patient, reviewed the History & Physical and in the interval since the performance of the History & Physical I have noted the following changes of clinical significance: no changes noted
--- NOTE | 2024-10-31 07:31 | Orthopedic Progress Note ---
Date of Service October 31, 2024 Assessment & Plan (1) Osteomyelitis of foot, right, acute: Plan: 49-year-old male with very poorly controlled diabetes with an extensively infected right foot and leg. Patient is indicated for right below-knee amputation. He has been medically optimized. Plan: Organ to take him to the operating room today and do a right below-knee amputation. The risks meds have been explained. Informed consent was obtained. (2) Severe sepsis with acute organ dysfunction: (3) Streptococcal bacteremia: Admission and Anticipated Discharge Date Admission Date: October 28, 2024 Subjective 49-year-old gentleman with multiple medical comorbidities including poorly controlled diabetes with a extensively infected right leg. He is planning on proceeding with right below-knee amputation today. No new complaints. Seems to be feeling better. Much more awake alert and appropriate now that he has been metabolically stabilized. Physical Exam Physical Exam: Physical examination reveals a thin cachectic middle-aged male. Examination of the right leg reveals an obviously swollen infected leg from the mid resendiz distally. Very poor odor. Limited function. Results & Data Vital Signs (Past 12 Hours) Vital Signs Temp Pulse Pulse Resp BP Pulse Ox Pulse Ox 10/31/24 05:05 36.8 C 10/31/24 03:09 38.3 C H 106 H 18 110/68 97 10/31/24 01:00 98 10/30/24 22:28 37.8 C H 103 H 18 93/55 L 98 10/30/24 22:25 107 H 10/30/24 19:45 10/30/24 19:30 38.1 C H 115 H 18 103/63 99 O2 Del Method O2 Del Method 10/31/24 05:05 10/31/24 03:09 Room Air 10/31/24 01:00 Room Air 10/30/24 22:28 Room Air 10/30/24 22:25 10/30/24 19:45 Room Air 10/30/24 19:30 Room Air Laboratory Results Current labs are pending.
[2024-10-31 07:32] LABS: Hematocrit (blood only) 29.8 % (42.0-52.0); Hemoglobin 10.3 g/dl (14.0-18.0); Mean Corpuscular Hemoglobin 28.9 pg (25.0-34.0); Mean Corpuscular Volume 83.7 fL (80.0-100.0); Platelet Count 343 K/uL (130-400); RDW Standard Deviation 37.3 fL (36.4-46.3); Red Blood Count 3.56 M/uL (4.70-6.10); White Blood Count 14.08 K/ul (4.8-10.8)
[2024-10-31 07:48] LABS: Anion Gap 6.0 (3-11); Blood Urea Nitrogen 6.0 mg/dl (6-23); Calcium 7.1 mg/dl (8.6-10.3); Carbon Dioxide 27.0 mmol/L (21-32); Chloride 100.0 mmol/L (98-107); Creatinine Clr Calc Pharmacy 225.5 ml/min; Glucose 201.0 mg/dl (70-99(Fasting)); Magnesium 1.8 mg/dl (1.7-2.4); Potassium 3.4 mmol/L (3.5-5.1); Sodium 133.0 mmol/L (136-145)
[2024-10-31] MEDS ORDERED: POTASSIUM PHOS 3 MMOL/1 ML INFUSION IV STA (08:02)
[2024-10-31] MEDS: POT PHOSPHATE MONOBASIC W/ SOD TAB PO SCH (08:20)
[2024-10-31] MEDS: POTASSIUM PHOSPHATE 30 MMOL in SODIUM CHLORIDE 0.9% 500 ML IV ONE (08:20)
[2024-10-31] MEDS: LANTUS PER UNIT CHARGE SC SCH ×2 (08:25→21:35)
[2024-10-31] MEDS ORDERED: BUPIVACAINE 0.25% PF 30 ML VIAL ONE (09:23)
[2024-10-31] MEDS ORDERED: LIDOCAINE 2% 2 ML VIAL/AMP(20MG/ML) INFIL ONE (10:09)
[2024-10-31] MEDS ORDERED: PROPOFOL IV EMULSION 10 MG/ML 20 ML VIAL IV ONE (10:09)
[2024-10-31] MEDS ORDERED: MIDAZOLAM HCL 1 MG/ML 2ML VIAL ONE (10:09)
[2024-10-31] MEDS ORDERED: ONDANSETRON INJ 2 MG/ML 2 ML VIAL ONE (10:09)
[2024-10-31] MEDS ORDERED: ATROPINE SULFATE 0.1 MG/ML 10ML SYR IV PRN (10:11)
[2024-10-31] MEDS ORDERED: ROCURONIUM BROMIDE 10 MG/ML 5 ML VIAL IV ONE (10:11)
[2024-10-31] MEDS ORDERED: DROPERIDOL 5 MG/2 ML VIAL IV PRN (10:11)
[2024-10-31] MEDS ORDERED: KETAMINE HCL 10MG/ML SYR ONE (10:25)
[2024-10-31] MEDS: BUPIVACAINE/EPINEPHRINE 0.5% MPF 1:200,000 30 ML VIAL ONE (11:44)
[2024-10-31] MEDS ORDERED: PHENYLEPHRINE HCL 10 MG/ML VIAL ONE (11:49)
[2024-10-31] MEDS ORDERED: SUGAMMADEX SODIUM 200 MG/2 ML VIAL IV ONE (11:49)
--- NOTE | 2024-10-31 12:11 | Operative Report ---
PG Post Operative Report Pre & Post Diagnosis Operation Date: 10/31/24 09:00 Pre-Op Diagnosis: 1. Osteomyelitis of foot, right, acute, 2. Severe sepsis with acute organ dysfunction, 3. Streptococcal bacteremia Post-Op Diagnosis: 1. Osteomyelitis of foot, right, acute, 2. Severe sepsis with acute organ dysfunction, 3. Streptococcal bacteremia I identified the patient and participated in the time-out.: Yes Procedure Operation Date: 10/31/24 09:00 Actual Procedures p Right Below the Knee Amputation(Right) - Niall Vela MD Surgeon Niall Vela MD [place] Dhaval Vernon PA-C Estimated Blood Loss 50 (9) Findings Consistent with Post-Op Diagnosis Specimens Right leg Anesthesia Type General Complications none Disposition Accompanied Patient To Recovery: No Indications The patient is a 49-year-old very poorly controlled diabetic who said a several week history of increasing right foot and leg pain discomfort swelling and obvious severe infection. He was admitted to the hospital with significant bacteremia and diabetic ketoacidosis. He was medically optimized. Patient had a severe infection of his entire right leg from midshaft of his tibia distally. He was indicated for right below-knee amputation. Description of Procedure The patient was taken to the op room, identified, placed on the operating table in the supine position. All conductors were appropriately padded. IV antibiotics were provided by the anesthesia team. He was getting antibiotics on the floor and we gave him some additional Ancef preoperatively. A general anesthetic was implemented. A right thigh tent was then placed. The right lower extremity was then scrubbed with a Hibiclens, prepped with Betadine and then draped in the usual sterile fashion. The right leg was elevated exsanguinated proximal to the wound area with an Esmarch. The tourniquet was placed at 300 mmHg. A fishmouth incision was made with the intended bone cut about 11 cm distal to the joint line. That is as far distal as I could safely do this and avoid the infected area. Anterior and posterior skin flaps were developed in a fishmouth type fashion. A incision was made sharply directly down to the bone and through the fascia. I then stripped the periosteum off the tibia and the fibula and elevated proximally. I did divide through the anterior compartment musculature very carefully and identifying the artery and vein and suture-ligated those. I then made the tibial cut and beveled the tibia. We made the fibular cut about a centimeter and a half proximal the tibia cut. We then divided the deep posterior compartment muscle. I identified the neurovascular structures and suture- ligated them. We then remove the leg from the field and discarded it. We then changed our gloves. We irrigated the wound extensively. I did inject locally with 30 cc of half percent Marcaine with epinephrine. The tourniquet was let down for return time 30 minutes. Hemostasis assured with electrocautery. Once again irrigated the wound. I then repaired the fascia from the posterior fascia to the anterior fascia with 0 Vicryl suture in a [id number] fashion. Subcutaneous tissue was then closed with a 2-0 Vicryl suture in a buried interrupted fashion skin was closed with 3-0 nylon suture in a simple fashion. Leg was then cleaned and dried a sterile dressing with Xeroform, 4 fours, ABD pad, Kerlix wrap, sterile cast padding, Trino bandage were applied. The patient then brought out of general anesthesia and transferred to the recovery room in stable condition. Patient tolerated procedure well. There were no complications. Dhaval Vernon, my physician assistant nurse manager, was present for the entire procedure. His assistance was required for proper patient positioning, prepping and draping, surgical exposure, perform the technical details of the operation, [place] of the incision site, and placement of the postoperative sterile bandage. I attest to the content of the Intraoperative Record and any orders documented therein. Any exceptions are noted below.
[2024-10-31] MEDS ORDERED: PHARMACY GLYCEMIC MGMT CONSULT PRN ×2 (13:03)
[2024-10-31] MEDS ORDERED: ALUMINUM/MAGNESIUM SUSP 30 ML UDC PO PRN (13:03)
[2024-10-31] MEDS ORDERED: MAGNESIUM HYDROXIDE SUSP 30 ML UDC PO PRN (13:03)
[2024-10-31] MEDS ORDERED: METOCLOPRAMIDE HCL INJ 5 MG/ML 2 ML VIAL IV PRN (13:03)
[2024-10-31] MEDS ORDERED: NALOXONE HCL 0.4 MG/1 ML VIAL/CARP IV PRN (13:03)
[2024-10-31] MEDS ORDERED: HYDROmorphone INJ 0.5 MG/0.5 ML SYR IV PRN (13:03)
[2024-10-31] MEDS: SODIUM CHLORIDE 0.9% 1,000 ML IV SCH (13:10)
--- NOTE | 2024-10-31 13:21 | Hospitalist Progress Note ---
Date of Service October 31, 2024 Assessment & Plan (1) Severe sepsis with acute organ dysfunction: (2) Streptococcal bacteremia: (3) DKA (diabetic ketoacidosis): (4) Osteomyelitis of foot, right, acute: (5) Type 2 diabetes mellitus with diabetic neuropathy: (6) Diabetic ulcer of toe of left foot associated with type 2 diabetes mellitus: (7) Diabetic foot infection: (8) Mood disorder: (9) Hypophosphatemia: (10) Electrolyte abnormality: Plan Patient 49-year-old gentleman with known diabetes presents with DKA and severe sepsis with organ dysfunction due to Streptococcus bacteremia and right lower extremity infection and osteomyelitis. Continue ceftriaxone, Proteus and Streptococcus sensitive Follow surveillance blood cultures Patient undergoing BKA today, postoperative care as directed by orthopedics Continue to monitor glucose and manage with insulin Continue to replace electrolytes and monitor Echocardiogram in light of the bacteremia, rule out endocarditis Admission and Anticipated Discharge Date Admission Date: October 28, 2024 Subjective Patient seen this morning prior to going to the OR. Still feeling pretty weak. Events of overnight noted, still with low-grade fever. Prepared for anticipated BKA today Physical Exam Physical Exam: Constitutional: Alert, underweight, frail, nontoxic HEENT: Mucous membranes moist. Lungs: Clear to auscultation, decreased, no wheezes rales or rhonchi CV: S1-S2, regular Abdomen: Soft, nontender, nondistended Extremities: Right lower extremity in dressing Neuro: No focal deficits, generally weak Psych: Cooperative, normal mood Results & Data Results & Data Vital Signs (Past 12 Hours) Vital Signs Temp Pulse Pulse Pulse Resp BP Pulse Ox 10/31/24 13:00 36.8 C 97 H 16 106/65 97 10/31/24 12:45 36.8 C 94 H 12 102/67 97 10/31/24 12:35 36.8 C 96 H 14 104/69 97 10/31/24 12:25 98 H 16 105/69 97 10/31/24 12:15 102 H 17 109/72 97 10/31/24 12:07 36.8 C 95 H 13 107/67 99 10/31/24 08:00 97 H 10/31/24 07:47 36.7 C 75 17 111/68 98 10/31/24 05:05 36.8 C 10/31/24 03:09 38.3 C H 106 H 18 110/68 97 O2 Del Method 10/31/24 13:00 Room Air 10/31/24 12:45 Room Air 10/31/24 12:35 Room Air 10/31/24 12:25 Room Air 10/31/24 12:15 Room Air 10/31/24 12:07 Room Air 10/31/24 08:00 10/31/24 07:47 Room Air 10/31/24 05:05 10/31/24 03:09 Room Air Diagnostic Findings Reviewed imaging, laboratory and diagnostic studies. Pertinent findings as below. WBCs 14.0 Hemoglobin 10.3 Potassium 3.4 Sodium 133 Creatinine 0.44 Phosphorus 1.9, improving Magnesium 1.8 (3) DKA (diabetic ketoacidosis) Diabetes mellitus complication detail: without coma Diabetes mellitus type: type 1 Qualified Code(s): E10.10 - Type 1 diabetes mellitus with ketoacidosis without coma
--- NOTE | 2024-10-31 13:30 | Anesthesiology Progress Note ---
Date of Service October 31, 2024 Anesthesia Post Procedure Vital Signs Vital Signs: Temp Pulse Pulse Pulse Resp BP Pulse Ox 10/31/24 13:00 36.8 C 97 H 16 106/65 97 10/31/24 12:45 36.8 C 94 H 12 102/67 97 10/31/24 12:35 36.8 C 96 H 14 104/69 97 10/31/24 12:25 98 H 16 105/69 97 10/31/24 12:15 102 H 17 109/72 97 10/31/24 12:07 36.8 C 95 H 13 107/67 99 10/31/24 08:00 97 H 10/31/24 07:47 36.7 C 75 17 111/68 98 10/31/24 05:05 36.8 C 10/31/24 03:09 38.3 C H 106 H 18 110/68 97 10/31/24 01:00 10/30/24 22:28 37.8 C H 103 H 18 93/55 L 98 10/30/24 22:25 107 H 10/30/24 19:45 10/30/24 19:30 38.1 C H 115 H 18 103/63 99 10/30/24 15:38 107 H 10/30/24 15:21 37.6 C H 115 H 18 92/54 L 98 Pulse Ox O2 Del Method O2 Del Method 10/31/24 13:00 Room Air 10/31/24 12:45 Room Air 10/31/24 12:35 Room Air 10/31/24 12:25 Room Air 10/31/24 12:15 Room Air 10/31/24 12:07 Room Air 10/31/24 08:00 10/31/24 07:47 Room Air 10/31/24 05:05 10/31/24 03:09 Room Air 10/31/24 01:00 98 Room Air 10/30/24 22:28 Room Air 10/30/24 22:25 10/30/24 19:45 Room Air 10/30/24 19:30 Room Air 10/30/24 15:38 10/30/24 15:21 Room Air Transfer of Care Handoff Completed per policy Notes Mental Status: alert / awake / arousable Patient Amnestic to Procedure: Yes Nausea / Vomiting: adequately controlled Pain: adequately controlled Airway Patency, RR, SpO2: stable & adequate BP & HR: stable & adequate Hydration State: stable & adequate Anesthetic Complications: no major complications apparent and Pt Satisfied with anesthetic care
[2024-10-31] MEDS: Nursing to Pharmacy Communication SCH (13:34)
[2024-10-31] MEDS: INSULIN ASPART PER UNIT CHARGE SC STA (14:28)
[2024-10-31] MEDS ORDERED: GLIMEPIRIDE 2 MG TAB PO SCH (17:00)
[2024-10-31] MEDS: ASCORBIC ACID 500 MG TAB PO SCH (17:42)
[2024-10-31 18:44] LABS: Hematocrit (blood only) 29.4 % (42.0-52.0); Hemoglobin 10.1 g/dl (14.0-18.0); Immature Granulocytes # (auto) 0.05 K/uL (0.01-0.20); Immature Granulocytes % (auto) 0.5 %; Mean Corpuscular Hemoglobin 29.1 pg (25.0-34.0); Mean Corpuscular Volume 84.7 fL (80.0-100.0); Platelet Count 355 K/uL (130-400); RDW Standard Deviation 37.5 fL (36.4-46.3); Red Blood Count 3.47 M/uL (4.70-6.10); White Blood Count 9.22 K/ul (4.8-10.8)
[2024-10-31 19:01] LABS: Anion Gap 6.0 (3-11); Blood Urea Nitrogen 7.0 mg/dl (6-23); Calcium 7.1 mg/dl (8.6-10.3); Carbon Dioxide 27.0 mmol/L (21-32); Chloride 104.0 mmol/L (98-107); Creatinine Clr Calc Pharmacy 230.7 ml/min; Glucose 95.0 mg/dl (70-99(Fasting)); Magnesium 1.7 mg/dl (1.7-2.4); Potassium 3.6 mmol/L (3.5-5.1); Sodium 137.0 mmol/L (136-145)
[2024-10-31] MEDS: CALCIUM GLUCONATE 1,000 MG/60 ML BAG IV STA (19:56)
[2024-10-31] MEDS: POTASSIUM PHOSPHATE 24 MMOL in SODIUM CHLORIDE 0.9% 500 ML IV ONE (20:14)
[2024-10-31] MEDS: POTASSIUM PHOS 3 MMOL/1 ML INFUSION IV STA (20:15)
[2024-10-31] MEDS ORDERED: NON-FORMULARY MEDICATION (Insulin Glargine [Lantus Solostar U-100 Insulin] 100 unit/mL (3 SQ SCH (21:00)
[2024-10-31] MEDS ORDERED: ACETAMINOPHEN 1,000 MG/100 ML VIAL IV PRN (21:51)
[2024-10-31] MEDS: ONDANSETRON INJ 2 MG/ML 2 ML VIAL IV PRN (21:59)
[2024-10-31] MEDS: MAGNESIUM SULFATE / D5W 1 GM/100 ML BAG IV SCH (22:00)
[2024-10-31] MEDS: SENNA 8.6 MG TAB PO SCH (23:02)
[2024-10-31] MEDS: ASPIRIN 81 MG ECTAB PO SCH (23:03)
[2024-10-31] MEDS: DOCUSATE SODIUM 100 MG CAP PO SCH (23:03)
[2024-11-01] MEDS: INSULIN ASPART PER UNIT CHARGE SC SCH (02:27)
[2024-11-01 06:18] LABS: Hematocrit (blood only) 28.3 % (42.0-52.0); Hemoglobin 9.7 g/dl (14.0-18.0); Mean Corpuscular Hemoglobin 29.1 pg (25.0-34.0); Mean Corpuscular Volume 85.0 fL (80.0-100.0); Platelet Count 376 K/uL (130-400); RDW Standard Deviation 38.2 fL (36.4-46.3); Red Blood Count 3.33 M/uL (4.70-6.10); White Blood Count 10.70 K/ul (4.8-10.8)
[2024-11-01 06:53] LABS: Anion Gap 5.0 (3-11); Blood Urea Nitrogen 6.0 mg/dl (6-23); Calcium 7.2 mg/dl (8.6-10.3); Carbon Dioxide 29.0 mmol/L (21-32); Chloride 101.0 mmol/L (98-107); Creatinine Clr Calc Pharmacy 243.4 ml/min; Glucose 98.0 mg/dl (70-99(Fasting)); Magnesium 2.1 mg/dl (1.7-2.4); Potassium 3.8 mmol/L (3.5-5.1); Sodium 135.0 mmol/L (136-145)
[2024-11-01] MEDS: LANTUS PER UNIT CHARGE SC ONE (08:05)
[2024-11-01] MEDS: MULTIVITAMIN TAB PO SCH (08:07)
--- NOTE | 2024-11-01 10:24 | Orthopedic Progress Note ---
Date of Service November 01, 2024 Assessment & Plan (1) Amputation of right lower extremity below knee: Plan: 49-year-old poorly controlled diabetic now postop day 1 from right below-knee amputation for severe infection and bacteremia. He is doing much better. I t hink getting this infected foot and leg off was going to help him markedly and already has. White cell count is back down to normal. Clinically looks much better. Plan: At this point, we are going to just leave this dressing clean dry and in place hopefully for about 2 to 3 weeks to allow for wound healing. Strict elevation. I would recommend continue antibiotic management for the next 2 week s until I see him back in clinic. That he can be switched to p.o. antibiotics just broad-spectrum at any time. Will stop that likely 2 weeks postop if the wound looks good. Any orthopedic questions can be directly 8 04 11-5 to 04-09-2003 0. He is orthopedically okay for discharge anytime medically stable. Once again, I would recommend 2 weeks of p.o. antibiotics with broad-spectrum coverage may be Augmentin. Admission and Anticipated Discharge Date Admission Date: October 28, 2024 Subjective 49-year-old gentleman with very poorly controlled diabetes now postop day 1 from right below-knee amputation. He says he feels 95% better. Really not much pain. No new complaints. Physical Exam Physical Exam: Physical nation is a pleasant middle-aged male. He is sitting up in bed looks comfortable. Just looks much better than he did. The dressing is clean dry and intact. There is no drainage. Results & Data Vital Signs (Past 12 Hours) Vital Signs Temp Pulse Pulse Resp BP Pulse Ox Pulse Ox 11/01/24 07:40 37.0 C 113 H 18 128/85 97 11/01/24 07:30 102 H 11/01/24 03:00 37.3 C 98 H 18 107/73 97 11/01/24 01:00 98 10/31/24 23:00 36.9 C 98 H 18 103/71 98 O2 Del Method O2 Del Method 11/01/24 07:40 Room Air 11/01/24 07:30 11/01/24 03:00 Room Air 11/01/24 01:00 Room Air 10/31/24 23:00 Room Air Laboratory Results White blood cell count is normal at 10.70. Hemoglobin is 9.7. Hematocrit 28.3. Electrolytes are stable.
--- NOTE | 2024-11-01 12:40 | Hospitalist Progress Note ---
Date of Service November 01, 2024 Assessment & Plan (1) Severe sepsis with acute organ dysfunction: Plan: Blood cultures grew Streptococcus anginosus which is sensitive to ceftriaxone Wound culture grew Proteus Mirabilis which is sensitive to ceftriaxone He has been on intravenous ceftriaxone with decreasing white count and no fever and no chills Repeat blood cultures have been negative Will continue current antibiotic Echo of the heart did not show any obvious vegetation and the EF noted to be 40 to 45% with hypokinesis of the inferolateral and inferior wall DVT prophylaxis aspirin 81 mg twice daily (2) Streptococcal bacteremia: (3) DKA (diabetic ketoacidosis): Plan: hemoglobin A1c was 14.0 on 10/29/2024 Blood sugar has been stable Has been on insulin as per recommendation from glycemic pharmacist (4) Osteomyelitis of foot, right, acute: Plan: Status post right BKA Appreciate Ortho input and recommendation (5) Type 2 diabetes mellitus with diabetic neuropathy: (6) Diabetic ulcer of toe of left foot associated with type 2 diabetes mellitus: (7) Diabetic foot infection: (8) Mood disorder: (9) Hypophosphatemia: (10) Electrolyte abnormality: Plan: Electrolytes have been normalized Plan Patient 49-year-old gentleman with known diabetes presents with DKA and severe sepsis with organ dysfunction due to Streptococcus bacteremia and right lower extremity infection and osteomyelitis. Continue ceftriaxone, Proteus and Streptococcus sensitive Follow surveillance blood cultures Patient undergoing BKA today, postoperative care as directed by orthopedics Continue to monitor glucose and manage with insulin Continue to replace electrolytes and monitor Echocardiogram in light of the bacteremia, rule out endocarditis Admission and Anticipated Discharge Date Admission Date: October 28, 2024 Subjective 11/01/2024 The patient was seen and examined in telemetry unit He is status post right BKA on 10/31/2024 and he has been doing much better with minimal pain at the surgery site Denies any other significant symptoms Review of Systems Review of Systems: All systems reviewed and are unremarkable except as noted below Physical Exam Physical Exam: Lying in bed without any acute distress Constitutional: + ill appearing and average body habitus Eyes: PERRL, conjunctivae normal, anicteric sclerae ENMT: external ear and nose normal, oropharynx normal Neck: trachea midline, no thyromegaly Respiratory: no respiratory distress Auscultation: lungs clear to auscultation bilaterally Cardiovascular: Rate/Rhythm: regular rate and regular rhythm; not tachycardic Heart Sounds: normal S1 and normal S2; no murmur Extremities: + edema (Trace edema left LE .left foot is cold to touch but no neurodeficit) Gastrointestinal (Abdomen): Inspection/Auscultation: normal bowel sounds; abdomen not distended Percussion/Palpation: abdomen soft; abdomen nontender Musculoskeletal: status post right BKA and no acute arthritis involving any of the joint Neurologic: normal touch/pain/proprioception and moves all extremities ( status post right BKA); no focal motor deficits Lymphatic: no cervical or axillary lymphadenopathy Results & Data Results & Data Vital Signs (Past 12 Hours) Vital Signs Temp Pulse Pulse Resp BP Pulse Ox Pulse Ox 11/01/24 11:47 36.6 C 113 H 20 112/73 98 11/01/24 07:40 37.0 C 113 H 18 128/85 97 11/01/24 07:30 102 H 11/01/24 03:00 37.3 C 98 H 18 107/73 97 11/01/24 01:00 98 O2 Del Method O2 Del Method 11/01/24 11:47 Room Air 11/01/24 07:40 Room Air 11/01/24 07:30 11/01/24 03:00 Room Air 11/01/24 01:00 Room Air Laboratory Results Short CBC 10/31/24 11/01/24 Range/Units 18:28 05:40 WBC 9.22 10.70 (4.8-10.8) K/ul Hgb 10.1 L 9.7 L (14.0-18.0) g/dl Hct 29.4 L 28.3 L (42.0-52.0) % Plt Count 355 376 (130-400) K/uL BMP 10/31/24 11/01/24 18:28 05:40 Sodium 137 135 L Potassium 3.6 3.8 Chloride 104 101 Carbon Dioxide 27 29 BUN 7 6 Creatinine 0.43 L 0.43 L Glucose 95 98 Calcium 7.1 L 7.2 L Medications Administered Current Inpatient Medications Acetaminophen (Acetaminophen 325 Mg Tab) 650 mg PO Q4H PRN PRN Reason: Pain or Fever Stop: 11/28/24 01:26 Last Admin: 10/30/24 20:12 Dose: 650 mg Al Hydrox/Mg Hydrox/Simethicone (Aluminum/Magnesium Susp 30 Ml Udc) 15 ml PO Q4H PRN PRN Reason: Heartburn Stop: 11/30/24 13:02 Ascorbic Acid (Ascorbic Acid 500 Mg Tab) 500 mg PO BIDM [facility] Stop: 11/30/24 16:59 Last Admin: 11/01/24 08:06 Dose: 500 mg Aspirin (Aspirin 81 Mg Ectab) 81 mg PO BID BETTY Stop: 11/30/24 20:59 Last Admin: 11/01/24 08:07 Dose: 81 mg Bisacodyl (Bisacodyl 10 Mg Supp) 10 mg [place] DAILY PRN PRN Reason: Constipation Stop: 11/30/24 13:02 Dextrose (Dextrose 50% 50 Ml Syringe) 25 - 50 ml IV UD PRN; Protocol PRN Reason: Hypoglycemia Protocol Stop: 11/27/24 23:01 Docusate Sodium (Docusate Sodium 100 Mg Cap) 100 mg PO BID BETTY Stop: 11/30/24 20:59 Last Admin: 11/01/24 08:07 Dose: Not Given Glucagon (Glucagon For Inj 1 Mg Vial) 1 mg SQ UD PRN; Protocol PRN Reason: Hypoglycemia Protocol Stop: 11/27/24 23:01 Glucose (Glucose 40% Gel 15 Gm Tube) 15 - 30 gm PO UD PRN; Protocol PRN Reason: Hypoglycemia Protocol Stop: 11/27/24 23:01 Glucose (Glucose 10 Tab/Tube) 4 - 8 tab PO UD PRN; Protocol PRN Reason: Hypoglycemia Protocol Stop: 11/27/24 23:01 Hydromorphone HCl (Hydromorphone Inj 0.5 Mg/0.5 Ml Syr) 0.5 mg IV Q4H PRN PRN Reason: Pain or Pre PT Stop: 11/14/24 13:02 Ceftriaxone Sodium (Rocephin) 2,000 mg in 50 mls @ 100 mls/hr IV Q24H BETTY Stop: 12/11/24 13:29 Last Admin: 11/01/24 12:32 Dose: 100 mls/hr Acetaminophen (Ofirmev) 1,000 mg in 100 mls @ 400 mls/hr IV Q8H PRN PRN Reason: Pain or Fever Stop: 11/03/24 21:50 Insulin Aspart (Insulin Aspart Per Unit Charge) 0 units SC ACHS [facility] Stop: 11/30/24 05:59 Last Admin: 11/01/24 12:18 Dose: 10 units Insulin Glargine (Lantus Per Unit Charge) 0 units SC HS [facility]; Protocol Stop: 11/30/24 20:59 Last Admin: 10/31/24 21:35 Dose: Not Given Magnesium Hydroxide (Magnesium Hydroxide Susp 30 Ml Udc) 30 ml PO Q6H PRN PRN Reason: Constipation Stop: 11/30/24 13:02 Metoclopramide HCl (Metoclopramide Hcl Inj 5 Mg/Ml 2 Ml Vial) 10 mg IV Q6H PRN PRN Reason: Nausea And Vomiting Stop: 11/30/24 13:02 Miscellaneous (Carbohydrates For Hypoglycemia ) 15 - 30 gm PO UD PRN PRN Reason: Hypoglycemia Protocol Stop: 11/27/24 23:01 Miscellaneous Information (Pharmacy Glycemic Mgmt Consult) 1 each N/A UD PRN PRN Reason: Consult Stop: 11/28/24 01:26 Multivitamins (Multivitamin Tab) 1 tab PO QAM [facility] Stop: 12/01/24 08:59 Last Admin: 11/01/24 08:07 Dose: 1 tab Naloxone HCl (Naloxone Hcl 0.4 Mg/1 Ml Vial/Carp) 0.1 mg IV Q5M PRN PRN Reason: Oversedation/Resp Depression Stop: 11/30/24 13:02 Nitroglycerin (Nitroglycerin Sl 0.4 Mg/Tab Tab) 0.4 mg SL Q5M PRN PRN Reason: Chest Pain Stop: 11/28/24 01:26 Ondansetron HCl (Ondansetron Inj 2 Mg/Ml 2 Ml Vial) 4 mg IV Q6H PRN PRN Reason: Nausea And Vomiting Stop: 11/30/24 13:02 Last Admin: 11/01/24 11:16 Dose: 4 mg Oxycodone HCl (Oxycodone Hcl Ir 5 Mg Tab (Immediate Release)) 5 - 10 mg PO Q4H PRN PRN Reason: Pain or Pre PT Stop: 11/14/24 13:02 Last Admin: 11/01/24 11:16 Dose: 5 mg Polyethylene Glycol (Polyethylene (Miralax) 17 Gm Pack) 17 gm PO DAILY PRN PRN Reason: Constipation Stop: 11/28/24 01:26 Potassium Phosphate (Pot Phosphate Monobasic W/ Sod Tab) 2 tab PO QID [facility] Stop: 11/30/24 08:59 Last Admin: 11/01/24 12:21 Dose: 2 tab Sennosides (Senna 8.6 Mg Tab) 17.2 mg PO HS [facility] Stop: 11/30/24 20:59 Last Admin: 10/31/24 23:02 Dose: 17.2 mg (3) DKA (diabetic ketoacidosis) Diabetes mellitus complication detail: without coma Diabetes mellitus type: type 1 Qualified Code(s): E10.10 - Type 1 diabetes mellitus with ketoacidosis without coma
[2024-11-02] MEDS: MELATONIN 3 MG TAB PO PRN (02:38)
[2024-11-02 06:54] LABS: Hematocrit (blood only) 33.0 % (42.0-52.0); Hemoglobin 11.3 g/dl (14.0-18.0); Immature Granulocytes # (auto) 0.08 K/uL (0.01-0.20); Immature Granulocytes % (auto) 1.1 %; Mean Corpuscular Hemoglobin 30.1 pg (25.0-34.0); Mean Corpuscular Volume 87.8 fL (80.0-100.0); Platelet Count 372 K/uL (130-400); RDW Standard Deviation 38.8 fL (36.4-46.3); Red Blood Count 3.76 M/uL (4.70-6.10); White Blood Count 7.45 K/ul (4.8-10.8)
[2024-11-02 07:11] LABS: Anion Gap 5.0 (3-11); Blood Urea Nitrogen 10.0 mg/dl (6-23); Calcium 7.8 mg/dl (8.6-10.3); Carbon Dioxide 31.0 mmol/L (21-32); Chloride 96.0 mmol/L (98-107); Creatinine Clr Calc Pharmacy 158.3 ml/min; Glucose 281.0 mg/dl (70-99(Fasting)); Magnesium 2.0 mg/dl (1.7-2.4); Potassium 4.1 mmol/L (3.5-5.1); Sodium 132.0 mmol/L (136-145)
--- NOTE | 2024-11-02 07:44 | Orthopedic Progress Note ---
Date of Service November 02, 2024 Assessment & Plan (1) Amputation of right lower extremity below knee: Plan: 49-year-old gentleman 2 days out from a right below-knee amputation for severe right leg infection. He is doing much better.Blood glucose still not ideally controlled. Plan: From the orthopedic standpoint we will leave this bandage/dressing on for the next 2 to 3 weeks. I would recommend he stay on some oral broad-spectrum antibiotics till we see him back in 2 to 3 weeks. He is okay for discharge anytime and medically stable. Certainly could benefit from better blood glucose control. Any orthopedic questions can be directly [phone]. Admission and Anticipated Discharge Date Admission Date: October 28, 2024 Subjective 49-year-old poorly controlled diabetic postop day 2 from right below-knee amputation. He is doing well. Pain has been controlled. No new complaints. And feeling much better. Physical Exam Physical Exam: Physical relation was a pleasant middle-age male. He is lying in bed looks quite comfortable. Examination of the right leg reveals a dressing be clean dry and intact. He can do a good leg lift. Results & Data Vital Signs (Past 12 Hours) Vital Signs Temp Pulse Pulse Resp BP Pulse Ox Pulse Ox 11/02/24 07:12 37.1 C 99 H 22 95/61 L 97 11/02/24 04:16 37.0 C 106 H 18 95/63 L 99 11/02/24 01:00 98 11/01/24 22:16 107 H O2 Del Method O2 Del Method 11/02/24 07:12 Room Air 11/02/24 04:16 Room Air 11/02/24 01:00 Room Air 11/01/24 22:16 Laboratory Results White blood cell counts 7.45. Hemoglobin is 11.3. Macro is 33.0 blood glucose is still pretty elevated.
[2024-11-02] MEDS: LANTUS PER UNIT CHARGE SC ONE (08:19)
--- NOTE | 2024-11-02 12:22 | Hospitalist Progress Note ---
Date of Service November 02, 2024 Assessment & Plan (1) Severe sepsis with acute organ dysfunction: Plan: Resolved (2) Streptococcal bacteremia: (3) DKA (diabetic ketoacidosis): Plan: Resolved (4) Osteomyelitis of foot, right, acute: Plan: Status post right BKA (5) Type 2 diabetes mellitus with diabetic neuropathy: (6) Diabetic ulcer of toe of left foot associated with type 2 diabetes mellitus: (7) Diabetic foot infection: (8) Mood disorder: (9) Hypophosphatemia: (10) Electrolyte abnormality: (11) NSVT (nonsustained ventricular tachycardia): Plan Patient continuing to improve status post BKA. Continue to manage glucose, with insulin and assistance of pharmacy Continue IV antibiotics, can transition to oral antibiotics when discharge is planned Case management continue to pursue rehab evaluation Monitor laboratory studies intermittently as needed Follow-up with orthopedics in the office as coordinated through your office in approximately 2 weeks [facility] Admission and Anticipated Discharge Date Admission Date: October 28, 2024 Subjective Patient states he is starting to feel better. Pain is controlled. Tolerating his diet. Physical Exam Physical Exam: Constitutional: Alert, underweight, nontoxic HEENT: Mucous membranes moist. Lungs: Clear to auscultation, decreased, no wheezes rales or rhonchi CV: S1-S2, regular Abdomen: Soft, nontender, nondistended Extremities: Right BKA stump and Trino compression wrap Neuro: No focal deficits Psych: Cooperative, normal mood Results & Data Results & Data Vital Signs (Past 12 Hours) Vital Signs Temp Pulse Pulse Resp BP BP Pulse Ox 11/02/24 10:49 88/55 L 11/02/24 10:46 36.6 C 102 H 20 100/66 97 11/02/24 08:49 99 H 11/02/24 08:49 11/02/24 07:12 37.1 C 99 H 22 95/61 L 97 11/02/24 04:16 37.0 C 106 H 18 95/63 L 99 11/02/24 01:00 Pulse Ox O2 Del Method O2 Del Method 11/02/24 10:49 11/02/24 10:46 Room Air 11/02/24 08:49 11/02/24 08:49 Room Air 11/02/24 07:12 Room Air 11/02/24 04:16 Room Air 11/02/24 01:00 98 Room Air Diagnostic Findings Reviewed imaging, laboratory and diagnostic studies. Pertinent findings as below. Surveillance blood cultures sterile to date Magnesium 2.0 Potassium 4.1 WBC 7.5 Hemoglobin 11.3 Reviewed telemetry, no arrhythmias (3) DKA (diabetic ketoacidosis) Diabetes mellitus complication detail: without coma Diabetes mellitus type: type 1 Qualified Code(s): E10.10 - Type 1 diabetes mellitus with ketoacidosis without coma
--- NOTE | 2024-11-02 13:39 | Pharmacy Report ---
Pharmacy Glycemic Short Note 2 - Date of Service November 02, 2024 - Glycemic Short BSG Results (Last 24 hours): 11/01/24 11/01/24 11/02/24 16:21 20:21 06:13 Glucose 281 H POC Glucose 126 H 138 H 11/02/24 11/02/24 11/02/24 07:16 07:18 11:15 Glucose POC Glucose 329 H* 262 H 112 H OUTPATIENT ANTIDIABETIC REGIMEN: * Lantus 54 units SC qPM * Metformin 500 mg PO BID * Glimepiride 4 mg PO BID * Patient admits to non-compliance A1c = 14% (10/29/24) ASSESSMENT: 11/02/24: * Blood sugars have been well-controlled over past 48 hours * Patient requiring 50-61 units of insulin/day * Fasting blood sugar increased today w/ decreased basal yesterday 10/29/24 * Aj is a 49 yo T2DM admitted with DKA and right diabetic foot infection. * Patient was started on IV insulin infusion on 10/28/24 per the DKA/[facility] protocol. There is evidence of resolution of DKA on AM labs (anion gap 6, bicarb 22). BSG at goal thus far today. A one time dose of Lantus was overlapped with IV insulin infusion - infusion discontinued around 1230. * I am hesitant to base SC insulin doses off home regimen given reported non- compliance. Will utilize a combination of weight based dosing and past admission data (Lantus 30-40 units, CF 15, CR 5 during October 2022 admission). * Patient is NPO for possible R BKA on 10/30 PLAN FOR INPATIENT GLYCEMIC CONTROL: * Hold outpatient oral diabetes medications * Basal insulin * Lantus 30 units SC daily * Lantus 0-5-10 units SC HS * Move basal towards once daily at HS as able * Bolus insulin * NovoLog per scale ACHS or Q6hrs while NPO * Goal Range: Low 110 mg/dL - High 140 mg/dL * Correction Factor: 35 mg/dL/unit * Nutritional / Prandial insulin per carb ratio of 1 unit per 8 grams CHO consumed
[2024-11-02] MEDS: ENOXAPARIN INJ 40 MG/0.4 ML SYR SQ SCH (15:21)
[2024-11-02] MEDS: SODIUM CHLORIDE 0.9% 500 ML IV ONE (15:24)
[2024-11-02] MEDS: MIDODRINE HCL 2.5 MG TAB PO SCH (16:51)
[2024-11-03] MEDS: LANTUS PER UNIT CHARGE SC SCH (08:22)
[2024-11-03] MEDS: SODIUM CHLORIDE 0.9% 500 ML IV ONE (08:24)
[2024-11-03 10:23] LABS: Hematocrit (blood only) 32.6 % (42.0-52.0); Hemoglobin 10.7 g/dl (14.0-18.0); Mean Corpuscular Hemoglobin 29.1 pg (25.0-34.0); Mean Corpuscular Volume 88.6 fL (80.0-100.0); Platelet Count 420 K/uL (130-400); RDW Standard Deviation 39.4 fL (36.4-46.3); Red Blood Count 3.68 M/uL (4.70-6.10); White Blood Count 13.10 K/ul (4.8-10.8)
[2024-11-03 10:39] LABS: Anion Gap 6.0 (3-11); Blood Urea Nitrogen 19.0 mg/dl (6-23); Calcium 7.7 mg/dl (8.6-10.3); Carbon Dioxide 28.0 mmol/L (21-32); Chloride 99.0 mmol/L (98-107); Creatinine Clr Calc Pharmacy 148.6 ml/min; Glucose 292.0 mg/dl (70-99(Fasting)); Magnesium 1.7 mg/dl (1.7-2.4); Potassium 3.9 mmol/L (3.5-5.1); Sodium 133.0 mmol/L (136-145)
--- NOTE | 2024-11-03 11:19 | Hospitalist Progress Note ---
Date of Service November 03, 2024 Assessment & Plan (1) Severe sepsis with acute organ dysfunction: Plan: Resolved (2) Streptococcal bacteremia: (3) DKA (diabetic ketoacidosis): Plan: Resolved (4) Osteomyelitis of foot, right, acute: Plan: Status post right BKA (5) Type 2 diabetes mellitus with diabetic neuropathy: (6) Diabetic ulcer of toe of left foot associated with type 2 diabetes mellitus: (7) Diabetic foot infection: (8) Mood disorder: (9) Hypophosphatemia: Plan: Resolved (10) Electrolyte abnormality: Plan: Improved (11) NSVT (nonsustained ventricular tachycardia): Plan: Isolated, no recurrence,In the setting of electrolyte abnormalities Plan Patient is recovering well from his BKA and strep bacteremia. Continue ceftriaxone while in the hospital Patient with some orthostasis yesterday with therapies. Improving with fluid bolus. Giving additional fluid bolus today. Titrate midodrine to off as able Continue therapies Patient accepted to [facility]. Anticipate if patient does well with therapies and orthostasis improves today can be discharged to [facility] tomorrow. Orthopedic note reviewed, maintain Trino wrap in place until patient follow-up in their office in approximately 2 weeks Growing evidence supports transitioning to oral antibiotics for gram-positive bacteremia especially if source control has been obtained. Reviewing sensitivities would recommend transitioning to oral levofloxacin daily at the time of discharge and to continue for 2 weeks. Admission and Anticipated Discharge Date Admission Date: October 28, 2024 Subjective Patient this morning states he is definitely feeling improved. States he got to the bedside commode without any lightheadedness or dizziness. Yesterday was significantly orthostatic when tried to a participate with therapy. Seems to be responding to the midodrine and fluid bolus. He is eager to get started with additional rehabilitation. Physical Exam Physical Exam: Constitutional: Alert, nontoxic, significantly improved in appearance compared to admission HEENT: Mucous membranes moist. Lungs: Clear to auscultation, decreased, no wheezes rales or rhonchi CV: S1-S2, regular Abdomen: Soft, nontender, nondistended Extremities: Right BKA stump and Trino compression wrap Neuro: No focal deficits, weakness improving Psych: Cooperative, normal mood Results & Data Results & Data Vital Signs (Past 12 Hours) Vital Signs Temp Pulse Resp BP Pulse Ox O2 Del Method 11/03/24 08:25 37.6 C H 108 H 18 112/65 94 Room Air 11/03/24 03:38 36.7 C 99 H 18 100/67 97 Room Air 11/02/24 23:22 36.8 C 106 H 17 83/50 L 95 Room Air Diagnostic Findings Reviewed imaging, laboratory and diagnostic studies. Pertinent findings as below. WBCs 13.1, suspect reactive due to DKA Hemoglobin 10.7, stable Sodium 133 Potassium 3.9 Phosphorus 2.5 Magnesium 1.7 Surveillance blood cultures remain sterile greater than 48 hours (3) DKA (diabetic ketoacidosis) Diabetes mellitus complication detail: without coma Diabetes mellitus type: type 1 Qualified Code(s): E10.10 - Type 1 diabetes mellitus with ketoacidosis without coma
[2024-11-03] MEDS: MAGNESIUM OXIDE 400 MG TAB PO SCH (12:11)
[2024-11-04 07:43] LABS: Hematocrit (blood only) 32.7 % (42.0-52.0); Hemoglobin 10.9 g/dl (14.0-18.0); Mean Corpuscular Hemoglobin 29.5 pg (25.0-34.0); Mean Corpuscular Volume 88.6 fL (80.0-100.0); Platelet Count 404 K/uL (130-400); RDW Standard Deviation 38.2 fL (36.4-46.3); Red Blood Count 3.69 M/uL (4.70-6.10); White Blood Count 9.07 K/ul (4.8-10.8)
[2024-11-04 08:07] LABS: Anion Gap 4.0 (3-11); Blood Urea Nitrogen 16.0 mg/dl (6-23); Calcium 7.9 mg/dl (8.6-10.3); Carbon Dioxide 33.0 mmol/L (21-32); Chloride 98.0 mmol/L (98-107); Creatinine Clr Calc Pharmacy 172.4 ml/min; Glucose 289.0 mg/dl (70-99(Fasting)); Magnesium 1.9 mg/dl (1.7-2.4); Potassium 4.1 mmol/L (3.5-5.1); Sodium 135.0 mmol/L (136-145)
--- NOTE | 2024-11-04 10:02 | Discharge Summary ---
Date of Service November 04, 2024 Admission HPI Per Admitting Provider 49-year-old male with past med history significant for type 2 diabetes, dyslipidemia, history of subacute osteomyelitis of left foot, adjustment disorder with depressed mood presents with DKA and significant infection of the right lower extremity. Patient states stopped taking his medications about 3 months ago. Patient says he just gave up. He says he noticed a wound in the right lower extremity for few days. Seems when he came in the wound was very malodorous smelling. Currently the wound is the dressing. But able to see the pictures. Very deep wounds in right heel and right calf region with black disco loration almost able to see bone. Hemodynamics are okay. Denies any headache. Denies runny nose or sore throat. Denies cough. Denies chest pain. Denies shortness of breath. Denies nausea. Denies abdominal pain. Normal bowel and bladder movements. Past medical history. As mentioned above. Past surgical history. Open wound debridement left big toe. Social history. . No smoking. States last time he drank alcohol was 5 years ago. Smokes marijuana daily Family history. Father has diabetes. Hypertension. Mother has diabetes. Admission Exam Per Admitting Provider General- Not in distress. Head- atraumatic Eyes- PERRL. ENT- oropharynx dry Neck- supple, no JVD. Lungs- clear to auscultation no wheezing or crackles Heart- regular rhythm; tachycardia, no murmur, no gallop. Abdomen- normal bowel sounds, soft, nontender, no distension Extremities- right lower extremity wounds in dressing Neuro- alert, oriented PERRL, no facial palsy; no dysarthria; moves extremities Principal Diagnosis DKA, leg and foot infection, s/p Right Below Knee Amputation Discharge Exam Constitutional: WE/WN M in NAD HEENT: NC/AT, Mucous membranes moist. Lungs: Clear to auscultation, decreased, no wheezes rales or rhonchi CV: regular Abdomen: Soft, nontender, nondistended Extremities: Right BKA stump and Trino compression wrap Neuro: awake, alert, oriented, answers appropriately, speech fluent, moves extremities Psych: Cooperative, normal mood Discharge Data Allergies Allergy/AdvReac Type Severity Reaction Status Date / Time pollen extracts Allergy Intermediate ITCHY Verified 10/28/24 23:04 EYES, SNEEZING, CONGESTION Consultations 10/28/24 23:03 ED Decision to Admit Stat 10/29/24 08:00 Consult Podiatry Routine 10/29/24 08:28 Consult Orthopedic Surgery Routine Procedures Performed Operation Date: 10/31/24 09:00 Actual Procedures p Right Below the Knee Amputation(Right) - Niall Vela MD Ordered Studies 10/28/24 21:54 US venous doppler LE RT Stat IMPRESSION: Negative right lower extremity duplex venous ultrasound. No evidence of DVT. 10/29/24 08:17 MRI Leg [MR lower leg RT wo/w con] Routine IMPRESSION: 1. Limited motion degraded exam. 2. Findings suggestive of cellulitis of the lower leg and ankle without abscess. 3. No evidence of osteomyelitis. 4. Chronic denervation changes of the musculature with possible peroneal infectious myositis/tenosynovitis. 10/29/24 08:57 MR foot RT wo/w con Routine IMPRESSION: 1. Limited exam. 2. Heel ulcer with acute osteomyelitis of the calcaneus, only imaged on the axial series as a foot MRI is tailored to assess the forefoot structures (MR ankle is the study to assess the hindfoot). 3. Cellulitis without evidence of abscess. Large amount of subcutaneous/deep tissue gas throughout the foot may be secondary to air introduced through the heel ulcer or may be secondary to gas-forming organism (fasciitis/gas gangrene) 4. Chronic denervation change. No abscess identified. 10/31/24 10:15 US - OR guided needle placemen Stat Hospital Course (1) Severe sepsis with acute organ dysfunction: Resolved (2) Streptococcal bacteremia: (3) DKA (diabetic ketoacidosis): Resolved Hgb A1c 14% Glycemic pharmacy consulted while inpt and shooter's helper consulted, cont. insulin (4) Osteomyelitis of foot, right, acute: Status post right BKA (5) Type 2 diabetes mellitus with diabetic neuropathy: (6) Diabetic ulcer of toe of left foot associated with type 2 diabetes mellitus: (7) Diabetic foot infection: (8) Mood disorder: (9) Hypophosphatemia: Resolved (10) Electrolyte abnormality: Improved (11) NSVT (nonsustained ventricular tachycardia): Isolated, no recurrence,In the setting of electrolyte abnormalities Plan Diabetic foot infection, bacteremia Patient is recovering well from his BKA and strep bacteremia. Continued ceftriaxone while in the hospital. Was switched to po levaquin to finish antibiotic course as outpatient. (As per previous note : Growing evidence supports transitioning to oral antibiotics for gram-positive bacteremia especially if source control has been obtained. Reviewing sensitivities would recommend transitioning to oral levofloxacin daily at the time of discharge and to continue for 2 weeks.) Titrate midodrine to off as able Continue therapies Patient accepted to [facility]. Plan to DC to [facility] today. Orthopedic note reviewed, maintain Trino wrap in place until patient follow-up in their office in approximately 2 weeks Total Time Total Time Spent Total Time Spent (In Minutes): 40 Discharge Plan Discharge Items Patient Disposition: Transfer Care Home Fac Reason For Visit: DKA,RIGHT LEG AND FOOT INFECTION Discharge Diagnosis: DKA, leg and foot infection, s/p Right Below Knee Amputation Condition on Discharge: Fair Activity: Per Instructions section Activity Comment: ELevate right leg as much as possible Weightbearing Comment: Nonweightbearing right lower extremity Non-emergency contact: Primary Care Provider and Surgeon Call non-emergency contact if: your symptoms worsen and your pain is concerning for you Follow-up/Referrals: Niall Vela MD [Physician] - (Orthopedic follow-up 2-3 weeks from surgery date.) PCP,NO [Primary Care Provider] - Diet: Carb Consistent or DM2 Addtl Attending Provider Instructions: Keep dressing clean, dry, and in place until Orthopedic follow-up in 2-3 weeks Finish antibiotic course with Levaquin as prescribed. Follow up with primary care physician within 1 week after being discharged from rehab. 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 2.) Metformin ER 750mg x 1 AM. 3.) Discontinue Glimepiride. 4.) Start Dexcom G7 CGM at time of discharge back home. Otherwise, check blood sugar 2x/day (fasting and another time). 5.) Aim to maintain blood sugar levels below 200 (ideally below 150 before meals) to support healing/continued recovery. 6.) Regular/balanced meals thru day + protein to support healing/strengthening. PRESCRIPTIONS NEEDED AT DISCHARGE: 1.) Lantus Solostar Pen. 2.) Pen Needle 32 gauge x 5/32"- to inject 1x/day. Non-branded. Insurance requires frequency of use (1x/day) be indicated on the prescription for coverage/dispensing purposes. 3.) Metformin. 4.) True Metrix Glucose Meter. 5.) True Metrix Glucose Test Strips- to check 3x/day. Insurance requires brand name (True Metrix) and frequency of use (3x/day) be indicated on the prescription for coverage/dispensing purposes. 6.) TRUEplus Lancets 30 gauge- to check 3x/day. Insurance requires brand name (TRUEplus) and frequency of use (3x/day) be indicated on the prescription for coverage/dispensing purposes. 7.) Dexcom G7 sensor. Change sensor every 10 days (3 sensors/30 days). Pending Studies at Discharge: No Stand-Alone Forms: My [facility] Skilled Items Patient informed of condition?: Yes DNR: No Discharge Level of Care: Skilled Communicable Disease: No Discharge Prognosis: Improving Lines: None Urinary Catheter: No Medications and DC Order Prescriptions: New insulin glargine [Lantus U-100 Insulin] 100 unit/mL Solution 45 unit SC DAILY Qty: 10 0RF aspirin 81 mg Tablet,Delayed Release (Dr/Ec) 81 mg PO BID 45 Days Qty: 90 0RF magnesium oxide 400 mg (241.3 mg magnesium) Tablet 400 mg PO BID 5 Days Qty: 10 0RF ascorbic acid (vitamin C) [Vitamin C] 500 mg Tablet 500 mg PO BIDM 30 Days Qty: 60 0RF insulin aspart U-100 [Novolog U-100 Insulin aspart] 100 unit/mL Solution 8 unit SC AC Qty: 10 0RF docusate sodium 100 mg Capsule 100 mg PO BID 10 Days Qty: 20 0RF Phospha 250 Neutral 250 mg Tablet 2 tab PO QID 5 Days Qty: 40 0RF midodrine 2.5 mg Tablet 2.5 mg PO TID@0800,1200,1700 Qty: 90 0RF oxycodone 5 mg Tablet 5 - 10 mg PO Q4H PRN (Reason: pain) Qty: 10 0RF levofloxacin 750 mg tablet 750 mg PO DAILY 14 Days Qty: 14 0RF Advanced Probiotic 625 mg (10 billion cell) Capsule 1 cap PO DAILY Qty: 14 0RF Continued (DME) OneTouch Verio test strips Strip See Rx Instructions .Route Qty: 100 0RF Rx Instructions: before meals and before bedtime (DME) lancets [OneTouch Delica Plus Lancet] 30 gauge misc See Rx Instructions .Route Qty: 100 0RF Rx Instructions: before meals and before bedtime; 4x/day (DME) pen needle, diabetic [Pen Needle] 32 gauge x 5/32" needle See Rx Instructions .Route Qty: 100 0RF Rx Instructions: 1x/day metformin 500 mg Tablet 500 mg PO BID Rx Instructions: pt admits doesnt take much Discontinued glimepiride 4 mg Tablet 4 mg PO BIDM Qty: 60 0RF Rx Instructions: pt admits doesnt take much insulin glargine [Lantus Solostar U-100 Insulin] 100 unit/mL (3 mL) insulin pen 54 unit subcut PM Rx Instructions: pt admits doesnt take much Discharge Orders: Discharge Order (Routine); Ordered 11/04/24 Ordered By: Leon Schneider Admission Data Admit Date/Time: 10/28/24 23:55 Attending Provider: Leon Schneider Admit Provider: Bret Tanner Primary Care Provider: PCP,NO Other Providers: Chris Marquez; Kavitha Hernandez; Bret Tanner; Kilo Miranda; Amari Vang
--- NOTE | 2024-11-04 10:56 | Pharmacy Report ---
Pharmacy Glycemic Short Note 2 - Date of Service November 04, 2024 - Glycemic Short BSG Results (Last 24 hours): 11/03/24 11/03/24 11/03/24 11:21 16:28 19:51 Glucose POC Glucose 153 H 207 H 168 H 11/04/24 11/04/24 07:02 07:35 Glucose 289 H POC Glucose 295 H OUTPATIENT ANTIDIABETIC REGIMEN: * Lantus 54 units SC qPM * Metformin 500 mg PO BID * Glimepiride 4 mg PO BID * Patient admits to non-compliance A1c = 14% (10/29/24) ASSESSMENT: 11/04/24: * Aj received 79 units of insulin yesterday (45 were basal) * Fasting BSG this AM elevated, will increase basal scale this evening, in an attempt to better control fasting BSGs * Carbohydrate ratio tightened, he continues on ceftriaxone IV for bacteremia. 11/02/24 * Blood sugars have been well-controlled over past 48 hours * Patient requiring 50-61 units of insulin/day * Fasting blood sugar increased today w/ decreased basal yesterday 10/29/24 * Aj is a 49 yo T2DM admitted with DKA and right diabetic foot infection. * Patient was started on IV insulin infusion on 10/28/24 per the DKA/[facility] protocol. There is evidence of resolution of DKA on AM labs (anion gap 6, bicarb 22). BSG at goal thus far today. A one time dose of Lantus was overlapped with IV insulin infusion - infusion discontinued around 1230. * I am hesitant to base SC insulin doses off home regimen given reported non- compliance. Will utilize a combination of weight based dosing and past admission data (Lantus 30-40 units, CF 15, CR 5 during October 2022 admission). * Patient is NPO for possible R BKA on 10/30 PLAN FOR INPATIENT GLYCEMIC CONTROL: * Hold outpatient oral diabetes medications * Basal insulin * Lantus 40 units SC daily * Lantus 10-20 units SC HS * Bolus insulin * NovoLog per scale ACHS or Q6hrs while NPO * Goal Range: Low 110 mg/dL - High 140 mg/dL * Correction Factor: 35 mg/dL/unit * Nutritional / Prandial insulin per carb ratio of 1 unit per 7 grams CHO consumed
[2024-11-04] MEDS: ADVANCED PROBIOTIC 625 MG CAPSULE PO SCH (11:00)
[2024-11-04 11:50] VITALS: PULSE 110; RESP 19; TEMP 98.2; O2SAT 97
[2024-11-04 13:05] VITALS: BP 122/78
== END 2024-11-04 13:43 | DRG 853 ==
LOC: ED 21:44 → 2S 23:55 → SUATTDRO 23:55 → 2S 10-29 01:00 → 3W 11-03 22:28

== ENCOUNTER 2025-01-25 18:42 | Inpatient (IN) ==
--- NOTE | 2025-01-25 19:57 | Emergency Department Note ---
Impression & Plan Left foot pain, Diabetes, Amputation of right lower extremity below knee ED Provider Note NAME: ROSA JOY AGE: 50 SEX: M : 1975 ARRIVES VIA: Ambulance INFORMANT: Patient ED PROVIDER(S): Jorge Coronel MD CHIEF COMPLAINT: left foot pain, referred PLAN: Disposition: Admit MEDICAL DECISION MAKING: The patient is a pleasant 50-year-old gentleman with a past medical history of diabetes, osteomyelitis, status post right BKA in November of this year, mood disorder who presents emergency department via EMS referred by urgent care after he presented there for evaluation of left foot pain and it was noted that his foot appeared cold and had weak pulses. On my evaluation the patient is in no acute distress, afebrile with heart in the 90s and vital signs otherwise stable. He appears clinically dry. Patient's left foot demonstrates cold left foot with erythema with delayed capillary fefill. Patient does have biphasic-triphasic PT AT and DP pulses on bedside Doppler. WBC, H/H and platelets within normal limits. Chemistry without metabolic acidosis. Electrolytes LFTs unremarkable. CPK within normal limits. High- sensitivity troponin 5.3, within normal limits. Lipase is normal. Procalcitonin is not elevated. X-ray of the left foot and ankle were negative for fracture or dislocation. Note is made of degenerative changes/arthritis. Venous and arterial ultrasound of the left leg were completed and were negative for arterial occlusion or DVT. Given the patient reports difficulty with mobility in the setting of his recent BKA and with his persistent acute on chronic left foot pain he does agree with plan for admission for further evaluation and management and possible PT OT and placement if indicated. Case was discussed with Dr. Peralta, [facility] who will evaluate the patient for admission. Further management per admitting team. Triage Nursing notes reviewed and agree them. Prior/external medical records reviewed Vital Signs: reviewed Differential diagnosis: DVT, musculoskeletal, infection, joint effusion, trauma, lymphedema, idiopathic, CHF, as well as other pathologies. ER treatment provided: See below. Diagnostics interpreted by me: ECG: Normal sinus rhythm, 88 bpm, no ectopy, incomplete right bundle branch block, no overt ST elevation or depression, QTc 464, QRS 98 Cardiac Monitoring: An order for continuous cardiac monitoring was placed and demonstrated Normal sinus rhythm, 88 bpm, no ectopy. Laboratory studies: See below Imaging studies: See below Consultation(s): Case was discussed with Dr. Peralta, [facility] hospitalist who will evaluate the patient for admission. HPI: Per MDM. ROS: See above HPI for pertinent positives & negatives. A total of 10 systems reviewed and were otherwise negative. VITALS:See Below PHYSICAL EXAMINATION: GENERAL: Awake, alert, in no distress HENT: Normocephalic, atraumatic. Oropharynx unremarkable. EYES: Normal conjunctiva. Sclera non-icteric. NECK: Supple. No nuchal rigidity. FROM. No JVD. RESPIRATORY: Clear to auscultation. CARDIAC: Regular rate, normal rhythm. Extremities warm and well perfused. Pulses equal. ABDOMEN: Soft, non-distended. No tenderness to palpation. No rebound or guarding. No masses. MUSCULOSKELETAL: Chest examination reveals no tenderness. The back is symmetrical on inspection without obvious abnormality. There is no CVA tenderness to palpation. No joint edema. LOWER EXTREMITIES: RLE BKA, LLE demonstrates cold left foot with erythema with delayed capillary refill of ~2 seconds. Biphasic-triphasic PT AT and DP pulses on bedside Doppler. NEURO: Normal sensorium. No sensory or motor deficits noted. SKIN: No rash or jaundice noted. Jorge Coronel MD Past Med/Surg History Problem List (Updated 01/26/25 @ 05:27 by Jorge Coronel MD) Left foot pain (Acute) NSVT (nonsustained ventricular tachycardia) Amputation of right lower extremity below knee (Acute) Electrolyte abnormality Osteomyelitis of foot, right, acute Severe sepsis with acute organ dysfunction Streptococcal bacteremia Hypophosphatemia Severe sepsis due to pneumococcus with acute organ dysfunction Ulcer of left lower leg Hyponatremia Osteomyelitis of second toe of left foot (Acute) Diabetic ulcer of toe of left foot associated with type 2 diabetes mellitus Cellulitis and abscess of lower extremity (Acute) Abrasion of toe, right, infected (Acute) Acute hyperglycemia (Acute) Cellulitis Encounter for pre-operative examination Mood disorder (Chronic) DVT prophylaxis MRSA (methicillin resistant Staphylococcus aureus) infection Diabetic infection of left foot (Acute) Sepsis (Acute) Lumbago (Chronic) Diabetes (Chronic) Medical History Uncontrolled diabetes mellitus with hyperglycemia Type 2 diabetes mellitus with diabetic neuropathy Hypertension DKA (diabetic ketoacidosis) Marijuana abuse Diabetic foot infection Surgical History History of back surgery History of incision and drainage right lower leg Family History Mother Diabetes Father Diabetes Social History Smoking Status: Never smoker Do You Dip or Chew Tobacco: No; Hx Alcohol Use: No Hx Substance Use: Yes Preferred Language: Tristanian Communication Ability: Effective Registered Diet Technician Required: No Beliefs That Will Affect Care: None marital status: Current Living Situation: Alone current occupational status: employed Feels Safe at Home: Yes Safety Concerns: Feels Safe At This Time Assistive Devices: Wheelchair Allergies Allergies Allergy/AdvReac Type Severity Reaction Status Date / Time pollen extracts Allergy Intermediate ITCHY Verified 01/25/25 20:50 EYES, SNEEZING, CONGESTION Home Meds Home Medications Medication Instructions Recorded Confirmed metformin 500 mg tablet 500 mg PO BID 10/28/24 01/25/25 cholecalciferol (vitamin D3) 125 125 mcg PO DAILY 01/25/25 01/25/25 mcg (5,000 unit) tablet empagliflozin 25 mg tablet 25 mg PO QAM 01/25/25 01/25/25 (Jardiance) insulin glargine 100 unit/mL 30 unit SC QAM 01/25/25 01/25/25 subcutaneous solution (Lantus U-100 Insulin) magnesium oxide 400 mg (241.3 mg 400 mg PO BID 01/25/25 01/25/25 magnesium) tablet meloxicam 15 mg tablet 15 mg PO DAILY PRN pain 01/25/25 01/25/25 sodium di- and 2 tab PO QID 01/25/25 01/25/25 monophosphate-potassium phos monobasic 250 mg tablet (Phospha Neutral) Previous Rx's Medication Instructions Recorded blood sugar diagnostic (OneTouch #100 ea 11/05/22 Verio test strips) lancets 30 gauge (OneTouch Delica #100 ea 11/05/22 Plus Lancet) pen needle, diabetic 32 gauge x #100 ea 11/05/22 5/32" (Pen Needle) midodrine 2.5 mg tablet 2.5 mg PO TID@0800,1200,1700 #90 11/03/24 tabs Results & Data (ED) Vital Signs Vital Signs - 24 hr 01/25/25 19:22 01/25/25 19:26 01/25/25 20:39 Temperature 37.6 C H Temperature Source Oral Pulse Rate 101 H 93 H Pulse Rate [Apical] 99 H Pulse Rate from SpO2 Sensor Pulse Rhythm Regular Pulse Strength Normal Respiratory Rate 16 18 Respiratory Effort / Characteristics Non-Labored Spontaneous Respiratory Depth Normal Respiratory Pattern Regular Blood Pressure 114/80 Blood Pressure [Right Arm] 115/86 Blood Pressure Mean 91 Blood Pressure Mean [Right Arm] 95 Pulse Oximetry 99 Oxygen Delivery Method Room Air Sepsis Recent Fever Within 48 Hours No Sepsis New/Unexplained Change in Mental Status No Sepsis Action Taken by Nursing No Action Required 01/25/25 20:39 01/25/25 21:22 01/25/25 23:00 Temperature Temperature Source Pulse Rate 99 H Pulse Rate [Apical] 89 90 Pulse Rate from SpO2 Sensor Pulse Rhythm Pulse Strength Respiratory Rate 16 16 Respiratory Effort / Characteristics Respiratory Depth Respiratory Pattern Blood Pressure Blood Pressure [Right Arm] 114/78 Blood Pressure Mean Blood Pressure Mean [Right Arm] 90 Pulse Oximetry 98 98 Oxygen Delivery Method Room Air Room Air Room Air Sepsis Recent Fever Within 48 Hours Sepsis New/Unexplained Change in Mental Status Sepsis Action Taken by Nursing 01/25/25 23:45 01/26/25 00:00 01/26/25 00:33 Temperature Temperature Source Pulse Rate 94 H 89 90 Pulse Rate [Apical] Pulse Rate from SpO2 Sensor 93 H 89 Pulse Rhythm Pulse Strength Respiratory Rate 15 12 Respiratory Effort / Characteristics Respiratory Depth Respiratory Pattern Blood Pressure 124/76 131/88 Blood Pressure [Right Arm] Blood Pressure Mean 92 97 Blood Pressure Mean [Right Arm] Pulse Oximetry 97 97 Oxygen Delivery Method Room Air Room Air Sepsis Recent Fever Within 48 Hours Sepsis New/Unexplained Change in Mental Status Sepsis Action Taken by Nursing 01/26/25 00:46 01/26/25 00:48 Temperature Temperature Source Pulse Rate 91 H Pulse Rate [Apical] 90 Pulse Rate from SpO2 Sensor 89 Pulse Rhythm Pulse Strength Respiratory Rate 16 Respiratory Effort / Characteristics Respiratory Depth Respiratory Pattern Blood Pressure 118/75 Blood Pressure [Right Arm] Blood Pressure Mean 89 Blood Pressure Mean [Right Arm] Pulse Oximetry 96 Oxygen Delivery Method Room Air Sepsis Recent Fever Within 48 Hours Sepsis New/Unexplained Change in Mental Status Sepsis Action Taken by Nursing Laboratory Data Attestation: I reviewed the patient's lab results. 01/26/25 02:16 01/26/25 02:16 Lab Results 01/25/25 Range/Units 19:33 WBC 7.37 (4.8-10.8) K/ul RBC 4.96 (4.70-6.10) M/uL Hgb 15.2 (14.0-18.0) g/dl Hct 43.4 (42.0-52.0) % MCV 87.5 (80.0-100.0) fL MCH 30.6 (25.0-34.0) pg MCHC 35.0 (32.0-36.0) g/dL RDW Std Deviation 39.6 (36.4-46.3) fL RDW Coeff of Saida 12.6 (11.5-14.5) % Plt Count 205 (130-400) K/uL MPV 9.6 (9.4-12.4) fL Immature Gran % (Auto) 0.1 % Neut % (Auto) 61.7 % Lymph % (Auto) 29.7 % [place] % (Auto) 6.2 % Eos % (Auto) 1.5 % Baso % (Auto) 0.8 % Neut # (Auto) 4.54 (1.40-6.50) K/uL Lymph # (Auto) 2.19 (1.20-3.40) K/uL [place] # (Auto) 0.46 (0.11-0.59) K/uL Eos # (Auto) 0.11 (0.00-0.50) K/uL Baso # (Auto) 0.06 (0.00-0.20) K/uL Immature Gran # (Auto) 0.01 (0.01-0.20) K/uL PT 10.7 (9.0-12.0) Seconds INR 1.0 (0.9-1.1) Sodium 138 (136-145) mmol/L Potassium 3.7 (3.5-5.1) mmol/L Chloride 104 (98-107) mmol/L Carbon Dioxide 28 (21-32) mmol/L Anion Gap 6 (3-11) BUN 22 (6-23) mg/dl Creatinine 0.60 (0.6-1.4) mg/dl Est Cr Clr Drug Dosing 160.8 ml/min eGFR 117.60 BUN/Creatinine Ratio 36.7 H (10-20) Glucose 100 H (70-99(Fasting)) mg/dl Uric Acid 3.6 (2.6-7.2) mg/dl Calcium 9.3 (8.6-10.3) mg/dl Phosphorus 4.0 (2.5-4.9) mg/dl Magnesium 2.0 (1.7-2.4) mg/dl Total Bilirubin 0.6 (0.2-1.0) mg/dl AST 12 L (13-39) U/L ALT 9 (7-52) U/L Alkaline Phosphatase 45 (34-104) U/L Total Creatine Kinase 95 (30-223) U/L Troponin I High Sens 5.3 (0-20) pg/ml Total Protein 7.5 (6.0-8.3) gm/dl Albumin 4.1 (3.4-5.0) gm/dl Globulin 3.4 (2.5-4.0) gm/dl Albumin/Globulin Ratio 1.2 (0.9-2) Lipase 30 (11-82) U/L Procalcitonin < 0.02 (0-0.5) ng/ml Administered Medications Sodium Chloride (Nss) 1,000 mls @ 75 mls/hr IV .[id number] ONE Stop: 01/26/25 15:25 Last Admin: 01/26/25 02:17 Dose: 75 mls/hr Documented By: FIOR Cefepime HCl (Maxipime 2000mg) 2,000 mg in 20 mls @ 5 mls/min IV Q8H BETTY; Protocol Stop: 02/02/25 02:14 Last Admin: 01/26/25 02:55 Dose: 5 mls/min Documented By: FIOR Daptomycin 500 mg/ Syringe 10 mls @ 5 mls/min IV Q24H BETTY; Protocol Stop: 02/02/25 02:29 Last Admin: 01/26/25 02:56 Dose: 5 mls/min Documented By: FIOR Insulin Aspart (Insulin Aspart Per Unit Charge) 0 units SC ACHS BETTY Stop: 02/25/25 02:33 Last Admin: 01/26/25 02:55 Dose: Not Given Documented By: FIOR Co-signed By: JOSÉ MANUEL Discontinued Medications Sodium Chloride (Nss) 1,000 mls @ 999 mls/hr IV .[id number] ONE Stop: 01/25/25 20:47 Last Infusion: 01/25/25 21:53 Dose: Infused Documented By: Admin: 01/25/25 20:34 Dose: 999 mls/hr Documented By: CONNER Acetaminophen (Ofirmev) 1,000 mg in 100 mls @ 400 mls/hr IV NOW STA Stop: 01/25/25 20:01 Last Infusion: 01/25/25 21:53 Dose: Infused Documented By: Admin: 01/25/25 20:34 Dose: 400 mls/hr Documented By: CONNER Ioversol (Optiray 320 100ml) 93 ml IV ONCE ONE Stop: 01/26/25 02:47 Last Admin: 01/26/25 02:47 Dose: 93 ml Documented By: DORINA Ketorolac Tromethamine (Ketorolac Tromethamine 15 Mg/Ml Vial) 15 mg IV NOW STA Stop: 01/25/25 21:32 Last Admin: 01/25/25 21:53 Dose: 15 mg Documented By: CONNER Imaging Data Radiologist's Impression: Chest X-Ray 01/25/25 19:49 Exam(s): XR CXR 1 VIEW EXAM: XR Chest, 1 View CLINICAL HISTORY: Reason for exam: LLE pain. TECHNIQUE: Frontal view of the chest. COMPARISON: 10/28/2024 FINDINGS: Lungs: No consolidation. Pleural space: No significant pleural effusion. No pneumothorax. Heart: No cardiomegaly or pulmonary vascular congestion. Bones/joints: No acute fracture. No dislocation. IMPRESSION: No evidence of acute cardiopulmonary disease. Electronically signed by: Reilly Tena M.D. 01/25/25 20:20 PM Ankle X-Ray 01/25/25 19:52 Exam(s): XR RIGHT ANKLE, 3+ views, XR LEFT ANKLE, 3+ views EXAM: XR Left Ankle Complete, 3 or More Views CLINICAL HISTORY: Reason for exam: pain, cold, delay cap refill. TECHNIQUE: Frontal, lateral and oblique views of the left ankle. COMPARISON: No relevant prior studies available. FINDINGS: Bones/joints: Osteopenia. No acute fracture or dislocation. Some remodeling of the anterior tibia and medial malleolus may be on the basis of chronic posttraumatic change. Mild posterior calcaneal enthesopathy. Soft tissues: Mild lateral soft tissue swelling. IMPRESSION: Mild lateral soft tissue swelling. No acute osseous findings. Electronically signed by: Reilly Tena M.D. 01/25/25 20:20 PM Foot X-Ray 01/25/25 19:52 Exam(s): XR LEFT FOOT, 3+ views EXAM: XR Left Foot Complete, 3 or More Views CLINICAL HISTORY: Reason for exam: pain, cold, delay cap refill. TECHNIQUE: Frontal, lateral and oblique views of the left foot. COMPARISON: No relevant prior studies available. FINDINGS: Bones/joints: Chronic-appearing extra-articular erosion medial 1st metatarsal head may be on the basis of gout. Degenerative change involving the 1st MTP joint and IP joint of the great toe. Osteopenia. No acute fracture or dislocation. Soft tissues: Unremarkable. No radiopaque foreign body. Other findings: Previous resection of the 2nd toe. IMPRESSION: 1. Chronic-appearing extra-articular erosion medial 1st metatarsal head may be on the basis of gout. 2. No acute osseous findings. Electronically signed by: Reilly Tena M.D. 01/25/25 20:43 PM Duplex Scan Lower Extremity Artery 01/25/25 19:53 Exam(s): US ARTERIAL LEFT LOWER EXTREMITY EXAM: US Duplex Left Lower Extremity Arteries CLINICAL HISTORY: Reason for exam: LLE pain, cold, delay cap refill. OTHER: Other Notes: Cool LLE, leg pain. No elevated velocities detected within LLE. Mild plaque noted. Triphasic and biphasic waveforms detected throughout LLE. No occlusions noted. TECHNIQUE: Real-time duplex ultrasound scan of the left lower extremity arteries integrating B-mode two-dimensional vascular structure, Doppler spectral analysis and color flow Doppler imaging. COMPARISON: No relevant prior studies available. FINDINGS: There is scattered atherosclerotic plaque. Left lower extremity arteries are patent with multiphasic waveforms. No velocity elevations are noted to suggest a hemodynamically significant stenosis. IMPRESSION: Patent left lower extremity arteries with multiphasic waveforms. Electronically signed by: Reilly Tena M.D. 01/25/25 23:53 PM Venous Doppler Study 01/25/25 19:53 Exam(s): US VENOUS LEFT LOWER EXTREMITY EXAM: US Duplex Left Lower Extremity Veins CLINICAL HISTORY: Reason for exam: LLE pain, cold, delay cap refill. OTHER: Other Notes: LLE pain. No acute thrombus detected within LLE. Small calcifications noted within left SSV in pop fossa. TECHNIQUE: Real-time duplex ultrasound scan of the left lower extremity veins integrating B-mode two-dimensional vascular structure, Doppler spectral analysis, color flow Doppler imaging and compression. COMPARISON: No relevant prior studies available. FINDINGS: Deep veins: No DVT in the visualized common femoral, femoral, proximal deep femoral or popliteal veins. The veins demonstrate normal color flow, are normally compressible, with normal phasic flow and/or augmentation response. Superficial veins: No thrombus in the visualized great saphenous vein. Small chronic recanalized thrombi in the small saphenous vein at the popliteal fossa. Soft tissues: No acute findings. IMPRESSION: No evidence of acute DVT. Electronically signed by: Reilly Tena M.D. 01/25/25 23:31 PM Discharge Plan Visit Data Chief Complaint: Leg Injury/Pain Stated Complaint: LEG AIN, LEG NUMBNESS ED Provider: Jorge Coronel Discharge Problem: Left foot pain, Diabetes, Amputation of right lower extremity below knee Patient Disposition: Admitted As Inpatient Condition: Fair Discharge Instructions Interventions: ED Discharge Assessment Last Done: 01/26/25 02:34 Discharge Problem: Diabetes Qualifiers: Diabetes mellitus type: other specified (including OMER) Diabetes mellitus [employer] insulin use: unspecified [employer] insulin use status Diabetes mellitus complication status: with other specified complication Qualified Code(s): E13.69 - Other specified diabetes mellitus with other specified complication Amputation of right lower extremity below knee Qualifiers: Encounter type: sequela Qualified Code(s): S88.111S - Complete traumatic amputation at level between knee and ankle, right lower leg, sequela
[2025-01-25 20:05] LABS: Hematocrit (blood only) 43.4 % (42.0-52.0); Hemoglobin 15.2 g/dl (14.0-18.0); Immature Granulocytes # (auto) 0.01 K/uL (0.01-0.20); Immature Granulocytes % (auto) 0.1 %; Mean Corpuscular Hemoglobin 30.6 pg (25.0-34.0); Mean Corpuscular Volume 87.5 fL (80.0-100.0); Platelet Count 205 K/uL (130-400); RDW Standard Deviation 39.6 fL (36.4-46.3); Red Blood Count 4.96 M/uL (4.70-6.10); White Blood Count 7.37 K/ul (4.8-10.8)
--- NOTE | 2025-01-25 20:21 | XRay Report ---
Exam(s): XR RIGHT ANKLE, 3+ views, XR LEFT ANKLE, 3+ views EXAM: XR Left Ankle Complete, 3 or More Views CLINICAL HISTORY: Reason for exam: pain, cold, delay cap refill. TECHNIQUE: Frontal, lateral and oblique views of the left ankle. COMPARISON: No relevant prior studies available. FINDINGS: Bones/joints: Osteopenia. No acute fracture or dislocation. Some remodeling of the anterior tibia and medial malleolus may be on the basis of chronic posttraumatic change. Mild posterior calcaneal enthesopathy. Soft tissues: Mild lateral soft tissue swelling. IMPRESSION: Mild lateral soft tissue swelling. No acute osseous findings. Electronically signed by: Reilly Tena M.D. 01/25/25 20:20 PM
--- NOTE | 2025-01-25 20:21 | XRay Report ---
Exam(s): XR CXR 1 VIEW EXAM: XR Chest, 1 View CLINICAL HISTORY: Reason for exam: LLE pain. TECHNIQUE: Frontal view of the chest. COMPARISON: 10/28/2024 FINDINGS: Lungs: No consolidation. Pleural space: No significant pleural effusion. No pneumothorax. Heart: No cardiomegaly or pulmonary vascular congestion. Bones/joints: No acute fracture. No dislocation. IMPRESSION: No evidence of acute cardiopulmonary disease. Electronically signed by: Reilly Tena M.D. 01/25/25 20:20 PM
[2025-01-25 20:24] LABS: Alanine Aminotransferase 9.0 U/L (7-52); Albumin Globulin Ratio 1.2 (0.9-2); Albumin Level 4.1 gm/dl (3.4-5.0); Alkaline Phosphatase 45.0 U/L (34-104); Anion Gap 6.0 (3-11); Bilirubin,Total 0.6 mg/dl (0.2-1.0); Blood Urea Nitrogen 22.0 mg/dl (6-23); Calcium 9.3 mg/dl (8.6-10.3); Carbon Dioxide 28.0 mmol/L (21-32); Chloride 104.0 mmol/L (98-107); Creatine Kinase 95.0 U/L (30-223); Creatinine Clr Calc Pharmacy 160.8 ml/min; Globulin 3.4 gm/dl (2.5-4.0); Glucose 100.0 mg/dl (70-99(Fasting)); Lipase 30.0 U/L (11-82); Magnesium 2.0 mg/dl (1.7-2.4); Potassium 3.7 mmol/L (3.5-5.1); Sodium 138.0 mmol/L (136-145); Total Protein 7.5 gm/dl (6.0-8.3)
[2025-01-25] MEDS: SODIUM CHLORIDE 0.9% 1,000 ML IV ONE (20:34)
[2025-01-25] MEDS: ACETAMINOPHEN 1,000 MG/100 ML VIAL IV STA (20:34)
--- NOTE | 2025-01-25 20:43 | XRay Report ---
Exam(s): XR LEFT FOOT, 3+ views EXAM: XR Left Foot Complete, 3 or More Views CLINICAL HISTORY: Reason for exam: pain, cold, delay cap refill. TECHNIQUE: Frontal, lateral and oblique views of the left foot. COMPARISON: No relevant prior studies available. FINDINGS: Bones/joints: Chronic-appearing extra-articular erosion medial 1st metatarsal head may be on the basis of gout. Degenerative change involving the 1st MTP joint and IP joint of the great toe. Osteopenia. No acute fracture or dislocation. Soft tissues: Unremarkable. No radiopaque foreign body. Other findings: Previous resection of the 2nd toe. IMPRESSION: 1. Chronic-appearing extra-articular erosion medial 1st metatarsal head may be on the basis of gout. 2. No acute osseous findings. Electronically signed by: Reilly Tena M.D. 01/25/25 20:43 PM
[2025-01-25 20:48] LABS: INR 1.0 (0.9-1.1); Prothrombin Time 10.7 Seconds (9.0-12.0)
[2025-01-25 21:53] LABS: Uric Acid 3.6 mg/dl (2.6-7.2)
[2025-01-25] MEDS: KETOROLAC TROMETHAMINE 15 MG/ML VIAL IV STA (21:53)
--- NOTE | 2025-01-25 23:32 | Ultrasound Report ---
Exam(s): US VENOUS LEFT LOWER EXTREMITY EXAM: US Duplex Left Lower Extremity Veins CLINICAL HISTORY: Reason for exam: LLE pain, cold, delay cap refill. OTHER: Other Notes: LLE pain. No acute thrombus detected within LLE. Small calcifications noted within left SSV in pop fossa. TECHNIQUE: Real-time duplex ultrasound scan of the left lower extremity veins integrating B-mode two-dimensional vascular structure, Doppler spectral analysis, color flow Doppler imaging and compression. COMPARISON: No relevant prior studies available. FINDINGS: Deep veins: No DVT in the visualized common femoral, femoral, proximal deep femoral or popliteal veins. The veins demonstrate normal color flow, are normally compressible, with normal phasic flow and/or augmentation response. Superficial veins: No thrombus in the visualized great saphenous vein. Small chronic recanalized thrombi in the small saphenous vein at the popliteal fossa. Soft tissues: No acute findings. IMPRESSION: No evidence of acute DVT. Electronically signed by: Reilly Tena M.D. 01/25/25 23:31 PM
--- NOTE | 2025-01-25 23:54 | Ultrasound Report ---
Exam(s): US ARTERIAL LEFT LOWER EXTREMITY EXAM: US Duplex Left Lower Extremity Arteries CLINICAL HISTORY: Reason for exam: LLE pain, cold, delay cap refill. OTHER: Other Notes: Cool LLE, leg pain. No elevated velocities detected within LLE. Mild plaque noted. Triphasic and biphasic waveforms detected throughout LLE. No occlusions noted. TECHNIQUE: Real-time duplex ultrasound scan of the left lower extremity arteries integrating B-mode two-dimensional vascular structure, Doppler spectral analysis and color flow Doppler imaging. COMPARISON: No relevant prior studies available. FINDINGS: There is scattered atherosclerotic plaque. Left lower extremity arteries are patent with multiphasic waveforms. No velocity elevations are noted to suggest a hemodynamically significant stenosis. IMPRESSION: Patent left lower extremity arteries with multiphasic waveforms. Electronically signed by: Reilly Tena M.D. 01/25/25 23:53 PM
--- NOTE | 2025-01-26 01:48 | History & Physical Report ---
Date of Service January 26, 2025 Assessment & Plan (1) Sepsis: Plan: Assessment and plan below following discussion of case with ED provider and reviewing patient history/pertinent normal/abnormal diagnostic test results. Sepsis Secondary to left foot cellulitis (diabetic foot infection) Rule out abscess Chronic CHF, patient euvolemic to dry orthostatic hypotension on midodrine DM 2 insulin requiring, suboptimal control as of recent hemoglobin A1c of [address] October 2024 history of right BKA history of MRSA Admit to F IV Daptomycin, Cefepime CT left foot Offload LLE May benefit from Podiatry evaluation. Basal bolus insulin, ISS BG goal 1 10-1 40, carb count coverage, update hemoglobin A1c DVT prophylaxis. Lovenox subcu Full code Text document was generated using [employer] voice recognition software. It may contain grammatical or spelling errors. Kindly contact undersigned for clarification of any documentation item in question. History of Present Illness Chief Complaint: Left leg/foot pain/swelling. Primary Care Provider: Dr. Apple History obtained from patient and records. Medical history significant for chronic systolic heart failure (EF 40 to 45%, TTE 2024), orthostatic hypotension on midodrine, NSVT as per records, DM 2 insulin requiring, hyperlipidemia, history of right BKA, history of MRSA, mood disorder. Last confinement October 2024 for sepsis secondary to streptococcal bacteremia secondary to DM foot infection status post right BKA. Patient discharged to rehab facility on Levaquin course. Patient noted worsening painful left foot swelling over the last couple weeks. No fever, no chills, no chest pain, no SOB. Left leg felt weak and numb from pain. Patient directed to ER by urgent care facility. Medical History as above Surgical History : Toe wound debridement, right BKA Family History : Diabetes, high blood pressure Personal/Social history : Non-smoker, occasional EtOH intake, disabled Allergies Allergy/AdvReac Type Severity Reaction Status Date / Time pollen extracts Allergy Intermediate ITCHY Verified 01/25/25 20:50 EYES, SNEEZING, CONGESTION Home Medications Medication Instructions Recorded Confirmed Type blood sugar diagnostic (OneTouch #100 ea 11/05/22 11/30/24 Rx Verio test strips) lancets 30 gauge (OneTouch Delica #100 ea 11/05/22 11/30/24 Rx Plus Lancet) pen needle, diabetic 32 gauge x #100 ea 11/05/22 11/30/24 Rx 5/32" (Pen Needle) metformin 500 mg tablet 500 mg PO BID 10/28/24 01/25/25 History midodrine 2.5 mg tablet 2.5 mg PO TID@0800,1200,1700 #90 11/03/24 01/25/25 Rx tabs cholecalciferol (vitamin D3) 125 125 mcg PO DAILY 01/25/25 01/25/25 History mcg (5,000 unit) tablet empagliflozin 25 mg tablet 25 mg PO QAM 01/25/25 01/25/25 History (Jardiance) insulin glargine 100 unit/mL 30 unit SC QAM 01/25/25 01/25/25 History subcutaneous solution (Lantus U-100 Insulin) magnesium oxide 400 mg (241.3 mg 400 mg PO BID 01/25/25 01/25/25 History magnesium) tablet meloxicam 15 mg tablet 15 mg PO DAILY PRN pain 01/25/25 01/25/25 History sodium di- and 2 tab PO QID 01/25/25 01/25/25 History monophosphate-potassium phos monobasic 250 mg tablet (Phospha Neutral) Past Med/Surg History Problem List (Updated 01/26/25 @ 05:27 by Jorge Coronel MD) Left foot pain (Acute) NSVT (nonsustained ventricular tachycardia) Amputation of right lower extremity below knee (Acute) Electrolyte abnormality Osteomyelitis of foot, right, acute Severe sepsis with acute organ dysfunction Streptococcal bacteremia Hypophosphatemia Severe sepsis due to pneumococcus with acute organ dysfunction Ulcer of left lower leg Hyponatremia Osteomyelitis of second toe of left foot (Acute) Diabetic ulcer of toe of left foot associated with type 2 diabetes mellitus Cellulitis and abscess of lower extremity (Acute) Abrasion of toe, right, infected (Acute) Acute hyperglycemia (Acute) Cellulitis Encounter for pre-operative examination Mood disorder (Chronic) DVT prophylaxis MRSA (methicillin resistant Staphylococcus aureus) infection Diabetic infection of left foot (Acute) Sepsis (Acute) Lumbago (Chronic) Diabetes (Chronic) Medical History Uncontrolled diabetes mellitus with hyperglycemia Type 2 diabetes mellitus with diabetic neuropathy Hypertension DKA (diabetic ketoacidosis) Marijuana abuse Diabetic foot infection Surgical History History of back surgery History of incision and drainage right lower leg Family History Mother Diabetes Father Diabetes Social History Smoking Status: Never smoker Do You Dip or Chew Tobacco: No; Hx Alcohol Use: No Hx Substance Use: Yes Preferred Language: Tajik Communication Ability: Effective [employer] Required: No Beliefs That Will Affect Care: None marital status: Current Living Situation: Alone current occupational status: employed Feels Safe at Home: Yes Safety Concerns: Feels Safe At This Time Assistive Devices: Wheelchair Review of Systems Review of Systems: As per HPI, all other systems reviewed and negative Physical Exam Physical Exam: GENERAL: Comfortable, pleasant, looks older than stated age, no respiratory distress SKIN: Normal color, warm HEENT: Semmes palpebral conjunctivae, no ptosis, dry buccal mucosa NECK : Supple, no tenderness CHEST : CTA, no tenderness HEART : RRR, no obvious murmurs ABDOMEN: Soft, nontender EXTREMITIES : R BKA stump, tender left foot induration NEUROLOGIC : Coherent, no facial asymmetry, no other gross focality Results & Data Results & Data Vital Signs (Past 12 Hours) Vital Signs Temp Pulse Pulse Resp BP BP Pulse Ox 01/26/25 00:46 90 01/26/25 00:33 90 01/26/25 00:00 89 12 131/88 97 01/25/25 23:45 94 H 15 124/76 97 01/25/25 23:00 90 16 98 01/25/25 21:22 89 16 114/78 01/25/25 20:39 99 H 98 01/25/25 20:39 93 H 01/25/25 19:26 37.6 C H 101 H 18 114/80 99 01/25/25 19:22 99 H 16 115/86 O2 Del Method 01/26/25 00:46 01/26/25 00:33 01/26/25 00:00 Room Air 01/25/25 23:45 Room Air 01/25/25 23:00 Room Air 01/25/25 21:22 Room Air 01/25/25 20:39 Room Air 01/25/25 20:39 01/25/25 19:26 Room Air 01/25/25 19:22 Laboratory Results Laboratory Results WBC 7.37 K/ul (4.8-10.8) 01/25/25 19: RBC 4.96 M/uL (4.70-6.10) 01/25/25 19:33 Hgb 15.2 g/dl (14.0-18.0) 01/25/25 19: Hct 43.4 % (42.0-52.0) 01/25/25 19: MCV 87.5 fL (80.0-100.0) 01/25/25 19: MCH 30.6 pg (25.0-34.0) 01/25/25: MCHC 35.0 g/dL (32.0-36.0) 01/25/25: RDW Std Deviation 39.6 fL (36.4-46.3) 01/25/25: RDW Coeff of Saida 12.6 % (11.5-14.5) 01/25/25: Plt Count 205 K/uL (130-400) 01/25/25 19: MPV 9.6 fL (9.4-12.4) 01/25/25: Immature Gran % (Auto) 0.1 % 01/25/25: Neut % (Auto) 61.7 % 01/25/25 19: Lymph % (Auto) 29.7 % 01/25/25: Whiteside % (Auto) 6.2 % 01/25/25: Eos % (Auto) 1.5 % 01/25/25: Baso % (Auto) 0.8 % 01/25/25: Neut # (Auto) 4.54 K/uL (1.40-6.50) 01/25/25 19: Lymph # (Auto) 2.19 K/uL (1.20-3.40) 01/25/25: Whiteside # (Auto) 0.46 K/uL (0.11-0.59) 01/25/25 19: Eos # (Auto) 0.11 K/uL (0.00-0.50) 01/25/25 19: Baso # (Auto) 0.06 K/uL (0.00-0.20) 01/25/25 19:33 Immature Gran # (Auto) 0.01 K/uL (0.01-0.20) 01/25/25 19:33 PT 10.7 Seconds (9.0-12.0) 01/25/25 19:33 INR 1.0 (0.9-1.1) 01/25/25 19:33 Sodium 138 mmol/L (136-145) 01/25/25 19:33 Potassium 3.7 mmol/L (3.5-5.1) 01/25/25 19:33 Chloride 104 mmol/L (98-107) 01/25/25 19:33 Carbon Dioxide 28 mmol/L (21-32) 01/25/25 19:33 Anion Gap 6 (3-11) 01/25/25 19:33 BUN 22 mg/dl (6-23) 01/25/25 19:33 Creatinine 0.60 mg/dl (0.6-1.4) 01/25/25 19:33 Est Cr Clr Drug Dosing 160.8 ml/min 01/25/25 19:33 eGFR 117.60 01/25/25 19:33 BUN/Creatinine Ratio 36.7 (10-20) H 01/25/25 19:33 Glucose 100 mg/dl (70-99(Fasting)) H 01/25/25 19:33 Uric Acid 3.6 mg/dl (2.6-7.2) 01/25/25 19:33 Calcium 9.3 mg/dl (8.6-10.3) 01/25/25 19:33 Phosphorus 4.0 mg/dl (2.5-4.9) 01/25/25 19:33 Magnesium 2.0 mg/dl (1.7-2.4) 01/25/25 19:33 Total Bilirubin 0.6 mg/dl (0.2-1.0) 01/25/25 19:33 AST 12 U/L (13-39) L 01/25/25 19:33 ALT 9 U/L (7-52) 01/25/25 19:33 Alkaline Phosphatase 45 U/L (34-104) 01/25/25 19:33 Total Creatine Kinase 95 U/L (30-223) 01/25/25 19:33 Troponin I High Sens 5.3 pg/ml (0-20) 01/25/25 19:33 Total Protein 7.5 gm/dl (6.0-8.3) 01/25/25 19:33 Albumin 4.1 gm/dl (3.4-5.0) 01/25/25 19:33 Globulin 3.4 gm/dl (2.5-4.0) 01/25/25 19:33 Albumin/Globulin Ratio 1.2 (0.9-2) 01/25/25 19:33 Lipase 30 U/L (11-82) 01/25/25 19:33 Procalcitonin < 0.02 ng/ml (0-0.5) 01/25/25 19:33 Impressions Chest X-Ray 01/25/25 19:49 Exam(s): XR CXR 1 VIEW EXAM: XR Chest, 1 View CLINICAL HISTORY: Reason for exam: LLE pain. TECHNIQUE: Frontal view of the chest. COMPARISON: 10/28/2024 FINDINGS: Lungs: No consolidation. Pleural space: No significant pleural effusion. No pneumothorax. Heart: No cardiomegaly or pulmonary vascular congestion. Bones/joints: No acute fracture. No dislocation. IMPRESSION: No evidence of acute cardiopulmonary disease. Electronically signed by: Reilly Tena M.D. 01/25/25 20:20 PM Ankle X-Ray 01/25/25 19:52 Exam(s): XR RIGHT ANKLE, 3+ views, XR LEFT ANKLE, 3+ views EXAM: XR Left Ankle Complete, 3 or More Views CLINICAL HISTORY: Reason for exam: pain, cold, delay cap refill. TECHNIQUE: Frontal, lateral and oblique views of the left ankle. COMPARISON: No relevant prior studies available. FINDINGS: Bones/joints: Osteopenia. No acute fracture or dislocation. Some remodeling of the anterior tibia and medial malleolus may be on the basis of chronic posttraumatic change. Mild posterior calcaneal enthesopathy. Soft tissues: Mild lateral soft tissue swelling. IMPRESSION: Mild lateral soft tissue swelling. No acute osseous findings. Electronically signed by: Reilly Tena M.D. 01/25/25 20:20 PM Foot X-Ray 01/25/25 19:52 Exam(s): XR LEFT FOOT, 3+ views EXAM: XR Left Foot Complete, 3 or More Views CLINICAL HISTORY: Reason for exam: pain, cold, delay cap refill. TECHNIQUE: Frontal, lateral and oblique views of the left foot. COMPARISON: No relevant prior studies available. FINDINGS: Bones/joints: Chronic-appearing extra-articular erosion medial 1st metatarsal head may be on the basis of gout. Degenerative change involving the 1st MTP joint and IP joint of the great toe. Osteopenia. No acute fracture or dislocation. Soft tissues: Unremarkable. No radiopaque foreign body. Other findings: Previous resection of the 2nd toe. IMPRESSION: 1. Chronic-appearing extra-articular erosion medial 1st metatarsal head may be on the basis of gout. 2. No acute osseous findings. Electronically signed by: Reilly Tena M.D. 01/25/25 20:43 PM Duplex Scan Lower Extremity Artery 01/25/25 19:53 Exam(s): US ARTERIAL LEFT LOWER EXTREMITY EXAM: US Duplex Left Lower Extremity Arteries CLINICAL HISTORY: Reason for exam: LLE pain, cold, delay cap refill. OTHER: Other Notes: Cool LLE, leg pain. No elevated velocities detected within LLE. Mild plaque noted. Triphasic and biphasic waveforms detected throughout LLE. No occlusions noted. TECHNIQUE: Real-time duplex ultrasound scan of the left lower extremity arteries integrating B-mode two-dimensional vascular structure, Doppler spectral analysis and color flow Doppler imaging. COMPARISON: No relevant prior studies available. FINDINGS: There is scattered atherosclerotic plaque. Left lower extremity arteries are patent with multiphasic waveforms. No velocity elevations are noted to suggest a hemodynamically significant stenosis. IMPRESSION: Patent left lower extremity arteries with multiphasic waveforms. Electronically signed by: Reilly Tena M.D. 01/25/25 23:53 PM Venous Doppler Study 01/25/25 19:53 Exam(s): US VENOUS LEFT LOWER EXTREMITY EXAM: US Duplex Left Lower Extremity Veins CLINICAL HISTORY: Reason for exam: LLE pain, cold, delay cap refill. OTHER: Other Notes: LLE pain. No acute thrombus detected within LLE. Small calcifications noted within left SSV in pop fossa. TECHNIQUE: Real-time duplex ultrasound scan of the left lower extremity veins integrating B-mode two-dimensional vascular structure, Doppler spectral analysis, color flow Doppler imaging and compression. COMPARISON: No relevant prior studies available. FINDINGS: Deep veins: No DVT in the visualized common femoral, femoral, proximal deep femoral or popliteal veins. The veins demonstrate normal color flow, are normally compressible, with normal phasic flow and/or augmentation response. Superficial veins: No thrombus in the visualized great saphenous vein. Small chronic recanalized thrombi in the small saphenous vein at the popliteal fossa. Soft tissues: No acute findings. IMPRESSION: No evidence of acute DVT. Electronically signed by: Reilly Tena M.D. 01/25/25 23:31 PM
[2025-01-26] MEDS ORDERED: PROMETHAZINE 6.25 MG/50.25 ML BAG IV PRN (02:06)
[2025-01-26] MEDS ORDERED: MELOXICAM 7.5 MG TAB PO PRN (02:09)
[2025-01-26] MEDS: SODIUM CHLORIDE 0.9% 1,000 ML IV ONE (02:17)
[2025-01-26] MEDS ORDERED: GLUCOSE 10 TAB/TUBE PO PRN (02:34)
[2025-01-26] MEDS ORDERED: GLUCOSE 40% GEL 15 GM TUBE PO PRN (02:34)
[2025-01-26] MEDS ORDERED: GLUCAGON FOR INJ 1 MG VIAL SQ PRN (02:34)
[2025-01-26] MEDS ORDERED: DEXTROSE 50% 50 ML SYRINGE IV PRN (02:34)
[2025-01-26] MEDS: OPTIRAY 320 100ml IV ONE (02:47)
[2025-01-26 02:48] LABS: Hematocrit (blood only) 41.9 % (42.0-52.0); Hemoglobin 15.4 g/dl (14.0-18.0); Immature Granulocytes # (auto) 0.01 K/uL (0.01-0.20); Immature Granulocytes % (auto) 0.2 %; Mean Corpuscular Hemoglobin 32.4 pg (25.0-34.0); Mean Corpuscular Volume 88.2 fL (80.0-100.0); Platelet Count 189 K/uL (130-400); RDW Standard Deviation 39.8 fL (36.4-46.3); Red Blood Count 4.75 M/uL (4.70-6.10); White Blood Count 6.57 K/ul (4.8-10.8)
[2025-01-26] MEDS: CEFEPIME 2000MG 2,000 MG/20 ML SYR IV SCH (02:55)
[2025-01-26] MEDS: INSULIN ASPART PER UNIT CHARGE SC SCH (02:55)
[2025-01-26] MEDS: DAPTOmycin 500 MG in SYRINGE 0 ML IV SCH (02:56)
[2025-01-26 03:04] LABS: Anion Gap 5.0 (3-11); Blood Urea Nitrogen 24.0 mg/dl (6-23); Calcium 9.2 mg/dl (8.6-10.3); Carbon Dioxide 28.0 mmol/L (21-32); Chloride 106.0 mmol/L (98-107); Creatinine Clr Calc Pharmacy 169.3 ml/min; Glucose 88.0 mg/dl (70-99(Fasting)); Potassium 3.6 mmol/L (3.5-5.1); Sodium 139.0 mmol/L (136-145)
--- NOTE | 2025-01-26 04:05 | CT Scan Report ---
EXAM: CT foot LT w con CLINICAL HISTORY: swelling TECHNIQUE: Contiguous axial CT images of the left foot were obtained with intravenous contrast. Coronal and sagittal reconstructions were likewise performed and indicated to increase the sensitivity for detecting clinically relevant pathology. The CT scan was performed according to ALARA (as low as reasonably achievable). COMPARISON: none FINDINGS: There is an old healed fracture of the proximal phalanx of the first toe. Degenerative changes are noted in the interphalangeal joint and metatarsophalangeal joint of the great toe, with adjacent soft tissue thickening. There is diffuse subcutaneous hypodense stranding in the visualized lower leg and foot. Mild osteopenia of the visualized bones is present. Phalanges of second toe not seen- likely post op. There is no acute fracture or dislocation. No destructive osseous lesion is identified. The visualized muscles and tendons appear grossly unremarkable. There is no cortical destruction to suggest osteomyelitis. No abscess formation is seen. No significant joint effusion is present. IMPRESSION: Old healed fracture of the proximal phalanx of the first toe. Degenerative changes are noted in the interphalangeal joint and metatarsophalangeal joint of the great toe with adjacent soft tissue thickening. Likely cellulitis. Diffuse subcutaneous hypodense stranding in the visualized lower leg and foot. Mild osteopenia of the visualized bones. Electronically signed by Darrel Cole 01-26-2025 04:04 AM
[2025-01-26 07:13] LABS: Hemoglobin A1C 6.4 % (4.5-5.6)
[2025-01-26] MEDS: MIDODRINE HCL 2.5 MG TAB PO SCH (08:08)
[2025-01-26] MEDS: LANTUS PER UNIT CHARGE SC SCH (08:08)
[2025-01-26] MEDS: CHOLECALCIFEROL 125 MCG (5,000 UNITS) TAB PO SCH (08:08)
[2025-01-26] MEDS: ENOXAPARIN INJ 40 MG/0.4 ML SYR SQ SCH (08:09)
--- NOTE | 2025-01-26 14:00 | Communication Note ---
Date of Service: January 26, 2025 Patient was seen and examined at bedside as a follow-up of sepsis secondary to left foot cellulitis. Patient was started on IV daptomycin and cefepime, continue for now. Offload RLE. Patient reports improving pain and erythema left foot. Imagings of the left lower extremity reviewed, abscess ruled out. No concern for DVT. De-escalate antibiotic once blood culture results are out. For detailed information on the patient, refer to today's H&P note.
--- NOTE | 2025-01-27 06:02 | Electrocardiogram Report ---
Test Reason : Blood Pressure : */* mmHG Vent. Rate : 88 BPM Atrial Rate : 88 BPM P-R Int : 112 ms QRS Dur : 98 ms QT Int : 384 ms P-R-T Axes : 71 121 78 degrees QTcB Int : 464 ms Normal sinus rhythm Incomplete right bundle branch block Possible Right ventricular hypertrophy Abnormal ECG When compared with ECG of 28-Oct-2024 22:03, Nonspecific T wave abnormality is no longer present in Anterior leads Confirmed by Richie Aguillon ([id number]) on 01/27/2025 6:02:12 AM Referred By: REFERRED SELF Confirmed By: Richie Aguillon
[2025-01-27 06:51] LABS: Hematocrit (blood only) 41.4 % (42.0-52.0); Hemoglobin 14.6 g/dl (14.0-18.0); Mean Corpuscular Hemoglobin 30.6 pg (25.0-34.0); Mean Corpuscular Volume 86.8 fL (80.0-100.0); Platelet Count 183 K/uL (130-400); RDW Standard Deviation 39.2 fL (36.4-46.3); Red Blood Count 4.77 M/uL (4.70-6.10); White Blood Count 6.14 K/ul (4.8-10.8)
[2025-01-27 07:20] LABS: Anion Gap 7.0 (3-11); Blood Urea Nitrogen 17.0 mg/dl (6-23); Calcium 8.9 mg/dl (8.6-10.3); Carbon Dioxide 27.0 mmol/L (21-32); Chloride 104.0 mmol/L (98-107); Creatinine Clr Calc Pharmacy 169.3 ml/min; Glucose 168.0 mg/dl (70-99(Fasting)); Potassium 4.0 mmol/L (3.5-5.1); Sodium 138.0 mmol/L (136-145)
--- NOTE | 2025-01-27 11:45 | Hospitalist Progress Note ---
Date of Service January 27, 2025 Assessment & Plan (1) Cellulitis of leg: (2) Type 2 diabetes mellitus with diabetic neuropathy: Plan 50-year-old male with past med history significant for type 2 diabetes, dyslipidemia, history of subacute osteomyelitis of left foot, adjustment disorder with depressed mood, Right BKA who presents with left foot pain Left foot cellulitis Patient does not meet 2 SIRS criteria for sepsis on admission. Had tachycardia only Low suspicion for sepsis considering no leukocytosis, normal CRP Will continue broad antibiotics for today considering history of bacteremia If cultures remain negative by tomorrow, will deescal and monitor Some of the pain suggests possible neuropathy. Trial of gabapentin. He also requests muscle relaxants. Flexeril ordered. Will monitor Chronic CHF Orthostatic hypotension Currently euvolemic Continue midodrine DM 2 Hemoglobin A1c 6.4 DVT prophylaxis. Lovenox subcu Full code I spent a total of 50 minutes coordinating, documenting and providing care for this patient excluding time spent in performance of separately billed services Admission and Anticipated Discharge Date Admission Date: January 26, 2025 Subjective Patient seen and examined Reports pain in left thigh and leg No fevers or chills, nausea or vomiting Physical Exam Constitutional: + well hydrated; no acute distress Eyes: PERRL, conjunctivae normal, anicteric sclerae ENMT: external ear and nose normal, oropharynx normal Respiratory: normal respiratory effort, lungs clear to auscultation Cardiovascular: Rate/Rhythm: regular rate and regular rhythm Gastrointestinal (Abdomen): normal bowel sounds, soft, nontender, no hepa tosplenomegaly Musculoskeletal: Right BKA Left foot erythema and tenderness Neurologic: PERRL, EOMI, accommodation nl, no face palsy, no dysarthria Psychiatric: A+Ox3, euthymic affect Results & Data Results & Data Vital Signs (Past 12 Hours) Vital Signs Temp Pulse Resp BP BP Pulse Ox O2 Del Method 01/27/25 08:41 108/64 01/27/25 07:59 86/56 L 91/58 L 01/27/25 07:30 94/58 L 01/27/25 07:09 36.4 C L 94 H 16 89/58 L 100 Room Air Laboratory Results Abnormal lab results 01/26/25 01/27/25 01/27/25 Range/Units 16:21 06:16 07:46 Hct 41.4 L (42.0-52.0) % Creatinine 0.57 L (0.6-1.4) mg/dl BUN/Creatinine Ratio 29.8 H (10-20) Glucose 168 H (70-99(Fasting)) mg/dl POC Glucose 153 H 162 H (70-99) mg/dl
[2025-01-27] MEDS: CYCLOBENZAPRINE HCL 5 MG TAB PO SCH (13:36)
[2025-01-27] MEDS: ACETAMINOPHEN 325 MG TAB PO PRN (19:11)
[2025-01-27] MEDS: GABAPENTIN 300 MG CAP PO SCH (20:42)
[2025-01-28 06:24] LABS: Hematocrit (blood only) 41.7 % (42.0-52.0); Hemoglobin 14.7 g/dl (14.0-18.0); Mean Corpuscular Hemoglobin 30.8 pg (25.0-34.0); Mean Corpuscular Volume 87.2 fL (80.0-100.0); Platelet Count 203 K/uL (130-400); RDW Standard Deviation 39.3 fL (36.4-46.3); Red Blood Count 4.78 M/uL (4.70-6.10); White Blood Count 5.32 K/ul (4.8-10.8)
[2025-01-28 06:45] LABS: Anion Gap 7.0 (3-11); Blood Urea Nitrogen 17.0 mg/dl (6-23); Calcium 9.0 mg/dl (8.6-10.3); Carbon Dioxide 28.0 mmol/L (21-32); Chloride 103.0 mmol/L (98-107); Creatinine Clr Calc Pharmacy 172.3 ml/min; Glucose 191.0 mg/dl (70-99(Fasting)); Potassium 4.0 mmol/L (3.5-5.1); Sodium 138.0 mmol/L (136-145)
[2025-01-28] MEDS: cefTRIAXone SODIUM 1,000 MG/50 ML BAG IV SCH (11:08)
--- NOTE | 2025-01-28 13:47 | Hospitalist Progress Note ---
Date of Service January 28, 2025 Assessment & Plan (1) Cellulitis of leg: (2) Type 2 diabetes mellitus with diabetic neuropathy: Plan 50-year-old male with past med history significant for type 2 diabetes, dyslipidemia, history of subacute osteomyelitis of left foot, adjustment disorder with depressed mood, Right BKA who presents with left foot pain Left foot cellulitis Patient does not meet 2 SIRS criteria for sepsis on admission. Had tachycardia only Low suspicion for sepsis considering no leukocytosis, normal CRP CT foot noted degenerative changes in IPJ and MTP joint of great toe with adjacent soft tiss thickening likely cellulitis. Diffuse subcut hypodense strand ing in lower leg and foot Cultures negative so far. Antibiotics deescalated to ceftriaxone Some of the pain suggests possible neuropathy. Continue trial of gabapentin and flexeril. PT/OT eval Chronic CHF Orthostatic hypotension Currently euvolemic Continue midodrine DM 2 Hemoglobin A1c 6.4 DVT prophylaxis. Lovenox subcu Full code I spent a total of 35 minutes coordinating, documenting and providing care for this patient excluding time spent in performance of separately billed services Admission and Anticipated Discharge Date Admission Date: January 26, 2025 Subjective Patient seen and examined Reports LLE pain and stiffness is improved in the thigh Lt foot pain is improving No other complaints Physical Exam Constitutional: + well hydrated; no acute distress Eyes: PERRL, conjunctivae normal, anicteric sclerae ENMT: external ear and nose normal, oropharynx normal Respiratory: normal respiratory effort, lungs clear to auscultation Cardiovascular: Rate/Rhythm: regular rate and regular rhythm Gastrointestinal (Abdomen): normal bowel sounds, soft, nontender, no hepatosplenomegaly Musculoskeletal: Left foot erythema improving +Right BKA Neurologic: PERRL, EOMI, accommodation nl, no face palsy, no dysarthria Psychiatric: A+Ox3, euthymic affect Results & Data Results & Data Vital Signs (Past 12 Hours) Vital Signs Temp Pulse Resp BP Pulse Ox O2 Del Method 01/28/25 07:25 36.4 C L 102 H 18 95/65 L 98 Room Air Laboratory Results Abnormal lab results 01/27/25 01/27/25 01/28/25 Range/Units 16:32 20:43 05:33 Hct 41.7 L (42.0-52.0) % Creatinine 0.56 L (0.6-1.4) mg/dl BUN/Creatinine Ratio 30.4 H (10-20) Glucose 191 H (70-99(Fasting)) mg/dl POC Glucose 157 H 168 H (70-99) mg/dl 01/28/25 01/28/25 01/28/25 Range/Units 07:23 11:16 13:28 Hct (42.0-52.0) % Creatinine (0.6-1.4) mg/dl BUN/Creatinine Ratio (10-20) Glucose (70-99(Fasting)) mg/dl POC Glucose 228 H 153 H 133 H (70-99) mg/dl
[2025-01-29 06:01] LABS: Hematocrit (blood only) 41.4 % (42.0-52.0); Hemoglobin 14.8 g/dl (14.0-18.0); Mean Corpuscular Hemoglobin 31.5 pg (25.0-34.0); Mean Corpuscular Volume 88.1 fL (80.0-100.0); Platelet Count 197 K/uL (130-400); RDW Standard Deviation 39.5 fL (36.4-46.3); Red Blood Count 4.70 M/uL (4.70-6.10); White Blood Count 5.47 K/ul (4.8-10.8)
[2025-01-29 06:17] LABS: Anion Gap 7.0 (3-11); Blood Urea Nitrogen 17.0 mg/dl (6-23); Calcium 9.1 mg/dl (8.6-10.3); Carbon Dioxide 29.0 mmol/L (21-32); Chloride 103.0 mmol/L (98-107); Creatinine Clr Calc Pharmacy 155.6 ml/min; Glucose 107.0 mg/dl (70-99(Fasting)); Potassium 4.3 mmol/L (3.5-5.1); Sodium 139.0 mmol/L (136-145)
--- NOTE | 2025-01-29 11:28 | Hospitalist Progress Note ---
Date of Service January 29, 2025 Assessment & Plan (1) Cellulitis of leg: (2) Type 2 diabetes mellitus with diabetic neuropathy: Plan 50-year-old male with past med history significant for type 2 diabetes, dyslipidemia, history of subacute osteomyelitis of left foot, adjustment disorder with depressed mood, Right BKA who presents with left foot pain Left foot cellulitis Patient does not meet 2 SIRS criteria for sepsis on admission. Had tachycardia only Low suspicion for sepsis considering no leukocytosis, normal CRP CT foot noted degenerative changes in IPJ and MTP joint of great toe with adjacent soft tiss thickening likely cellulitis. Diffuse subcut hypodense strand ing in lower leg and foot Cultures negative so far. Antibiotics deescalated to ceftriaxone Some of the pain suggests possible neuropathy. Continue trial of gabapentin and flexeril. PT/OT eval Chronic CHF Orthostatic hypotension Currently euvolemic Continue midodrine DM 2 Hemoglobin A1c 6.4 Hypoglycemic episode today. Corrected. Will monitor Lantus reduced by half PT/OT eval today. Patient requiring some assistance from being independent SNF recommended. CM working on this DVT prophylaxis. Lovenox subcu Full code I spent a total of 45 minutes coordinating, documenting and providing care for this patient excluding time spent in performance of separately billed services Admission and Anticipated Discharge Date Admission Date: January 26, 2025 Subjective Patient seen and examined Lt foot pain is improving No other complaints Physical Exam Constitutional: + well hydrated; no acute distress Eyes: PERRL, conjunctivae normal, anicteric sclerae ENMT: external ear and nose normal, oropharynx normal Respiratory: normal respiratory effort, lungs clear to auscultation Cardiovascular: Rate/Rhythm: regular rate and regular rhythm Gastrointestinal (Abdomen): normal bowel sounds, soft, nontender, no hepatosplenomegaly Musculoskeletal: Left foot erythema improving +Right BKA Neurologic: PERRL, EOMI, accommodation nl, no face palsy, no dysarthria Psychiatric: A+Ox3, euthymic affect Results & Data Results & Data Vital Signs (Past 12 Hours) Vital Signs Temp Pulse Resp BP BP Pulse Ox O2 Del Method 01/29/25 11:13 102 H 91/60 L 99 Room Air 01/29/25 07:28 36.6 C 107 H 16 82/53 L 83/60 L 97 Room Air Laboratory Results Abnormal lab results 01/28/25 01/28/25 01/29/25 Range/Units 16:26 20:43 05:35 Hct 41.4 L (42.0-52.0) % BUN/Creatinine Ratio 27.4 H (10-20) Glucose 107 H (70-99(Fasting)) mg/dl POC Glucose 160 H 126 H (70-99) mg/dl 01/29/25 01/29/25 Range/Units 07:28 14:50 Hct (42.0-52.0) % BUN/Creatinine Ratio (-20) Glucose (70-99(Fasting)) mg/dl POC Glucose 125 H 67 L* (70-99) mg/dl
[2025-01-29] MEDS: CARBOHYDRATES FOR HYPOGLYCEMIA PO PRN (14:52)
[2025-01-30] MEDS: LANTUS PER UNIT CHARGE SC SCH (08:20)
[2025-01-30] MEDS ORDERED: LANTUS PER UNIT CHARGE SC SCH (09:00)
--- NOTE | 2025-01-30 10:29 | Hospitalist Progress Note ---
Date of Service January 30, 2025 Assessment & Plan (1) Cellulitis of leg: (2) Type 2 diabetes mellitus with diabetic neuropathy: Plan 50-year-old male with past med history significant for type 2 diabetes, dyslipidemia, history of subacute osteomyelitis of left foot, adjustment disorder with depressed mood, Right BKA who presents with left foot pain Left foot cellulitis Patient does not meet 2 SIRS criteria for sepsis on admission. Had tachycardia only Low suspicion for sepsis considering no leukocytosis, normal CRP CT foot noted degenerative changes in IPJ and MTP joint of great toe with adjacent soft tiss thickening likely cellulitis. Diffuse subcut hypodense strand ing in lower leg and foot Cultures negative so far. Antibiotics deescalated to ceftriaxone Some of the pain suggests possible neuropathy. Continue trial of gabapentin and flexeril. Chronic CHF Orthostatic hypotension Currently euvolemic Continue midodrine DM 2 Hemoglobin A1c 6.4 Hypoglycemic episode on 01/29/25. Lantus reduced to 20U daily. Monitor PT/OT eval noted. Patient requiring some assistance from being independent SNF recommended. CM working on this DVT prophylaxis. Lovenox subcu Full code I spent a total of 35 minutes coordinating, documenting and providing care for this patient excluding time spent in performance of separately billed services Admission and Anticipated Discharge Date Admission Date: January 26, 2025 Subjective Patient seen and examined Reports LE pain is improving No new complaints Physical Exam Constitutional: + well hydrated; no acute distress Eyes: PERRL, conjunctivae normal, anicteric sclerae ENMT: external ear and nose normal, oropharynx normal Respiratory: normal respiratory effort, lungs clear to auscultation Cardiovascular: Rate/Rhythm: regular rate and regular rhythm Gastrointestinal (Abdomen): normal bowel sounds, soft, nontender, no hepatosplenomegaly Musculoskeletal: +Rt BKA Left foot erythema almost resolved Neurologic: PERRL, EOMI, accommodation nl, no face palsy, no dysarthria Psychiatric: A+Ox3, euthymic affect Results & Data Results & Data Vital Signs (Past 12 Hours) Vital Signs Temp Pulse Resp BP Pulse Ox O2 Del Method 01/30/25 08:20 36.2 C L 107 H 18 94/58 L 98 Room Air 01/29/25 23:00 36.5 C 100 H 18 108/74 97 Room Air Laboratory Results Abnormal lab results 01/29/25 01/29/25 01/29/25 Range/Units 14:50 16:32 20:28 POC Glucose 67 L* 143 H 137 H (70-99) mg/dl 01/30/25 01/30/25 Range/Units 07:29 11:36 POC Glucose 277 H 131 H (70-99) mg/dl
[2025-01-30] MEDS: CYCLOBENZAPRINE HCL 5 MG TAB PO STA (22:32)
[2025-01-31] MEDS: CYCLOBENZAPRINE HCL 5 MG TAB PO PRN (08:48)
--- NOTE | 2025-01-31 10:58 | Hospitalist Progress Note ---
Date of Service January 31, 2025 Assessment & Plan (1) Cellulitis of leg: (2) Type 2 diabetes mellitus with diabetic neuropathy: Plan 50-year-old male with past med history significant for type 2 diabetes, dyslipidemia, history of subacute osteomyelitis of left foot, adjustment disorder with depressed mood, Right BKA who presents with left foot pain Left foot cellulitis Patient does not meet 2 SIRS criteria for sepsis on admission. Had tachycardia only Low suspicion for sepsis considering no leukocytosis, normal CRP CT foot noted degenerative changes in IPJ and MTP joint of great toe with adjacent soft tiss thickening likely cellulitis. Diffuse subcut hypodense strand ing in lower leg and foot Cultures negative so far. Antibiotics deescalated to ceftriaxone to complete 7 days of treatment Some of the pain suggests possible neuropathy. Continue trial of gabapentin and flexeril. Chronic CHF Orthostatic hypotension Currently euvolemic Continue midodrine DM 2 Hemoglobin A1c 6.4 Hypoglycemic episode on 01/29/25. Lantus reduced to 20U daily. Monitor PT/OT eval noted. Patient requiring some assistance from being independent SNF recommended. CM working on this DVT prophylaxis. Lovenox subcu Full code I spent a total of 35 minutes coordinating, documenting and providing care for this patient excluding time spent in performance of separately billed services Admission and Anticipated Discharge Date Admission Date: January 26, 2025 Subjective Patient seen and examined Reports feeling better today LE pain improved Physical Exam Constitutional: + well hydrated; no acute distress Eyes: PERRL, conjunctivae normal, anicteric sclerae ENMT: external ear and nose normal, oropharynx normal Respiratory: normal respiratory effort, lungs clear to auscultation Cardiovascular: Rate/Rhythm: regular rate and regular rhythm Gastrointestinal (Abdomen): normal bowel sounds, soft, nontender, no hepatosplenomegaly Musculoskeletal: Left foot erythema mostly resolved Neurologic: PERRL, EOMI, accommodation nl, no face palsy, no dysarthria Psychiatric: A+Ox3, euthymic affect Results & Data Results & Data Vital Signs (Past 12 Hours) Vital Signs Temp Pulse Resp BP Pulse Ox O2 Del Method 01/31/25 07:37 36.3 C L 112 H 18 92/59 L 99 Room Air Laboratory Results Abnormal lab results 01/30/25 01/30/25 01/31/25 Range/Units 16:23 21:06 07:36 POC Glucose 147 H 116 H 173 H (70-99) mg/dl 01/31/25 Range/Units 11:20 POC Glucose 183 H (70-99) mg/dl
[2025-02-01] MEDS: LANTUS PER UNIT CHARGE SC SCH (09:01)
--- NOTE | 2025-02-01 14:42 | Hospitalist Progress Note ---
Date of Service February 01, 2025 Assessment & Plan (1) Cellulitis of leg: (2) Type 2 diabetes mellitus with diabetic neuropathy: Plan 50-year-old male with past med history significant for type 2 diabetes, dyslipidemia, history of subacute osteomyelitis of left foot, adjustment disorder with depressed mood, Right BKA who presents with left foot pain Left foot cellulitis Patient does not meet 2 SIRS criteria for sepsis on admission. Had tachycardia only Low suspicion for sepsis considering no leukocytosis, normal CRP CT foot noted degenerative changes in IPJ and MTP joint of great toe with adjacent soft tiss thickening likely cellulitis. Diffuse subcut hypodense strand ing in lower leg and foot Cultures negative so far. Completed antibiotics today Some of the pain suggests possible neuropathy. Continue trial of gabapentin and flexeril. Chronic CHF Orthostatic hypotension Currently euvolemic Continue midodrine DM 2 Hemoglobin A1c 6.4 Hypoglycemic episode on 01/29/25. Lantus reduced to 20U daily. Monitor PT/OT eval noted. Patient requiring some assistance from being independent SNF recommended. CM working on this DVT prophylaxis. Lovenox subcu Full code I spent a total of 35 minutes coordinating, documenting and providing care for this patient excluding time spent in performance of separately billed services Admission and Anticipated Discharge Date Admission Date: January 26, 2025 Subjective Patient seen and examined Denied any new complaints Physical Exam Constitutional: + well hydrated; no acute distress Eyes: PERRL, conjunctivae normal, anicteric sclerae ENMT: external ear and nose normal, oropharynx normal Respiratory: normal respiratory effort, lungs clear to auscultation Cardiovascular: Rate/Rhythm: regular rate and regular rhythm Gastrointestinal (Abdomen): normal bowel sounds, soft, nontender, no hepatosplenomegaly Musculoskeletal: Left foot erythema mostly resolved +Right BKA Neurologic: PERRL, EOMI, accommodation nl, no face palsy, no dysarthria Psychiatric: A+Ox3, euthymic affect Results & Data Results & Data Vital Signs (Past 12 Hours) Vital Signs Temp Pulse Resp BP Pulse Ox O2 Del Method 02/01/25 07:23 36.4 C L 101 H 14 93/61 L 98 Room Air
--- NOTE | 2025-02-02 13:53 | Hospitalist Progress Note ---
Date of Service February 02, 2025 Assessment & Plan (1) Cellulitis of leg: (2) Type 2 diabetes mellitus with diabetic neuropathy: Plan 50-year-old male with past med history significant for type 2 diabetes, dyslipidemia, history of subacute osteomyelitis of left foot, adjustment disorder with depressed mood, Right BKA who presents with left foot pain Left foot cellulitis Patient does not meet 2 SIRS criteria for sepsis on admission. Had tachycardia only Low suspicion for sepsis considering no leukocytosis, normal CRP CT foot noted degenerative changes in IPJ and MTP joint of great toe with adjacent soft tiss thickening likely cellulitis. Diffuse subcut hypodense strand ing in lower leg and foot Cultures negative so far. Completed antibiotics Some of the pain especially in left thigh suggests possible neuropathy. Continue gabapentin 300mg BID and flexeril prn started during this stay with improvement in pain. Chronic CHF Orthostatic hypotension Currently euvolemic Continue midodrine DM 2 Hemoglobin A1c 6.4 Had hypoglycemic episodes Lantus reduced to 20U daily PT/OT eval noted. Patient requiring some assistance from being independent SNF recommended. CM working on this Awaiting bed availability DVT prophylaxis. Lovenox subcu Full code I spent a total of 35 minutes coordinating, documenting and providing care for this patient excluding time spent in performance of separately billed services Admission and Anticipated Discharge Date Admission Date: January 26, 2025 Subjective Patient seen and examined LLE pain much improved No new complaints Physical Exam Constitutional: + well hydrated; no acute distress Eyes: PERRL, conjunctivae normal, anicteric sclerae ENMT: external ear and nose normal, oropharynx normal Respiratory: normal respiratory effort, lungs clear to auscultation Cardiovascular: Rate/Rhythm: regular rate and regular rhythm Gastrointestinal (Abdomen): normal bowel sounds, soft, nontender, no hepatosplenomegaly Musculoskeletal: Left foot erythema resolved Neurologic: PERRL, EOMI, accommodation nl, no face palsy, no dysarthria Psychiatric: A+Ox3, euthymic affect Results & Data Results & Data Vital Signs (Past 12 Hours) Vital Signs Temp Pulse Resp BP Pulse Ox O2 Del Method 02/02/25 10:54 36.6 C 109 H 18 97/68 L 96 Room Air 02/02/25 08:20 Room Air 02/02/25 07:25 36.6 C 102 H 18 98/66 L 97 Room Air Laboratory Results Abnormal lab results 10/02/01/25 02/02/25 Range/Units 16:21 20:40 07:33 POC Glucose 139 H 130 H 196 H (70-99) mg/dl 02/02/25 Range/Units 11:30 POC Glucose 152 H (70-99) mg/dl
[2025-02-02 22:17] VITALS: RESP 18
[2025-02-03 07:42] VITALS: TEMP 97.3; O2SAT 99
[2025-02-03] MEDS: LANTUS PER UNIT CHARGE SC SCH (08:07)
--- NOTE | 2025-02-03 10:54 | Discharge Summary ---
Discharge Summary Date of Service February 03, 2025 Principal Dx & Hospital Course #1 = Principal Diagnosis (1) Cellulitis of leg: (2) Type 2 diabetes mellitus with diabetic neuropathy: Plan 50-year-old male with past med history significant for type 2 diabetes, dyslipidemia, history of subacute osteomyelitis of left foot, adjustment disorder with depressed mood, Right BKA who presents with left foot pain. He was admitted for sepsis/cellulitis of L foot. He completed abx regimen. He is waiting for SNF placement. For DC to SNF today. Feeling well without any complaints today. Eager for DC. vitals are stable. Left foot cellulitis Patient does not meet 2 SIRS criteria for sepsis on admission. Had tachycardia only Low suspicion for sepsis considering no leukocytosis, normal CRP CT foot noted degenerative changes in IPJ and MTP joint of great toe with adjacent soft tiss thickening likely cellulitis. Diffuse subcut hypodense stranding in lower leg and foot Cultures negative so far. Completed antibiotics Some of the pain especially in left thigh suggests possible neuropathy. Continue gabapentin 300mg BID and flexeril prn started during this stay with improvement in pain. Chronic CHF Orthostatic hypotension Currently euvolemic Continue midodrine DM 2 Hemoglobin A1c 6.4 Had hypoglycemic episodes Lantus reduced to 20U daily PT/OT eval noted. Patient requiring some assistance from being independent SNF recommended. CM working on this Awaiting bed availability DVT prophylaxis. Lovenox subcu Full code I spent a total of 42 minutes coordinating, documenting and providing care for t his patient excluding time spent in performance of separately billed services Notes For Next Care Provider Medication Changes From Visit Lantus decrease to 20 units Flexeril and gabapentin added for neuropathy Admission HPI Per Admitting Provider History obtained from patient and records. Medical history significant for chronic systolic heart failure (EF 40 to 45%, TTE 2024), orthostatic hypotension on midodrine, NSVT as per records, DM 2 insulin requiring, hyperlipidemia, history of right BKA, history of MRSA, mood disorder. Last confinement October 2024 for sepsis secondary to streptococcal bacteremia secondary to DM foot infection status post right BKA. Patient discharged to rehab facility on Levaquin course. Patient noted worsening painful left foot swelling over the last couple weeks. No fever, no chills, no chest pain, no SOB. Left leg felt weak and numb from pain. Patient directed to ER by urgent care facility. Medical History as above Surgical History : Toe wound debridement, right BKA Family History : Diabetes, high blood pressure Personal/Social history : Non-smoker, occasional EtOH intake, disabled Discharge Exam Vitals and labs reviewed General: Well appearing, NAD HEENT: EOMI, PERRLA Neck: Supple Cardiac: RRR no rubs gallops or murmurs Lungs: CTA no rhonchi wheezing or rales Abd: S NT ND BS positive : No michaels MSK: Full ROM. No obvious deformities Ext: No Edema cyanosis Skin: Warm, Dry Neuro: AOx3 No focal deficits. Psych: Normal Mood Updated Medication List Medication Instructions Recorded Confirmed Type blood sugar diagnostic (OneTouch #100 ea 11/05/22 11/30/24 Rx Verio test strips) lancets 30 gauge (OneTouch Delica #100 ea 11/05/22 11/30/24 Rx Plus Lancet) pen needle, diabetic 32 gauge x #100 ea 11/05/22 11/30/24 Rx 5/32" (Pen Needle) metformin 500 mg tablet 500 mg PO BID 10/28/24 01/25/25 History midodrine 2.5 mg tablet 2.5 mg PO TID@0800,1200,1700 #90 11/03/24 01/25/25 Rx tabs cholecalciferol (vitamin D3) 125 125 mcg PO DAILY 01/25/25 01/25/25 History mcg (5,000 unit) tablet empagliflozin 25 mg tablet 25 mg PO QAM 01/25/25 01/25/25 History (Jardiance) insulin glargine 100 unit/mL 30 unit SC QAM 01/25/25 01/25/25 History subcutaneous solution (Lantus U-100 Insulin) magnesium oxide 400 mg (241.3 mg 400 mg PO BID 01/25/25 01/25/25 History magnesium) tablet meloxicam 15 mg tablet 15 mg PO DAILY PRN pain 01/25/25 01/25/25 History sodium di- and 2 tab PO QID 01/25/25 01/25/25 History monophosphate-potassium phos monobasic 250 mg tablet (Phospha Neutral) cyclobenzaprine 5 mg tablet 5 mg PO TID PRN muscle spasm 30 02/03/25 Rx days #30 tabs gabapentin 300 mg capsule 300 mg PO BID 30 days #60 caps 02/03/25 Rx insulin glargine 100 unit/mL 20 unit (0.2 mL) SC QAM 30 days #6 02/03/25 Rx subcutaneous solution (Lantus mL U-100 Insulin) Hospital Stay Data Consultations 01/26/25 00:48 ED Decision to Admit Stat Diagnostic Imagining Performed 01/25/25 19:53 US doppler leg [US arterial duplex LE LT] Stat US venous doppler LE LT Stat 01/26/25 02:05 CT foot LT w con Stat Pending Results Patient Have Any Pending Studies at Discharge: No Discharge Instructions Given to Patient (Per Discharging Provider) Continue to work with PT/OT. Total Time Total Time Spent Total Time Spent (In Minutes): 42
[2025-02-03 12:20] VITALS: BP 103/72; PULSE 94
--- NOTE | 2025-02-04 09:20 | Coding Query ---
No sepsis SEPSIS To promote full compliance with coding requirements relating to patient care, physician participation is requested in all cases of ediphone operator uncertainty. Please assist us with the question(s) below: In responding to this query, please exercise your independent professional judgement. The fact that a question is asked does not imply that any particular answer is desired or expected. We appreciate your clarification on this issue. Throughout the medical record, you have clearly documented a localized infection and your patient has clinical evidence of a generalized sepsis or severe sepsis. The term urosepsis is a nonspecific entity and is coded as an UTI. If the patient has sepsis, severe sepsis, from an urinary source or some other source, please clarify in your response below. The medical record reflects the following clinical findings: (With dates as appropriate) (Body temperature of >38.3 C(101 F) or <36 C(96.8F), pulse >90/minute, respirations >20/minute, WBC count >12,000 or <4,000, altered mental status, significant edema or positive fluid balance, hyperglycemia without diabetes, hypotension, metabolic acidosis (elev. lactate level, anion gap or reduced blood pH), shock, positive blood culture (enter organism) ____ ()Bacteremia (Nonspecific laboratory finding of bacteria in the blood) Specify Organism () Present on Admission (x) Not present on admission () Unable to clinically determine () Septicemia (Systemic disease associated with the presence of pathogenic microorganisms in the blood): Specify Organism () Present on Admission (x) Not present on admission () Unable to clinically determine () Sepsis Specify Organism Specify Associated Condition/Diagnosis () Present on Admission ()x Not present on admission () Unable to clinically determine () Severe Sepsis (Sepsis associated with acute organ dysfunction) Specify Organism Specify Associated Condition/Diagnosis () Present on Admission (x) Not present on admission () Unable to clinically determine () Septic Shock (Severe sepsis with acute circulatory failure, unexplained by other causes) () Present on Admission (x) Not present on admission () Unable to clinically determine () Other, patient has: MTDD
== END 2025-02-03 12:42 | DRG 603 ==
LOC: ED 18:42 → SUATTDRO 01-26 02:03 → EDINP 01-26 02:03 → 3E 01-26 02:34

== ENCOUNTER 2025-03-12 13:13 | Inpatient (IN) ==
--- NOTE | 2025-03-12 13:18 | Emergency Department Note ---
Impression & Plan DKA, type 2, Ventricular tachycardia, Acute dehydration, Nausea and vomiting ED Provider Note NAME: ROSA JOY AGE: 50 SEX: M : 1975 ARRIVES VIA: Ambulance INFORMANT: [Patient][, ] ED PROVIDER(S): [Gomez Evans MD] CHIEF COMPLAINT: Nausea vomiting MEDICAL DECISION MAKING: Patient presents with the above. Patient was noted to be in V. tach and route did receive amiodarone 150 x 2 as well as associated cardioversion. Currently in a sinus tachycardia. Pads were placed IV was established and blood work was obtained. Patient was ordered IV fluids EKG Zofran and 2 g of IV magnesium. The patient's blood work does show concern for DKA the patient was ordered additional liter of IV fluids DKA insulin protocol as well as maintenance fluids. The patient did have discoloration to the left foot the patient has no foot pain and the patient does have good pedal pulse. I did discuss all of the aforementioned with the hospitalist service at the bedside. They were also comfortable plan of care. Patient with white count of 15. Patient without any chest pain or shortness of breath. Patient's creat of 1.4. The patient did have a blood sugar of 340 and a bicarb of 9 with an anion gap of 28. Potassium of 5.2 and magnesium of 2.2. Troponin of 915 which may have been demand or metabolic switch in light of the patient's ventricular tachycardia prior to arrival. Patient currently denies any chest pain or shortness of breath. The patient's EKG did show some ST depressions but no obvious STEMI. Urinalysis does show ketones. Critical Care: I have personally spent 80 minutes of critical care time in direct management of this patient. This includes bedside care, interpretation of diagnostic studies, and testing, discussion with consultants, patient, and family members, and other require inpatient management activities. This 80 minutes is in excess of all separately billable procedures. Discussion w/ other healthcare providers: VANIA Wills and Dr. Carrero inpatient medicine service Prior /Outside records reviewed: [none] Differential diagnosis: Gastroenteritis, food borne illness, infection, appendicitis, diverticulitis, inflammatory bowel disease, obstruction among others were considered. Diagnostics, as interpreted by me: ECG: Sinus tachycardia with short [place], ventricular rate of 116, normal QRS duration, normal axis. No ST elevations, ST depressions in the lateral leads. No obvious STEMI. Cardiac monitoring: An order was placed for continuous cardiac monitoring. The monitor shows a rate of 115 with tachycardic and regular rhythm. [Patient was placed on pulse oximetry] Medical decision rules: [none] Imaging studies: [I informally interpreted the patient's Chest x-ray does not show obvious pneumonia or pneumothorax with formal report to follow.] [] HPI: Patient presents due to concern for nausea and vomiting. Patient states that has had symptoms for about 2 or 3 days in duration. The patient states that he has been out of his gabapentin. He denies any chest pains or shortness of breath. The patient states that he has vomited multiple times. Patient does smoke cigarettes he does occasionally use marijuana but not recently. Denies any recent alcohol use. Patient was seen by EMS in the field was noted to have a wide-complex tachycardia for which she did receive multiple medications including adenosine and amiodarone without any improvement. The patient subsequently did undergo cardioversion in the field and subsequent additional 150 mg of IV amiodarone. Patient denies any chest pains or shortness of breath. He has not used other drugs besides marijuana in months. He has not been eating or drinking in the last several days. PAST MEDICAL HISTORY: [See Below] PAST SURGICAL HISTORY: [See Below] SOCIAL HISTORY: [See Below] HOME MEDICATIONS: [See Below] ALLERGIES: [See Below] VITALS: [See Below] PHYSICAL EXAMINATION: GENERAL: NAD, non-toxic. EYE EXAM: Normal conjunctiva. PERRL, no anisocoria and EOM's grossly intact w/o pain. OROPHARYNX: Dry mucous membranes, poor dentition. NECK: Trachea midline, no stridor. LUNGS: Clear to auscultation. Normal chest wall mechanics. HEART: Tachycardic and regular, no MRG. ABDOMEN: Abdomen soft, non-tender, no masses, no rebound or guarding. SKIN: No rashes and no bruising. UPPER EXTREMITIES: Upper extremities are grossly normal. LOWER EXTREMITIES: Right BKA noted. Left lower extremity with discolored left foot but good pedal pulse. Sensate. No obvious deformity. NEURO EXAM: Awake and alert, follows commands, no obvious facial asymmetry, normal speech, moves all 4 extremities. Past Med/Surg History Problem List (Updated 03/12/25 @ 18:14 by Gomez Evans MD) Nausea and vomiting (Acute) Acute dehydration (Acute) Ventricular tachycardia (Acute) DKA, type 2 (Acute) Hyperphosphatemia Orthostatic hypotension Elevated troponin MARCELLO (acute kidney injury) Uncontrolled diabetes mellitus with hyperglycemia DKA (diabetic ketoacidosis) Left foot pain (Acute) NSVT (nonsustained ventricular tachycardia) Electrolyte abnormality Osteomyelitis of foot, right, acute Severe sepsis with acute organ dysfunction Streptococcal bacteremia Hypophosphatemia Severe sepsis due to pneumococcus with acute organ dysfunction Ulcer of left lower leg Hyponatremia Osteomyelitis of second toe of left foot (Acute) Diabetic ulcer of toe of left foot associated with type 2 diabetes mellitus Cellulitis and abscess of lower extremity (Acute) Abrasion of toe, right, infected (Acute) Acute hyperglycemia (Acute) Cellulitis Encounter for pre-operative examination Mood disorder (Chronic) DVT prophylaxis MRSA (methicillin resistant Staphylococcus aureus) infection Diabetic infection of left foot (Acute) Sepsis (Acute) Lumbago (Chronic) Diabetes (Chronic) Medical History Amputation of right lower extremity below knee Type 2 diabetes mellitus with diabetic neuropathy Hypertension Marijuana abuse Diabetic foot infection Surgical History History of back surgery History of incision and drainage right lower leg Family History Mother Diabetes Father Diabetes Social History Smoking Status: Current every day smoker Second Hand Exposure: No; Do You Dip or Chew Tobacco: Yes; Tobacco Cessation Education Requested by Patient: No Hx Alcohol Use: Yes Alcohol type: beer and hard liquor Hx Substance Use: Yes Last Used Substance: Days (ago) Last Used Substance Other:: smokes marijuana daily Preferred Language: Amharic Communication Ability: Effective Director Pharmacology Required: No Beliefs That Will Affect Care: None marital status: Current Living Situation: Family Current Living Situation Comment: lives with daughter current occupational status: employed Other Information That Helps Us Care for You: No Feels Safe at Home: Yes Safety Concerns: Feels Safe At This Time Assistive Devices: Wheelchair Allergies Allergies Allergy/AdvReac Type Severity Reaction Status Date / Time pollen extracts Allergy Intermediate ITCHY Verified 03/12/25 15:45 EYES, SNEEZING, CONGESTION Home Meds Home Medications Medication Instructions Recorded Confirmed metformin 500 mg tablet 500 mg PO BID 10/28/24 03/12/25 cholecalciferol (vitamin D3) 125 125 mcg PO DAILY 01/25/25 03/12/25 mcg (5,000 unit) tablet empagliflozin 25 mg tablet 25 mg PO QAM 01/25/25 03/12/25 (Jardiance) magnesium oxide 400 mg (241.3 mg 400 mg PO BID 01/25/25 03/12/25 magnesium) tablet sodium di- and 2 tab PO QID 01/25/25 03/12/25 monophosphate-potassium phos monobasic 250 mg tablet (Phospha Neutral) cyclobenzaprine 5 mg tablet 5 mg PO UD PRN Muscle Spasm 03/12/25 03/12/25 gabapentin 300 mg capsule 300 mg PO BID 03/12/25 03/12/25 midodrine 2.5 mg tablet 2.5 mg PO TID@0800,1200,1700 03/12/25 03/12/25 Previous Rx's Medication Instructions Recorded blood sugar diagnostic (OneTouch #100 ea 11/05/22 Verio test strips) lancets 30 gauge (OneTouch Delica #100 ea 11/05/22 Plus Lancet) pen needle, diabetic 32 gauge x #100 ea 11/05/22 5/32" (Pen Needle) Results & Data (ED) Vital Signs Vital Signs - 24 hr 03/12/25 13:17 03/12/25 13:25 03/12/25 15:17 Temperature 36.6 C Temperature Source Oral Pulse Rate 116 H 116 H Pulse Rate [Apical] 108 H Pulse Rhythm Irregular Pulse Strength Normal Pulse Strength [Apical] Normal Respiratory Rate 20 20 Respiratory Effort / Characteristics Non-Labored Spontaneous Spontaneous Respiratory Depth Normal Normal Respiratory Pattern Regular Regular Blood Pressure 101/80 Blood Pressure [Left Arm] 119/77 Blood Pressure Mean 87 Blood Pressure Mean [Left Arm] 91 Blood Pressure Position Sitting Blood Pressure Position [Left Arm] Lying Pulse Oximetry 93 98 Oxygen Delivery Method Room Air Room Air Sepsis Recent Fever Within 48 Hours No Sepsis New/Unexplained Change in Mental Status No Sepsis Action Taken by Nursing No Action Required Home Medications Current Medication List: was personally reviewed by me Laboratory Data Attestation: I reviewed the patient's lab results. 03/12/25 13:54 03/12/25 13:54 Lab Results 03/12/25 03/12/25 03/12/25 Range/Units 13:54 14:03 15:09 WBC 15.95 H (4.8-10.8) K/ul RBC 5.67 (4.70-6.10) M/uL Hgb 18.4 H (14.0-18.0) g/dL POC Hgb 18.4 H (14.0-18.0) g/dl Hct 51.8 (42.0-52.0) % POC Hct 54 H (42-52) % MCV 91.4 (80.0-100.0) fL MCH 32.5 (25.0-34.0) pg MCHC 35.5 (32.0-36.0) g/dL RDW Std Deviation 44.8 (36.4-46.3) fL RDW Coeff of Saida 13.3 (11.5-14.5) % Plt Count 270 (130-400) K/uL MPV 9.7 (9.4-12.4) fL Immature Gran % (Auto) 0.8 % Neut % (Auto) 85.2 % Lymph % (Auto) 6.9 % [place] % (Auto) 6.8 % Eos % (Auto) 0.0 % Baso % (Auto) 0.3 % Neut # (Auto) 13.58 H (1.40-6.50) K/uL Lymph # (Auto) 1.10 L (1.20-3.40) K/uL [place] # (Auto) 1.09 H (0.11-0.59) K/uL Eos # (Auto) 0.00 (0.00-0.50) K/uL Baso # (Auto) 0.05 (0.00-0.20) K/uL Immature Gran # (Auto) 0.13 (0.01-0.20) K/uL POC Sodium 135 (135-144) mmol/L Sodium 134 L (136-145) mmol/L POC Potassium 5.3 H (3.3-5.0) mmol/L Potassium 5.2 H (3.5-5.1) mmol/L POC Chloride 105 (101-112) mmol/L Chloride 97 L (98-107) mmol/L Carbon Dioxide 9 L* (21-32) mmol/L POC Total CO2 11 L (24-31) mmol/L Anion Gap 28 H (3-11) POC Anion Gap 26.0 H (16-25) mmol/L POC BUN 36 H (7-18) mg/dl BUN 34 H (6-23) mg/dl Creatinine 1.41 H (0.6-1.4) mg/dl POC Creatinine 1.2 (0.6-1.3) mg/dl Est Cr Clr Drug Dosing 57.6 ml/min eGFR 60.71 BUN/Creatinine Ratio 24.1 H (10-20) Glucose 340 H* (70-99(Fasting)) mg/dl POC Glucose 290 H (70-99) mg/dl POC Glucose (other) 310 H (70-99) mg/dl Calcium 9.2 (8.6-10.3) mg/dl POC Ioniz Calcium Michael 1.13 (1.12-1.32) mmol/l Phosphorus 6.2 H (2.5-4.9) mg/dl Magnesium 2.2 (1.7-2.4) mg/dl Total Bilirubin 0.7 (0.2-1.0) mg/dl AST 12 L (13-39) U/L ALT 9 (7-52) U/L Alkaline Phosphatase 67 (34-104) U/L Troponin I High Sens 915.6 H* (0-20) pg/ml Total Protein 9.1 H (6.0-8.3) gm/dl Albumin 4.6 (3.4-5.0) gm/dl Globulin 4.5 H (2.5-4.0) gm/dl Albumin/Globulin Ratio 1.0 (0.9-2) TSH 1.334 (0.300-4.500) uIu/ml Administered Medications Parenteral Electrolytes (Plasma-Lyte A Ph 7.4) 1,000 mls @ 250 mls/hr IV .Q4H [facility] Stop: 03/15/25 14:59 Last Admin: 03/12/25 15:10 Dose: 250 mls/hr Documented By: [facility] Insulin Human Regular 250 (units/ Sodium Chloride) 250 mls @ 7.7 mls/hr IV .Q24H [facility]; Protocol Stop: 04/11/25 14:59 Last Titration: 03/12/25 17:04 Dose: 7.7 units/hr, 7.7 mls/hr Documented By: JOSE ALFREDO Co-signed By: [facility] Admin: 03/12/25 15:54 Dose: 7.7 units/hr, 7.7 mls/hr Documented By: sam Co-signed By: JOSE ALFREDO Insulin Aspart (Insulin Aspart Per Unit Charge) 0 units SC ACHS BETTY Stop: 04/11/25 16:29 Last Admin: 03/12/25 17:26 Dose: Not Given Documented By: YAKOV Miscellaneous (Continuous Glucose Monitor) 0 each N/A ACHS BETTY Stop: 04/11/25 17:23 Last Admin: 03/12/25 17:28 Dose: Not Given Documented By: YAKOV Discontinued Medications Sodium Chloride (Nss) 1,000 mls @ 999 mls/hr IV .Q1H1M BETTY Stop: 03/12/25 14:30 Last Infusion: 03/12/25 15:11 Dose: Infused Documented By: [facility] Admin: 03/12/25 14:30 Dose: 999 mls/hr Documented By: ELEUTERIO Magnesium Sulfate/Dextrose (Magnesium Sulfate / D5w) 1 gm in 100 mls @ 200 mls/hr IV Q30M BETTY Stop: 03/12/25 14:26 Last Infusion: 03/12/25 15:12 Dose: Infused Documented By: [facility] Admin: 03/12/25 14:31 Dose: 200 mls/hr Documented By: Infusion: 03/12/25 14:18 Dose: Infused Documented By: Admin: 03/12/25 13:48 Dose: 200 mls/hr Documented By: ELEUTERIO Sodium Chloride (Nss) 1,000 mls @ 999 mls/hr IV .Q1H1M ONE Stop: 03/12/25 14:26 Last Infusion: 03/12/25 15:11 Dose: Infused Documented By: sam Admin: 03/12/25 13:45 Dose: 999 mls/hr Documented By: ELEUTERIO Sodium Chloride (Nss) 1,000 mls @ 999 mls/hr IV .Q1H1M ONE Stop: 03/12/25 15:35 Last Infusion: 03/12/25 16:05 Dose: Infused Documented By: juan Admin: 03/12/25 15:06 Dose: 999 mls/hr Documented By: ELEUTERIO Miscellaneous (Stat Iv Infusion Titration Per Protocol) 1 each N/A NOW STA Stop: 03/12/25 14:52 Last Admin: 03/12/25 16:01 Dose: Not Given Documented By: JOSE ALFREDO Ondansetron HCl (Ondansetron Inj 2 Mg/Ml 2 Ml Vial) 4 mg IV NOW STA Stop: 03/12/25 13:29 Last Admin: 03/12/25 13:51 Dose: 4 mg Documented By: ELEUTERIO Imaging Data Radiologist's Impression: Chest X-Ray 03/12/25 13:58 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 No pneumothorax, pleural effusion or airspace consolidation. Nipple shadow projects over the left lung base. Bones appear grossly intact. IMPRESSION: No acute process. ACT 112: Negative or not required by law. The above report was generated using voice recognition software. It may contain grammatical, syntax or spelling errors. Electronically signed by: Arian Dykes M.D. 03/12/2025 2:19 PM Discharge Plan Visit Data Chief Complaint: Cardiac Assessment Stated Complaint: CHEST PAIN, TACHYCARDIA ED Provider: Gomez Evans Discharge Problem: DKA, type 2, Ventricular tachycardia, Acute dehydration, Nausea and vomiting Patient Disposition: Admitted As Inpatient Condition: Fair Discharge Instructions Interventions: ED Discharge Assessment Last Done: 03/12/25 17:00 Discharge Problem: DKA, type 2 Qualifiers: Diabetes mellitus complication detail: without coma Qualified Code(s): E11.10 - Type 2 diabetes mellitus with ketoacidosis without coma Nausea and vomiting Qualifiers: Vomiting type: unspecified Qualified Code(s): R11.2 - Nausea with vomiting, unspecified
[2025-03-12] MEDS: SODIUM CHLORIDE 0.9% 1,000 ML IV ONE ×2 (13:45→15:06)
[2025-03-12] MEDS: MAGNESIUM SULFATE / D5W 1 GM/100 ML BAG IV SCH (13:48)
[2025-03-12] MEDS: ONDANSETRON INJ 2 MG/ML 2 ML VIAL IV STA (13:51)
[2025-03-12 14:09] LABS: Hematocrit (blood only) 51.8 % (42.0-52.0); Hemoglobin 18.4 g/dL (14.0-18.0); Immature Granulocytes # (auto) 0.13 K/uL (0.01-0.20); Immature Granulocytes % (auto) 0.8 %; Mean Corpuscular Hemoglobin 32.5 pg (25.0-34.0); Mean Corpuscular Volume 91.4 fL (80.0-100.0); Platelet Count 270 K/uL (130-400); RDW Standard Deviation 44.8 fL (36.4-46.3); Red Blood Count 5.67 M/uL (4.70-6.10); White Blood Count 15.95 K/ul (4.8-10.8)
--- NOTE | 2025-03-12 14:20 | XRay Report ---
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 No pneumothorax, pleural effusion o r airspace consolidation. Nipple shadow projects over the left lung base. Bones appear grossly intact . IMPRESSION: No acute process. ACT 112: Negative or not required by law. The above report was generated using voice recognition software. It may contain grammatical, syntax o r spelling errors. Electronically signed by: Arian Dykes M.D. 03/12/2025 2:19 PM
[2025-03-12] MEDS: SODIUM CHLORIDE 0.9% 1,000 ML IV SCH (14:30)
[2025-03-12 14:39] LABS: Alanine Aminotransferase 9.0 U/L (7-52); Albumin Level 4.6 gm/dl (3.4-5.0); Alkaline Phosphatase 67.0 U/L (34-104); Blood Urea Nitrogen 34.0 mg/dl (6-23); Calcium 9.2 mg/dl (8.6-10.3); Carbon Dioxide 9.0 mmol/L (21-32); Chloride 97.0 mmol/L (98-107); Creatinine Clr Calc Pharmacy 57.6 ml/min
[2025-03-12 14:41] LABS: Glucose 340.0 mg/dl (70-99(Fasting))
[2025-03-12 14:42] LABS: Anion Gap 28.0 (3-11); Bilirubin,Total 0.7 mg/dl (0.2-1.0); Magnesium 2.2 mg/dl (1.7-2.4); Potassium 5.2 mmol/L (3.5-5.1); Sodium 134.0 mmol/L (136-145); Total Protein 9.1 gm/dl (6.0-8.3)
[2025-03-12 14:43] LABS: Albumin Globulin Ratio 1.0 (0.9-2); Globulin 4.5 gm/dl (2.5-4.0); Thyroid Stimulating Hormone 1.334 uIu/ml (0.300-4.500)
[2025-03-12] MEDS ORDERED: PHARMACY GLYCEMIC MGMT CONSULT PRN (14:51)
[2025-03-12] MEDS: PLASMA-LYTE A 1,000 ML IV SCH (15:10)
[2025-03-12] MEDS ORDERED: GLUCOSE 40% GEL 15 GM TUBE PO PRN (15:30)
[2025-03-12] MEDS ORDERED: GLUCOSE 10 TAB/TUBE PO PRN (15:30)
[2025-03-12] MEDS ORDERED: GLUCAGON FOR INJ 1 MG VIAL SQ PRN (15:30)
[2025-03-12] MEDS ORDERED: CARBOHYDRATES FOR HYPOGLYCEMIA PO PRN (15:30)
[2025-03-12] MEDS: INSULIN REGULAR 250 UNITS in SODIUM CHLORIDE 0.9% 247.5 ML IV SCH (15:54)
[2025-03-12] MEDS: STAT IV Infusion **Titration per Protocol STA (16:01)
--- NOTE | 2025-03-12 16:02 | History & Physical Report ---
Date of Service March 12, 2025 Assessment & Plan (1) DKA (diabetic ketoacidosis): (2) Uncontrolled diabetes mellitus with hyperglycemia: (3) NSVT (nonsustained ventricular tachycardia): (4) MARCELLO (acute kidney injury): (5) Elevated troponin: (6) Amputation of right lower extremity below knee: (7) Orthostatic hypotension: (8) Hyperphosphatemia: Plan 50 year old male with PMH significant for type 2 diabetes, dyslipidemia, history of right leg osteomyelitis s/p right BKA, chronic CHF, and orthostatic hypotension on midodrine who presents to the ED on 03/12/2025 with nausea and vomiting and was found to be in wide complex v tach by EMS likely secondary to DKA. DKA Uncontrolled DM with hyperglycemia Patient presenting with nausea, vomiting, poor PO intake Glucose 340 on admission with bicarb 9, gap 28 consistent with DKA Labs consistent with dehydration with elevated Hgb, BUN, creat Started on insulin drip in ED BSG q1hr while on insulin drip VBG, BMP, mag, phos q4hr NPO for now Glycemic pharmacy consulted NSVT Wide complex v tach per EMS Received adenosine, amiodarone 150mg x2 doses, cardioversion in the field EKG revealed sinus tachycardia in ED No chest pain or palpitations Likely secondary to metabolic acidosis in setting of DKA Monitor on telemetry Replace lytes as needed Elevated troponin Initial troponin 915 with repeat pending Likely secondary to demand in setting of NSVT, cardioversion, DKA EKG without signs of ischemia MARCELLO Creat 1.4 on admission Likely secondary to dehydration Continue IVF at 250cc/hr Avoid nephrotoxic agents as able Monitor renal function Possible sepsis Leukocytosis 15K and tachycardia on admission Lactate pending No clear source and no s/s of infection Could be due to DKA Follow blood cultures Monitor off abx for now History of right BKA s/p right BKA on 10/31/[address] Vela Incision appears c/d/i Scheduled for prosthesis this month Wheelchair bound currently Orthostatic hypotension BP stable Continue midodrine Hyperphosphatemia Phos 6.2 on admission Hold Phospha tabs and likely discontinue at discharge DVT Prophylaxis: SQ Heparin Code Status: FULL CODE - As per discussion at bedside with the patient. PCP: Dr Apple Disposition: admit to PCU Patient seen in collaboration with Dr Vangala. Please see addendum. I spent a total of 70 minutes coordinating, documenting and providing care for this patient excluding time spent in the performance of separately billed se rvices or time spent by another provider/QHP. Admission and Anticipated Discharge Date Admission Date: March 12, 2025 History of Present Illness Chief Complaint: nausea, vomiting Primary Care Provider: Cristiane Apple MD 50 year old male with PMH significant for type 2 diabetes, dyslipidemia, history of right leg osteomyelitis s/p right BKA, chronic CHF, and orthostatic hypotension on midodrine who presents to the ED on 03/12/2025 with nausea and vomiting. Patient reports two days of feeling ill with multiple episodes of nausea and vomiting and poor PO intake. His family called an ambulance and EMS noted wide complex v tach and patient received a dose of adenosine, amiodarone 150mg, cardioversion, and additional dose of amiodarone 150mg. Patient denies any chest pain, palpitations, SOB, abdominal pain, dysuria, diarrhea. He is wheelchair bound while he awaits a prosthesis for his right BKA. Reports he has been compliant taking metformin and jardiance. Notes he used to be on lantus but was taken off by his doctor about a month ago and since then has noticed his sugars gradually increasing on his dexcom. Allergies Allergy/AdvReac Type Severity Reaction Status Date / Time pollen extracts Allergy Intermediate ITCHY Verified 03/12/25 15:45 EYES, SNEEZING, CONGESTION Home Medications Medication Instructions Recorded Confirmed Type blood sugar diagnostic (OneTouch #100 ea 11/05/22 11/30/24 Rx Verio test strips) lancets 30 gauge (OneTouch Delica #100 ea 11/05/22 11/30/24 Rx Plus Lancet) pen needle, diabetic 32 gauge x #100 ea 11/05/22 11/30/24 Rx 5/32" (Pen Needle) metformin 500 mg tablet 500 mg PO BID 10/28/24 03/12/25 History cholecalciferol (vitamin D3) 125 125 mcg PO DAILY 01/25/25 03/12/25 History mcg (5,000 unit) tablet empagliflozin 25 mg tablet 25 mg PO QAM 01/25/25 03/12/25 History (Jardiance) magnesium oxide 400 mg (241.3 mg 400 mg PO BID 01/25/25 03/12/25 History magnesium) tablet sodium di- and 2 tab PO QID 01/25/25 03/12/25 History monophosphate-potassium phos monobasic 250 mg tablet (Phospha Neutral) cyclobenzaprine 5 mg tablet 5 mg PO UD PRN Muscle Spasm 03/12/25 03/12/25 History gabapentin 300 mg capsule 300 mg PO BID 03/12/25 03/12/25 History midodrine 2.5 mg tablet 2.5 mg PO TID@0800,1200,1700 03/12/25 03/12/25 History Past Med/Surg History Problem List (Updated 03/12/25 @ 18:14 by Gomez Evans MD) Nausea and vomiting (Acute) Acute dehydration (Acute) Ventricular tachycardia (Acute) DKA, type 2 (Acute) Hyperphosphatemia Orthostatic hypotension Elevated troponin MARCELLO (acute kidney injury) Uncontrolled diabetes mellitus with hyperglycemia DKA (diabetic ketoacidosis) Left foot pain (Acute) NSVT (nonsustained ventricular tachycardia) Electrolyte abnormality Osteomyelitis of foot, right, acute Severe sepsis with acute organ dysfunction Streptococcal bacteremia Hypophosphatemia Severe sepsis due to pneumococcus with acute organ dysfunction Ulcer of left lower leg Hyponatremia Osteomyelitis of second toe of left foot (Acute) Diabetic ulcer of toe of left foot associated with type 2 diabetes mellitus Cellulitis and abscess of lower extremity (Acute) Abrasion of toe, right, infected (Acute) Acute hyperglycemia (Acute) Cellulitis Encounter for pre-operative examination Mood disorder (Chronic) DVT prophylaxis MRSA (methicillin resistant Staphylococcus aureus) infection Diabetic infection of left foot (Acute) Sepsis (Acute) Lumbago (Chronic) Diabetes (Chronic) Medical History Amputation of right lower extremity below knee Type 2 diabetes mellitus with diabetic neuropathy Hypertension Marijuana abuse Diabetic foot infection Surgical History History of back surgery History of incision and drainage right lower leg Family History Mother Diabetes Father Diabetes Social History Smoking Status: Current every day smoker Second Hand Exposure: No; Do You Dip or Chew Tobacco: Yes; Tobacco Cessation Education Requested by Patient: No Hx Alcohol Use: Yes Alcohol type: beer and hard liquor Hx Substance Use: Yes Last Used Substance: Days (ago) Last Used Substance Other:: smokes marijuana daily Preferred Language: Trinidadian Communication Ability: Effective 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 Carrero Results & Data Results & Data Vital Signs (Past 12 Hours) Vital Signs Temp Pulse Pulse Resp BP BP Pulse Ox 03/12/25 15:17 108 H 20 119/77 98 03/12/25 13:25 116 H 03/12/25 13:17 36.6 C 116 H 20 101/80 93 O2 Del Method 03/12/25 15:17 Room Air 03/12/25 13:25 03/12/25 13:17 Room Air Laboratory Results Short CBC 03/12/25 Range/Units 13:54 WBC 15.95 H (4.8-10.8) K/ul Hgb 18.4 H (14.0-18.0) g/dL Hct 51.8 (42.0-52.0) % Plt Count 270 (130-400) K/uL BMP 03/12/25 13:54 Sodium 134 L Potassium 5.2 H Chloride 97 L Carbon Dioxide 9 L* BUN 34 H Creatinine 1.41 H Glucose 340 H* Calcium 9.2 Liver Function 03/12/25 Range/Units 13:54 Total Bilirubin 0.7 (0.2-1.0) mg/dl AST 12 L (13-39) U/L ALT 9 (7-52) U/L Alkaline Phosphatase 67 (34-104) U/L Albumin 4.6 (3.4-5.0) gm/dl I have independently reviewed and interpreted patient's admitting labs including CBC, CMP, ionized calcium, mag, phos, TSH, troponin. 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 No pneumothorax, pleural effusion or airspace consolidation. Nipple shadow projects over the left lung base. Bones appear grossly intact. IMPRESSION: No acute process. ACT 112: Negative or not required by law. The above report was generated using voice recognition software. It may contain grammatical, syntax or spelling errors. Electronically signed by: Arian Dykes M.D. 03/12/2025 2:19 PM Code Status & VTE Plan Code Status Full Code VTE Prophylaxis Plan VTE Prophylaxis will be ordered: Yes Supervising Physician Co-Signing Physician Notes Patient is a 50-year-old male with history of type 2 diabetes mellitus, dyslipidemia, chronic hypotension and other medical problems presents with history of nausea, vomiting, poor oral intake. Patient was found by EMS to be in wide-complex tachycardia and received cardioversion, amiodarone, adenosis and and is currently in sinus tachycardia while in ED. Please review HPI for complete details of presentation. I personally reviewed blood work, imaging studies, EKG. Blood work consistent with metabolic acidosis due to DKA Physical Exam: Vitals signs as noted above General Appearance: Thin, frail, chronic ill-appearing, no apparent distress Head: normocephalic, Atraumatic Eyes: normal inspection, EOMI Neck: supple, Trachea midline Respiratory/Chest: Normal breath sounds, CTA, No accessory muscle use Cardiovascular: S1, S2, No murmur, tachycardia Abdomen/GI:Soft, Non tender, Bowel sounds present Extremities/Musculoskeletal:normal inspection, no edema, right BKA Neurologic/Psych:AAOX3, grossly no focal neurological deficits Skin: normal color, warm Diabetic ketoacidosis Anion gap metabolic acidosis due to above Uncontrolled diabetes mellitus Mild hyperkalemia Acute kidney injury Agree with IV fluids, insulin per DKA protocol N.p.o. for now Glycemic pharmacist consulted Monitor and replete electrolytes as needed Avoid nephrotoxic agents as able Leukocytosis No obvious source of infection Likely reactive due to above Blood cultures pending NSVT Currently in sinus tachycardia Troponin elevation likely due to cardioversion, tachycardia--demand ischemia Currently denies any anginal symptoms Echo pending Cardiology consulted Plan to start on low-dose metoprolol blood pressure permits I personally interviewed and examined the patient at bedside. I have reviewed the advanced practitioner's documentation on the date of service referred in note and agree with plan. Patient's care is coordinated with Brandi CARO. Please refer to the documentation above for details of patient's presentation and for discussion of other issues. I spent a total of 26minutes coordinating, documenting, and providing care for this patient excluding time spent in the performance of separately billed services or time spent by another provider/QHP. (1) DKA (diabetic ketoacidosis) Diabetes mellitus complication detail: without coma Diabetes mellitus type: type 1 Qualified Code(s): E10.10 - Type 1 diabetes mellitus with ketoacidosis without coma (6) Amputation of right lower extremity below knee Encounter type: sequela Qualified Code(s): S88.111S - Complete traumatic amputation at level between knee and ankle, right lower leg, sequela
[2025-03-12 16:47] LABS: Appearance Urine Clear (Clear); Bacteria Urine Automated None Seen (None Seen); Epithelial Cell Urine Auto 0-2 /hpf (0-2); Glucose Urine UA 3+ (Negative); RBC Urine Automated 0-2 /hpf (0-2); WBC Urine Automated 21-50 /hpf (0-5)
[2025-03-12] MEDS ORDERED: ACETAMINOPHEN 325 MG TAB PO PRN (17:24)
[2025-03-12] MEDS: INSULIN ASPART PER UNIT CHARGE SC SCH (17:26)
[2025-03-12] MEDS: Continuous Glucose Monitor SCH (17:28)
[2025-03-12] MEDS: DEXTROSE 50% 50 ML SYRINGE IV PRN (19:24)
[2025-03-12 19:58] LABS: Anion Gap 14.0 (3-11); Blood Urea Nitrogen 28.0 mg/dl (6-23); Calcium 8.6 mg/dl (8.6-10.3); Carbon Dioxide 16.0 mmol/L (21-32); Chloride 105.0 mmol/L (98-107); Creatinine Clr Calc Pharmacy 99.2 ml/min; Glucose 86.0 mg/dl (70-99(Fasting)); Magnesium 2.4 mg/dl (1.7-2.4); Potassium 4.7 mmol/L (3.5-5.1); Sodium 135.0 mmol/L (136-145)
[2025-03-12] MEDS: ONDANSETRON INJ 2 MG/ML 2 ML VIAL IV PRN (20:57)
[2025-03-12] MEDS ORDERED: D5W AND 1/2NSS 1,000 ML IV SCH (21:00)
[2025-03-12] MEDS: METOPROLOL TARTRATE 25 MG TAB PO SCH (21:14)
[2025-03-12] MEDS: GABAPENTIN 300 MG CAP PO SCH (21:15)
[2025-03-12] MEDS: MAGNESIUM OXIDE 400 MG TAB PO SCH (21:15)
[2025-03-12] MEDS: HEPARIN SOD 5,000 UNIT/0.5 ML VIAL SQ SCH (21:16)
[2025-03-12] MEDS: D5W AND 1/2NSS + 20MEQ KCL 20 MEQ/1,000 ML BAG IV SCH (21:24)
[2025-03-12 23:54] LABS: Anion Gap 16.0 (3-11); Blood Urea Nitrogen 21.0 mg/dl (6-23); Calcium 8.3 mg/dl (8.6-10.3); Carbon Dioxide 15.0 mmol/L (21-32); Chloride 102.0 mmol/L (98-107); Creatinine Clr Calc Pharmacy 102.3 ml/min; Glucose 151.0 mg/dl (70-99(Fasting)); Magnesium 2.2 mg/dl (1.7-2.4); Potassium 3.9 mmol/L (3.5-5.1); Sodium 133.0 mmol/L (136-145)
[2025-03-13 03:58] LABS: Anion Gap 7.0 (3-11); Blood Urea Nitrogen 19.0 mg/dl (6-23); Calcium 8.4 mg/dl (8.6-10.3); Carbon Dioxide 20.0 mmol/L (21-32); Chloride 106.0 mmol/L (98-107); Creatinine Clr Calc Pharmacy 121.0 ml/min; Glucose 137.0 mg/dl (70-99(Fasting)); Potassium 4.1 mmol/L (3.5-5.1); Sodium 133.0 mmol/L (136-145)
[2025-03-13 04:03] LABS: Magnesium 2.2 mg/dl (1.7-2.4)
[2025-03-13 08:06] LABS: Anion Gap 6.0 (3-11); Blood Urea Nitrogen 17.0 mg/dl (6-23); Calcium 8.4 mg/dl (8.6-10.3); Carbon Dioxide 21.0 mmol/L (21-32); Chloride 106.0 mmol/L (98-107); Creatinine Clr Calc Pharmacy 122.9 ml/min; Glucose 143.0 mg/dl (70-99(Fasting)); Magnesium 2.2 mg/dl (1.7-2.4); Potassium 3.9 mmol/L (3.5-5.1); Sodium 133.0 mmol/L (136-145)
--- NOTE | 2025-03-13 08:21 | Cardiology Consultation ---
Date of Consultation March 13, 2025 Assessment & Plan (1) DKA, type 2: (2) NSVT (nonsustained ventricular tachycardia): (3) Elevated troponin: Plan Assessment: Medically complex 50 year old male with PMHx of Type II DM diagnosed at age 25 admitted with 3 days of worsening malaise, dizziness and Nausea/vomiting. EMS summoned with reports of wide complex tachycardia requiring medication and cardioversion prior to arrival at ER. Cardiology requested for further evaluation/recommendations. Plan: 1. DKA -Patient with 25 year history of type II diabetes admitted for DKA/metabolic acidosis. -Anion Gap 28 on admission and trending down. -patient reports that his PCP had discontinued his insulin approx one month prior as blood sugars were being controlled on oral medications including metformin and Jardiance -Continued management per prior team 2. Nonsustained ventricular tachycardia 3. Troponin elevation -patient denies any chest pain, pressure or palpitations. He endorses 3 days of dizziness with worsening malaise and then one day of nausea and vomiting. -While DKA and electrolyte imbalance may be contributing factors; the concern is raised that he has an abnormal Echocardiogram 10/31/2024 showing moderately reduced LVEF 40-45%, hypokinesis of the inferolateral and inferior wall. Patient denies any cardiology follow up or ischemic evaluation. -Review of telemetry show -Troponin elevation with peak of 1221.7 trending down in the setting of arrhythmia requiring cardioversion, and prior wall motion abnormalities with question for underlying ischemia -Obtain echocardiogram to assess overall structure and function. -Continue Lopressor 12.5mg PO BID at this time, currently on SQ Heparin 5000units SQ BID -Further recommendations pending echo. Case has been discussed with Dr. Cardona. Further recommendations regarding plan of care as per his assessment. I spent a total of 50 minutes on the date of service in preparation, delivery, documentation of the care provided to the patient excluding any time spent in the performance of separately billed services. VANIA Mitchell [facility] Cardiology [facility] Supervising Physician Co-Signing Physician Notes I have personally performed a history and physical examination on the patient. I have reviewed the advance practitioner's documentation, and I agree with, and take responsibility for the plan of care. 50-year-old male with history of longstanding diabetes presenting via EMS after several days of poor p.o. intake, nausea, vomiting, and atypical chest discomfort. Sustained ventricular tachycardia recorded by EMS requiring external direct-current cardioversion. Patient reports mild chest discomfort prior to admission although denies any consistently reproducible chest pain or shortness of breath. He is significantly limited due to right lower extremity amputation and has been mobile with use of a wheelchair. Awaiting prosthesis. Echocardiogram demonstrates mildly reduced LV systolic function with an inferior posterior wall motion abnormality. Findings suggest underlying ischemic heart disease with mild ischemic cardiomyopathy. Elevated troponin on admission likely secondary to demand ischemia in the setting of sustained ventricular tachycardia although a plaque rupture event cannot be excluded. Recommend treatment with intravenous heparin and addition of aspirin. Continue beta- netta therapy. Hold off on statin therapy due to ongoing GI issues however will consider adding statin in a.m. if he continues to improve without recurrent vomiting. Recommend further ischemic evaluation on Saturday with cardiac catheterization. Patient agreeable to proceed. Priyank Cardona DO, [facility] I spent a total of 40 minutes on the date of service in preparation, delivery, and documentation of the care provided to this patient, excluding any time spent in the performance of separately billed services. History of Present Illness Reason for Consultation: Wide complex VT s/p cardioversion Requesting Physician: Clint robin Attending Physician: Jonathan Henley MD History of Present Illness HPI: Patient is a 50 year old male with PMHx significant for Type 2 DM, dyslipidemia, hx of right leg osteomyelitis s/p right BKA, Chronic CHF, and orthostasis on Midodrine that presented to the ER with Nausea and vomiting. Patient arrived via EMS and was found to be in a wide complex VT en route. (No pre-hospital strip on chart) Pre-hospital records show that patient received adenosine, amiodarone 150mg x2 doses and cardioversion in the field. EKG this morning NSR ST/T wave abnormality in anterolateral leads Rate 92bpm; QTC 492 ms High sensitivity troponin 915.6/ 1221.7 VBG pH on admission 7.22, anion gap 26.0, BSG 340 Chest xray negative Upon seeing patient today he reports feeling much better. He states that he started feeling poorly approx 3 days prior to admission with increased urination, dizziness and felt generalized malaise. nausea and vomiting started yesterday and his daughter stated that she was noting his GCM readings continuing to trend upward into 500's. this is very abnormal as his readings have trended typically in the 150's, and his PCP had stopped his insulin approx 1 month ago because he was doing well. Patient denies nausea/vomiting or diarrhea today. He denies any prior history of chest pain, pressure or palpitations, and denies feeling any at time of his event. he just felt "awful" in general, but could not pinpoint a specific cardiac symptom. Patient's mother was on the phone at the time of my visit, she is unsure of any cardiac history for the patient's father, and she states that she does not think she had a heart attack in the past, but did have an event 9 years ago requiring an ICU admission--she did not know of any specifics, although does report she now has a pacemaker. Review of telemetry shows SR/ST rates 90-102bpm. No acute events overnight. no ectopy or arrhythmia Allergies Allergy/AdvReac Type Severity Reaction Status Date / Time pollen extracts Allergy Intermediate ITCHY Verified 03/12/25 15:45 EYES, SNEEZING, CONGESTION Home Medications Medication Instructions Recorded Confirmed Type blood sugar diagnostic (OneTouch #100 ea 11/05/22 11/30/24 Rx Verio test strips) lancets 30 gauge (OneTouch Delica #100 ea 11/05/22 11/30/24 Rx Plus Lancet) pen needle, diabetic 32 gauge x #100 ea 11/05/22 11/30/24 Rx 5/32" (Pen Needle) metformin 500 mg tablet 500 mg PO BID 10/28/24 03/12/25 History cholecalciferol (vitamin D3) 125 125 mcg PO DAILY 01/25/25 03/12/25 History mcg (5,000 unit) tablet empagliflozin 25 mg tablet 25 mg PO QAM 01/25/25 03/12/25 History (Jardiance) magnesium oxide 400 mg (241.3 mg 400 mg PO BID 01/25/25 03/12/25 History magnesium) tablet sodium di- and 2 tab PO QID 01/25/25 03/12/25 History monophosphate-potassium phos monobasic 250 mg tablet (Phospha Neutral) cyclobenzaprine 5 mg tablet 5 mg PO UD PRN Muscle Spasm 03/12/25 03/12/25 History gabapentin 300 mg capsule 300 mg PO BID 03/12/25 03/12/25 History midodrine 2.5 mg tablet 2.5 mg PO TID@0800,1200,1700 03/12/25 03/12/25 History Patient History Medical History Amputation of right lower extremity below knee Type 2 diabetes mellitus with diabetic neuropathy Hypertension Marijuana abuse Diabetic foot infection Surgical History History of back surgery History of incision and drainage right lower leg Family History Mother Diabetes Father Diabetes Social History Smoking Status: Current every day smoker Second Hand Exposure: No; Do You Dip or Chew Tobacco: Yes; Tobacco Cessation Education Requested by Patient: No Hx Alcohol Use: Yes Alcohol type: beer and hard liquor Hx Substance Use: Yes Last Used Substance: Days (ago) Last Used Substance Other:: smokes marijuana daily Preferred Language: Frisian Communication Ability: Effective Osteologist Required: No Beliefs That Will Affect Care: None marital status: Current Living Situation: Family Current Living Situation Comment: lives with daughter current occupational status: employed Other Information That Helps Us Care for You: No Feels Safe at Home: Yes Safety Concerns: Feels Safe At This Time Assistive Devices: Wheelchair Review of Systems Review of Systems: All systems reviewed & are unremarkable except as noted in HPI & below Physical Exam Constitutional: well developed and + thin Neck: normal visual inspection and trachea midline Respiratory: normal respiratory effort, lungs clear to auscultation Cardiovascular: RRR, no murmur, no edema Heart Sounds: normal S1 and normal S2 Vessels: dorsalis pedis pulses present (left pedal pulse); no JVD Skin: no rashes, warm and dry Psychiatric: A+Ox3, euthymic affect Results & Data Vital Signs (Past 12 Hours) Vital Signs Temp Pulse Pulse Resp BP Pulse Ox O2 Del Method 03/13/25 07:52 36.4 C L 93 H 17 99/65 L 98 Room Air 03/13/25 07:41 94 H 03/13/25 03:01 36.8 C 92 H 20 100/63 98 Room Air 03/13/25 00:10 113 H 03/12/25 22:55 36.8 C 78 18 102/68 98 Room Air Laboratory Results Cardiac Enzymes 03/12/25 03/12/25 03/13/25 Range/Units 13:54 18:34 07:11 AST 12 L (13-39) U/L Troponin I High Sens 915.6 H* 1221.7 H* D 406.7 H* D (0-20) pg/ml 03/13/25 Range/Units 09:49 AST (13-39) U/L Troponin I High Sens 322.4 H* D (0-20) pg/ml Lipids 03/13/25 Range/Units 07:11 Triglycerides 82 (0-150) mg/dl Cholesterol 173 (0-200) mg/dl HDL Cholesterol 37 mg/dl Cholesterol/HDL Ratio 4.7 (0-5) CBC 03/12/25 03/13/25 Range/Units 13:54 07:11 WBC 15.95 H 8.78 (4.8-10.8) K/ul RBC 5.67 4.47 L (4.70-6.10) M/uL Hgb 18.4 H 14.6 D (14.0-18.0) g/dL Hct 51.8 39.5 L (42.0-52.0) % Plt Count 270 200 (130-400) K/uL Neut # (Auto) 13.58 H (1.40-6.50) K/uL Lymph # (Auto) 1.10 L (1.20-3.40) K/uL [place] # (Auto) 1.09 H (0.11-0.59) K/uL Eos # (Auto) 0.00 (0.00-0.50) K/uL Baso # (Auto) 0.05 (0.00-0.20) K/uL Comprehensive Metabolic Panel 03/12/25 03/12/25 03/12/25 Range/Units 13:54 18:34 23:02 Sodium 134 L 135 L 133 L (136-145) mmol/L Potassium 5.2 H 4.7 3.9 (3.5-5.1) mmol/L Chloride 97 L 105 102 (98-107) mmol/L Carbon Dioxide 9 L* 16 L 15 L (21-32) mmol/L BUN 34 H 28 H 21 (6-23) mg/dl Creatinine 1.41 H 1.00 D 0.97 (0.6-1.4) mg/dl Glucose 340 H* 86 151 H (70-99(Fasting)) mg/dl Calcium 9.2 8.6 8.3 L (8.6-10.3) mg/dl AST 12 L (13-39) U/L ALT 9 (7-52) U/L Alkaline Phosphatase 67 (34-104) U/L Total Protein 9.1 H (6.0-8.3) gm/dl Albumin 4.6 (3.4-5.0) gm/dl 03/13/25 03/13/25 03/13/25 Range/Units 03:15 07:11 09:49 Sodium 133 L 133 L 133 L (136-145) mmol/L Potassium 4.1 3.9 4.0 (3.5-5.1) mmol/L Chloride 106 106 105 (98-107) mmol/L Carbon Dioxide 20 L 21 20 L (21-32) mmol/L BUN 19 17 16 (6-23) mg/dl Creatinine 0.82 0.77 0.70 (0.6-1.4) mg/dl Glucose 137 H 143 H 151 H (70-99(Fasting)) mg/dl Calcium 8.4 L 8.4 L 8.3 L (8.6-10.3) mg/dl AST (13-39) U/L ALT (7-52) U/L Alkaline Phosphatase (34-104) U/L Total Protein (6.0-8.3) gm/dl Albumin (3.4-5.0) gm/dl Intake and Output 03/12/25 03/13/25 03/13/25 22:59 06:59 14:59 Intake Total 4518.132 / 5484.965 866.833 / 5484.965 902.775 / 902.775 Output Total 0 / 0 Balance 4518.132 / 5484.965 866.833 / 5484.965 902.775 / 902.775 Intake: IV 4518.132 / 5484.965 866.833 / 5484.965 902.775 / 902.775 D5w and 1/2Nss + 20Meq KCl 20 855 / 855 895 / 895 meq In 1,000 ml @ 150 mls/hr IV .Q6H40M [facility] Rx#:[id number] Insulin Regular 250 units In 26.132 / 37.965 11.833 / 37.965 7.775 / 7.775 Sodium Chloride 0.9% 247.5 ml @ 1.5 UNITS/HR 1.5 mls/hr IV . Q24H [facility] Rx#:[id number] Magnesium Sulfate / D5w 1 gm In 100 / 200 100 ml @ 200 mls/hr IV Q30M [facility] Rx#:[id number] Plasma-Lyte A 1,000 ml @ 250 1392.000 / 1392.000 mls/hr IV .Q4H [facility] Rx#:[id number] Sodium Chloride 0.9% 1,000 ml @ 3000 / 3000 999 mls/hr IV .Q1H1M [facility] Rx#: [id number] Oral 0 / 0 Output: # Bowel Movements 0 / 0 Other: Other Intake Source npo water only. # Unmeasured Voids 1 1 Weight 79.379 kg 75.7 kg Weight Measurement Method Standing Scale PG Care Time/CCT Total # of Minutes Spent Total Time Spent with Patient: Total time spent is greater than 50% in coordination of care (as documented) at patient's floor/unit and/or counseling patient: Coding Level of Care Code 41267 IN/OBS CONSULT LVL 5,80M Diagnoses DKA, type 2 E11.10 Diabetes mellitus complication detail: without coma NSVT (nonsustained ventricular tachycardia) I47.29 Elevated troponin R79.89 Time Spent (min) 50 (1) DKA, type 2 Diabetes mellitus complication detail: without coma Qualified Code(s): E11.10 - Type 2 diabetes mellitus with ketoacidosis without coma
[2025-03-13 08:25] LABS: Cholesterol 173.0 mg/dl (0-200); HDL Cholesterol 37.0 mg/dl; Triglycerides 82.0 mg/dl (0-150)
[2025-03-13 08:51] LABS: Thyroid Stimulating Hormone 0.665 uIu/ml (0.300-4.500)
[2025-03-13] MEDS: LANTUS PER UNIT CHARGE SC ONE (08:52)
[2025-03-13] MEDS: CHOLECALCIFEROL 125 MCG (5,000 UNITS) TAB PO SCH (08:52)
[2025-03-13] MEDS: MIDODRINE HCL 2.5 MG TAB PO SCH (08:52)
[2025-03-13] MEDS: SODIUM PHOSPHATE 30 MMOL in SODIUM CHLORIDE 0.9% 500 ML IV ONE (08:52)
[2025-03-13 09:46] LABS: Hematocrit (blood only) 39.5 % (42.0-52.0); Hemoglobin 14.6 g/dL (14.0-18.0); Mean Corpuscular Hemoglobin 32.7 pg (25.0-34.0); Mean Corpuscular Volume 88.4 fL (80.0-100.0); Platelet Count 200 K/uL (130-400); RDW Standard Deviation 43.3 fL (36.4-46.3); Red Blood Count 4.47 M/uL (4.70-6.10); White Blood Count 8.78 K/ul (4.8-10.8)
--- NOTE | 2025-03-13 10:02 | Pharmacy Report ---
Pharmacy Glycemic Short Note 2 - Date of Service March 13, 2025 - Glycemic Short BSG Results (Last 24 hours): 03/12/25 03/12/25 03/12/25 13:54 14:03 15:09 Glucose 340 H* POC Glucose 290 H POC Glucose (other) 310 H 03/12/25 03/12/25 03/12/25 15:55 16:58 18:01 Glucose POC Glucose 268 H 230 H 173 H POC Glucose (other) 03/12/25 03/12/25 03/12/25 18:34 19:00 19:16 Glucose 86 POC Glucose 136 H 95 POC Glucose (other) 03/12/25 03/12/25 03/12/25 19:34 19:47 20:01 Glucose POC Glucose 130 H 120 H 112 H POC Glucose (other) 03/12/25 03/12/25 03/12/25 20:15 20:36 20:50 Glucose POC Glucose 159 H 142 H 146 H POC Glucose (other) 03/12/25 03/12/25 03/12/25 21:05 22:06 23:02 Glucose 151 H POC Glucose 168 H 138 H POC Glucose (other) 03/12/25 03/13/25 03/13/25 23:06 00:02 01:01 Glucose POC Glucose 146 H 134 H 121 H POC Glucose (other) 03/13/25 03/13/25 03/13/25 02:00 03:01 03:15 Glucose 137 H POC Glucose 133 H 126 H POC Glucose (other) 03/13/25 03/13/25 03/13/25 04:00 05:00 06:05 Glucose POC Glucose 135 H 142 H 143 H POC Glucose (other) 03/13/25 03/13/25 07:11 08:19 Glucose 143 H POC Glucose 137 H POC Glucose (other) OUTPATIENT ANTIDIABETIC REGIMEN: * Jardiance 25mg PO daily * Metformin 500mg PO BID * A1c 6.4% 01/26/25 ASSESSMENT: * 50 yo M with PMHx T2DM, DL, hx of right leg osteomyelitis s/p right BKA, Chronic CHF, orthostasis, cardioversion by EMS, in DKA, started on insulin drip, anion gap closed today, starting basal bolus insulin and diet this morning. Continues on D51/2NSs+20KCl @ 125cc/hr. * Cardio consult this AM. * Phos dropped from 6.2 to 1.5 today, refeeding? Repleting with NaPhos 30mmol this AM. * Patient with CGM but not using inpatient. PLAN FOR INPATIENT GLYCEMIC CONTROL: * Hold outpatient oral diabetes medications * IV insulin infusion per DKA protocol, current rate 1.2cc/hr - goal range 110- 180mg/dl * Basal insulin * Lantus 40 units SQ x1 dose now with IV insulin infusion - overlap up to 6 hours or stop drip sooner if held * Further basal dosing in AM. * Bolus insulin * NovoLog per scale ACHS or Q6hrs while NPO * Goal Range: Low 110 mg/dL - High 140 mg/dL * Correction Factor: 35 mg/dL/unit * Nutritional / Prandial insulin per carb ratio of 1 unit per 7 grams CHO consumed
[2025-03-13 10:18] LABS: Anion Gap 8.0 (3-11); Blood Urea Nitrogen 16.0 mg/dl (6-23); Calcium 8.3 mg/dl (8.6-10.3); Carbon Dioxide 20.0 mmol/L (21-32); Chloride 105.0 mmol/L (98-107); Creatinine Clr Calc Pharmacy 135.2 ml/min; Glucose 151.0 mg/dl (70-99(Fasting)); Magnesium 2.0 mg/dl (1.7-2.4); Potassium 4.0 mmol/L (3.5-5.1); Sodium 133.0 mmol/L (136-145)
--- NOTE | 2025-03-13 10:45 | Hospitalist Progress Note ---
Date of Service March 13, 2025 Assessment & Plan (1) DKA (diabetic ketoacidosis): (2) Uncontrolled diabetes mellitus with hyperglycemia: (3) NSVT (nonsustained ventricular tachycardia): (4) MARCELLO (acute kidney injury): (5) Elevated troponin: (6) Amputation of right lower extremity below knee: (7) Orthostatic hypotension: (8) Hyperphosphatemia: Plan 50 year old male with PMH significant for type 2 diabetes, dyslipidemia, history of right leg osteomyelitis s/p right BKA, chronic CHF, and orthostatic hypotension on midodrine who presents to the ED on 03/12/2025 with nausea and vomiting and was found to be in wide complex v tach by EMS likely secondary to DKA. #DKA #SIRS Criteria #Uncontrolled DM with hyperglycemia -Patient presenting with nausea, vomiting, poor PO intake -Glucose 340 on admission with bicarb 9, gap 28 consistent with DKA -Labs consistent with dehydration with elevated Hgb, BUN, creat -AG x2 closed Plan: -discussed with pharmacy, started basal insulin and will stop dripo -check biofire lung and stool looking for trigger of DKA -Glycemic pharmacy consulted -prosthodontist/educator consult #Wide Complex Tachycardia #Anteroseptal ST Depressions #Type 2 ME -Wide complex v tach per EMS -Received adenosine, amiodarone 150mg x2 doses, cardioversion in the field -had chest pain in field -EKG personally reviewed shows ST depressions and T wave inversions in anterioseptal leads -high risk for cardiac pathology, albeit likely incited by DKA Plan: -check echo, A1c, lipids, TSH for risk stratification -telemetry monitoring -cardiology consult, appreciate recs, will likely need ischemic workup inpatient vs. outpatient -K>4, Mg>2 #Gamma Gap -unclear etiology Plan: -check Hep C, HIV -possible gammopathy workup outpatient #MARCELLO -resolved #History of right BKA -s/p right BKA on 10/31/[address] Vela -Incision appears c/d/i -Scheduled for prosthesis this month -Wheelchair bound currently Orthostatic hypotension -BP stable -Continue midodrine Hypophosphatemia -2/2 DKA vs. refeeding syndrome -aggressively replenish I spent a total of 60 minutes in direct patient care, including [id number] time with the patient and/or family, reviewing medical records, ordering and reviewing diagnostic tests, and coordinating care with other healthcare providers. This time includes: history taking, physical examination, medical decision making, counseling, ECG interpretation, imaging interpretation, lab interpretation, orders, and education, excluding time spent in the performance of separately billed services. Admission and Anticipated Discharge Date Admission Date: March 12, 2025 Subjective Patient seen and examined at bedside. Patient doing better today. States he feels like he is recovering. No longer has chest pain, still has fatigue and some weakness. Review of Systems Review of Systems: CONSTITUTIONAL: fatigue, weakness EYES: Patient denies any visual symptoms. EARS, NOSE, AND THROAT: No difficulties with hearing. No symptoms of rhinitis or sore throat. CARDIOVASCULAR: Patient denies chest pains, palpitations, orthopnea and paroxysmal nocturnal dyspnea. RESPIRATORY: No dyspnea on exertion, no wheezing or cough. GI: No nausea, vomiting, diarrhea, constipation, abdominal pain, hematochezia or melena. : No urinary hesitancy or dribbling. No nocturia or urinary frequency. No abnormal urethral discharge. MUSCULOSKELETAL: No myalgias or arthralgias. NEUROLOGIC: No chronic headaches, no seizures. Patient denies numbness, tingling or weakness. PSYCHIATRIC: Patient denies problems with mood disturbance. No problems with anxiety. ENDOCRINE: No excessive urination or excessive thirst. DERMATOLOGIC: Patient denies any rashes or skin changes. Physical Exam Physical Exam: Gen: A&O 3 NAD HEENT: NCAT, EOMI, not icteric. External ears normal. No rhinorrhea. Moist mucous membranes. Neck: Supple, full range of motion, no observable masses, No meningeal sign. Lungs: No Respiratory distress. CV: tachycardic, regular rhythm Abdomen: Soft, nondistended, No rebound tenderness. MSK: No joint swelling, no redness. Skin: No rashes, petechiae, lesions. Normal color per patient. Neuro: Normal Gait, Grossly intact. Psych: Appropriate for situation. Results & Data Results & Data Vital Signs (Past 12 Hours) Vital Signs Temp Pulse Pulse Resp BP Pulse Ox O2 Del Method 03/13/25 07:52 36.4 C L 93 H 17 99/65 L 98 Room Air 03/13/25 07:41 94 H 03/13/25 03:01 36.8 C 92 H 20 100/63 98 Room Air 03/13/25 00:10 113 H 03/12/25 22:55 36.8 C 78 18 102/68 98 Room Air Laboratory Results -personally reviewed, AG closed x2 started basal insulin, troponin downtrending, gamma gap noted, Medications Administered Dextrose (Dextrose 50% 50 Ml Syringe) 25 - 50 ml IV UD PRN; Protocol PRN Reason: Hypoglycemia Protocol Stop: 04/11/25 15:29 Last Admin: 03/12/25 20:03 Dose: 25 ml Documented By: dali Admin: 03/12/25 19:24 Dose: 25 ml Documented By: dali Gabapentin (Gabapentin 300 Mg Cap) 300 mg PO BID BETTY Stop: 04/11/25 20:59 Last Admin: 03/13/25 08:52 Dose: 300 mg Documented By: Admin: 03/12/25 21:15 Dose: 300 mg Documented By: dali Heparin Sodium (Porcine) (Heparin Sod 5,000 Unit/0.5 Ml Vial) 5,000 units SQ Q12 BETTY Stop: 04/11/25 20:59 Last Admin: 03/13/25 08:52 Dose: 5,000 units Documented By: Admin: 03/12/25 21:16 Dose: 5,000 units Documented By: dali Insulin Human Regular 250 (units/ Sodium Chloride) 250 mls @ 1.2 mls/hr IV .Q24H BETTY; Protocol Stop: 03/13/25 13:00 Last Titration: 03/13/25 08:15 Dose: 1.2 units/hr, 1.2 mls/hr Documented By: LIDIA Co-signed By: NHUNG Titration: 03/13/25 07:14 Dose: 1.5 units/hr, 1.5 mls/hr Documented By: dali Co-signed By: LIDIA Titration: 03/13/25 03:04 Dose: 1.5 units/hr, 1.5 mls/hr Documented By: dali Co-signed By: HENRY Titration: 03/13/25 01:02 Dose: 1.9 units/hr, 1.9 mls/hr Documented By: dali Co-signed By: ASHLEY Titration: 03/13/25 00:04 Dose: 2.4 units/hr, 2.4 mls/hr Documented By: dali Co-signed By: DAH Titration: 03/12/25 22:11 Dose: 3 units/hr, 3 mls/hr Documented By: dali Co-signed By: GDH Titration: 03/12/25 21:10 Dose: 3.7 units/hr, 3.7 mls/hr Documented By: alt Co-signed By: DAH Titration: 03/12/25 19:00 Dose: 0 units/hr, 0 mls/hr Documented By: CA Co-signed By: alt Titration: 03/12/25 18:00 Dose: 6.2 units/hr, 6.2 mls/hr Documented By: YAKOV Co-signed By: DLH Titration: 03/12/25 17:04 Dose: 7.7 units/hr, 7.7 mls/hr Documented By: JOSE ALFREDO Co-signed By: sam Admin: 03/12/25 15:54 Dose: 7.7 units/hr, 7.7 mls/hr Documented By: sam Co-signed By: JOSE ALFREDO Potassium Chloride/Dextrose/Sod Cl (D5w And 1/2nss + 20meq Kcl) 20 meq in 1,000 mls @ 150 mls/hr IV .Q6H40M BETTY Stop: 03/15/25 21:29 Last Admin: 03/13/25 09:04 Dose: 150 mls/hr Documented By: Infusion: 03/13/25 09:04 Dose: Infused Documented By: Admin: 03/13/25 03:06 Dose: 150 mls/hr Documented By: dali Infusion: 03/13/25 03:06 Dose: Infused Documented By: dali Admin: 03/12/25 21:24 Dose: 150 mls/hr Documented By: dali Sodium Phosphate 30 mmol/ (Sodium Chloride) 510 mls @ 102 mls/hr IV ONE ONE Stop: 03/13/25 12:29 Last Admin: 03/13/25 08:52 Dose: 102 mls/hr Documented By: LIDIA Insulin Aspart (Insulin Aspart Per Unit Charge) 0 units SC ACHS BETTY Stop: 04/11/25 16:29 Last Admin: 03/13/25 09:30 Dose: 4 units Documented By: LIDIA Co-signed By: LANG Admin: 03/12/25 20:34 Dose: Not Given Documented By: dali Admin: 03/12/25 17:26 Dose: Not Given Documented By: CA Magnesium Oxide (Magnesium Oxide 400 Mg Tab) 400 mg PO BID [facility] Stop: 04/11/25 20:59 Last Admin: 03/13/25 08:52 Dose: 400 mg Documented By: Admin: 03/12/25 21:15 Dose: 400 mg Documented By: dali Metoprolol Tartrate (Metoprolol Tartrate 25 Mg Tab) 12.5 mg PO BID BETTY Stop: 04/11/25 20:59 Last Admin: 03/13/25 08:53 Dose: 12.5 mg Documented By: Admin: 03/12/25 21:14 Dose: 12.5 mg Documented By: dali Midodrine (Midodrine Hcl 2.5 Mg Tab) 2.5 mg PO TID@0800,1200,1700 [facility] Stop: 04/12/25 07:59 Last Admin: 03/13/25 08:52 Dose: 2.5 mg Documented By: LIDIA Ondansetron HCl (Ondansetron Inj 2 Mg/Ml 2 Ml Vial) 4 mg IV Q6H PRN PRN Reason: Nausea Stop: 04/11/25 17:23 Last Admin: 03/12/25 20:57 Dose: 4 mg Documented By: dali Vitamin D (Cholecalciferol 125 Mcg (5,000 Units) Tab) 125 mcg PO DAILY [facility] Stop: 04/12/25 08:59 Last Admin: 03/13/25 08:52 Dose: 125 mcg Documented By: LIDIA (1) DKA (diabetic ketoacidosis) Diabetes mellitus complication detail: without coma Diabetes mellitus type: type 1 Qualified Code(s): E10.10 - Type 1 diabetes mellitus with ketoacidosis without coma (6) Amputation of right lower extremity below knee Encounter type: sequela Qualified Code(s): S88.111S - Complete traumatic amputation at level between knee and ankle, right lower leg, sequela
[2025-03-13 10:50] LABS: Hemoglobin A1C 6.7 % (4.5-5.6)
--- NOTE | 2025-03-13 11:31 | XCELERA ---
[id number] \\[id number]
[2025-03-13 13:25] LABS: Chlamydia pneumoniae PCR Not Detected (NotDetected); Coronavirus 229E PCR Not Detected (NotDetected); Coronavirus CoV-2 (COVID19)PCR Not Detected (NotDetected); Coronavirus HKU1 PCR Not Detected (NotDetected); Coronavirus NL63 PCR Not Detected (NotDetected); Coronavirus OC43PCR Not Detected (NotDetected); Human Metapneumovirus PCR Not Detected (NotDetected); Parainfluenza Virus 1 PCR Not Detected (NotDetected); Parainfluenza Virus 2 PCR Not Detected (NotDetected); Parainfluenza Virus 3 PCR Not Detected (NotDetected); Parainfluenza Virus 4 PCR Not Detected (NotDetected); Respiratory Syncytial VirusPCR Not Detected (NotDetected); Rhinovirus/Enterovirus PCR Not Detected (NotDetected)
[2025-03-13] MEDS: HEPARIN SOD (PORCINE) 1000 UNIT/ML IV ONE (15:19)
[2025-03-13] MEDS: HEPARIN 25000 UNIT/500 ML D5W 25,000 UNITS/500 ML BAG IV SCH (15:19)
--- NOTE | 2025-03-13 15:25 | Electrocardiogram Report ---
Test Reason : Blood Pressure : */* mmHG Vent. Rate : 92 BPM Atrial Rate : 92 BPM P-R Int : 122 ms QRS Dur : 100 ms QT Int : 398 ms P-R-T Axes : 72 104 142 degrees QTcB Int : 492 ms Normal sinus rhythm Possible Right ventricular hypertrophy QTcB >= 480 msec Abnormal ECG When compared with ECG of 12-Mar-2025 13:18, (unconfirmed) Nonspecific T wave abnormality now evident in Inferior leads Confirmed by Folrencia Nix (Hannah) on 03/13/2025 3:25:41 PM Referred By: REFERRED SELF Confirmed By: Florencia Nix
[2025-03-13] MEDS: ASPIRIN 81 MG CHEW PO ONE (15:46)
[2025-03-13] MEDS: Heparin IV Adult Wt-Based Standard w/ INITIAL Bolus Protocol IV STA (15:52)
[2025-03-13] MEDS: INSULIN ASPART PER UNIT CHARGE SC SCH (16:38)
[2025-03-13 21:48] LABS: ANTI-Xa, UFH(UnfractionatedHep 0.82 IU/ml (0.3-0.7)
[2025-03-14 06:12] LABS: ANTI-Xa, UFH(UnfractionatedHep 0.39 IU/ml (0.3-0.7)
[2025-03-14] MEDS: ASPIRIN 81 MG ECTAB PO SCH (08:19)
[2025-03-14] MEDS: LANTUS PER UNIT CHARGE SC SCH (08:19)
--- NOTE | 2025-03-14 10:16 | Cardiology Progress Note ---
Date of Service March 14, 2025 Assessment & Plan (1) DKA, type 2: (2) NSVT (nonsustained ventricular tachycardia): (3) Elevated troponin: Plan Assessment: Medically complex 50 year old male with PMHx of Type II DM diagnosed at age 25 admitted with 3 days of worsening malaise, dizziness and Nausea/vomiting. EMS summoned with reports of wide complex tachycardia requiring medication and cardioversion prior to arrival at ER. Cardiology requested for further evaluation/recommendations. Plan 03/14/2025: 1. DKA -Patient with 25 year history of type II diabetes admitted for DKA/metabolic acidosis. -Anion Gap 28 on admission, most recent repeat 8. -Currently on Novolog sliding scale ACHS and Lantus BID -Continued management per prior team 2. Nonsustained ventricular tachycardia 3. Troponin elevation -Patient remains asymptomatic denying any chest pain, pressure or palpitations overnight -Review of telemetry shows SR/ST rates 80-110bpm, no acute events overnight -Echocardiogram demonstrates a mildly reduced LV systolic function with moderate sized inferior and posterior wall motion abnormality. -Continue Metoprolol Tartrate 12.5mg PO BID, and ASA 81mg Daily. Will continue to hold on starting statin as patient is having active nausea and vomiting. Once his GI symptoms resolve will initiate statin therapy -NPO after midnight with exception of his pills for consideration of cardiac catheterization. This will be dependent on his GI symptoms. -Continue Heparin gtt at this time. -Ok to continue Midodrine at this time for blood pressure support. Case has been discussed with Dr. Cardona. Further recommendations regarding plan of care as per his assessment. I spent a total of 30 minutes on the date of service in preparation, delivery, documentation of the care provided to the patient excluding any time spent in the performance of separately billed services. VANIA Mitchell [facility] Cardiology [facility] Admission and Anticipated Discharge Date Admission Date: March 12, 2025 Supervising Physician Co-Signing Physician Notes I have personally performed a history and physical examination on the patient. I have reviewed the advance practitioner's documentation, and I agree with, and take responsibility for the plan of care. 50-year-old male with history of longstanding diabetes presenting via EMS after several days of poor p.o. intake, nausea, vomiting, and atypical chest discomfort. Sustained ventricular tachycardia recorded by EMS requiring external direct-current cardioversion. Patient reports mild chest discomfort prior to admission although denies any consistently reproducible chest pain or shortness of breath. Elevated troponin on admission likely secondary to demand ischemia in the setting of sustained ventricular tachycardia, although, plaque rupture event cannot be excluded. Echocardiogram demonstrates inferior posterior wall motion abnormality consistent with underlying ischemic heart disease. Patient experienced recurrent nausea and vomiting this morning. No recurrent chest pain. Tolerating beta-netta, low-dose aspirin, and IV heparin. N.p.o. except medications after midnight. Cardiac catheterization when GI issues have resolved. Priyank Cardona DO, [facility] I spent a total of 30 minutes on the date of service in preparation, delivery, and documentation of the care provided to this patient, excluding any time spent in the performance of separately billed services. Subjective 03/14/2025: Patient seen and examined in follow up today. Feeling fair. Denies any acute cardiac concerns, but started vomiting after breakfast this morning and continues with nausea. Patient's nurse is at bedside administering anti- emetics Labs, vitals, diagnostics, telemetry and documentation reviewed. Telemetry reviewed showing SR/ST with rates 80-90's, occasionally up to 110bpm. No acute events on telemetry overnight Review of Systems Review of Systems: All systems reviewed & are unremarkable except as noted in HPI & below Physical Exam Constitutional: well developed and + thin Neck: normal visual inspection and trachea midline Respiratory: normal respiratory effort, lungs clear to auscultation Cardiovascular: RRR, no murmur, no edema Heart Sounds: normal S1 and normal S2 Vessels: dorsalis pedis pulses present (left pedal pulse); no JVD Skin: no rashes, warm and dry Psychiatric: A+Ox3, euthymic affect Results & Data Vital Signs (Past 12 Hours) Vital Signs Temp Pulse Pulse Pulse Resp BP BP 03/14/25 08:02 36.7 C 87 15 127/81 03/14/25 07:13 87 03/14/25 04:19 36.7 C 82 16 104/66 03/14/25 00:07 36.8 C 95 H 17 109/68 03/13/25 22:31 106 H Pulse Ox O2 Del Method 03/14/25 08:02 99 Room Air 03/14/25 07:13 03/14/25 04:19 98 Room Air 03/14/25 00:07 96 Room Air 03/13/25 22:31 Laboratory Results Cardiac Enzymes 03/12/25 03/13/25 Range/Units 13:54 09:49 AST 12 L (13-39) U/L Troponin I High Sens 915.6 H* 322.4 H* D (0-20) pg/ml Comprehensive Metabolic Panel 03/12/25 Range/Units 13:54 Sodium 134 L (136-145) mmol/L Potassium 5.2 H (3.5-5.1) mmol/L Chloride 97 L (98-107) mmol/L Carbon Dioxide 9 L* (21-32) mmol/L BUN 34 H (6-23) mg/dl Creatinine 1.41 H (0.6-1.4) mg/dl Glucose 340 H* (70-99(Fasting)) mg/dl Calcium 9.2 (8.6-10.3) mg/dl AST 12 L (13-39) U/L ALT 9 (7-52) U/L Alkaline Phosphatase 67 (34-104) U/L Total Protein 9.1 H (6.0-8.3) gm/dl Albumin 4.6 (3.4-5.0) gm/dl Intake and Output 03/13/25 03/14/25 03/14/25 22:59 06:59 14:59 Intake Total 176.85 / 2485.482 Output Total 0 / 0 Balance 176.85 / 2485.482 0 / 2485.482 Intake: IV 176.85 / 2245.482 Heparin 54962 Unit/500 ml D5w 176.85 / 176.85 25,000 units In 500 ml @ 1,200 UNITS/HR 24 mls/hr IV .[id number] [facility] Rx#:[id number] Output: # Bowel Movements 0 / 0 Other: # Unmeasured Voids 1 1 Weight 75.7 kg Diagnostic Findings Echocardiogram 03/13/2025 [facility] LV systolic function is mildly reduced LVEF 45-50% Moderate sized inferior and posterior wall motion abnormality with hypokinesis to akinesis of the segments No significant valvular pathology PG Care Time/CCT Total # of Minutes Spent Total Time Spent with Patient: Total time spent is greater than 50% in coordination of care (as documented) at patient's floor/unit and/or counseling patient: Coding Level of Care Code 18510 SUB INP/OBS CARE 3/50MIN Diagnoses DKA, type 2 E11.10 Diabetes mellitus complication detail: without coma NSVT (nonsustained ventricular tachycardia) I47.29 Elevated troponin R79.89 Time Spent (min) 30 (1) DKA, type 2 Diabetes mellitus complication detail: without coma Qualified Code(s): E11.10 - Type 2 diabetes mellitus with ketoacidosis without coma
--- NOTE | 2025-03-14 10:42 | Hospitalist Progress Note ---
Date of Service March 14, 2025 Assessment & Plan (1) DKA (diabetic ketoacidosis): (2) Uncontrolled diabetes mellitus with hyperglycemia: (3) NSVT (nonsustained ventricular tachycardia): (4) MARCELLO (acute kidney injury): (5) Elevated troponin: (6) Amputation of right lower extremity below knee: (7) Orthostatic hypotension: (8) Hyperphosphatemia: Plan 50 year old male with PMH significant for type 2 diabetes, dyslipidemia, history of right leg osteomyelitis s/p right BKA, chronic CHF, and orthostatic hypotension on midodrine who presents to the ED on 03/12/2025 with nausea and vomiting and was found to be in wide complex v tach by EMS likely secondary to DKA. #DKA, resolved #SIRS Criteria, resolved #Uncontrolled DM with hyperglycemia -Patient presenting with nausea, vomiting, poor PO intake -Glucose 340 on admission with bicarb 9, gap 28 consistent with DKA -Labs consistent with dehydration with elevated Hgb, BUN, creat -AG x2 closed Plan: -appreciate pharmacy assistance with management -senior health educator consult -check labs this morning #Wide Complex Tachycardia #Anteroseptal ST Depressions #Type 2 OK #HFmidEF (EF 45%) -Wide complex v tach per EMS -Received adenosine, amiodarone 150mg x2 doses, cardioversion in the field -had chest pain in field -EKG personally reviewed shows ST depressions and T wave inversions in anterioseptal leads -high risk for ischemic cardiac pathology, albeit likely incited by DKA Plan: -telemetry monitoring -cardiology consult, appreciate recs -NPO after midnight for cardiac cath for ischemic eval on Saturday -K>4, Mg>2 #Gamma Gap -unclear etiology Plan: -possible gammopathy workup outpatient #MARCELLO -resolved #History of right BKA -s/p right BKA on 10/31/[address] Vela -Incision appears c/d/i -Scheduled for prosthesis this month -Wheelchair bound currently #Orthostatic hypotension -BP stable -Continue midodrine #Hypophosphatemia -2/2 DKA vs. refeeding syndrome -aggressively replenish I spent a total of 60 minutes in direct patient care, including [id number] time with the patient and/or family, reviewing medical records, ordering and reviewing diagnostic tests, and coordinating care with other healthcare providers. This time includes: history taking, physical examination, medical decision making, counseling, ECG interpretation, imaging interpretation, lab interpretation, orders, and education, excluding time spent in the performance of separately billed services. Admission and Anticipated Discharge Date Admission Date: March 12, 2025 Subjective Patient seen and examined at bedside. Had some nausea and vomiting this morning, felt better yesterday. Review of Systems Review of Systems: CONSTITUTIONAL: fatigue, weakness EYES: Patient denies any visual symptoms. EARS, NOSE, AND THROAT: No difficulties with hearing. No symptoms of rhinitis or sore throat. CARDIOVASCULAR: Patient denies chest pains, palpitations, orthopnea and paroxysmal nocturnal dyspnea. RESPIRATORY: No dyspnea on exertion, no wheezing or cough. GI: nausea, vomiting : No urinary hesitancy or dribbling. No nocturia or urinary frequency. No abnormal urethral discharge. MUSCULOSKELETAL: No myalgias or arthralgias. NEUROLOGIC: No chronic headaches, no seizures. Patient denies numbness, tingling or weakness. PSYCHIATRIC: Patient denies problems with mood disturbance. No problems with anxiety. ENDOCRINE: No excessive urination or excessive thirst. DERMATOLOGIC: Patient denies any rashes or skin changes. Physical Exam Physical Exam: Gen: A&O 3 NAD HEENT: NCAT, EOMI, not icteric. External ears normal. No rhinorrhea. Moist mucous membranes. Neck: Supple, full range of motion, no observable masses, No meningeal sign. Lungs: No Respiratory distress. CV: tachycardic, regular rhythm Abdomen: Soft, nondistended, No rebound tenderness. MSK: No joint swelling, no redness. Skin: No rashes, petechiae, lesions. Normal color per patient. Neuro: Normal Gait, Grossly intact. Psych: Appropriate for situation. Results & Data Results & Data Vital Signs (Past 12 Hours) Vital Signs Temp Pulse Pulse Pulse Resp BP BP 03/14/25 08:02 36.7 C 87 15 127/81 03/14/25 07:13 87 03/14/25 04:19 36.7 C 82 16 104/66 03/14/25 00:07 36.8 C 95 H 17 109/68 Pulse Ox O2 Del Method 03/14/25 08:02 99 Room Air 03/14/25 07:13 03/14/25 04:19 98 Room Air 03/14/25 00:07 96 Room Air Medications Administered Aspirin (Aspirin 81 Mg Ectab) 81 mg PO QAM [facility] Stop: 04/13/25 08:59 Last Admin: 03/14/25 08:19 Dose: 81 mg Documented By: LIDIA Dextrose (Dextrose 50% 50 Ml Syringe) 25 - 50 ml IV UD PRN; Protocol PRN Reason: Hypoglycemia Protocol Stop: 04/11/25 15:29 Last Admin: 03/12/25 20:03 Dose: 25 ml Documented By: dali Admin: 03/12/25 19:24 Dose: 25 ml Documented By: dali Gabapentin (Gabapentin 300 Mg Cap) 300 mg PO BID [facility] Stop: 04/11/25 20:59 Last Admin: 03/14/25 08:19 Dose: 300 mg Documented By: Admin: 03/13/25 21:38 Dose: 300 mg Documented By: dali Admin: 03/13/25 08:52 Dose: 300 mg Documented By: Admin: 03/12/25 21:15 Dose: 300 mg Documented By: dali Heparin Sodium/Dextrose (Heparin 05538 Unit/500 Ml D5w) 25,000 units in 500 mls @ 24 mls/hr IV .[id number] [facility]; Protocol Stop: 04/12/25 14:29 Last Titration: 03/13/25 22:52 Dose: 1,200 units/hr, 24 mls/hr Documented By: dali Co-signed By: ASHLEY Titration: 03/13/25 21:52 Dose: 0 units/hr, 0 mls/hr Documented By: dali Co-signed By: ASHLEY Admin: 03/13/25 15:19 Dose: 1,350 units/hr, 27 mls/hr Documented By: LIDIA Co-signed By: QIAN Insulin Aspart (Insulin Aspart Per Unit Charge) 0 units SC ACHS [facility] Stop: 04/12/25 16:29 Last Admin: 03/14/25 08:16 Dose: 3 units Documented By: LIDIA Co-signed By: MARY Admin: 03/13/25 21:11 Dose: Not Given Documented By: dali Admin: 03/13/25 16:38 Dose: 4 units Documented By: LIDIA Co-signed By: DWIGHT Insulin Glargine (Lantus Per Unit Charge) 35 units SC DAILY [facility] Stop: 04/13/25 08:59 Last Admin: 12/07/25 08:19 Dose: 35 units Documented By: LIDIA Co-signed By: MARY Magnesium Oxide (Magnesium Oxide 400 Mg Tab) 400 mg PO BID [facility]TY Stop: 04/11/25 20:59 Last Admin: 03/14/25 08:18 Dose: 400 mg Documented By: Admin: 03/13/25 21:37 Dose: 400 mg Documented By: dali Admin: 03/13/25 08:52 Dose: 400 mg Documented By: Admin: 03/12/25 21:15 Dose: 400 mg Documented By: dali Metoprolol Tartrate (Metoprolol Tartrate 25 Mg Tab) 12.5 mg PO BID [facility] Stop: 04/11/25 20:59 Last Admin: 03/14/25 08:18 Dose: 12.5 mg Documented By: Admin: 03/13/25 21:37 Dose: 12.5 mg Documented By: dali Admin: 03/13/25 08:53 Dose: 12.5 mg Documented By: Admin: 03/12/25 21:14 Dose: 12.5 mg Documented By: dali Midodrine (Midodrine Hcl 2.5 Mg Tab) 2.5 mg PO TID@0800,1200,1700 [facility] Stop: 04/12/25 07:59 Last Admin: 03/14/25 08:17 Dose: 2.5 mg Documented By: Admin: 03/13/25 16:38 Dose: 2.5 mg Documented By: Admin: 03/13/25 12:19 Dose: 2.5 mg Documented By: Admin: 03/13/25 08:52 Dose: 2.5 mg Documented By: LIDIA Ondansetron HCl (Ondansetron Inj 2 Mg/Ml 2 Ml Vial) 4 mg IV Q6H PRN PRN Reason: Nausea Stop: 04/11/25 17:23 Last Admin: 03/14/25 09:32 Dose: 4 mg Documented By: Admin: 03/14/25 03:07 Dose: 4 mg Documented By: dali Admin: 03/12/25 20:57 Dose: 4 mg Documented By: dali Vitamin D (Cholecalciferol 125 Mcg (5,000 Units) Tab) 125 mcg PO DAILY [facility] Stop: 04/12/25 08:59 Last Admin: 03/14/25 08:18 Dose: 125 mcg Documented By: Admin: 03/13/25 08:52 Dose: 125 mcg Documented By: LIDIA (1) DKA (diabetic ketoacidosis) Diabetes mellitus complication detail: without coma Diabetes mellitus type: type 1 Qualified Code(s): E10.10 - Type 1 diabetes mellitus with ketoacidosis without coma (6) Amputation of right lower extremity below knee Encounter type: sequela Qualified Code(s): S88.111S - Complete traumatic amputation at level between knee and ankle, right lower leg, sequela
[2025-03-14 11:33] LABS: Hematocrit (blood only) 40.7 % (42.0-52.0); Hemoglobin 14.7 g/dL (14.0-18.0); Mean Corpuscular Hemoglobin 32.1 pg (25.0-34.0); Mean Corpuscular Volume 88.9 fL (80.0-100.0); Platelet Count 148 K/uL (130-400); RDW Standard Deviation 43.2 fL (36.4-46.3); Red Blood Count 4.58 M/uL (4.70-6.10); White Blood Count 4.97 K/ul (4.8-10.8)
[2025-03-14 11:55] LABS: Anion Gap 8.0 (3-11); Blood Urea Nitrogen 11.0 mg/dl (6-23); Calcium 8.5 mg/dl (8.6-10.3); Carbon Dioxide 26.0 mmol/L (21-32); Chloride 103.0 mmol/L (98-107); Creatinine Clr Calc Pharmacy 210.3 ml/min; Glucose 124.0 mg/dl (70-99(Fasting)); Magnesium 2.0 mg/dl (1.7-2.4); Potassium 3.6 mmol/L (3.5-5.1); Sodium 137.0 mmol/L (136-145)
[2025-03-14] MEDS ORDERED: SODIUM PHOSPHATE 3 MMOL/1 ML INFUSION IV STA (12:16)
[2025-03-14] MEDS: METOCLOPRAMIDE HCL INJ 5 MG/ML 2 ML VIAL IV PRN (12:18)
[2025-03-14 12:24] LABS: ANTI-Xa, UFH(UnfractionatedHep 0.37 IU/ml (0.3-0.7)
[2025-03-14] MEDS: POTASSIUM CHLORIDE 20 MEQ/15 ML UDC PO STA (12:53)
[2025-03-14] MEDS: POT PHOSPHATE MONOBASIC W/ SOD TAB PO SCH (12:53)
[2025-03-14] MEDS: SODIUM PHOSPHATE 30 MMOL in SODIUM CHLORIDE 0.9% 500 ML IV ONE (12:53)
--- NOTE | 2025-03-15 01:02 | Electrocardiogram Report ---
Test Reason : Blood Pressure : */* mmHG Vent. Rate : 116 BPM Atrial Rate : 116 BPM P-R Int : 100 ms QRS Dur : 98 ms QT Int : 354 ms P-R-T Axes : 75 111 84 degrees QTcB Int : 492 ms Sinus tachycardia with short CT Incomplete right bundle branch block Abnormal ECG When compared with ECG of 25-Jan-2025 21:27, ST now depressed in Anterolateral leads T wave inversion now evident in Anterior leads Confirmed by Florencia Nix (Hannah) on 03/15/2025 1:02:13 AM Referred By: REFERRED SELF Confirmed By: Florencia Nix
[2025-03-15 06:12] LABS: Anion Gap 6.0 (3-11); Blood Urea Nitrogen 10.0 mg/dl (6-23); Calcium 8.7 mg/dl (8.6-10.3); Carbon Dioxide 32.0 mmol/L (21-32); Chloride 101.0 mmol/L (98-107); Creatinine Clr Calc Pharmacy 173.8 ml/min; Glucose 123.0 mg/dl (70-99(Fasting)); Magnesium 2.1 mg/dl (1.7-2.4); Potassium 4.0 mmol/L (3.5-5.1); Sodium 139.0 mmol/L (136-145)
[2025-03-15 06:25] LABS: INR 1.1 (0.9-1.1); Prothrombin Time 11.4 Seconds (9.0-12.0)
[2025-03-15] MEDS ORDERED: SODIUM PHOSPHATE 3 MMOL/1 ML INFUSION IV STA (07:35)
[2025-03-15 08:07] LABS: ANTI-Xa, UFH(UnfractionatedHep 0.27 IU/ml (0.3-0.7)
[2025-03-15] MEDS: SODIUM PHOSPHATE 9 MMOL in SODIUM CHLORIDE 0.9% 250 ML IV ONE (08:07)
[2025-03-15 08:09] VITALS: RESP 18
--- NOTE | 2025-03-15 08:46 | Electrocardiogram Report ---
Test Reason : Blood Pressure : */* mmHG Vent. Rate : 82 BPM Atrial Rate : 82 BPM P-R Int : 124 ms QRS Dur : 98 ms QT Int : 382 ms P-R-T Axes : 70 110 142 degrees QTcB Int : 446 ms Normal sinus rhythm Possible Right ventricular hypertrophy T wave abnormality, consider anterolateral ischemia Low voltage QRS limb leads Abnormal ECG When compared with ECG of 13-Mar-2025 06:43, No significant change was found qtc has decreased Confirmed by Florencia Nix ([id number]) on 03/15/2025 8:46:03 AM Referred By: REFERRED SELF Confirmed By: Florencia Nix
--- NOTE | 2025-03-15 10:06 | Cardiology Progress Note ---
Date of Service March 15, 2025 Assessment & Plan (1) NSTEMI (non-ST elevated myocardial infarction): (2) Ventricular tachycardia: (3) DKA, type 2: (4) DKA (diabetic ketoacidosis): Plan: Mr Suarez was diagnosed with DM2 25 years ago at the age of 25 years. He has no documented history of coronary heart disease. In October 2024 , he presented with DKA and poorly healing right lower leg wound and was found to have osteomyelitis and ultimately underwent R BKA that admission. TTecho October revealed inferior and posterior wall motion abnormality with LVEF 45-50%. He has been limited to a wheel chair in the interim and has been making progress toward having a prosthesis fitted. He presented via the ED on 03/12/25 with chief complaint of nausea. Was found to be in a wide complex tachycardia by EMS and received amiodarone 150 mg bolus x 2 prehospital with subsequent exertional direct current cardioversion. Was in sinus rhythm on arrival to the ED. Ttecho 03/13/25 with inferior posterior WMA, LVEF 45-50% similar to October. EKG on 03/12/25 with new anterolateral T wave inversions and ST segment depression consistent with ischemia. Repeat 03/14/25 with improvement in the ST depression , but ongoing T wave inversion consistent with anterolateral ischemia. Presenting glucose was 340 mg /dl with findings of DKA, and a 3 day history of vague illness before presentation. * Continue ASA, heparin, low dose metoprolol * LDL 120 mg /dl on 03/12/25. Statin initially not started due to GI upset. Will add now. * Will discuss timing of coronary angiography with interventional cardiology Lolly Fagan DO Admission and Anticipated Discharge Date Admission Date: March 12, 2025 Subjective Patient seen in cardiology follow up. Feeling well. Denies chest pain or shortness of breath at present. No additional nausea this am. Telemetry reveals SR in the 80s. Review of Systems Review of Systems: All systems reviewed & are unremarkable except as noted in HPI & below Physical Exam Physical Exam: General: no acute distress and stated age Eyes: conjunctiva are pink and non-injected, sclera clear Neck: normal jugular venous pulse, no hepatojugular reflux Chest: normal shape and normal respiratory effort Lungs: clear to auscultation and percussion Cardiac Exam: - regular heart sounds, no murmurs, rubs, or gallops, no jugular venous distention Abdomen: abdomen soft, non-tender, no abnormal masses and no hepatosplenomegaly Extremities: s/p R LE below the knee amputation, stump site is clean , dry and intact. No erythema. LLE without edema or skin break down. 2+ bilateral radial artery pulses Neuro:awake, conversant, follows commands, no focal motor deficits Psych: appropriate affect and insight. Results & Data Vital Signs (Past 12 Hours) Vital Signs Temp Pulse Pulse Resp BP BP Pulse Ox 03/15/25 08:00 37.0 C 86 18 130/83 99 03/15/25 05:33 36.4 C 85 16 114/78 97 03/15/25 00:22 36.7 C 82 16 108/69 97 03/14/25 22:28 86 O2 Del Method 03/15/25 08:00 Room Air 03/15/25 05:33 Room Air 03/15/25 00:22 Room Air 03/14/25 22:28 Laboratory Results Coagulation 03/15/25 Range/Units 05:29 PT 11.4 (9.0-12.0) Seconds CBC 03/14/25 Range/Units 11:24 WBC 4.97 (4.8-10.8) K/ul RBC 4.58 L (4.70-6.10) M/uL Hgb 14.7 (14.0-18.0) g/dL Hct 40.7 L (42.0-52.0) % Plt Count 148 (130-400) K/uL Comprehensive Metabolic Panel 03/14/25 03/15/25 Range/Units 11:24 05:29 Sodium 137 139 (136-145) mmol/L Potassium 3.6 4.0 (3.5-5.1) mmol/L Chloride 103 101 (98-107) mmol/L Carbon Dioxide 26 32 (21-32) mmol/L BUN 11 10 (6-23) mg/dl Creatinine 0.45 L 0.54 L (0.6-1.4) mg/dl Glucose 124 H 123 H (70-99(Fasting)) mg/dl Calcium 8.5 L 8.7 (8.6-10.3) mg/dl Intake and Output 03/14/25 03/15/25 03/15/25 22:59 06:59 14:59 Intake Total 750 / 1073.15 490.4 / 490.4 Balance 750 / 1073.15 490.4 / 490.4 Intake: IV 510 / 833.15 490.4 / 490.4 Heparin 52228 Unit/500 ml D5w 490.4 / 490.4 25,000 units In 500 ml @ 1,200 UNITS/HR 24 mls/hr IV .[id number] BETTY Rx#:[id number] Sodium Phosphate 30 mmol In 510 / 510 Sodium Chloride 0.9% 500 ml @ 88 mls/hr IV ONE ONE Rx#: [id number] Oral 240 / 240 Other: Other Intake Source sprite # Unmeasured Voids 1 Weight 75.1 kg Weight Measurement Method Built in [facility] Diagnostic Findings CTA aorta w run/ off 12/12/22: 50% stenosis of the mid right popliteal artery due to noncalcified plaque. The right lower extremity arterial structures are otherwise widely patent. Coding Level of Care Code 91787 SUB INP/OBS CARE 3/50MIN Diagnoses NSTEMI (non-ST elevated myocardial infarction) I21.4 Ventricular tachycardia I47.20 DKA, type 2 E11.10 Diabetes mellitus complication detail: without coma DKA (diabetic ketoacidosis) E10.10 Diabetes mellitus complication detail: without coma Diabetes mellitus type: type 1 (3) DKA, type 2 Diabetes mellitus complication detail: without coma Qualified Code(s): E11.10 - Type 2 diabetes mellitus with ketoacidosis without coma (4) DKA (diabetic ketoacidosis) Diabetes mellitus complication detail: without coma Diabetes mellitus type: t ype 1 Qualified Code(s): E10.10 - Type 1 diabetes mellitus with ketoacidosis without coma
[2025-03-15 11:19] VITALS: TEMP 98.1
--- NOTE | 2025-03-15 12:41 | Pre Anesthesia Assessment ---
Date of Service March 15, 2025 Pre Sedation Assessment Vital Signs Temp Pulse Pulse Pulse Resp BP BP 03/15/25 12:13 80 18 119/80 03/15/25 11:19 82 03/15/25 11:19 36.7 C 80 18 114/79 03/15/25 10:26 03/15/25 08:00 37.0 C 86 18 130/83 03/15/25 05:33 36.4 C 85 16 114/78 03/15/25 00:22 36.7 C 82 16 108/69 03/14/25 22:28 86 03/14/25 20:39 37.0 C 83 17 121/80 03/14/25 16:05 36.8 C 83 16 99/77 L 03/14/25 15:35 79 Pulse Ox O2 Del Method 03/15/25 12:13 100 Room Air 03/15/25 11:19 03/15/25 11:19 98 Room Air 03/15/25 10:26 Room Air 03/15/25 08:00 99 Room Air 03/15/25 05:33 97 Room Air 03/15/25 00:22 97 Room Air 03/14/25 22:28 03/14/25 20:39 99 Room Air 03/14/25 16:05 99 Room Air 03/14/25 15:35 Cardiovascular RRR, no murmur, no edema Respiratory normal respiratory effort, lungs clear to auscultation Pre-Sedation Airway Assessment Smoking Status: Current every day smoker Hx Sleep Apnea: No Short, Thick Neck: No Thyromental Distance: > or= 3.5 Finger Breadths Oral Cavity: + WNL Mallampati Class: III ASA: ASA4 NPO Status Date of Last Intake of Fluids: 03/15/25 Time of Last Intake of Fluids: 08:00 Date of Last Intake of Solid Food: 03/14/25 Time of Last Intake of Solid Foods: 16:30 Notes The planned sedation has been discussed with the patient. Informed Consent was obtained. I have identified the patient, determined the appropriateness of sedation and have assessed the patient immediately prior to the procedure. All medicine(s) and interventions are by my order.
[2025-03-15] MEDS: IODIXANOL (VISIPAQUE) 320 MG/ML 100ML IV ONE (13:05)
[2025-03-15] MEDS: NITROGLYCERIN/D5W 100MCG/ML 20ML SYR ONE (13:08)
[2025-03-15] MEDS: niCARdipine 2,000 MCG/20 ML SYR ONE (13:08)
[2025-03-15] MEDS: HEPARIN (PORCINE) 1000 UNIT/ML 10 ML (CATH LAB USE ONLY) ONE (13:10)
[2025-03-15] MEDS: MIDAZOLAM HCL 1 MG/ML 2ML VIAL ONE (13:13)
[2025-03-15] MEDS: OPTIRAY 350 ONE (13:14)
--- NOTE | 2025-03-15 13:22 | Post Anesthesia Assessment ---
Date of Service March 15, 2025 Post Sedation Assessment Vital Signs Temp Pulse Pulse Pulse Resp BP BP 03/15/25 12:13 80 18 119/80 03/15/25 11:19 82 03/15/25 11:19 36.7 C 80 18 114/79 03/15/25 10:26 03/15/25 08:00 37.0 C 86 18 130/83 03/15/25 05:33 36.4 C 85 16 114/78 03/15/25 00:22 36.7 C 82 16 108/69 03/14/25 22:28 86 03/14/25 20:39 37.0 C 83 17 121/80 03/14/25 16:05 36.8 C 83 16 99/77 L 03/14/25 15:35 79 Pulse Ox O2 Del Method 03/15/25 12:13 100 Room Air 03/15/25 11:19 03/15/25 11:19 98 Room Air 03/15/25 10:26 Room Air 03/15/25 08:00 99 Room Air 03/15/25 05:33 97 Room Air 03/15/25 00:22 97 Room Air 03/14/25 22:28 03/14/25 20:39 99 Room Air 03/14/25 16:05 99 Room Air 03/14/25 15:35 Recovery Score Activity: Moves 4 extremities Respiration: Deep Breath/Cough Circulation: +/-20% PreAnes Value Consciousness: Fully Awake Oxygen Saturation: > 92% On Room Air Discharge Sedation Level of Care: Fast Track Phase II Post Sedation Plan On clinical assessment, the patient appears to have tolerated the sedation without complications. Patient is recovering as anticipated. Patient will continue to be monitored by nursing and may be discharged when sedation discharge criteria are met per below protocol. Upon Completions of procedure up to 15 minutes continue every 5 minute vital signs and the P.A.R. score; then discharge to a Phase I or Fast Track to Phase II per the following guidelines: * Discharge Patient to appropriate Phase II area if PAR is 8 or greater or return to pre- procedure baseline. The post - procedure orders will be as directed. * If PAR score is less than 8 or not return to pre-procedure baseline then patient will follow Phase I monitoring till PAR is reached for Phase II. The Phase I may be done in procedure room or may call to secure a Phase I area. * If naloxone or flumazenil are used for reversal, hold in Phase I for continued monitoring from when last reversal dose was given for a minimum of 60 minutes or longer pending the nurse and/or physician discretion of patient condition before discharge to Phase II. Please call the Sedation Physician to re-evaluate and complete post-note for discharge to Phase II area. Do NOT discharge from procedure sedation or Phase 1 until post- sedation evalua tion note is complete by procedure /sedation MD Sedation Discharge Instructions to be given to the patient at discharge to home. [facility] Procedure Codes (Charges) Indication for Procedure Indication for procedure: NSTEMI, cardiomyopathy
[2025-03-15 13:30] VITALS: O2SAT 95
[2025-03-15 13:50] VITALS: BP 97/58; PULSE 85
--- NOTE | 2025-03-15 13:52 | Pharmacy Report ---
Pharmacy Glycemic Short Note 2 - Date of Service March 15, 2025 - Glycemic Short BSG Results (Last 24 hours): 03/14/25 03/14/25 03/15/25 16:02 20:55 05:29 Glucose 123 H POC Glucose 127 H 119 H 03/15/25 03/15/25 07:25 13:39 Glucose POC Glucose 126 H 102 H OUTPATIENT ANTIDIABETIC REGIMEN: * Jardiance 25mg PO daily * Metformin 500mg PO BID * A1c 6.4% 01/26/25 ASSESSMENT: 03/15: * Patient has received 41 total units of insulin yesterday (35 units basal, 6 units bolus) * BSGs ranged 102-136, within range * Patient was NPO today for cardiac cath, Lantus this AM was held as a result * Patient now back to T2DM diet with lunch * Will continue same meal coverage * Add Lantus scale this evening depending on BSGs, lunch glucose was 102 before eating 03/13: * 50 yo M with PMHx T2DM, DL, hx of right leg osteomyelitis s/p right BKA, Chronic CHF, orthostasis, cardioversion by EMS, in DKA, started on insulin drip, anion gap closed today, starting basal bolus insulin and diet this morning. Continues on D51/2NSs+20KCl @ 125cc/hr. * Cardio consult this AM. * Phos dropped from 6.2 to 1.5 today, refeeding? Repleting with NaPhos 30mmol this AM. * Patient with CGM but not using inpatient. PLAN FOR INPATIENT GLYCEMIC CONTROL: * Hold outpatient oral diabetes medications * Basal insulin * Lantus scale 0/10/20 (0 units for BSG <160, 10 units for BSG 160-200, 20 units for BSG >200) * Bolus insulin * NovoLog per scale ACHS or Q6hrs while NPO * Goal Range: Low 110 mg/dL - High 140 mg/dL * Correction Factor: 35 mg/dL/unit * Nutritional / Prandial insulin per carb ratio of 1 unit per 7 grams CHO consumed
[2025-03-15] MEDS: INSULIN ASPART PER UNIT CHARGE SC SCH ×2 (13:56→14:42)
--- NOTE | 2025-03-15 14:21 | Communication Note ---
Date of Service: March 15, 2025 Cardiac catheterization films reviewed / interpreted independently and reviewed with Dr Del Toro of interventional cardiology. Patient with chronic circumflex coronary occlusion with right to left collateral flow to circumflex territory. Given inferior / posterior wall motion abnormality , LVEF 45-50% on echo in October and again this admission, presentation suggests demand ischemia in the setting of DKA and chronic coronary heart disease leading to VT. Plan: Aspirin 81 mg daily- lifelong therapy. Clopidogrel 75 mg daily x 1 year change metoprolol to succinate 12.5 mg BID. atorvastatin, titrated for goal LDL less than 55 mg/dl Patient on chronic midodrine for BP support due to chronic orthostatic hypotension As outpatient , consider stopping Jardiance as it is likely to lower blood pressure, favoring metoprolol. Question need to add back basal insulin terminal carman. -No definite indication for AICD at this time. -check 7 day Zio patch as outpatient to reassess for VT on medical therapy. Lolly Fagan DO
[2025-03-15] MEDS: ATORVASTATIN 20 MG TAB PO SCH (14:43)
[2025-03-15] MEDS: CLOPIDOGREL BISULFATE 300 MG TAB PO STA (15:09)
--- NOTE | 2025-03-15 15:12 | Discharge Summary ---
Discharge Summary Date of Service March 15, 2025 Principal Dx & Hospital Course #1 = Principal Diagnosis (1) DKA (diabetic ketoacidosis): (2) Uncontrolled diabetes mellitus with hyperglycemia: (3) NSVT (nonsustained ventricular tachycardia): (4) MARCELLO (acute kidney injury): (5) Elevated troponin: (6) Orthostatic hypotension: (7) Hyperphosphatemia: (8) Nausea and vomiting: Plan 50 year old male with PMH significant for type 2 diabetes, dyslipidemia, history of right leg osteomyelitis s/p right BKA, chronic CHF, and orthostatic hypotension on midodrine who presents to the ED on 03/12/2025 with nausea and vomiting and was found to be in wide complex v tach by EMS likely secondary to DKA. #DKA, resolved #SIRS Criteria, resolved #Uncontrolled DM with hyperglycemia -Patient presenting with nausea, vomiting, poor PO intake -Glucose 340 on admission with bicarb 9, gap 28 consistent with DKA -Labs consistent with dehydration with elevated Hgb, BUN, creat -AG x2 closed Plan: -appreciate pharmacy assistance with management -music educator consult -check labs this morning #Wide Complex Tachycardia #Anteroseptal ST Depressions #Type 2 [place] #HFmidEF (EF 45%) -Wide complex v tach per EMS -Received adenosine, amiodarone 150mg x2 doses, cardioversion in the field -had chest pain in field -EKG personally reviewed shows ST depressions and T wave inversions in anteriose ptal leads -high risk for ischemic cardiac pathology, albeit likely incited by DKA Plan: -telemetry monitoring -cardiology consult, appreciate recs -NPO after midnight for cardiac cath for ischemic eval on Saturday -K>4, Mg>2 #Gamma Gap -unclear etiology Plan: -possible gammopathy workup outpatient #MARCELLO -resolved #History of right BKA -s/p right BKA on 10/31/[address] Vela -Incision appears c/d/i -Scheduled for prosthesis this month -Wheelchair bound currently #Orthostatic hypotension -BP stable -Continue midodrine #Hypophosphatemia -2/2 DKA vs. refeeding syndrome -aggressively replenish Notes For Next Care Provider 50 year old male with PMH significant for type 2 diabetes, dyslipidemia, history of right leg osteomyelitis s/p right BKA, chronic CHF, and orthostatic hypotension on midodrine who presents to the ED on 03/12/2025 with nausea and vomiting and was found to be in wide complex v tach by EMS likely secondary to DKA. On medicine, noted to have NSTEMI in anteroseptal leads, cardiology consult ed, recommended heart cath. DKA resolved with DKA treatment, likely incited by not taking insulin. Cardiac cath shows chronic Lcx occlusion. Meds optimized. On 03/15/2025 patient medically stable for discharge home. To do: [ ] take insulin as prescribed [ ] f/u with cardiology and endocrinology Medication Changes From Visit -lantus, zofran, metoprolol, statin, Admission HPI Per Admitting Provider 50 year old male with PMH significant for type 2 diabetes, dyslipidemia, history of right leg osteomyelitis s/p right BKA, chronic CHF, and orthostatic hypotension on midodrine who presents to the ED on 03/12/2025 with nausea and vomiting. Patient reports two days of feeling ill with multiple episodes of nausea and vomiting and poor PO intake. His family called an ambulance and EMS noted wide complex v tach and patient received a dose of adenosine, amiodarone 150mg, cardioversion, and additional dose of amiodarone 150mg. Patient denies any chest pain, palpitations, SOB, abdominal pain, dysuria, diarrhea. He is wheelchair bound while he awaits a prosthesis for his right BKA. Reports he has been compliant taking metformin and jardiance. Notes he used to be on lantus but was taken off by his doctor about a month ago and since then has noticed his sugars gradually increasing on his dexcom. Discharge Exam Gen: A&O 3 NAD HEENT: NCAT, EOMI, not icteric. External ears normal. No rhinorrhea. Moist mucous membranes. Neck: Supple, full range of motion, no observable masses, No meningeal sign. Lungs: No Respiratory distress. CV: tachycardic, regular rhythm Abdomen: Soft, nondistended, No rebound tenderness. MSK: No joint swelling, no redness. Skin: No rashes, petechiae, lesions. Normal color per patient. Neuro: Normal Gait, Grossly intact. Psych: Appropriate for situation. Updated Medication List Medication Instructions Recorded Confirmed Type blood sugar diagnostic (VeratectTouch #100 ea 11/05/22 11/30/24 Rx Verio test strips) lancets 30 gauge (OneTouch Delica #100 ea 11/05/22 11/30/24 Rx Plus Lancet) pen needle, diabetic 32 gauge x #100 ea 11/05/22 11/30/24 Rx 5/32" (Pen Needle) metformin 500 mg tablet 500 mg PO BID 10/28/24 03/12/25 History cholecalciferol (vitamin D3) 125 125 mcg PO DAILY 01/25/25 03/12/25 History mcg (5,000 unit) tablet empagliflozin 25 mg tablet 25 mg PO QAM 01/25/25 03/12/25 History (Jardiance) magnesium oxide 400 mg (241.3 mg 400 mg PO BID 01/25/25 03/12/25 History magnesium) tablet sodium di- and 2 tab PO QID 01/25/25 03/12/25 History monophosphate-potassium phos monobasic 250 mg tablet (Phospha Neutral) cyclobenzaprine 5 mg tablet 5 mg PO UD PRN Muscle Spasm 03/12/25 03/12/25 History gabapentin 300 mg capsule 300 mg PO BID 03/12/25 03/12/25 History midodrine 2.5 mg tablet 2.5 mg PO TID@0800,1200,1700 03/12/25 03/12/25 History aspirin 81 mg tablet,delayed 81 mg PO QAM 30 days #30 tabs 03/15/25 Rx release atorvastatin 20 mg tablet 20 mg PO QAM 30 days #30 tabs 03/15/25 Rx blood sugar diagnostic (True #100 ea 03/15/25 Rx Metrix Glucose Test Strip) blood-glucose meter (True Metrix #1 ea 03/15/25 Rx Glucose Meter) clopidogrel 75 mg tablet 75 mg PO QAM 30 days #30 tabs 03/15/25 Rx insulin glargine 100 unit/mL (3 30 unit (0.3 mL) subcut QAM #15 mL 03/15/25 Rx mL) subcutaneous pen (Lantus Solostar U-100 Insulin) lancets 30 gauge (TRUEplus Lancets) #200 ea 03/15/25 Rx metoprolol succinate 25 mg 12.5 mg (1/2 x 25 mg) PO BID 30 03/15/25 Rx tablet,extended release 24 hr days #30 tabs ondansetron 4 mg disintegrating 4 mg PO Q8H PRN nausea and 03/15/25 Rx tablet vomiting 5 days #15 tabs pen needle, diabetic 32 gauge x #1,200 ea 03/15/25 Rx 32" (Pen Needle) Hospital Stay Data Consultations 03/12/25 15:27 ED Decision to Admit Stat 03/12/25 17:24 Consult Cardiology Routine Procedures Performed Operation Date: 03/15/25 11:45 Actual Procedures p Cineradiography w/Routine Exam - Niall Del Toro MD, PhD p Cath, Coronaries ONLY (no LV) - Niall Del Toro MD, PhD Diagnostic Imagining Performed 03/15/25 12:46 CL Cath Imgs for PACS use only Stat Pending Results Patient Have Any Pending Studies at Discharge: No Discharge Instructions Given to Patient (Per Discharging Provider) Diagnosis: Chronic Left Lateral Circumflex Occlusion, NSTEMI, DKA Follow Ups: PCP, endocrinology, cardiology 1. Please take insulin as prescribed. 2. Please take medications as prescribed. 3. Please follow up with PCP, endocrinology, and cardiology. Total Time Total Time Spent Total Time Spent (In Minutes): I spent a total of 35 minutes in direct patient care, including [id number] time with the patient and/or family, reviewing medical records, ordering and reviewing diagnostic tests, and coordinating care with other healthcare providers. This time includes: history taking, physical examination, medical decision making, counseling, ECG interpretation, imaging interpretation, lab interpretation, orders, and education, excluding time spent in the performance of separately billed services.
[2025-03-15] MEDS ORDERED: LANTUS PER UNIT CHARGE SC ONE (21:00)
[2025-03-15] MEDS ORDERED: METOPROLOL SUCC 25MG EXT REL TAB PO SCH (21:00)
[2025-03-16] MEDS ORDERED: CLOPIDOGREL BISULFATE 75 MG TAB PO SCH (09:00)
--- NOTE | 2025-03-21 12:27 | Cardiac Catheterization ---
[facility] Data: Eligibility Worker Cardiac Status Clinical evaluation leading to the procedure CAD Presenation: Non STEMI Anginal Classification: CCS IV Heart Failure: No Cardiogenic Shock within 24 Hours: No Cardiac Arrest within 24 Hours: No Imaging Studies Past 6 Months: Yes Stress Studies Past 6 Months: No Coronary Anatomy Dominant: Right Left Main (% Stenosis): Normal LAD (% Stenosis): Ostial (20%) and Distal (Less than 30%) D1 (% Stenosis): Proximal (40%) D2 (% Stenosis): Normal Circumflex (% Stenosis): Proximal (100% CASHIER ASSOCIATE) L PL1 (% Stenosis): Normal RCA (% Stenosis): Proximal (20-30%) and Mid (Less than 20%) R PDA (% Stenosis): Normal R PL1 (% Stenosis): Normal Ramus (% Stenosis): Ostial (Less than 40%) Diagnostic Physicians Name: Niall Del Toro MD, PhD Closure Device Percutaneous Entry Location: Radial Closure Device: Radial Band Recommendations: Medical Therapy and/or Counseling Cardiac Cath Procedure Full Procedure Date March 15, 2025 Pre-Procedure Diagnosis Pre-Procedure Diagnosis: Non STEMI AUC Score AUC Score: 07 Post-Procedure Diagnosis Post-Procedure Diagnosis: Severe CAD Procedure(s) Performed Procedure(s) Performed: Coronary Angiography [employer] Professor Niall Del Toro MD, PhD Estimated Blood Loss Estimated Blood Loss: 5 cc Medication(s) Medication(s): Fentanyl, Heparin, Lidocaine 1%, Nicardipine, Nitroglycerin and Versed Summary of Findings Brief description: Patient was brought to the cardiac catheterization suite where he was shaved and prepped in a sterile fashion. Sedated using IV Versed and fentanyl. Soft tissue of the right wrist were anesthetized using 2 mL of 1% Xylocaine. The right radial artery was accessed using modified Seldinger technique. 6 [place] radial artery sheath was placed. Patient was provided anticoagulation with IV heparin and antispasmodics including nicardipine and nitroglycerin. All catheters were advanced and exchanged over a 0.035 J-tip wire. Left coronary angiography in orthogonal views with a 5 Citizen [place] Pisek 4 diagnostic catheter. The right coronary angiography in orthogonal views with a 5 [place] Pisek 4 diagnostic catheter. All diagnostic catheters were removed. Radial artery sheath was removed. Hemostasis was obtained using a TR band. Patient was hemodynamically stable and asymptomatic. He was returned to the recovery area. This ended the case. Coronary angiography findings: [id number]-hdakb-[id number] vessel trifurcating into LAD, circumflex, and ramus. No disease. LAD-this is a large caliber and transapical. Ostial less than 20% stenosis. The proximal and mid LAD have calcification and mild luminal irregularities. Distally there is less than 30% focal stenosis. LAD provides a large septal as well as a large first diagonal. This has 40% proximal stenosis. It also provides a medium caliber second diagonal without disease. LCx-large caliber and nondominant. Proximal 100% chronic total occlusion with bridging collaterals. Circumflex provides a posterolateral branch which has diffuse disease. Ramus-medium to large caliber. Ostial less than 40% stenosis. RCA-large caliber and dominant. Proximal diffuse 20 to 30% stenosis. Mid vessel with less than 20% stenosis. Distal vessel with luminal irregularities and bifurcates into a normal PDA and posterolateral. Summary: 1. 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 Otherwise, mild nonocclusive disease. 2. Guideline directed medical therapy for secondary prevention of coronary artery disease. In addition, uptitrate anginal regimen. Agents and doses per primary labor arbitrator hearing office. Hemodynamics Rest Ao:: 97/66 mmHg Final Ao: 88/68 mm number LV: Not performed Recommendations Recommendations: Medical Therapy and/or Counseling Radiation Exposure (mGy) 722 mGy, 1.8 minutes fluoroscopy time Contrast (mls) 65 cc Anesthesia 1 mg Versed, 25 mcg fentanyl IV. Start 1301, end 1316 Procedural Complication(s) None Disposition Eligibility Worker Holding/Recovery I attest to the content of the Intraoperative Record and any orders documented therein. Any exceptions are noted below. [facility] Card Cath Procedure Codes Cardiac Catheterization Procedure 1: Cardiovascular Cath Procedures: 28522 Coronaries Moderate Sedation Procedure 1: Sedation/Anesthesia: 13741 Mod Sedation by the same physician;Init15 Min Child Age 5 & Up (Initial 15 minutes, start time 1301, end time 1316) PG Care Time/CCT Total # of Minutes Spent Total Time Spent with Patient: Total time spent is greater than 50% in coordination of care (as documented) at patient's floor/unit and/or counseling patient:
== END 2025-03-15 17:30 | disposition home or self-care (01) | DRG 637 ==
LOC: ED 13:13 → SUATTDRO 15:19 → 2E 15:19
PROC: CLB.CCO (2025-03-15 11:45)